=== PATIENT | male | born 1940 | race Caucasian/White ===

== ENCOUNTER 2016-02-28 16:27 | Inpatient (IN) | payer MEDICARE, OTHER ==
[~2016-02-28] VITALS: Ht 170.2 cm; Wt 81.9 kg
[~2016-02-28 16:27] MED LIST: ALBU8I INH; ASPI81 PO; AZIT250T74 PO; BUME1TAB PO; CLOP75 PO; DONE10TA14 PO; EZET10 PO; FERR65TA PO; GLIP5 PO; GLUCTAB PO; HORI600T PO; MOME17I; OMEP20CA5 PO; POTA-267 PO; REST30CA PO; ROSU40 PO; SITA100 PO; SPIRCAP INH; SYNT25TA PO; TAMS0.4C67 PO; VICT18IN INJ; ZOFR4TAB3 PO; ZOLO20CO PO
--- NOTE | 2016-02-28 16:44 | PD ---
HPI Chief Complaint: Respiratory Symptoms Time Seen by Provider: 16:35 Travel History International Travel<30 days: No Contact w/Intl Traveler<30days: No Traveled to known affect area: No History of Present Illness HPI 75-year-old male with history of multiple medical issues, COPD, was admitted at [facility] 3 days ago for bradycardia and was released yesterday , presents to the ER today because his called the ambulance, he has been having ongoing problems with dyspnea on exertion and shortness of breath intermittently. He states that that has not gone away. He denies any fevers or any other issues. Modifying Factors: None Associated Signs & Symptoms: Shortness of breath, dyspnea on exertion Risk Factors: COPD PFSH Past Medical History Autoimmune Disease: No Anxiety: Yes Depression: Yes Cancer: No Cardiac Catheterization: Yes (1996, 1999) High Cholesterol: Yes Chemotherapy: No Congestive Heart Failure: Yes COPD: Yes Dementia: Yes Diabetes: Yes Patient Takes Glucophage: No (januvia, glipizide) Diminished Hearing: No GERD: Yes Hiatal Hernia: Yes Kidney Stones: Yes (IN THE LAST 6 MONTHS ) Neurologic: Yes (HYDROCEPH, HX OF DEMENTIA ) Psychiatric: Yes Reproductive: No Radiation Therapy: No Thyroid Disease: Yes (hypo) Past Surgical History Abdominal Surgery: Yes (STENT PLACEMENT ) Body Medical Devices: STENTS Cardiac Surgery: Yes (STENTS IN HEART) Cholecystectomy: Yes (2015) Coronary Artery Bypass Graft: Yes (2005) Coronary Stent: Yes Eye Surgery: Yes (2015) Neurologic Surgery: Yes (BENIGN BRAIN TUMOR REMOVAL 2010) Oral Surgery: Yes (dental implants 2015) Thoracic Surgery: Yes (TRIPLE BYPASS) Tonsillectomy: Yes Other Surgery: Yes (RIGHT CORROTID 2004) Social History Alcohol Use: No Tobacco Use: No Substance Use: No Allergies-Medications (Allergen,Severity, Reaction): Coded Allergies: Ambien (Verified Allergy, Severe, Hallucinations, 02/28/16) Penicillin (Verified Allergy, Severe, HIVES, 02/28/16) Reported Meds & Prescriptions Reported Meds & Active Scripts Active Reported Januvia (Sitagliptin Phosphate) 100 Mg Tab 100 Mg PO DAILY Breo Ellipta Inh (Fluticasone/Vilanterol) 100-25 Mcg/Act Inh 1 Puff INH DAILY Use daily at the same time. Prozac (Fluoxetine HCl) 10 Mg Cap 30 Mg PO DAILY Pantoprazole (Pantoprazole Sodium) 40 Mg Tab 40 Mg PO DAILY Restoril (Temazepam) 30 Mg Cap 30 Mg PO HS Flomax (Tamsulosin HCl) 0.4 Mg Cap 0.8 Mg PO DAILY Crestor (Rosuvastatin Calcium) 40 Mg Tab 40 Mg PO HS K-Tab (Potassium Chloride) 10 Meq Tab 10 Meq PO DAILY Zofran (Ondansetron HCl) 4 Mg Tab 4 Mg PO DAILY PRN Clonazepam 0.5 Mg Tab 0.5 Mg PO HS Victoza Inj (Liraglutide Inj) 18 Mg/3 Ml Pen 1.8 Mg SQ DAILY Synthroid (Levothyroxine Sodium) 25 Mcg Tab 25 Mcg PO DAILY Glipizide 10 Mg Tab 10 Mg PO BIDAC Take 30 minutes before a meal Horizant ER (Gabapentin ER) 600 Mg Jacques 600 Mg PO HS Ferrous Sulfate 325 Mg Tab 325 Mg PO HS Zetia (Ezetimibe) 10 Mg Tab 10 Mg PO HS Donepezil 10 Mg Tab 10 Mg PO HS Bumex (Bumetanide) 0.5 Mg Tab 0.5 Mg PO DAILY Aspir-Low (Aspirin) 81 Mg Tabdr 81 Mg PO DAILY Ventolin Hfa 18 GM Inh (Albuterol Sulfate) 90 Mcg/Act Aer 2 Puff INH Q6H PRN Review of Systems Except as stated in HPI: all other systems reviewed are Neg Physical Exam Narrative GENERAL: Well-nourished, well-developed elderly white male patient in mild respiratory distress. SKIN: Warm and dry. HEAD: Normocephalic. EYES: No scleral icterus. No injection or drainage. NECK: Supple, trachea midline. CARDIOVASCULAR: Regular rate and rhythm without murmurs, gallops, or rubs. RESPIRATORY: Breath sounds equal with mild wheezing throughout bilaterally. No accessory muscle use. GASTROINTESTINAL: Abdomen soft, non-tender, nondistended. MUSCULOSKELETAL: No cyanosis, or edema. BACK: Nontender without obvious deformity. No CVA tenderness. Data Data Last Documented VS Vital Signs Date Time Temp Pulse Resp B/P Pulse Ox O2 Delivery O2 Flow Rate FiO2 02/28/16 18:45 90 Nasal Cannula 6 02/28/16 16:32 89 20 Orders Electrocardiogram (02/28/16 ) Complete Blood Count With Diff (02/28/16 16:35) Comprehensive Metabolic Panel (02/28/16 16:35) B-Type Natriuretic Peptide (02/28/16 16:35) Act Partial Throm Time (Ptt) (02/28/16 16:35) Prothrombin Time / Inr (Pt) (02/28/16 16:35) Ckmb (Isoenzyme) Profile (02/28/16 16:35) Troponin I (02/28/16 16:35) Arterial Blood Gas (Abg) (02/28/16 16:35) Urinalysis - C+S If Indicated (02/28/16 16:35) Iv Access Insert/Monitor (02/28/16 16:35) Ecg Monitoring (02/28/16 16:35) Oximetry (02/28/16 16:35) Oxygen Administration (02/28/16 16:35) Chest, Single Ap (02/28/16 16:35) Sodium Chloride 0.9% Flush (Ns Flush) (02/28/16 16:45) Methylprednisolone So Succ Inj (Solumedr (02/28/16 16:45) Albuterol-Ipratropium Neb (Duoneb Neb) (02/28/16 16:45) D-Dimer (02/28/16 17:05) Ct Pulmonary Angiogram (02/28/16 18:38) Albuterol-Ipratropium Neb (Duoneb Neb) (02/28/16 18:45) Labs Laboratory Tests Test 02/28/16 02/28/16 16:55 17:12 Blood Gas Puncture Site RT RADIAL Blood Gas Patient Temperature 98.6 Blood Gas HCO3 24 mmol/L Blood Gas Base Excess 0.4 mmol/L Blood Gas Oxygen Saturation 81 % Arterial Blood pH 7.48 Arterial Blood Partial 32 mmHg Pressure CO2 Arterial Blood Partial 44 mmHG Pressure O2 Arterial Blood Oxygen Content 16.5 Vol % Arterial Blood 2.7 % Carboxyhemoglobin Arterial Blood Methemoglobin 1.8 % Blood Gas Hemoglobin 14.6 G/DL Oxygen Delivery Device NASAL CANNULA Blood Gas Liter Flow 4 L/M White Blood Count 5.6 TH/MM3 Red Blood Count 5.18 MIL/MM3 Hemoglobin 14.6 GM/DL Hematocrit 44.1 % Mean Corpuscular Volume 85.2 FL Mean Corpuscular Hemoglobin 28.3 PG Mean Corpuscular Hemoglobin 33.2 % Concent Red Cell Distribution Width 15.9 % Platelet Count 156 TH/MM3 Mean Platelet Volume 8.9 FL Neutrophils (%) (Auto) 86.5 % Lymphocytes (%) (Auto) 6.6 % Monocytes (%) (Auto) 6.5 % Eosinophils (%) (Auto) 0.1 % Basophils (%) (Auto) 0.3 % Neutrophils # (Auto) 4.9 TH/MM3 Lymphocytes # (Auto) 0.4 TH/MM3 Monocytes # (Auto) 0.4 TH/MM3 Eosinophils # (Auto) 0.0 TH/MM3 Basophils # (Auto) 0.0 TH/MM3 CBC Comment DIFF FINAL Differential Comment Prothrombin Time 11.2 SEC Prothromb Time International 1.0 RATIO Ratio Activated Partial 28.9 SEC Thromboplast Time D-Dimer Quantitative (PE/DVT) 1.07 MG/L FEU Sodium Level 142 MEQ/L Potassium Level 4.2 MEQ/L Chloride Level 107 MEQ/L Carbon Dioxide Level 26.2 MEQ/L Anion Gap 9 MEQ/L Blood Urea Nitrogen 15 MG/DL Creatinine 1.16 MG/DL Estimat Glomerular Filtration 61 ML/MIN Rate Random Glucose 76 MG/DL Calcium Level 8.9 MG/DL Total Bilirubin 0.8 MG/DL Aspartate Amino Transf 21 U/L (AST/SGOT) Alanine Aminotransferase 25 U/L (ALT/SGPT) Alkaline Phosphatase 105 U/L Total Creatine Kinase 99 U/L Troponin I 0.11 NG/ML Total Protein 7.1 GM/DL Albumin 3.3 GM/DL [facility] Medical Decision Making Medical Screen Exam Complete: Yes Emergency Medical Condition: Yes Medical Record Reviewed: Yes Interpretation(s) Laboratory Tests Test 02/28/16 02/28/16 16:55 17:12 Blood Gas Oxygen Saturation 81 % (90-100) Arterial Blood pH 7.48 (7.380-7.420) Arterial Blood Partial 32 mmHg (38-42) Pressure CO2 Arterial Blood Partial 44 mmHG Pressure O2 (61-120) Neutrophils (%) (Auto) 86.5 % (16.0-70.0) Lymphocytes (%) (Auto) 6.6 % (9.0-44.0) Lymphocytes # (Auto) 0.4 TH/MM3 (1.0-4.8) D-Dimer Quantitative (PE/DVT) 1.07 MG/L FEU (0.00-0.50) Estimat Glomerular Filtration 61 ML/MIN (>89) Rate Troponin I 0.11 NG/ML (0.02-0.05) Albumin 3.3 GM/DL (3.4-5.0) Last 24 hours Impressions Chest X-Ray 02/28/16 1635 Signed Impressions: Service Date/Time: Sunday, February 28, 2016 16:48 - CONCLUSION: Pulmonary vascular congestion with probable small right pleural effusion Josh Daily MD Differential Diagnosis Dyspnea on exertionCOPD exacerbation versus pneumonia versus CHF Narrative Course Patient is wheezing and Solu-Medrol and DuoNeb's were initiated in the ER. Initial chest x-ray did not show any signs of acute pulmonary processes. His lab work shows an elevated d-dimer and a CTA was ordered to rule out PE especially considering his ongoing hypoxia and recent admission. EKG did not show any signs of acute ST-T elevations. His troponin is mildly elevated. At this point, patient will need to be admitted for further evaluation and treatment. Physician Communication Physician Communication Case is signed out to Dr. Merritt at 7 PM pending CTA. Awaiting CTA for admission. Diagnosis Primary Impression: SHORTNESS OF BREATH Admitting Information Admitting Physician Requests: Admit Tiffany Carlos MD Feb 28, 2016 16:44
[2016-02-28] MEDS ORDERED: methylPREDNISolone SOD SUCC 125 MG/2 ML VIAL IVP ONE (16:45)
[2016-02-28] MEDS ORDERED: SODIUM CHLORIDE 0.9% FLUSH 5 ML FLUSH IVF PRN (16:45)
[2016-02-28] MEDS: RESP: ALBUTEROL 2.5 MG/IPRATROPIUM 0.5 MG NEB (SCH) INH ×2 (16:53→20:07)
--- NOTE | 2016-02-28 16:57 | RADRPT ---
EXAM DATE/TIME: 02/28/2016 16:48 [facility] COMPARISON: CHEST SINGLE AP, April 02, 2013, 14:39. INDICATIONS : Short of breath. MEDICAL HISTORY : None. SURGICAL HISTORY : None. ENCOUNTER: Initial ACUITY: 1 day PAIN SCORE: 0/10 LOCATION: Bilateral chest FINDINGS: Again noted evidence of prior median sternotomy with apparent pulmonary vascular congestion. Bibasila r densities are appreciated primarily interstitial without consolidation with on the right the possib ility of a portion of this representing effusion. CONCLUSION: Pulmonary vascular congestion with probable small right pleural effusion Josh Daily MD on February 28, 2016 at 16:54 Board Certified Radiologist. This report was verified electronically.
[2016-02-28 17:01] LABS: BLOOD GAS BASE EXCESS 0.4 mmol/L (-2-2); BLOOD GAS CARBOXYHEMOGLOBIN 2.7 % (0-4); BLOOD GAS HCO3 24 mmol/L (22-26); BLOOD GAS METHEMOGLOBIN 1.8 % (0-2); BLOOD GAS O2 HGB SATURATION 81 % (90-100); BLOOD GAS OXYGEN CONTENT 16.5 Vol % (12.0-20.0); BLOOD GAS PCO2 32 mmHg (38-42); BLOOD GAS PO2 44 mmHG (61-120); BLOOD GAS TOTAL HGB 14.6 G/DL (12.0-16.0); CRITICAL VALUE YES; DRAW SITE RT RADIAL; LITER FLOW 4 L/M; OXYGEN DEVICE NASAL CANNULA; TEMP CORR TO 98.6
[2016-02-28 17:02] LABS: NUMBER OF ARTERIAL PUNCTURES 1; STAT YES; ULNAR PULSE PRESENT
[2016-02-28 17:59] LABS: AUTOMATED NEUTROPHIL # 4.9 TH/MM3 (1.8-7.7); BASOPHIL % 0.3 % (0.0-2.0); EOSINOPHIL % 0.1 % (0.0-4.0); HEMATOCRIT 44.1 % (39.0-51.0); HEMO FLAGS DIFF FINAL; LYMPH % 6.6 % (9.0-44.0); LYMPHOCYTE # 0.4 TH/MM3 (1.0-4.8); MEAN CELL VOLUME 85.2 FL (80.0-100.0); MEAN CORPUSCULAR HEMOGLOBIN 28.3 PG (27.0-34.0); MEAN CORPUSCULAR HGB CONC 33.2 % (32.0-36.0); MONO % 6.5 % (0.0-8.0); NEUT % 86.5 % (16.0-70.0); PLATELET COUNT 156 TH/MM3 (150-450); RED BLOOD COUNT 5.18 MIL/MM3 (4.50-5.90); RED CELL DISTRIBUTION WIDTH 15.9 % (11.6-17.2); WHITE BLOOD COUNT 5.6 TH/MM3 (4.0-11.0)
[2016-02-28 18:12] LABS: APTT (PATIENT) 28.9 SEC (24.3-30.1); PROTHROMBIN TIME - PATIENT 11.2 SEC (9.8-11.6)
[2016-02-28 18:30] LABS: ALKALINE PHOSPHATASE 105 U/L (45-117); ALT (GPT) 25 U/L (12-78); ANION GAP 9 MEQ/L (5-15); AST (GOT) 21 U/L (15-37); BICARBONATE 26.2 MEQ/L (21.0-32.0); BLOOD UREA NITROGEN 15 MG/DL (7-18); CHLORIDE 107 MEQ/L (98-107); CREATINE KINASE 99 U/L (39-308); GLOMERULAR FILTRATION RATE 61 ML/MIN (>89); POTASSIUM 4.2 MEQ/L (3.5-5.1); SODIUM (NA) 142 MEQ/L (136-145); TOTAL BILIRUBIN ADULT 0.8 MG/DL (0.2-1.0)
[2016-02-28 18:45] VITALS: O2SAT 90
[2016-02-28] MEDS ORDERED: REST30CA PO (18:45)
[2016-02-28] MEDS ORDERED: HORI600T PO (18:45)
[2016-02-28] MEDS ORDERED: ASPI81TA19 PO (18:45)
[2016-02-28] MEDS ORDERED: CLON0.5T PO (18:45)
[2016-02-28] MEDS ORDERED: FLUO-1 PO (18:45)
[2016-02-28] MEDS ORDERED: DONE10TA7 PO (18:45)
[2016-02-28] MEDS ORDERED: FERR325T PO (18:45)
[2016-02-28] MEDS ORDERED: GLIP10TA6 PO (18:45)
[2016-02-28] MEDS ORDERED: ROSU40 PO (18:45)
[2016-02-28] MEDS ORDERED: VICT18IN SQ (18:45)
[2016-02-28] MEDS ORDERED: BUME1TAB25 PO (18:45)
[2016-02-28] MEDS ORDERED: K-TA10TA PO (18:45)
[2016-02-28] MEDS ORDERED: PANT40TA3 PO (18:45)
[2016-02-28] MEDS ORDERED: ZETI10TA5 PO (18:45)
[2016-02-28] MEDS ORDERED: FLUT1INH INH (18:45)
[2016-02-28] MEDS ORDERED: VENTAER INH (18:45)
[2016-02-28] MEDS ORDERED: TAMS5CAP PO (18:45)
[2016-02-28] MEDS ORDERED: SYNT25TA PO (18:45)
[2016-02-28] MEDS ORDERED: ZOFR4TAB PO (18:45)
[2016-02-28] MEDS ORDERED: SITA1TAB2 PO (18:47)
--- NOTE | 2016-02-28 19:46 | PD ---
Physical Exam Narrative General: The patient is a well-developed well-nourished male, in no acute distress, however he is currently on 5 L nasal cannula O2 with O2 saturations between 88 and 90%. He is on home O2 when necessary at 2 L. Head and Neck exam: Head is normocephalic atraumatic. Eyes: P are equal round and reactive to light. Nose: Midline septum with pink mucous membranes Mouth: Dentition unremarkable. Moist mucus membranes. Posterior oropharynx is not erythematous. No tonsillar hypertrophy. Uvula midline. Airway patent. Neck: No palpable lymphadenopathy. No nuchal rigidity. No thyromegaly. Cardiovascular: Regular rate and rhythm without murmurs, gallops, or rubs. No pulse deficit to the extremities and simultaneous auscultation and palpation of his radial artery. Lungs: Soffit soft expiratory wheezes audible throughout bilateral lung dumas, no accessory muscle use, no paroxysmal abdominal breathing. The patient has scattered crackles audible in the lower lung bases bilaterally. Abdomen: Soft, without tenderness to palpation in all 4 quadrants of the abdomen. No guarding, rebound, or rigidity. Normal bowel sounds are audible Extremities: No clubbing, cyanosis, or edema. 2+ pulses in all 4 extremities. No calf tenderness on palpation Back: No spinous process tenderness to palpation. No costovertebral angle tenderness to palpation. Neurologic Exam: Grossly nonfocal. Skin Exam: No rash noted. Intact skin that is warm and dry. Data Data Last Documented VS Vital Signs Date Time Temp Pulse Resp B/P Pulse Ox O2 Delivery O2 Flow Rate FiO2 02/28/16 18:45 90 Nasal Cannula 6 02/28/16 16:32 89 20 Orders Electrocardiogram (02/28/16 ) Complete Blood Count With Diff (02/28/16 16:35) Comprehensive Metabolic Panel (02/28/16 16:35) B-Type Natriuretic Peptide (02/28/16 16:35) Act Partial Throm Time (Ptt) (02/28/16 16:35) Prothrombin Time / Inr (Pt) (02/28/16 16:35) Ckmb (Isoenzyme) Profile (02/28/16 16:35) Troponin I (02/28/16 16:35) Arterial Blood Gas (Abg) (02/28/16 16:35) Urinalysis - C+S If Indicated (02/28/16 16:35) Iv Access Insert/Monitor (02/28/16 16:35) Ecg Monitoring (02/28/16 16:35) Oximetry (02/28/16 16:35) Oxygen Administration (02/28/16 16:35) Chest, Single Ap (02/28/16 16:35) Sodium Chloride 0.9% Flush (Ns Flush) (02/28/16 16:45) Methylprednisolone So Succ Inj (Solumedr (02/28/16 16:45) Albuterol-Ipratropium Neb (Duoneb Neb) (02/28/16 16:45) D-Dimer (02/28/16 17:05) Ct Pulmonary Angiogram (02/28/16 18:38) Albuterol-Ipratropium Neb (Duoneb Neb) (02/28/16 18:45) Furosemide Inj (Lasix Inj) (02/28/16 20:00) Albuterol-Ipratropium Neb (Duoneb Neb) (02/28/16 20:00) Iohexol 350 Inj (Omnipaque 350 Inj) (02/28/16 20:12) Admit Order (Ed Use Only) (02/28/16 21:15) Labs Laboratory Tests Test 02/28/16 02/28/16 16:55 17:12 Blood Gas Puncture Site RT RADIAL Blood Gas Patient Temperature 98.6 Blood Gas HCO3 24 mmol/L Blood Gas Base Excess 0.4 mmol/L Blood Gas Oxygen Saturation 81 % Arterial Blood pH 7.48 Arterial Blood Partial 32 mmHg Pressure CO2 Arterial Blood Partial 44 mmHG Pressure O2 Arterial Blood Oxygen Content 16.5 Vol % Arterial Blood 2.7 % Carboxyhemoglobin Arterial Blood Methemoglobin 1.8 % Blood Gas Hemoglobin 14.6 G/DL Oxygen Delivery Device NASAL CANNULA Blood Gas Liter Flow 4 L/M White Blood Count 5.6 TH/MM3 Red Blood Count 5.18 MIL/MM3 Hemoglobin 14.6 GM/DL Hematocrit 44.1 % Mean Corpuscular Volume 85.2 FL Mean Corpuscular Hemoglobin 28.3 PG Mean Corpuscular Hemoglobin 33.2 % Concent Red Cell Distribution Width 15.9 % Platelet Count 156 TH/MM3 Mean Platelet Volume 8.9 FL Neutrophils (%) (Auto) 86.5 % Lymphocytes (%) (Auto) 6.6 % Monocytes (%) (Auto) 6.5 % Eosinophils (%) (Auto) 0.1 % Basophils (%) (Auto) 0.3 % Neutrophils # (Auto) 4.9 TH/MM3 Lymphocytes # (Auto) 0.4 TH/MM3 Monocytes # (Auto) 0.4 TH/MM3 Eosinophils # (Auto) 0.0 TH/MM3 Basophils # (Auto) 0.0 TH/MM3 CBC Comment DIFF FINAL Differential Comment Prothrombin Time 11.2 SEC Prothromb Time International 1.0 RATIO Ratio Activated Partial 28.9 SEC Thromboplast Time D-Dimer Quantitative (PE/DVT) 1.07 MG/L FEU Sodium Level 142 MEQ/L Potassium Level 4.2 MEQ/L Chloride Level 107 MEQ/L Carbon Dioxide Level 26.2 MEQ/L Anion Gap 9 MEQ/L Blood Urea Nitrogen 15 MG/DL Creatinine 1.16 MG/DL Estimat Glomerular Filtration 61 ML/MIN Rate Random Glucose 76 MG/DL Calcium Level 8.9 MG/DL Total Bilirubin 0.8 MG/DL Aspartate Amino Transf 21 U/L (AST/SGOT) Alanine Aminotransferase 25 U/L (ALT/SGPT) Alkaline Phosphatase 105 U/L Total Creatine Kinase 99 U/L Troponin I 0.11 NG/ML B-Type Natriuretic Peptide 853 PG/ML Total Protein 7.1 GM/DL Albumin 3.3 GM/DL [facility] Medical Record Reviewed: Yes Supervised Visit with ALEX: No Interpretation(s) Last Impressions Chest X-Ray 02/28/16 6109 Signed Impressions: Service Date/Time: Sunday, February 28, 2016 16:48 - CONCLUSION: Pulmonary vascular congestion with probable small right pleural effusion Josh Daily MD Differential Diagnosis Congestive heart failure exacerbation related to fluid overload from recent hypotension and admission at the hospital with fluid hydration, versus COPD exacerbation, versus pulmonary embolus, versus pneumonia Narrative Course During the course of the patients emergency department visit, the patients history, examination, and differential diagnosis were reviewed with the patient. The patient had IV access obtained and blood work sent for analysis. The patient's was on a cadastral engineer with oximetry and blood pressure monitoring. The patient was initially evaluated by Dr. Rios. Please see her complete history and physical. The patient reports to me on change of shift that he was discharged from the hospital earlier today. He was discharged from the hospital after an admission for hypotension and placement on Levaquin. He was hydrated with multiple liters of IV fluids according to his at the bedside. She was concerned that he may go into congestive heart failure as he does have a history of coronary artery disease and congestive heart failure as well as COPD. She reports that this morning prior to discharge she mentioned to them that he was short of breath, however they attributed this to anxiety and discharged him anyway. The patient reports that he did complete his course of antibiotic. When she transported him home on his usual 2 L when necessary nasal cannula he desatted on their monitor down to in the 70s. She then decided to bring him in to our hospital for evaluation and treatment. The patient was provided by Dr. Rios prior to my assessment, Solu-Medrol 125 mg IV, DuoNeb 2. Based on the chest x-ray the patient will also be given Lasix 40 mg IV. The patients laboratory studies were reviewed and remarkable for a white count of 5.6, hemoglobin 14.6, platelets 156 with neutrophils 86.5, lymphocytes 6.6, CMP is remarkable for GFR 61, CPK 99, troponin I 0.11 likely related to demand and hypoxia this will be repeated. BNP is 853, albumin 3.3, d-dimer is 1.07, PT PTT unremarkable. A CTA to rule out PE has been ordered. Radiology studies were reviewed and remarkable for pulmonary edema with a small pleural effusion, consistent with a congestive heart failure exacerbation. CTA to rule out PE was negative for pulmonary embolism. Moderate emphysema is noted, dependent atelectasis in both lungs, moderate effusion, moderate coronary artery calcifications, mild ascites. The patient will be admitted to the hospital for continued evaluation and treatment due to hypoxia on supplemental oxygen. The patients results were discussed with the patient, including the plan of care. I explained that further testing and/ or monitoring is indicated based on the patients history, examination, and/ or laboratory findings. Therefore, I recommended admission for additional evaluation. The patient expressed understanding and was agreeable with this plan. The patient was admitted to the hospital in stable condition and sent to a bed under the care of the [facility] hospitalist group. Physician Communication Physician Communication The patient's case was discussed with Perez Donis who did agree to admit the patient to the [facility] hospitalist group. Diagnosis Primary Impression: SHORTNESS OF BREATH Additional Impressions: Acute exacerbation of congestive heart failure Qualified Code: I50.9 - Acute on chronic congestive heart failure, unspecified congestive heart failure type Hypoxemia Admitting Information Admitting Physician Requests: Admit Aditi Merritt MD Feb 28, 2016 19:45
[2016-02-28] MEDS ORDERED: RESP: ALBUTEROL 2.5 MG/IPRATROPIUM 0.5 MG NEB (SCH) NEB ONE (20:00)
[2016-02-28] MEDS ORDERED: FUROSEMIDE 40 MG/4 ML VIAL IV PUSH ONE (20:00)
[2016-02-28] MEDS ORDERED: IOHEXOL 350 MG/ML 10 ML VIAL (for RAD DIAG) IV ONE (20:12)
--- NOTE | 2016-02-28 20:55 | RADRPT ---
EXAM DATE/TIME: 02/28/2016 19:46 [facility] COMPARISON: No previous studies available for comparison. INDICATIONS : Shortness of breath with cough. IV CONTRAST: 70 cc Omnipaque 350 (iohexol) IV RADIATION DOSE: 14.90 CTDIvol (mGy) MEDICAL HISTORY : Cardiovascular disease. Hypertension. Chronic obstructive pulmonary disease. SURGICAL HISTORY : CABG ENCOUNTER: Initial ACUITY: 3 days PAIN SCALE: 0/10 LOCATION: Bilateral chest TECHNIQUE: Volumetric scanning of the chest was performed using a pulmonary embolism protocol MIP images were re constructed. Using automated exposure control and adjustment of the mA and/or kV according to patien t size, radiation dose was kept as low as reasonably achievable to obtain optimal diagnostic quality images. FINDINGS: No filling defects identified to suggest embolic disease. Small to moderate bilateral pleural effusio ns. Dependent atelectasis in both lungs. Moderate centrilobular emphysema. Mild esophageal dilatation. Moderate coronary calcifications. Upper abdomen reveals mild ascites. CONCLUSION: 1. Negative for pulmonary embolus. 2. Moderate emphysema. Dependent atelectasis in both lungs. Moderate effusions. 3. Moderate coronary artery calcifications. 4. Mild ascites. Art Moss MD on February 28, 2016 at 20:50 Board Certified Radiologist. This report was verified electronically.
[2016-02-28 21:35] VITALS: BP 108/53; PULSE 90; RESP 20; O2SAT 90
[2016-02-28] MEDS ORDERED: BISACODYL 10 MG SUPP PR PRN (21:45)
[2016-02-28] MEDS ORDERED: SODIUM CHLORIDE 0.9% FLUSH 5 ML FLUSH FLUSH PRN (21:45)
[2016-02-28] MEDS ORDERED: GLUCAGON 1 MG/ML VIAL OTHER PRN (21:45)
[2016-02-28] MEDS ORDERED: NALOXONE HCL 0.4 MG/ML AMP IV PRN (21:45)
[2016-02-28] MEDS ORDERED: ONDANSETRON HCL 4 MG/2 ML VIAL IVP PRN (21:45)
[2016-02-28] MEDS ORDERED: DEXTROSE 50% IN WATER 50 ML VIAL(D50) IV PUSH PRN (21:45)
[2016-02-28] MEDS ORDERED: SENNOSIDES 8.6 MG TAB PO PRN (21:45)
[2016-02-28] MEDS ORDERED: ACETAMINOPHEN 325 MG TAB PO PRN (21:45)
[2016-02-28 22:17] LABS: BLOOD, URINE NEG (NEG); COMMENT (UR) CULT NOT INDICATED; CULTURE IF INDICATED CULT NOT INDICATED; GLUCOSE,URINE 70 mg/dL (NEG); HYALINE CAST, URINE 3 /lpf (RARE); KETONE, URINE 10 mg/dL (NEG); MUCUS URINE FEW /lpf (OCC); NITRITE,URINE NEG (NEG); SQUAMOUS EPITHELIAL CELL URINE <1 /hpf (0-5); URINE COLOR YELLOW (YELLW/STRAW)
[2016-02-28] MEDS: ENOXAPARIN SODIUM 40 MG/0.4 ML SYRINGE SQ SCH (22:26)
[2016-02-28] MEDS: GABAPENTIN 300 MG CAP PO SCH (22:26)
[2016-02-28] MEDS: ASPIRIN EC 325 MG TABEC PO SCH (22:26)
[2016-02-28] MEDS: LEVOFLOXACIN 500 MG PREMIX INJ 100 ML IV SCH (22:27)
[2016-02-28 22:31] VITALS: BP 103/55; PULSE 81; RESP 18; O2SAT 89
[2016-02-28] MEDS ORDERED: RESP: ALBUTEROL 2.5 MG/IPRATROPIUM 0.5 MG NEB (PRN) NEB (23:30)
[2016-02-29] VITALS (12 sets, daily range): BP systolic 97–167; BP diastolic 56–81; PULSE 56–82; RESP 18–20; TEMP 97.4–98.1; O2SAT 92–98
[2016-02-29] MEDS: methylPREDNISolone SOD SUCC 40 MG/1 ML VIAL IV PUSH SCH ×3 (01:36→20:24)
[2016-02-29 04:48] LABS: MAGNESIUM 2.1 MG/DL (1.5-2.5); POTASSIUM 3.5 MEQ/L (3.5-5.1)
[2016-02-29] MEDS: INSULIN ASPART SUPPLEMENTAL SCALE SQ SCH ×4 (07:40→20:27)
[2016-02-29] MEDS: SODIUM CHLORIDE 0.9% FLUSH 5 ML FLUSH FLUSH SCH ×2 (07:42→20:24)
[2016-02-29] MEDS: ASPIRIN EC 325 MG TABEC PO SCH (07:42)
[2016-02-29] MEDS ORDERED: FUROSEMIDE 40 MG/4 ML VIAL IV PUSH SCH (09:00)
--- NOTE | 2016-02-29 09:13 | MH ---
cc: JABARI FORTUNE MD DATE OF ADMISSION: 02/28/[address] Riya Huber. CHIEF COMPLAINT Shortness of breath. PRESENT ILLNESS This is a pleasant 75-year-old male who was admitted to [facility] on 02/25/2016. He initially came to the hospital feeling lightheaded, weak and he was found to be hypotensive. He received 3 liters of IV fluid. He was started on antibiotics and IV steroids. He was also having chills. He recently was started on Lyrica and was having some bad dreams and was getting a little more confused, so he had been taken off of that prior to that hospitalization. During his hospitalization, antibiotics were continued but the infection was ruled out per the and he was released earlier today on the February,. His stepped outside for a few minutes to take the dog out and when she came back he was very short of breath. She has a home pulse oximeter and she saw his pulse oximetry drop down into the high seventies and because of this she became concerned and called EVAC and had him brought to [facility]. He was seen by Dr. Merritt at [place] and was found to have congestive heart failure. CT of the chest per PE protocol was negative but he does have pleural effusions and fluid overload and was started on Lasix and oxygen and is being admitted for further care. MEDICATIONS ON ADMISSION Please see the chart. ALLERGIES AMBIEN. PENICILLIN. PAST MEDICAL HISTORY Significant for - 1. Coronary artery disease. 2. Hyperlipidemia. 3. Hiatal hernia. 4. Hypertension. 5. Peripheral vascular disease. 6. Vertigo. 7. Chronic back pain. 8. Orthostatic hypotension. 9. Diabetes mellitus type 2. 10. Degenerative disc disease. 11. COPD with p.r.n. oxygen use and h.s. oxygen use. 12. CVA. 13. Tinnitus. 14. Right frontal meningioma. 15. Syncope. 16. Neuropathy. 17. RLS. 18. Early dementia. 19. Congestive heart failure. PAST SURGICAL HISTORY 1. Angioplasty of the heart. 2. Cardiac catheterizations with stents x 2. 3. Fem-pop bypass with stents placed in bilateral iliac arteries. 4. Carotid endarterectomy. 5. Five-vessel CABG. 6. Meningioma of the brain status post resection in 2010. 7. [employer] shunt for hydrocephalus. 8. Cataract surgery. 9. Cholecystectomy (the patient is also being monitored at [place] for recurrent meningiomas). SOCIAL HISTORY . Had a 120 pack-year history of smoking. Quit smoking 15 years ago. Used to drink alcohol but stopped. FAMILY HISTORY Liver cancer, emphysema and alcoholism run in the family. REVIEW OF SYSTEMS Gone over with the patient and his . He does have neuropathy from his diabetes. He had been started on Lyrica recently but this was discontinued and he was placed back onto Neurontin. His blood sugars have been stable at home. He has a personal care worker. His states that he was exercising with 10-pound weight dumbbells and pressing 60+ pounds and he had been doing very well and she denied any other specific changes in his overall health. On a 12-point review of systems, the patient himself has had no recent chest pain. He was exercising as mentioned above without any shortness of breath or chest pain. His weight had been stable. He feels like he was a little more swollen today after being released from the hospital. Otherwise negative for pertinent findings. PHYSICAL EXAMINATION VITAL SIGNS: The patient's last pulse was 81, respirations 18, blood pressure 103/55. O2 sat was 89% on 5 liters. GENERAL: This is a 75-year-old male resting in bed. He does not appear to be in distress at this time. HEENT: Mucous membranes are moist. There is no jaundice. NECK: Supple. CARDIOVASCULAR SYSTEM: Regular rate and rhythm. RESPIRATORY SYSTEM: Scattered wheezes in the upper lung dumas. Breath sounds are distant in the lower lung dumas with a few crackles. GASTROINTESTINAL SYSTEM: Bowel sounds are present. Mild left mid-abdominal tenderness but no guarding, rebound or distention. SYSTEM: No suprapubic tenderness. No CVA tenderness. MUSCULOSKELETAL SYSTEM: No edema. Chad's is negative. NEUROLOGICAL EXAMINATION: The patient is awake, alert and generally oriented. His speech is clear. He is edentulous. Strength appears symmetrical in the upper and lower extremities. Gait and station is not tested. INVESTIGATIONS CBC is normal. ABG shows a pH of 7.48, a pCO2 of 32, a PO2 of 44% and O2 sat was 81% on 4 liters nasal cannula. INR was 1. D-dimer was 1.07. Urinalysis shows protein 30+, glucose 70, ketones 10. Holter is not indicated. BNP of 853. Troponin of 0.11. BMP otherwise essentially normal. GFR was at 61. Creatinine was 1.16 and albumin was 3.3. Chest x-ray shows pulmonary vascular congestion with probable small right effusion. CT angiography of the chest shows negative PE, moderate emphysema, dependent atelectasis both lungs, moderate effusions, moderate coronary artery calcification, mild ascites. EKG Sinus rhythm, possible left atrial enlargement. IMPRESSION 1. Acute congestive heart failure. 2. Chronic obstructive pulmonary disease exacerbation. 3. Hypoxia. 4. Elevated troponin. 5. Chronic kidney disease. 6. Diabetes mellitus. 7. History of coronary artery disease status post stents and bypass. 8. Hypertension. 9. Hyperlipidemia. 10. History of peripheral vascular disease. 11. Multiple other medical problems including RLS, neuropathy, meningiomas, CVAs, degenerative disc disease of the back, hiatal hernia. DISCUSSION The patient is admitted to Dr. Fortune's service. The patient meets inpatient criteria due to the severity of his hypoxia without which hospitalization he would be at a high risk for developing respiratory failure or . During his hospital stay, we will titrate his oxygen. We will run serial troponins. He is coughing up thick yellow mucus as well. We will check a sputum culture. We will continue IV antibiotics. We will continue diuresing him while monitoring him on telemetry or on serial troponins. We will check an echocardiogram. We will consult his principal data architect, Dr. He Merritt. We will place him on a low-dose IV steroid, we will also use nebulizers. We will resume his home medication as indicated and we will make further recommendations as his case progresses. Anticipated length of stay is 3-4 days. Anticipated discharge is to home with his family. Dictated by: Andres Donis PA-C MD GARRISON Bowles/SUSAN /11:19 PM /8:41 AM PT is seen & Examined d/w PT d/w Perez see Orders see H&P will f/u Jabari Fortune MD Feb 29, 2016 10:20 MTDD
--- NOTE | 2016-02-29 10:20 | HHI.PR ---
Objective Objective Results - Vital Signs Date Time Temp Pulse Resp B/P Pulse Ox O2 Delivery O2 Flow Rate FiO2 02/29/16 07:48 18 98 Nasal Cannula 5 02/29/16 07:46 63 18 153/74 97 Nasal Cannula 5 02/29/16 03:15 72 18 116/56 92 Nasal Cannula 5 02/29/16 00:00 72 18 97/75 93 Nasal Cannula 5 02/28/16 22:31 81 18 103/55 89 Nasal Cannula 5 02/28/16 21:35 90 20 108/53 90 Nasal Cannula 5 02/28/16 18:45 90 Nasal Cannula 6 02/28/16 18:45 90 Nasal Cannula 6 02/28/16 16:32 89 20 75 Room Air I/O 02/28/16 02/28/16 02/28/16 02/29/16 02/29/16 02/29/16 07:00 15:00 23:00 07:00 15:00 23:00 Intake Total 120 ml Output Total 1100 ml Balance -1100 ml 120 ml Intake Oral 120 ml Output Urine Total 1100 ml # Voids 1 # Bowel Movements 1 Result Diagram: 02/28/16 1712 02/29/16 0352 Other Results Laboratory Tests Test 02/28/16 02/28/16 02/28/16 02/28/16 16:55 17:12 21:35 23:00 Blood Gas Puncture Site RT RADIAL Blood Gas Patient Temperature 98.6 Blood Gas HCO3 24 Blood Gas Base Excess 0.4 Blood Gas Oxygen Saturation 81 Arterial Blood pH 7.48 Arterial Blood Partial 32 Pressure CO2 Arterial Blood Partial 44 Pressure O2 Arterial Blood Oxygen Content 16.5 Arterial Blood 2.7 Carboxyhemoglobin Arterial Blood Methemoglobin 1.8 Blood Gas Hemoglobin 14.6 Oxygen Delivery Device NASAL CANNULA Blood Gas Liter Flow 4 White Blood Count 5.6 Red Blood Count 5.18 Hemoglobin 14.6 Hematocrit 44.1 Mean Corpuscular Volume 85.2 Mean Corpuscular Hemoglobin 28.3 Mean Corpuscular Hemoglobin 33.2 Concent Red Cell Distribution Width 15.9 Platelet Count 156 Mean Platelet Volume 8.9 Neutrophils (%) (Auto) 86.5 Lymphocytes (%) (Auto) 6.6 Monocytes (%) (Auto) 6.5 Eosinophils (%) (Auto) 0.1 Basophils (%) (Auto) 0.3 Neutrophils # (Auto) 4.9 Lymphocytes # (Auto) 0.4 Monocytes # (Auto) 0.4 Eosinophils # (Auto) 0.0 Basophils # (Auto) 0.0 CBC Comment DIFF FINAL Differential Comment Prothrombin Time 11.2 Prothromb Time International 1.0 Ratio Activated Partial 28.9 Thromboplast Time D-Dimer Quantitative (PE/DVT) 1.07 Sodium Level 142 Potassium Level 4.2 Chloride Level 107 Carbon Dioxide Level 26.2 Anion Gap 9 Blood Urea Nitrogen 15 Creatinine 1.16 Estimat Glomerular Filtration 61 Rate Random Glucose 76 Calcium Level 8.9 Total Bilirubin 0.8 Aspartate Amino Transf 21 (AST/SGOT) Alanine Aminotransferase 25 (ALT/SGPT) Alkaline Phosphatase 105 Total Creatine Kinase 99 Troponin I 0.11 0.08 B-Type Natriuretic Peptide 853 Total Protein 7.1 Albumin 3.3 Urine Color YELLOW Urine Turbidity CLEAR Urine pH 6.0 Urine Specific [place] 1.024 Urine Protein 30 Urine Glucose (UA) 70 Urine Ketones 10 Urine Occult Blood NEG Urine Nitrite NEG Urine Bilirubin NEG Urine Urobilinogen LESS THAN 2.0 Urine Leukocyte Esterase NEG Urine RBC 1 Urine WBC 1 Urine Squamous Epithelial <1 Cells Urine Hyaline Casts 3 Urine Mucus FEW Microscopic Urinalysis Comment CULT NOT INDICATED Test 02/29/16 03:52 Sodium Level 141 Potassium Level 3.5 Chloride Level 104 Carbon Dioxide Level 27.0 Anion Gap 10 Blood Urea Nitrogen 20 Creatinine 1.41 Estimat Glomerular Filtration 49 Rate Random Glucose 375 Calcium Level 8.7 Magnesium Level 2.1 Troponin I 0.05 Procalcitonin 0.08 Physical Exam Physical Exam PT is seen & Examined d/w PT d/w Perez see Orders see H&P will f/u Hoa Fortune MD Feb 29, 2016 10:20
[2016-02-29] MEDS: POTASSIUM CHLORIDE 20 MEQ CONTROLLED RELEASE TAB PO SCH ×2 (10:32→20:23)
--- NOTE | 2016-02-29 12:31 | MB ---
cc: CATHY FELIZ MD DATE OF CONSULTATION 02/29/2016 REASON FOR CONSULTATION CHF. HISTORY OF PRESENT ILLNESS Mr. Case is a pleasant 75-year-old patient of my partner Dr. Merritt. He does have a history of a CABG in 2005 with a MARKS to LAD, SVG to the PDA, PL and OM1, as well as a history of hypertension, hyperlipidemia, diabetes and CHF. He as well has had some difficulties with orthostatic hypotension. He is a poor historian and I spoke extensively with his by phone. She indicates that the patient has had his Bumex decreased over the last month to 0.5 mg a day. Despite this, he presented to [facility] with dizziness and weakness. This was felt to be secondary to hypovolemia. The patient was hydrated and subsequently discharged. Per the , within several hours of being at home he was placed on his oxygen at 4 liters/minute that is typically only utilized p.r.n. Despite this and her best efforts, the patient had saturations in the 80s and low 90s. Thus she subsequently brought him back to the emergency room. The patient this morning reports that he is doing well on the oxygen and is anxious to go home. He specifically denies any chest pain. ALLERGIES AMBIEN. PENICILLIN. OUTPATIENT MEDICATIONS 1. Ondansetron 4 mg a day. 2. Breo Ellipta. 3. Flomax 0.8 mg per day. 4. Gabbapentin. 5. Prozac. 6. Clonazepam. 7. Temazepam. 8. Albuterol. 9. Zetia. 10. Januvia. 11. Crestor 40 mg q.h.s. 12. Victoza. 13. Iron. 14. Bumex 0.5 mg a day. 15. Aspirin. 16. Donepezil. 17. Protonix. 18. Potassium 10 mEq a day. 19. Glipizide. 20. Levothyroxine. PAST MEDICAL HISTORY Significant for - 1. Hypertension. 2. Hyperlipidemia. 3. CAD with prior CABG. 4. CHF. 5. Bradycardia. 6. Carotid artery stenosis. 7. Peripheral vascular disease. 8. Severe COPD. 9. Mitral regurgitation. 10. Dementia. 11. Encephalopathy with reported with brain tumor/meningioma. 12. Hypothyroidism. 13. Pneumonia. 14. GERD. SOCIAL HISTORY The patient is . He does not smoke. FAMILY HISTORY Noncontributory. REVIEW OF SYSTEMS Except as mentioned in HPI, all 12 systems are negative. PHYSICAL EXAMINATION VITAL SIGNS: 63, 18, 153/74. IN GENERAL: He is a well-appearing man who is in no apparent distress. NECK: Free from JVD. LUNGS: Decreased and clear to auscultation. CARDIOVASCULAR EXAMINATION: He has a normal S1 and S2. There are no rubs or gallops. There is a 2/6 systolic murmur. ABDOMEN: Soft. EXTREMITIES: Free from edema. IMAGING STUDIES CT angiogram is negative for PE. There is moderate emphysema and dependent atelectasis. There are moderate effusions noted. LABORATORY VALUES Significant for creatinine of 1.41. His initial troponin was 0.11/0.08/0.05. His BNP is 853. IMPRESSION CHF - The patient does likely have acute on chronic diastolic dysfunction. His last EF in the spring was 60%. We will need to repeat an echo as it has been more than 6 months. The patient will be diuresed with the Lasix. Beta-blockers were felt relatively contraindicated at this point given his severe COPD. Orthostatic Hypotension - The patient does have a history of the same and this is likely related to his high dose of Flomax. I would decrease him to the 0.4 mg dosing so as to avoid dizziness. CAD - The patient does appear reasonably stable. Cathy Feliz M.D. АННА/SUSAN /9:15 AM /12:13 PM
--- NOTE | 2016-02-29 15:30 | EC ---
Study Study Date:02/29/2016 STUDY CONCLUSIONS SUMMARY - Left ventricle: The cavity size was normal. Wall thickness was normal. Systolic function was normal. The estimated ejection fraction was in the range of 50% to 55%. Wall motion was normal; there were no regional wall motion abnormalities. - Mitral valve: Moderate regurgitation. - Tricuspid valve: Mild-moderate regurgitation. - Pulmonary arteries: Systolic pressure was severely increased. PA peak pressure: 71mm Hg (S). If LV function is below 40, please consider prescribing an ACEI or ARB or document rationale for non-use. PROCEDURE DATA STUDY STATUS: Elective. Procedure: Transthoracic echocardiography. Image quality was poor. Scanning was performed from the parasternal, apical, and subcostal acoustic windows. Study completion: The patient tolerated the procedure well. Transthoracic echocardiography. M-mode, complete 2D, complete spectral Doppler, and color Doppler. Patient status: Inpatient. CARDIAC ANATOMY LEFT VENTRICLE: The cavity size was normal. Wall thickness was normal. Systolic function was normal. The estimated ejection fraction was in the range of 50% to 55%. Wall motion was normal; there were no regional wall motion abnormalities. AORTIC VALVE: Trileaflet; normal thickness leaflets. Doppler: Transvalvular velocity was within the normal range. There was no stenosis. Trace to mild regurgitation. AORTA: Aortic root: The aortic root was normal in size. MITRAL VALVE: Structurally normal valve. Doppler: Transvalvular velocity was within the normal range. There was no evidence for stenosis. Moderate regurgitation. Mean gradient: 2mm Hg (D). Peak gradient: 5mm Hg (D). LEFT ATRIUM: The atrium was normal in size. RIGHT VENTRICLE: The cavity size was normal. Wall thickness was normal. PULMONIC VALVE: Doppler: Transvalvular velocity was within the normal range. There was no evidence for stenosis. No regurgitation. TRICUSPID VALVE: Structurally normal valve. Doppler: Transvalvular velocity was within the normal range. Mild-moderate regurgitation. PULMONARY ARTERY: The main pulmonary artery was normal-sized. Systolic pressure was severely increased. RIGHT ATRIUM: The atrium was normal in size. PERICARDIUM: There was no pericardial effusion. SYSTEMIC VEINS: Inferior vena cava: The vessel was normal in size. BASIC MEASUREMENTS ADULT NORMAL Left ventricle LV internal dimension, ED, chordal level, 46.4 mm 43-52 PLAX LV posterior wall thickness, ED 8.64 mm IVS/LVPW ratio, ED 1.2 <1.3 Ventricular septum Septal thickness, ED 10.4 mm Aortic valve Leaflet separation 21 mm 15-26 Left atrium Anterior-posterior dimension 33 mm Right ventricle RV internal dimension, ED, PLAX 21.2 mm 19-38 BASIC MEASUREMENTS ADULT NORMAL Aortic valve Leaflet separation 21 mm 15-26 Aorta Root diameter, ED 36 mm 20-37 DOPPLER MEASUREMENTS ADULT NORMAL Main pulmonary artery Pressure, S *71 mm Hg =30 Aortic valve VTI, S 41.6 cm Mitral valve Peak E-wave velocity 110 cm/s Peak A-wave velocity 75 cm/s Mean velocity, D 63.4 cm/s Mean gradient, D 2 mm Hg Peak gradient, D 5 mm Hg Peak E/A ratio 1.5 Maximal regurgitant velocity 676 cm/s Tricuspid valve Regurgitant peak velocity 273 cm/s Peak RV-RA gradient, S 30 mm Hg Maximal regurgitant velocity 273 cm/s Systemic veins Estimated CVP 10 mm Hg Right ventricle RV pressure, S *71 mm Hg <30 LEGEND: Mean values are shown as u=mean value. Asterisk (*) lynn values outside specified normal range. Prepared and signed by Arabella Alas [id number]
[2016-02-29] MEDS ORDERED: ALPRAZolam 0.25 MG TAB PO PRN (17:30)
--- NOTE | 2016-02-29 17:34 | EKG ---
Date Performed: 02/28/2016 Time Performed: 16:39:39 PTAGE: 75 years EKG: Sinus rhythm WITH SINUS ARRHYTHMIA POSSIBLE LEFT ATRIAL ENLARGEMENT NONSPECIFIC ST & T-WAVE ABNORMALITY ECTOPIC A TRIAL RHYTHM NONSPECIFIC ST-T WAVE CHANGES NO SIGNIFICANT CHANGE BORDERLINE ECG PREVIOUS TRACING : 04/02/2013 13.44 DOCTOR: Arabella Alas Interpretating Date/Time 02/29/2016 17:32:47
--- NOTE | 2016-02-29 17:36 | EKG ---
Date Performed: 02/28/2016 Time Performed: 22:34:22 PTAGE: 75 years EKG: Sinus rhythm WITH SINUS ARRHYTHMIA ECTOPIC ATRIAL RHYTHM NONSPECIFIC ST T-WAVE CHANGES POSSIBLE LEFT ATRIAL ENLAR GEMENT ST DEVIATION AND MODERATE T-WAVE ABNORMALITY, CONSIDER ANTERIOR ISCHEMIA NO SIGNIFICANT CHANGE . ABNORMAL ECG PREVIOUS TRACING 02/28/2016 @ 16.39.39 DOCTOR: Arabella Alas Interpretating Date/Time 02/29/2016 17:35:14
[2016-02-29] MEDS: GABAPENTIN 300 MG CAP PO SCH (20:23)
[2016-02-29] MEDS: ENOXAPARIN SODIUM 40 MG/0.4 ML SYRINGE SQ SCH (20:24)
[2016-02-29] MEDS: LEVOFLOXACIN 500 MG PREMIX INJ 100 ML IV SCH (22:41)
[2016-03-01] VITALS (12 sets, daily range): BP systolic 143–153; BP diastolic 75–79; PULSE 54–83; RESP 18; TEMP 97.6–97.7; O2SAT 93–96
--- NOTE | 2016-03-01 05:47 | EKG ---
Date Performed: 02/29/2016 Time Performed: 17:11:08 PTAGE: 75 years EKG: Sinus rhythm with PAC(s) Short HI interval Rightward axis Possible Lateral infarct - age undetermined Inferior an d anterior ST-T changes are nonspecific Abnormal ECG COMPARED TO PRIOR ELECTROCARDIOGRAM, ST-T wave c hanges have improved. PREVIOUS TRACING : 02/28/2016 22.34 DOCTOR: Matt Crow Interpretating Date/Time 03/01/2016 05:45:22
[2016-03-01] MEDS: INSULIN ASPART SUPPLEMENTAL SCALE SQ SCH ×2 (06:12→11:00)
--- NOTE | 2016-03-01 07:45 | PD.CARD.PN ---
Subjective Subjective Remarks Pt without complaints Objective Medications Current Medications Medications (Trade) Dose Ordered Sig/[place] Route Start Time Stop Time Status Last Admin (NS Flush) 2 ml UNSCH PRN IVF 02/28/16 16:45 (NS Flush) 2 ml UNSCH PRN FLUSH 02/28/16 21:45 (NS Flush) 2 ml BID FLUSH 02/29/16 09:00 02/29/16 20:24 (Tylenol) 650 mg Q4H PRN PO 02/28/16 21:45 (Zofran Inj) 4 mg Q6H PRN IVP 02/28/16 21:45 (Dulcolax Supp) 10 mg DAILY PRN IA 02/28/16 21:45 (Senokot) 17.2 mg Q12H PRN PO 02/28/16 21:45 (Lovenox Inj) 40 mg Q24H SQ 02/28/16 21:45 02/29/16 20:24 (Narcan Inj) 0.4 mg UNSCH PRN IV 02/28/16 21:45 (D50w (Vial) Inj) 25 ml UNSCH PRN IV PUSH 02/28/16 21:45 (Glucagon Inj) 1 mg UNSCH PRN OTHER 02/28/16 21:45 Aspirin 325 mg 325 mg DAILY PO 02/28/16 21:45 02/29/16 07:42 (Levaquin 500 Mg Premix Inj) 100 ml @ 100 mls/hr Q24H IV 02/28/16 22:15 02/29/16 22:41 (Neurontin) 600 mg HS PO 02/28/16 22:15 02/29/16 20:23 (SoluMEDROL INJ) 40 mg Q12HR IV PUSH 02/28/16 23:30 02/29/16 20:24 (KCl) 20 meq Q12HR PO 02/29/16 09:30 02/29/16 20:23 (Lasix Inj) 40 mg DAILY IV PUSH 03/01/16 09:00 (Xanax) 0.25 mg Q8H PRN PO 02/29/16 17:30 02/29/16 17:40 Vital Signs / I&O Vital Signs Date Time Temp Pulse Resp B/P Pulse Ox O2 Delivery O2 Flow Rate FiO2 03/01/16 06:00 65 03/01/16 05:00 57 03/01/16 04:00 59 03/01/16 03:00 57 03/01/16 03:00 97.6 57 143/79 94 03/01/16 02:00 54 03/01/16 01:00 62 03/01/16 00:00 59 02/29/16 23:00 98.1 56 122/64 95 02/29/16 23:00 56 02/29/16 22:00 59 02/29/16 21:00 62 02/29/16 20:00 57 02/29/16 19:00 58 02/29/16 19:00 97.4 58 142/64 93 02/29/16 17:55 98.0 82 18 144/76 98 02/29/16 14:05 98.0 64 18 154/78 98 02/29/16 12:39 66 20 167/79 96 Nasal Cannula 4 02/29/16 12:21 70 20 157/81 93 02/29/16 07:48 18 98 Nasal Cannula 5 02/29/16 07:46 63 18 153/74 97 Nasal Cannula 5 I/O 02/29/16 02/29/16 02/29/16 03/01/16 03/01/16 03/01/16 07:00 15:00 23:00 07:00 15:00 23:00 Intake Total 120 ml 240 ml Output Total 1100 ml 800 ml 700 ml Balance -1100 ml -680 ml -460 ml Intake Oral 120 ml 240 ml Output Urine Total 1100 ml 800 ml 700 ml # Voids 2 # Bowel Movements 1 Physical Exam GENERAL: Well developed, well nourished. No acute distress. HEENT: Jugular venous pressure is normal. CHEST: Lungs clear to auscultation bilaterally. Unlabored respiratory effort. CARDIAC: Regular rate and rhythm without S3, S4, or murmur. ABDOMEN: Soft, nontender, no hepatosplenomegaly. Bowel sounds present. EXTREMITIES: No clubbing, cyanosis, or edema. Imaging Last [address] Angiography 02/28/16 1838 Signed Impressions: Service Date/Time: Sunday, February 28, 2016 19:46 - CONCLUSION: 1. Negative for pulmonary embolus. 2. Moderate emphysema. Dependent atelectasis in both lungs. Moderate effusions. 3. Moderate coronary artery calcifications. 4. Mild ascites. Art Moss MD Chest X-Ray 02/28/16 5905 Signed Impressions: Service Date/Time: Sunday, February 28, 2016 16:48 - CONCLUSION: Pulmonary vascular congestion with probable small right pleural effusion Josh Daily MD Assessment and Plan Assessment and Plan CHF - The patient does likely have acute on chronic diastolic dysfunction. - EF 55% on ECHO -change lasix to PO -fluid and sodium restriction -increase Trop from CHF Orthostatic Hypotension - The patient does have a history of the same and this is likely related to his high dose of Flomax. I would decrease him to the 0.4 mg dosing so as to avoid dizziness. -no change 03/01 CAD - The patient does appear reasonably stable. Arabella Alas MD Mar 01, 2016 07:45
[2016-03-01] MEDS: ASPIRIN EC 325 MG TABEC PO SCH (08:41)
[2016-03-01] MEDS: methylPREDNISolone SOD SUCC 40 MG/1 ML VIAL IV PUSH SCH (08:42)
[2016-03-01] MEDS: SODIUM CHLORIDE 0.9% FLUSH 5 ML FLUSH FLUSH SCH (08:42)
--- NOTE | 2016-03-01 08:46 | EKG ---
Date Performed: 03/01/2016 Time Performed: 00:16:30 PTAGE: 75 years EKG: Sinus bradycardia with PAC(s) Short AL interval Rightward axis Possible lateral infarct - a ge undetermined Inferior and anterior ST-T changes are nonspecific Abnormal ECG NO SIGNIFICANT CHANGE FROM PRIOR ELECTROCARDIOGRAM. PREVIOUS TRACING : 02/29/2016 17.11 DOCTOR: Matt Crow Interpretating Date/Time 03/01/2016 08:45:11
[2016-03-01] MEDS ORDERED: POTASSIUM CHLORIDE 20 MEQ CONTROLLED RELEASE TAB PO SCH (09:00)
[2016-03-01] MEDS ORDERED: FUROSEMIDE 40 MG/4 ML VIAL IV PUSH SCH (09:00)
[2016-03-01] MEDS ORDERED: FUROSEMIDE 40 MG TAB PO SCH (09:00)
[2016-03-01] MEDS ORDERED: TAMS5CAP PO ×2 (10:30→12:18)
--- NOTE | 2016-03-01 10:40 | HHI.PR ---
Subjective Remarks No chest pain No acute SOB at rest. Exertional dyspnea prn No headache BM today Ambulating to bathrm and in room. Independent. Objective Objective Results - Vital Signs Date Time Temp Pulse Resp B/P Pulse Ox O2 Delivery O2 Flow Rate FiO2 03/01/16 10:07 67 03/01/16 09:35 67 03/01/16 08:45 96 Nasal Cannula 2.00 03/01/16 08:30 97.6 65 18 149/75 95 03/01/16 08:30 83 03/01/16 06:00 65 03/01/16 05:00 57 03/01/16 04:00 59 03/01/16 03:00 57 03/01/16 03:00 97.6 57 143/79 94 03/01/16 02:00 54 03/01/16 01:00 62 03/01/16 00:00 59 02/29/16 23:00 98.1 56 122/64 95 02/29/16 23:00 56 02/29/16 22:00 59 02/29/16 21:00 62 02/29/16 20:00 57 02/29/16 19:00 58 02/29/16 19:00 97.4 58 142/64 93 02/29/16 17:55 98.0 82 18 144/76 98 02/29/16 14:05 98.0 64 18 154/78 98 02/29/16 12:39 66 20 167/79 96 Nasal Cannula 4 02/29/16 12:21 70 20 157/81 93 I/O 02/29/16 02/29/16 02/29/16 03/01/16 03/01/16 03/01/16 07:00 15:00 23:00 07:00 15:00 23:00 Intake Total 120 ml 240 ml Output Total 1100 ml 800 ml 700 ml Balance -1100 ml -680 ml -460 ml Intake Oral 120 ml 240 ml Output Urine Total 1100 ml 800 ml 700 ml # Voids 2 # Bowel Movements 1 Result Diagram: 02/28/16 1712 02/29/16 0352 Other Results Active Medications Alprazolam (Xanax) 0.25 mg Q8H PRN PO Last administered on 02/29/16t 17:40; Admin Dose 0.25 MG; Start 02/29/16 at 17:30 Furosemide (Lasix Inj) 40 mg DAILY IV PUSH; Start 03/01/16 at 09:00; Stop at 09:00; Status DC Furosemide (Lasix) 40 mg DAILY PO Last administered on 03/01/16 08:41; Admin Dose 40 MG; Start 03/01/16 at 09:00 Potassium Chloride (KCl) 20 meq DAILY PO Last administered on 03/01/16 08:41; Admin Dose 20 MEQ; Start 03/01/16 at 09:00 Medications and IVs Active Medications Alprazolam (Xanax) 0.25 mg Q8H PRN PO Last administered on 02/29/16 17:40; Admin Dose 0.25 MG; Start 02/29/16 at 17:30 Furosemide (Lasix Inj) 40 mg DAILY IV PUSH; Start 03/01/16 at 09:00; Stop at 09:00; Status DC Furosemide (Lasix) 40 mg DAILY PO Last administered on 03/01/16 08:41; Admin Dose 40 MG; Start 03/01/16 at 09:00 Potassium Chloride (KCl) 20 meq DAILY PO Last administered on 03/01/16 08:41; Admin Dose 20 MEQ; Start 03/01/16 at 09:00 ROS General: Fatigue, Other (fatique improved this am. 10 point ROS done. Positives noted with cough and fatique improved. Otherwise negative systems.) Pulmonary: Cough, Other (decrease O2 to 2L this am. Occasional cough) Physical Exam Physical Exam PHYSICAL EXAMINATION GENERAL: This is a well-developed, well-nourished male resting in bed who appears to be in no acute distress at rest. He is alert and awake, X 4. HEAD: Normocephalic without any lesion or mass noted. Facial features appear symmetric.PEARLA at 2mm. OROPHARYNGEAL: Oropharynx without erythema or edema. NECK: Supple thick. No nuchal rigidity or lymphadenopathy. Trachea midline without deviation. CARDIAC: Regular rhythm, regular rate, S1 and S2 are heard. Murmur []; no gallops or rubs. LUNGS: Clear anterior, crackles noted bilateral bases. No wheeze, Norhonchi. No use of accessory muscles on inspiration or expiration. ABDOMEN: Soft,obese, nontender, no organomegaly or masses. Bowel sounds are heard in all four quadrants. No rebound. No guarding. EXTREMITIES: mild pedal edema. Pulses equal bilateral. No cyanosis. NEUROLOGICAL: Patient mood and affect appropriate. No focal deficit SKIN:Warm and moist, dry Objective Remarks Im hoping to go home. My wants to be updated per doctor. A/P Assessment and Plan 1. Acute congestive heart failure. 2. Chronic obstructive pulmonary disease exacerbation. 3. Hypoxia, stablized 4. Elevated troponin. 5. Chronic kidney disease. 6. Diabetes mellitus. 7. History of coronary artery disease status post stents and bypass. 8. Hypertension. 9. Hyperlipidemia. 10. History of peripheral vascular disease. 11. Multiple other medical problems including RLS, neuropathy, meningiomas, CVAs, degenerative disc disease of the back, hiatal hernia. Plan O2, titrate to 2L, home dose antibiotics PO diurese monitor labs cardiology consult, appreciate expert opionion. Stable from their standpoint. Advise to decrease flomax dose to 0.4 at hs. Continue other home meds. PCP followup after discharge 1 wk. GERD med. DVT prophylaxis Discharge Planning Home with Discussed With: Nurse, Family ( on phone), Other (Dr. Fortune. and patient requests visit to discuss discharge.) Tasha Cavanaugh Mar 01, 2016 10:40
--- NOTE | 2016-03-01 18:53 | HHI.DS ---
Discharge Summary Admission Date Feb 28, 2016 at 21:17 Discharge Date: Mar 01, 2016 Admitting Diagnosis CHF exacerbation, hypoxemia on RA Procedures none Brief History This is a pleasant 75-year-old male who was admitted to [facility] on 02/25/2016. He initially came to the hospital feeling lightheaded, weak and he was found to be hypotensive. He received 3 liters of IV fluid. He was started on antibiotics and IV steroids. He was also having chills. He recently was started on Lyrica and was having some bad dreams and was getting a little more confused, so he had been taken off of that prior to that hospitalization. During his hospitalization, antibiotics were continued but the infection was ruled out per the and he was released earlier today on the February,. His stepped outside for a few minutes to take the dog out and when she came back he was very short of breath. She has a home pulse oximeter and she saw his pulse oximetry drop down into the high seventies and because of this she became concerned and called [facility] and had him brought to [facility]. CBC/BMP: 02/28/16 1712 02/29/16 0352 Significant Findings Laboratory Tests Test 02/28/16 02/28/16 02/28/16 02/28/16 16:55 17:12 21:35 23:00 Blood Gas Oxygen Saturation 81 % (90-100) Arterial Blood pH 7.48 (7.380-7.420) Arterial Blood Partial 32 mmHg (38-42) Pressure CO2 Arterial Blood Partial 44 mmHG Pressure O2 (61-120) Neutrophils (%) (Auto) 86.5 % (16.0-70.0) Lymphocytes (%) (Auto) 6.6 % (9.0-44.0) Lymphocytes # (Auto) 0.4 TH/MM3 (1.0-4.8) D-Dimer Quantitative (PE/DVT) 1.07 MG/L FEU (0.00-0.50) Estimat Glomerular Filtration 61 ML/MIN (>89) Rate Troponin I 0.11 NG/ML 0.08 NG/ML (0.02-0.05) (0.02-0.05) B-Type Natriuretic Peptide 853 PG/ML (0-100) Albumin 3.3 GM/DL (3.4-5.0) Urine Protein 30 mg/dL (NEG-TRACE) Urine Glucose (UA) 70 mg/dL (NEG) Urine Ketones 10 mg/dL (NEG) Urine Mucus FEW /lpf (OCC) Test 02/29/16 03:52 Blood Urea Nitrogen 20 MG/DL (7-18) Creatinine 1.41 MG/DL (0.60-1.30) Estimat Glomerular Filtration 49 ML/MIN (>89) Rate Random Glucose 375 MG/DL (74-106) Imaging Last Impressions CT Angiography 02/28/16 1838 Signed Impressions: Service Date/Time: Sunday, February 28, 2016 19:46 - CONCLUSION: 1. Negative for pulmonary embolus. 2. Moderate emphysema. Dependent atelectasis in both lungs. Moderate effusions. 3. Moderate coronary artery calcifications. 4. Mild ascites. Art Moss MD Chest X-Ray 02/28/16 1635 Signed Impressions: Service Date/Time: Sunday, February 28, 2016 16:48 - CONCLUSION: Pulmonary vascular congestion with probable small right pleural effusion Josh Daily MD PE at Discharge Physical Exam PHYSICAL EXAMINATION GENERAL: This is a well-developed, well-nourished male resting in bed who appears to be in no acute distress at rest. He is alert and awake, X 4. HEAD: Normocephalic without any lesion or mass noted. Facial features appear symmetric.PEARLA at 2mm. OROPHARYNGEAL: Oropharynx without erythema or edema. NECK: Supple thick. No nuchal rigidity or lymphadenopathy. Trachea midline without deviation. CARDIAC: Regular rhythm, regular rate, S1 and S2 are heard. Murmur []; no gallops or rubs. LUNGS: Clear anterior, crackles noted bilateral bases. No wheeze, Norhonchi. No use of accessory muscles on inspiration or expiration. ABDOMEN: Soft,obese, nontender, no organomegaly or masses. Bowel sounds are heard in all four quadrants. No rebound. No guarding. EXTREMITIES: mild pedal edema. Pulses equal bilateral. No cyanosis. NEUROLOGICAL: Patient mood and affect appropriate. No focal deficit SKIN:Warm and moist, dry Transfer Summary Home with . Hospital Course He was seen by Dr. Merritt at [place] and was found to have congestive heart failure. CT of the chest per PE protocol was negative but he does have pleural effusions and fluid overload and was started on Lasix and oxygen. Home meds were reconciled. 02 at 2L. Dx and treatment plan include these dx and monitoring. Acute congestive heart failure. Chronic obstructive pulmonary disease exacerbation. Hypoxia, stablized Elevated troponin. Chronic kidney disease. Diabetes mellitus. History of coronary artery disease status post stents and bypass. Hypertension. Hyperlipidemia. History of peripheral vascular disease. hiatal hernia. PUD prophylaxis antibiotics PO diuresis labs cardiology consult, appreciate expert opionion. Advise to decrease flomax dose to 0.4 at hs. on discharge. Continue other home meds. PCP followup after discharge 1 wk. DVT prophylaxis Discharged Home with Discussed With: Nurse, Family ( on phone), Dr. Fortune met with patient and for detailed discharge instructions. Pt Condition on Discharge: Stable Discharge Disposition: Discharge Home Discharge Instructions DIET: Follow Instructions for: Heart Healthy Diet Fluid Restrictions: 1500cc/day Activities you can perform: Regular-No Restrictions Other Activity Instructions: Frequent rest periods. Follow up Referrals: Cardiology - 2 Weeks PCP Follow-up - 1 Week PCP Follow-up New Medications: Tamsulosin (Flomax) 0.4 Mg Cap 0.4 MG PO HS Manage Prostate Problems #30 Ref 0 CAP Continued Medications: Albuterol 18 GM Inh (Ventolin Hfa 18 GM Inh) 90 Mcg/Act Aer 2 PUFF INH Q6H PRN SHORTNESS OF BREATH #1 Ref [address] (Aspir-Low) 81 Mg Tabdr 81 MG PO DAILY Bumetanide (Bumex) 0.5 Mg Tab 0.5 MG PO DAILY Ref 0 TAB Clonazepam (Clonazepam) 0.5 Mg Tab 0.5 MG PO HS #60 Ref 0 TAB Donepezil (Donepezil) 10 Mg Tab 10 MG PO HS Dementia #30 Ref 0 TAB Ezetimibe (Zetia) 10 Mg Tab 10 MG PO HS #30 Ref 0 TAB Ferrous Sulfate (Ferrous Sulfate) 325 Mg Tab 325 MG PO HS Nutritional Supplement #30 Ref 0 TAB Fluoxetine (Prozac) 10 Mg Cap 30 MG PO DAILY #30 Ref 0 CAP Fluticasone-Vilanterol Inh (Breo Ellipta Inh) 100-25 Mcg/Act Inh 1 PUFF INH DAILY Use daily at the same time. #1 Ref 0 INHALER Gabapentin ER (Horizant ER) 600 Mg Jacques 600 MG PO HS Glipizide (Glipizide) 10 Mg Tab 10 MG PO BIDAC Take 30 minutes before a meal Blood Sugar Management #60 Ref 0 TAB Levothyroxine (Synthroid) 25 Mcg Tab 25 MCG PO DAILY Thyroid #30 Ref 0 TAB Liraglutide Inj (Victoza Inj) 18 Mg/3 Ml Pen 1.8 MG SQ DAILY #1 Ref 0 PEN Pantoprazole (Pantoprazole) 40 Mg Tab 40 MG PO DAILY Reflux #30 Ref 0 TAB Potassium Chloride ER (K-Tab) 10 Meq Tab 10 MEQ PO DAILY Electrolyte Replacement #30 Ref 0 TAB Rosuvastatin (Crestor) 40 Mg Tab 40 MG PO HS Cholesterol Management #30 Ref 0 TAB Sitagliptin (Januvia) 100 Mg Tab 100 MG PO DAILY Blood Sugar Management #30 Ref 0 TAB Temazepam (Restoril) 30 Mg Cap 30 MG PO HS INSOMNIA #30 Ref 0 CAP Discontinued Medications: Ondansetron (Zofran) 4 Mg Tab 4 MG PO DAILY PRN NAUSEA OR VOMITING Ref 0 TAB Tamsulosin (Flomax) 0.4 Mg Cap 0.8 MG PO DAILY Manage Prostate Problems #60 Ref 0 CAP Tasha Cavanaugh Mar 01, 2016 18:53
== END 2016-03-01 12:31 | disposition home or self-care (01) | DRG 292 ==
LOC: NEPC 16:27 → NEDA 21:17 → NEDH 02-29 01:29 → HCIS 02-29 12:16
PROVIDERS: ADMIT Specialist; ATTEND Specialist
DX: I50.33 Acute on chronic diastolic (congestive) heart failure (principal); J44.1 Chronic obstructive pulmonary disease with (acute) exacerbation; E11.22 Type 2 diabetes mellitus with diabetic chronic kidney disease; G62.9 Polyneuropathy, unspecified; I13.0 Hypertensive heart and chronic kidney disease with heart failure and stage 1 through stage 4 chronic kidney disease, or unspecified chronic kidney disease; I73.9 Peripheral vascular disease, unspecified; I95.1 Orthostatic hypotension; R09.02 Hypoxemia; N18.9 Chronic kidney disease, unspecified; I25.10 Atherosclerotic heart disease of native coronary artery without angina pectoris; K21.9 Gastro-esophageal reflux disease without esophagitis; G25.81 Restless legs syndrome; E78.5 Hyperlipidemia, unspecified; E03.9 Hypothyroidism, unspecified; Z95.1 Presence of aortocoronary bypass graft; Z79.84 Long term (current) use of oral hypoglycemic drugs; Z95.5 Presence of coronary angioplasty implant and graft; Z87.891 Personal history of nicotine dependence; Z98.2 Presence of cerebrospinal fluid drainage device; Z88.0 Allergy status to penicillin; Z88.8 Allergy status to other drugs, medicaments and biological substances; T44.6X5A Adverse effect of alpha-adrenoreceptor antagonists, initial encounter; Z86.011 Personal history of benign neoplasm of the brain; Z86.73 Personal history of transient ischemic attack (TIA), and cerebral infarction without residual deficits
CPT/HCPCS: 36600; 71010; 71275; 80048; 80053; 81001; 82550; 82805; 82948; 83735; 83880; 84145; 84484; 85025; 85379; 85610; 85730; 93005; 93306; 94640; 94664; 96374; J1650; J1815; J1940; J1956; J2920; J2930; Q9967

== ENCOUNTER 2016-04-10 17:17 | Emergency (ER) | payer MEDICARE, OTHER ==
[~2016-04-10] VITALS: Ht 170.2 cm; Wt 80.0 kg
[~2016-04-10 17:17] MED LIST changes: -ALBU8I INH; -ASPI81 PO; +ASPI81TA19 PO; -AZIT250T74 PO; -BUME1TAB PO; +BUME1TAB25 PO; +CLON0.5T PO; -CLOP75 PO; -DONE10TA14 PO; +DONE10TA7 PO; -EZET10 PO; +FERR325T PO; -FERR65TA PO; +FLUO-1 PO; +FLUT1INH INH; +GLIP10TA6 PO; -GLIP5 PO; -GLUCTAB PO; +K-TA10TA PO; -MOME17I; -OMEP20CA5 PO; +PANT40TA3 PO; -POTA-267 PO; -SITA100 PO; +SITA1TAB2 PO; -SPIRCAP INH; -TAMS0.4C67 PO; +TAMS5CAP PO; +VENTAER INH; -VICT18IN INJ; +VICT18IN SQ; +ZETI10TA5 PO; -ZOFR4TAB3 PO; -ZOLO20CO PO
[2016-04-10 17:31] VITALS: BP 140/61; PULSE 52; RESP 24; TEMP 97.9; O2SAT 97
[2016-04-10] MEDS ORDERED: ROPI3TAB PO (18:06)
[2016-04-10] MEDS ORDERED: IPRAAER INH (18:06)
[2016-04-10] MEDS ORDERED: NAME10TA PO (18:06)
[2016-04-10] MEDS ORDERED: [UNRECOGNIZED DRUG - CODE] EACH EYE (18:06)
[2016-04-10] MEDS ORDERED: TAMS0.4C4 PO (18:06)
[2016-04-10] MEDS ORDERED: CETI10 PO (18:06)
[2016-04-10] MEDS ORDERED: CYCL7.5E EACH EYE (18:06)
[2016-04-10] MEDS ORDERED: BUME1TAB PO (18:06)
[2016-04-10] MEDS ORDERED: MONT10TA2 PO (18:06)
[2016-04-10] MEDS ORDERED: HORI600T PO (18:06)
[2016-04-10] MEDS ORDERED: ZOFR8TAB PO (18:06)
[2016-04-10] MEDS ORDERED: SODIUM CHLORIDE 0.9% FLUSH 5 ML FLUSH IVF PRN (18:30)
[2016-04-10 18:45] VITALS: O2SAT 94
--- NOTE | 2016-04-10 18:47 | RADRPT ---
EXAM DATE/TIME: 04/10/2016 18:29 [place] COMPARISON: No previous studies available for comparison. INDICATIONS : Left hip and groin pain with no known injury. MEDICAL HISTORY : SURGICAL HISTORY : Bilateral fem pops. ENCOUNTER: Initial ACUITY: 1 week PAIN SCORE: 8/10 LOCATION: Left hip. FINDINGS: A single frontal view of the pelvis demonstrates no evidence of fracture. The bony pelvic ring is in tact. Bony mineralization is normal. The soft tissues are intact. CONCLUSION: Intact pelvis. No significant joint space narrowing seen of either hip. Perez Fowler MD on April 10, 2016 at 18:46 Board Certified Radiologist. This report was verified electronically.
[2016-04-10 18:48] LABS: AUTOMATED NEUTROPHIL # 4.5 TH/MM3 (1.8-7.7); BASOPHIL # 0.1 TH/MM3 (0-0.2); BLOOD, URINE NEG (NEG); COMMENT (UR) CULT NOT INDICATED; CULTURE IF INDICATED CULT NOT INDICATED; EOSINOPHIL # 0.1 TH/MM3 (0-0.4); EOSINOPHIL % 1.6 % (0.0-4.0); GLUCOSE,URINE 1000 mg/dL (NEG); HEMATOCRIT 39.9 % (39.0-51.0); HEMO FLAGS DIFF FINAL; HYALINE CAST, URINE 2 /lpf (RARE); KETONE, URINE NEG (NEG); LYMPH % 15.5 % (9.0-44.0); LYMPHOCYTE # 0.9 TH/MM3 (1.0-4.8); MEAN CELL VOLUME 83.7 FL (80.0-100.0); MEAN CORPUSCULAR HEMOGLOBIN 28.5 PG (27.0-34.0); MEAN CORPUSCULAR HGB CONC 34.1 % (32.0-36.0); MONO % 5.6 % (0.0-8.0); NEUT % 76.3 % (16.0-70.0); NITRITE,URINE NEG (NEG); PLATELET COUNT 176 TH/MM3 (150-450); RED BLOOD COUNT 4.77 MIL/MM3 (4.50-5.90); RED CELL DISTRIBUTION WIDTH 15.4 % (11.6-17.2); URINE COLOR YELLOW (YELLW/STRAW); WHITE BLOOD COUNT 5.8 TH/MM3 (4.0-11.0)
[2016-04-10 18:57] LABS: APTT (PATIENT) 24.6 SEC (24.3-30.1); PROTHROMBIN TIME - PATIENT 10.7 SEC (9.8-11.6)
--- NOTE | 2016-04-10 19:01 | PD ---
HPI Chief Complaint: Abdominal Pain Time Seen by Provider: 17:48 Travel History International Travel<30 days: No Contact w/Intl Traveler<30days: No Traveled to known affect area: No History of Present Illness HPI 75-year-old male with history of CAD, hyperlipidemia, CVA, diabetes, PAD, CABG, femoropopliteal in femfemoropopliteal bypass, here for evaluation of bilateral inguinal pain. Symptoms of it going on for the last week, worse today, worse on the left, 7 out of 10, sharp, worse with movement and ambulation. No fevers or chills. No vomiting. He is having some mild abdominal cramping. Normal bowel movements. No urinary symptoms. History of inguinal hernia repair, however the patient cannot recall which side. No trauma. The patient's is concerned about possible DVT. PFSH Past Medical History Asthma: No Autoimmune Disease: No Anxiety: No Depression: Yes (on Prozac) Heart Rhythm Problems: No Cancer: No Cardiac Catheterization: Yes (1996, 1999) Cardiovascular Problems: Yes High Cholesterol: Yes Chemotherapy: No Congestive Heart Failure: Yes COPD: Yes Cerebrovascular Accident: Yes (2006) Dementia: Yes Diabetes: Yes (Type II) Patient Takes Glucophage: No Diminished Hearing: No Endocrine: Yes Gastrointestinal Disorders: Yes GERD: Yes Genitourinary: Yes Hiatal Hernia: Yes Immune Disorder: No Implanted Vascular Access Dvce: Yes Kidney Stones: Yes Musculoskeletal: Yes Neurologic: Yes (Dementia, Early onset Alzheimers, Stroke 2006) Psychiatric: No Reproductive: No Respiratory: Yes Migraines: No Radiation Therapy: No Renal Failure: No Seizures: No Sleep Apnea: No Thyroid Disease: Yes (Hypothyroid) Ulcer: No Tetanus Vaccination: > 5 Years Past Surgical History Abdominal Surgery: Yes (Gallbladder removel 2015) AICD: No Arteriovenous Shunt: Yes Body Medical Devices: STENTS Cardiac Surgery: Yes (CABG x 5 2005, Fem Fem Pop 1999, Fem Pop 1997, Carodid endodarectomy 2004) Cholecystectomy: Yes (2015) Coronary Artery Bypass Graft: Yes (2005) Coronary Stent: Yes Eye Surgery: Yes (BL Cataract removal) Insulin Pump: No Joint Replacement: No Neurologic Surgery: Yes (Brain tumor removed, angionoma 2000, [employer] shunt 2010) Oral Surgery: Yes (Tonsils removed, Dental implants) Pacemaker: No Thoracic Surgery: Yes (TRIPLE BYPASS) Tonsillectomy: Yes Other Surgery: Yes (RIGHT CORROTID 2005) Social History Alcohol Use: No Tobacco Use: No Substance Use: No Allergies-Medications (Allergen,Severity, Reaction): Coded Allergies: Ambien (Verified Allergy, Severe, Hallucinations, 04/10/16) Penicillin (Verified Allergy, Severe, HIVES, 04/10/16) Reported Meds & Prescriptions Reported Meds & Active Scripts Active Flomax (Tamsulosin HCl) 0.4 Mg Cap 0.4 Mg PO HS Reported Hypotears Opth Oint (Artificial Tear Opth Oint) 1 Oint Restasis Multidose (Cyclosporine (Ophth)) 0.05 % Emu Combivent Respimat Inh (Ipratropium-Albuterol Inh) 20-100 Custodial/Act Aero 1 Puff INH QID Cetirizine (Cetirizine HCl) 10 Mg Tab 10 Mg PO DAILY Singulair (Montelukast Sodium) 10 Mg Tab 10 Mg PO HS Ropinirole 3 Mg Tab 3 Mg PO HS Horizant ER (Gabapentin ER) 600 Mg Jacques Zofran (Ondansetron HCl) 8 Mg Tab 8 Mg PO TID Namenda (Memantine) 10 Mg Tab 10 Mg PO BID Bumetanide 1 Mg Tab 1 Mg PO DAILY Tamsulosin (Tamsulosin HCl) 0.4 Mg Cap 0.4 Mg PO HS Januvia (Sitagliptin Phosphate) 100 Mg Tab 100 Mg PO DAILY Breo Ellipta Inh (Fluticasone/Vilanterol) 100-25 Mcg/Act Inh 1 Puff INH DAILY Use daily at the same time. Prozac (Fluoxetine HCl) 10 Mg Cap 30 Mg PO DAILY Pantoprazole (Pantoprazole Sodium) 40 Mg Tab 40 Mg PO DAILY Restoril (Temazepam) 30 Mg Cap 30 Mg PO HS Crestor (Rosuvastatin Calcium) 40 Mg Tab 40 Mg PO HS K-Tab (Potassium Chloride) 10 Meq Tab 10 Meq PO DAILY Clonazepam 0.5 Mg Tab 0.5 Mg PO HS Victoza Inj (Liraglutide Inj) 18 Mg/3 Ml Pen 1.8 Mg SQ DAILY Synthroid (Levothyroxine Sodium) 25 Mcg Tab 25 Mcg PO DAILY Glipizide 10 Mg Tab 10 Mg PO BIDAC Take 30 minutes before a meal Ferrous Sulfate 325 Mg Tab 325 Mg PO HS Zetia (Ezetimibe) 10 Mg Tab 10 Mg PO HS Donepezil 10 Mg Tab 10 Mg PO HS Aspir-Low (Aspirin) 81 Mg Tabdr 81 Mg PO DAILY Ventolin Hfa 18 GM Inh (Albuterol Sulfate) 90 Mcg/Act Aer 2 Puff INH Q6H PRN Review of Systems Except as stated in HPI: all other systems reviewed are Neg Physical Exam Narrative GENERAL: Well-developed, well-nourished, comfortable, no acute distress. SKIN: Warm and dry. No rash. Surgical scars on bilateral lower extremities from venous harvesting. HEAD: Atraumatic. Normocephalic. EYES: Pupils equal and round. No scleral icterus. No injection or drainage. ENT: Mucous membranes pink and moist. NECK: Trachea midline. No JVD. CARDIOVASCULAR: Regular rate and rhythm. Bilateral dorsalis pedis pulses are brisk and equal. RESPIRATORY: No accessory muscle use. Clear to auscultation. Breath sounds equal bilaterally. GASTROINTESTINAL: Abdomen soft, nondistended. Mild lower abdominal tenderness. There is moderate tenderness in bilateral inguinal regions with mild fullness in left inguinal region, no obvious hernia, no warmth or erythema. : Inguinal folds with slight erythema with satellite lesions with shiny appearance consistent with candidiasis. Normal exam. No skin color changes. No swelling. No fullness. No masses. MUSCULOSKELETAL: No obvious deformities. No clubbing. No cyanosis. No edema. Pelvis is stable. Normal range of motion in bilateral hips and lower extremities. NEUROLOGICAL: Awake and alert. No obvious cranial nerve deficits. Motor grossly within normal limits. Normal speech. PSYCHIATRIC: Appropriate mood and affect; insight and judgment normal. Data Data Last Documented VS Vital Signs Date Time Temp Pulse Resp B/P Pulse Ox O2 Delivery O2 Flow Rate FiO2 04/10/16 19:28 50 20 149/64 96 Nasal Cannula 2 04/10/16 17:31 97.9 Orders Complete Blood Count With Diff (04/10/16 18:30) Comprehensive Metabolic Panel (04/10/16 18:30) Prothrombin Time / Inr (Pt) (04/10/16 18:30) Act Partial Throm Time (Ptt) (04/10/16 18:30) Urinalysis - C+S If Indicated (04/10/16 18:30) Ct Abd/Pel W Iv Contrast(Rout) (04/10/16 18:30) Iv Access Insert/Monitor (04/10/16 18:30) Ecg Monitoring (04/10/16 18:30) Oximetry (04/10/16 18:30) Sodium Chloride 0.9% Flush (Ns Flush) (04/10/16 18:30) Us Leg Venous Doppler Bilat (04/10/16 ) Pelvis, Ap Only (Routine) (04/10/16 ) Iodixanol 320 Inj (Rad Ct) (Visipaque 32 (04/10/16 19:40) Labs Laboratory Tests Test 04/10/16 18:35 White Blood Count 5.8 TH/MM3 Red Blood Count 4.77 MIL/MM3 Hemoglobin 13.6 GM/DL Hematocrit 39.9 % Mean Corpuscular Volume 83.7 FL Mean Corpuscular Hemoglobin 28.5 PG Mean Corpuscular Hemoglobin 34.1 % Concent Red Cell Distribution Width 15.4 % Platelet Count 176 TH/MM3 Mean Platelet Volume 8.6 FL Neutrophils (%) (Auto) 76.3 % Lymphocytes (%) (Auto) 15.5 % Monocytes (%) (Auto) 5.6 % Eosinophils (%) (Auto) 1.6 % Basophils (%) (Auto) 1.0 % Neutrophils # (Auto) 4.5 TH/MM3 Lymphocytes # (Auto) 0.9 TH/MM3 Monocytes # (Auto) 0.3 TH/MM3 Eosinophils # (Auto) 0.1 TH/MM3 Basophils # (Auto) 0.1 TH/MM3 CBC Comment DIFF FINAL Differential Comment Prothrombin Time 10.7 SEC Prothromb Time International 1.0 RATIO Ratio Activated Partial 24.6 SEC Thromboplast Time Urine Color YELLOW Urine Turbidity CLEAR Urine pH 6.0 Urine Specific [place] 1.014 Urine Protein NEG mg/dL Urine Glucose (UA) 1000 mg/dL Urine Ketones NEG mg/dL Urine Occult Blood NEG Urine Nitrite NEG Urine Bilirubin NEG Urine Urobilinogen 2.0 MG/DL Urine Leukocyte Esterase NEG Urine RBC LESS THAN 1 /hpf Urine WBC 3 /hpf Urine Hyaline Casts 2 /lpf Microscopic Urinalysis Comment CULT NOT INDICATED Sodium Level 142 MEQ/L Potassium Level 4.0 MEQ/L Chloride Level 105 MEQ/L Carbon Dioxide Level 31.2 MEQ/L Anion Gap 6 MEQ/L Blood Urea Nitrogen 17 MG/DL Creatinine 1.34 MG/DL Estimat Glomerular Filtration 52 ML/MIN Rate Random Glucose 234 MG/DL Calcium Level 8.2 MG/DL Total Bilirubin 0.5 MG/DL Aspartate Amino Transf 17 U/L (AST/SGOT) Alanine Aminotransferase 25 U/L (ALT/SGPT) Alkaline Phosphatase 103 U/L Total Protein 6.3 GM/DL Albumin 3.0 GM/DL [facility] Medical Decision Making Medical Screen Exam Complete: Yes Emergency Medical Condition: Yes Medical Record Reviewed: Yes Differential Diagnosis Musculoskeletal strain, osteoarthritis, DVT, hernia, limb ischemia not likely, inguinal candidiasis Narrative Course Vital signs show heart rate 52, blood pressure 140/61, pulse ox 97% on room air , oral temp of 97.9F. CBC is unremarkable. CMP is remarkable for creatinine 1.24, GFR 52, random glucose 234, otherwise unremarkable. UA shows 1000 glucose, not suggestive of UTI. CT abdomen pelvis: CONCLUSION: 1. No acute abnormality demonstrated. 2. Benign cyst of the right kidney and several subcentimeter nonobstructing stones of the left kidney. 3. Aortoiliac atherosclerosis. No aneurysm. 4. There is fatty infiltration of the visualized right rectus femoris muscle probably related to old tear/injury. 5. Small hiatal hernia. 6. Enlarged prostate. 7. Sclerotic focus proximal right femur probably a benign chondrous lesion. Pelvis x-ray: Intact pelvis, no significant joint space narrowing seen of either hip. Bilateral lower extremity duplex: Negative for DVT. The patient and the patient's were made aware of all findings were provided a copy of the CT abdomen pelvis report. The patient is resting comfortably. He has normal range of motion in all joints and extremities. He does have evidence of candidal infection in his bilateral inguinal region. The rest of his exam is normal. There are no signs of necrosis. No crepitus. Physical exam is not consistent with Nora's gangrene. CT abdomen pelvis was also performed and does not show any free air. I believe his symptoms are mainly secondary to musculoskeletal strain. He did not want any pain medication while in the emergency department. He tried taking tramadol at home yesterday with no relief of symptoms. I will give him a few Lortab to take as needed for pain. Patient and the patient's advised to be careful when taking this medication as to not fall or injure himself. He is stable for discharge home with outpatient follow-up with his primary care physician this week. He was informed on when to return to the emergency department. With the patient and the patient's verbalize understanding and agreement with plan. Diagnosis Primary Impression: Candidiasis of urogenital site Additional Impression: Groin pain Qualified Code: R10.30 - Groin pain, unspecified laterality Referrals: Primary Care Physician 3 days Additional Instructions: Follow-up with your primary care physician this week. Return to the emergency department for worsening symptoms or any other concerns. Scripts Hydrocodone-Acetaminophen (Lortab)5-325 Mg Tab1 Tab PO Q6H PRN (PAIN) #15 TAB Ref 0 Prov:Sb Bell MD 04/10/16 Clotrimazole Topical 1% Soln1 Applic TOPICAL BID #30 ML Ref 0 Prov:Sb Bell MD 04/10/16 Disposition: 01 DISCHARGE HOME Condition: Stable Sb Bell MD Apr 10, 2016 19:01
[2016-04-10 19:09] LABS: ANION GAP 6 MEQ/L (5-15); AST (GOT) 17 U/L (15-37); BICARBONATE 31.2 MEQ/L (21.0-32.0); BLOOD UREA NITROGEN 17 MG/DL (7-18); CHLORIDE 105 MEQ/L (98-107); GLOMERULAR FILTRATION RATE 52 ML/MIN (>89); SODIUM (NA) 142 MEQ/L (136-145)
[2016-04-10 19:12] LABS: ALKALINE PHOSPHATASE 103 U/L (45-117); ALT (GPT) 25 U/L (12-78); TOTAL BILIRUBIN ADULT 0.5 MG/DL (0.2-1.0)
[2016-04-10 19:28] VITALS: BP 149/64; PULSE 50; RESP 20; O2SAT 96
[2016-04-10] MEDS ORDERED: IODIXANOL 320 MG/ML 10 ML VIAL (for Rad CT) IV ONE (19:40)
--- NOTE | 2016-04-10 19:57 | RADRPT ---
EXAM DATE/TIME: 04/10/2016 19:34 [facility] COMPARISON: No previous studies available for comparison. INDICATIONS : Right groin pain with leg swelling. IV CONTRAST: 91 cc Visipaque (iodixanol) IV ORAL CONTRAST: No oral contrast ingested. RADIATION DOSE: 15.68 CTDIvol (mGy) MEDICAL HISTORY : Cardiovascular disease. Diabetes mellitus type 2. 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 CABG ENCOUNTER: Initial ACUITY: 1 day PAIN SCALE: 5/10 LOCATION: Right lower quadrant TECHNIQUE: Volumetric scanning of the abdomen and pelvis was performed. Using automated exposure control and ad justment of the mA and/or kV according to patient size, radiation dose was kept as low as reasonably achievable to obtain optimal diagnostic quality images. FINDINGS: LOWER LUNGS: The visualized lower lungs are clear. LIVER: Homogeneous density without lesion. There is no dilation of the biliary tree. No calcified gallston es. SPLEEN: Normal size without lesion. PANCREAS: Within normal limits. KIDNEYS: Several subcentimeter cysts are seen in the right kidney. There are nonobstructing stones of the left kidney, 1 mm upper pole, 2 mm mid zone and 5 mm lower pole. No ureteral calculus demonstrated on eit her side. ADRENAL GLANDS: Within normal limits. VASCULAR: There is severe atherosclerotic plaque of the abdominal aorta and iliac arteries. No aneurysm. BOWEL/MESENTERY: The stomach, small bowel, and colon demonstrate no acute abnormality. There is no free intraperitone al air or fluid. Distal portions of a ventriculoperitoneal shunt catheter are noted. The tip is anter iorly in the left lower quadrant ABDOMINAL WALL: Within normal limits. RETROPERITONEUM: There is no lymphadenopathy. BLADDER: No wall thickening or mass. REPRODUCTIVE: Enlarged prostate. INGUINAL: There is no lymphadenopathy or hernia. MUSCULOSKELETAL: There is a 19 mm intramedullary sclerotic focus in the intertrochanteric region of the right femur, p robably an enchondroma. There is fatty infiltration of the right rectus femoris at the level of the u pper thigh. CONCLUSION: 1. No acute abnormality demonstrated. 2. Benign cyst of the right kidney and several subcentimeter nonobstructing stones of the left kidney . 3. Aortoiliac atherosclerosis. No aneurysm. 4. There is fatty infiltration of the visualized right rectus femoris muscle probably related to old tear/injury. 5. Small hiatal hernia. 6. Enlarged prostate. 7. Sclerotic focus proximal right femur probably a benign chondrous lesion. Perez Fowler MD on April 10, 2016 at 19:49 Board Certified Radiologist. This report was verified electronically.
--- NOTE | 2016-04-10 20:16 | RADRPT ---
EXAM DATE/TIME: 04/10/2016 19:42 [facility] COMPARISON: No previous studies available for comparison. INDICATIONS : Bilateral leg pain. MEDICAL HISTORY : Hypothyroidism. Congestive heart failure. Hypercholesterolemia. Hearing loss. Dementia. Alzheimers. C erebrovascular accident. Head trauma. Myocardial infarction. Hiatal hernia. Gastroesophageal reflux. Kidney stones. Enlarged prostate. Buldging discs. Diabetes. Post traumatic stress disorder. Measles. Blood tranfusions. Chronic obstructive pulmonary disorder. SURGICAL HISTORY : Tonsillectomy.Carotid endarterectomy. CABGCholecystectomy. Coronary artery stent. Fem fem pop. AV radha nt. Bilateral cataract removal. Bilateral lens replacement. Brain tumor removal. ENCOUNTER: Initial ACUITY: 1 day PAIN SCORE: 1/10 LOCATION: Bilateral legs. TECHNIQUE: Venous ultrasound of the left and right leg was performed from the inguinal ligament to the proximal calf. Real-time, color Doppler and spectral tracing, compression and augmentation techniques were us ed. FINDINGS: RIGHT LEG: There is normal compressibility of the deep venous system from the inguinal region to the proximal ca lf. No echogenic clot is seen in the lumen of the common femoral, femoral, popliteal, and posterior tibial veins. There is a normal response of the venous system to proximal and distal augmentation an d respiration. LEFT LEG: There is normal compressibility of the deep venous system from the inguinal region to the proximal ca lf. No echogenic clot is seen in the lumen of the common femoral, femoral, popliteal, and posterior tibial veins. There is a normal response of the venous system to proximal and distal augmentation an d respiration. CONCLUSION: No DVT of either lower extremity. Perez Fowler MD on April 10, 2016 at 20:14 Board Certified Radiologist. This report was verified electronically.
[2016-04-10] MEDS ORDERED: CLOTR1%T TOPICAL (20:44)
[2016-04-10] MEDS ORDERED: HYDR-3533 PO (20:44)
[2016-04-10 21:27] VITALS: BP 132/80
== END 2016-04-10 21:29 | disposition home or self-care (01) ==
LOC: NEPA 17:17
DX: B37.49 Other urogenital candidiasis (principal); R10.30 Lower abdominal pain, unspecified; N20.0 Calculus of kidney; I70.8 Atherosclerosis of other arteries; I73.9 Peripheral vascular disease, unspecified; K44.9 Diaphragmatic hernia without obstruction or gangrene; E11.9 Type 2 diabetes mellitus without complications; E03.9 Hypothyroidism, unspecified; J44.9 Chronic obstructive pulmonary disease, unspecified; I50.9 Heart failure, unspecified; M79.605 Pain in left leg; M79.604 Pain in right leg; Z79.84 Long term (current) use of oral hypoglycemic drugs; Z79.899 Other long term (current) drug therapy
CPT/HCPCS: 72170; 74177; 80053; 81001; 85025; 85610; 85730; 93970; 99284; Q9967

== ENCOUNTER 2016-06-14 15:53 | Observation (INO) | payer MEDICARE, OTHER ==
[~2016-06-14] VITALS: Ht 172.7 cm; Wt 80.0 kg
[~2016-06-14 15:53] MED LIST changes: +BUME1TAB PO; -BUME1TAB25 PO; +CETI10 PO; +CLOTR1%T TOPICAL; +CYCL7.5E EACH EYE; +HYDR-3533 PO; +IPRAAER INH; +MONT10TA2 PO; +NAME10TA PO; +ROPI3TAB PO; +TAMS0.4C4 PO; +ZOFR8TAB PO; +[UNRECOGNIZED DRUG - CODE] EACH EYE
[2016-06-14 16:01] VITALS: BP 91/52; PULSE 64; RESP 16; TEMP 97.8; O2SAT 97
[2016-06-14] MEDS ORDERED: TETANUS/DIPHTHERIA TOXOID ADULT 0.5 ML VIAL IM ONE (16:15)
[2016-06-14 16:35] LABS: AUTOMATED NEUTROPHIL # 7.4 TH/MM3 (1.8-7.7); BASOPHIL # 0.1 TH/MM3 (0-0.2); BASOPHIL % 0.6 % (0.0-2.0); EOSINOPHIL # 0.1 TH/MM3 (0-0.4); EOSINOPHIL % 0.7 % (0.0-4.0); HEMATOCRIT 40.7 % (39.0-51.0); HEMO FLAGS DIFF FINAL; LYMPH % 8.7 % (9.0-44.0); LYMPHOCYTE # 0.8 TH/MM3 (1.0-4.8); MEAN CELL VOLUME 83.5 FL (80.0-100.0); MEAN CORPUSCULAR HEMOGLOBIN 28.2 PG (27.0-34.0); MEAN CORPUSCULAR HGB CONC 33.8 % (32.0-36.0); PLATELET COUNT 165 TH/MM3 (150-450); RED BLOOD COUNT 4.88 MIL/MM3 (4.50-5.90); RED CELL DISTRIBUTION WIDTH 16.4 % (11.6-17.2); WHITE BLOOD COUNT 8.7 TH/MM3 (4.0-11.0)
[2016-06-14 16:46] LABS: APTT (PATIENT) 24.9 SEC (24.3-30.1); INTERNATIONAL NORMALIZED RATIO 1.2 RATIO; PROTHROMBIN TIME - PATIENT 12.9 SEC (9.8-11.6)
[2016-06-14] MEDS ORDERED: BUME0.5T PO (16:54)
--- NOTE | 2016-06-14 16:56 | RADRPT ---
EXAM DATE/TIME: 06/14/2016 16:29 [facility] COMPARISON: No previous studies available for comparison. INDICATIONS : Right elbow pain after fall. MEDICAL HISTORY : None. SURGICAL HISTORY : None. ENCOUNTER: Initial ACUITY: 1 day PAIN SCORE: 5/10 LOCATION: Right elbow FINDINGS: Two view examination of the right elbow demonstrates no soft tissue swelling, joint effusion, fractur e or dislocation. Bony mineralization is normal. CONCLUSION: Negative for fracture or dislocation. Follow up in 7-10 days is suggested if symptoms persist. Cash Gibson MD FACR on June 14, 2016 at 16:54 Board Certified Radiologist. This report was verified electronically.
[2016-06-14 17:02] LABS: ANION GAP 7 MEQ/L (5-15); BICARBONATE 26.6 MEQ/L (21.0-32.0); BLOOD UREA NITROGEN 19 MG/DL (7-18); CHLORIDE 109 MEQ/L (98-107); GLOMERULAR FILTRATION RATE 38 ML/MIN (>89); POTASSIUM 4.2 MEQ/L (3.5-5.1); SODIUM (NA) 143 MEQ/L (136-145)
--- NOTE | 2016-06-14 17:06 | RADRPT ---
EXAM DATE/TIME: 06/14/2016 16:48 [facility] COMPARISON: CT BRAIN W/O CONTRAST, April 02, 2013, 15:00. INDICATIONS : Head injury, fell and hit back of head. RADIATION DOSE: 56.35 CTDIvol (mGy) MEDICAL HISTORY : Cardiovascular disease. Dementia. Congestive heart failure. CVA, Diabetes. SURGICAL HISTORY : Cholecystectomy. AV Shunt, CABG ENCOUNTER: Initial ACUITY: 1 day PAIN SCALE: 2/10 LOCATION: Posterior skull. TECHNIQUE: Multiple contiguous axial images were obtained of the head. Using automated exposure control and adj ustment of the mA and/or kV according to patient size, radiation dose was kept as low as reasonably a chievable to obtain optimal diagnostic quality images. FINDINGS: Shunt is seen entering from the right temporal parietal region. Ventricular size is appropriate. Th ere is no parenchymal hemorrhage, mass effect or extra-axial fluid collections appreciated. Posterio r fossa appears normal. CONCLUSION: Intraventricular shunt, otherwise negative. Cash Gibson MD FACR on June 14, 2016 at 17:01 Board Certified Radiologist. This report was verified electronically.
[2016-06-14] MEDS ORDERED: ACTO30TA10 PO (17:09)
[2016-06-14 17:11] LABS: CREATINE KINASE 38 U/L (39-308)
--- NOTE | 2016-06-14 17:12 | PD ---
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 Pt got out of his car and was walking when he just fell backwards and hit his head. He states he remembers hitting his head but does not know why he fell backwards. Denies tripping on anything. Denies any chest pain, sob, dizziness, n/v, abdominal pain, focal weakness or numbness. PFSH Past Medical History Asthma: No Autoimmune Disease: No Anxiety: No Depression: Yes (on Prozac) Heart Rhythm Problems: No Cancer: No Cardiac Catheterization: Yes (1996, 1999) Cardiovascular Problems: Yes High Cholesterol: Yes Chemotherapy: No Congestive Heart Failure: Yes COPD: Yes Cerebrovascular Accident: Yes (2006) Dementia: Yes Diabetes: Yes (Type II) Diminished Hearing: Yes Endocrine: Yes Gastrointestinal Disorders: Yes GERD: Yes Genitourinary: Yes Hiatal Hernia: Yes Immune Disorder: No Implanted Vascular Access Dvce: Yes Kidney Stones: Yes Musculoskeletal: Yes Neurologic: Yes (Dementia, Early onset Alzheimers, Stroke 2006) Psychiatric: No Reproductive: No Respiratory: Yes Migraines: No Radiation Therapy: No Renal Failure: No Seizures: No Sleep Apnea: No Thyroid Disease: Yes (Hypothyroid) Ulcer: No Tetanus Vaccination: > 5 Years Influenza Vaccination: No Past Surgical History Abdominal Surgery: Yes (Gallbladder removel 2015) AICD: No Arteriovenous Shunt: Yes Body Medical Devices: STENTS Cardiac Surgery: Yes (CABG x 5 2005, Fem Fem Pop 1999, Fem Pop 1997, Carodid endodarectomy 2004) Cholecystectomy: Yes (2015) Coronary Artery Bypass Graft: Yes (2005) Coronary Stent: Yes Eye Surgery: Yes (BL Cataract removal) Insulin Pump: No Joint Replacement: No Neurologic Surgery: Yes (Brain tumor removed, angionoma 2000, RETAIL SALES CLERK shunt 2010) Oral Surgery: Yes (Tonsils removed, Dental implants) Pacemaker: No Thoracic Surgery: Yes (TRIPLE BYPASS) Tonsillectomy: Yes Other Surgery: Yes (RIGHT CORROTID 2004) Social History Alcohol Use: No Tobacco Use: No Substance Use: No Allergies-Medications (Allergen,Severity, Reaction): Coded Allergies: Ambien (Verified Allergy, Severe, Hallucinations, 06/14/16) Penicillin (Verified Allergy, Severe, HIVES, 06/14/16) Reported Meds & Prescriptions Reported Meds & Active Scripts Active Flomax (Tamsulosin HCl) 0.4 Mg Cap 0.4 Mg PO HS Reported Actos (Pioglitazone HCl) 30 Mg Tab 30 Mg PO DAILY Bumetanide 0.5 Mg Tab 0.5 Mg PO DAILY Hypotears Opth Oint (Artificial Tear Opth Oint) 1 Oint 1 Applic EACH EYE BID Restasis Multidose (Cyclosporine (Ophth)) 0.05 % Emu 1 Drop EACH EYE BID Singulair (Montelukast Sodium) 10 Mg Tab 10 Mg PO DAILY Ropinirole 3 Mg Tab 3 Mg PO HS Horizant ER (Gabapentin ER) 600 Mg Jacques 600 Mg PO HS Zofran (Ondansetron HCl) 8 Mg Tab 8 Mg PO TID PRN Namenda (Memantine) 10 Mg Tab 10 Mg PO BID Januvia (Sitagliptin Phosphate) 100 Mg Tab 100 Mg PO DAILY Breo Ellipta Inh (Fluticasone/Vilanterol) 100-25 Mcg/Act Inh 1 Puff INH DAILY Use daily at the same time. Prozac (Fluoxetine HCl) 10 Mg Cap 30 Mg PO DAILY Pantoprazole (Pantoprazole Sodium) 40 Mg Tab 40 Mg PO DAILY Crestor (Rosuvastatin Calcium) 40 Mg Tab 40 Mg PO HS K-Tab (Potassium Chloride) 10 Meq Tab 10 Meq PO DAILY Clonazepam 0.5 Mg Tab 0.5 Mg PO HS Synthroid (Levothyroxine Sodium) 25 Mcg Tab 25 Mcg PO DAILY Ferrous Sulfate 325 Mg Tab 325 Mg PO HS Zetia (Ezetimibe) 10 Mg Tab 10 Mg PO HS Donepezil 10 Mg Tab 10 Mg PO HS Aspir-Low (Aspirin) 81 Mg Tabdr 81 Mg PO HS Ventolin Hfa 18 GM Inh (Albuterol Sulfate) 90 Mcg/Act Aer 2 Puff INH Q6H PRN Review of Systems Except as stated in HPI: all other systems reviewed are Neg Physical Exam Narrative GENERAL: 76yo M not in distress. SKIN: Focused skin assessment warm/dry. HEAD: Atraumatic. Normocephalic. EYES: Pupils equal and round. No scleral icterus. No injection or drainage. ENT: No nasal bleeding or discharge. Mucous membranes pink and moist. NECK: +Midline C3-4 ttp. CARDIOVASCULAR: Regular rate and rhythm. No murmur appreciated. RESPIRATORY: No accessory muscle use. Clear to auscultation. Breath sounds equal bilaterally. GASTROINTESTINAL: Abdomen soft, non-tender, nondistended. MUSCULOSKELETAL: Right elbow: +Skin tear in proximal forearm. FROM in right elbow. Sensation intact. Distal pulses intact. NEUROLOGICAL: Awake and alert. No obvious cranial nerve deficits. Motor grossly within normal limits. Normal speech. PSYCHIATRIC: Appropriate mood and affect; insight and judgment normal. Data Data Last Documented VS Vital Signs Date Time Temp Pulse Resp B/P Pulse Ox O2 Delivery O2 Flow Rate FiO2 06/14/16 17:21 58 14 108/54 06/14/16 16:04 Room Air 06/14/16 16:[address] Brain W/O Iv Contrast(Rout) (06/14/16 ) Ct Cerv Spine W/O Contrast (06/14/16 ) Complete Blood Count With Diff (06/14/16 16:10) Basic Metabolic Panel (Bmp) (06/14/16 16:10) Prothrombin Time / Inr (Pt) (06/14/16 16:10) Act Partial Throm Time (Ptt) (06/14/16 16:10) Ckmb (Isoenzyme) Profile (06/14/16 16:10) Troponin I (06/14/16 16:10) Electrocardiogram (06/14/16 ) Tetanus/Diphtheria Tox Adult (Tetanus/Di (06/14/16 16:15) Elbow, Limited (Ap&Lat) (06/14/16 ) Sodium Chlorid 0.9% 500 Ml Inj (Ns 500 M (06/14/16 18:30) Orthostatic Blood Pressure (06/14/16 18:20) Admit Order (Ed Use Only) (06/14/16 18:20) Labs Laboratory Tests Test 06/14/16 16:20 White Blood Count 8.7 TH/MM3 Red Blood Count 4.88 MIL/MM3 Hemoglobin 13.8 GM/DL Hematocrit 40.7 % Mean Corpuscular Volume 83.5 FL Mean Corpuscular Hemoglobin 28.2 PG Mean Corpuscular Hemoglobin 33.8 % Concent Red Cell Distribution Width 16.4 % Platelet Count 165 TH/MM3 Mean Platelet Volume 8.4 FL Neutrophils (%) (Auto) 86.0 % Lymphocytes (%) (Auto) 8.7 % Monocytes (%) (Auto) 4.0 % Eosinophils (%) (Auto) 0.7 % Basophils (%) (Auto) 0.6 % Neutrophils # (Auto) 7.4 TH/MM3 Lymphocytes # (Auto) 0.8 TH/MM3 Monocytes # (Auto) 0.3 TH/MM3 Eosinophils # (Auto) 0.1 TH/MM3 Basophils # (Auto) 0.1 TH/MM3 CBC Comment DIFF FINAL Differential Comment Prothrombin Time 12.9 SEC Prothromb Time International 1.2 RATIO Ratio Activated Partial 24.9 SEC Thromboplast Time Sodium Level 143 MEQ/L Potassium Level 4.2 MEQ/L Chloride Level 109 MEQ/L Carbon Dioxide Level 26.6 MEQ/L Anion Gap 7 MEQ/L Blood Urea Nitrogen 19 MG/DL Creatinine 1.73 MG/DL Estimat Glomerular Filtration 38 ML/MIN Rate Random Glucose 190 MG/DL Calcium Level 8.3 MG/DL Total Creatine Kinase 38 U/L Troponin I LESS THAN 0.02 NG/ML MDM Medical Decision Making Medical Screen Exam Complete: Yes Emergency Medical Condition: Yes Interpretation(s) EKG: NSR 66bpm with PACs. Diffuse ST depression. There is a pause after every two beats. Differential Diagnosis Arrhythmia vs. orthostatic hypotension vs. electrolyte abnormality vs. dehydration Narrative Course 76yo M with episode of near syncope. Pt just fell backwards and does not know what. Labs reviewed, no leukocytosis. BUN/creatinine elevated at 19/1.73 which is mildly increased from prior. Troponin negative. Pt given 500cc of NS IVF. Pt does have new changes in EKG. CT cspine showed degenerative disc disease with mild retrolisthesis at C4-5 and C5-6. No acute compression or traumatic listhesis. Xray right elbow negative. CT brain showed intraventricular shunt. Discussed with Dr. Fortune and accepted to his service for observation or near syncope. Diagnosis Primary Impression: Near syncope Admitting Information Admitting Physician Requests: Observation Xochitl Jim DO June 14, 2016 17:12
[2016-06-14 17:21] VITALS: BP 108/54; PULSE 58; RESP 14
--- NOTE | 2016-06-14 17:32 | RADRPT ---
EXAM DATE/TIME: 06/14/2016 16:51 [facility] COMPARISON: No previous studies available for comparison. INDICATIONS : Neck pain from fall. RADIATION DOSE: 34.66 CTDIvol (mGy) MEDICAL HISTORY : Diabetes mellitus type 2. Cardiovascular disease Congestive heart failure.Dementa. SURGICAL HISTORY : Cholecystectomy. AV Shunt, ENCOUNTER: Initial ACUITY: 1 day PAIN SCALE: 2/10 LOCATION: Bilateral neck region. TECHNIQUE: Volumetric scanning of the cervical spine was performed. Multiplanar reconstructions in the sagittal, coronal and oblique axial planes were performed. Using automated exposure control and adjustment o f the mA and/or kV according to patient size, radiation dose was kept as low as reasonably achievable to obtain optimal diagnostic quality images. FINDINGS: Craniocervical line is intact. There is slight retrolisthesis of C4 and C5 and C5 on C6. There is no evidence of traumatic listhesis . Facet joints are satisfactory aligned. There is no evidence of fracture or subluxation. Vertebral bodies are intact without evidence of compression deformity. Degenerative disc disease ranging from mild to moderate is noted. There is significant disc space veronica rowing with mild marginal spondylosis at C4-5 and C5-6. There are no acute soft tissue abnormalities. CONCLUSION: Degenerative disc disease with mild retrolisthesis at C4-5 and C5-6 as described. Intact cervical spine without evidence of acute compression deformity or traumatic listhesis. No significant soft tissue abnormality. Tien Ritter MD on June 14, 2016 at 17:15 Board Certified Radiologist. This report was verified electronically.
[2016-06-14] MEDS ORDERED: SODIUM CHLORID 0.9% 500 ML INJ 500 ML IV ONE (18:30)
[2016-06-14 19:08] VITALS: BP 115/55; PULSE 61; RESP 18; O2SAT 98
[2016-06-14] MEDS ORDERED: SODIUM CHLOR 0.9% 1000 ML INJ 1,000 ML IV SCH (21:30)
[2016-06-14] MEDS ORDERED: ACETAMINOPHEN 325 MG TAB PO PRN (21:30)
[2016-06-14] MEDS ORDERED: NALOXONE HCL 0.4 MG/ML AMP IV PRN (21:30)
[2016-06-14] MEDS ORDERED: ONDANSETRON HCL 4 MG/2 ML VIAL IVP PRN (21:30)
[2016-06-14] MEDS ORDERED: SODIUM CHLORIDE 0.9% FLUSH 10 ML FLUSH IV FLUSH PRN (21:30)
[2016-06-14] MEDS ORDERED: SENNOSIDES 8.6 MG TAB PO PRN (21:30)
[2016-06-14 21:34] VITALS: O2SAT 97
[2016-06-14 22:02] VITALS: BP 102/55; PULSE 60; RESP 18; O2SAT 98
[2016-06-14 22:24] VITALS: BP_SYST 119; BP_SYST 127; BP_SYST 129; BP_DIAS 56; BP_DIAS 59; BP_DIAS 61; PULSE 61; RESP 19; TEMP 98; O2SAT 93
[2016-06-15 03:54] VITALS: BP 186/76; PULSE 64; RESP 19; TEMP 98.2; O2SAT 96
[2016-06-15 06:54] LABS: POTASSIUM 4.2 MEQ/L (3.5-5.1)
[2016-06-15 07:17] VITALS: O2SAT 92
[2016-06-15 07:33] VITALS: BP 163/79; PULSE 57; RESP 20; TEMP 98.3; O2SAT 95
--- NOTE | 2016-06-15 07:39 | HHI.HP ---
HPI Service [facility] Primary Care Physician Desire Carrasquillo Admission Diagnosis Near syncope Diagnoses: Chief Complaint: near syncope (Lottie Denney GIOVANY) Travel History International Travel<30 Days: No Contact w/Intl Traveler <30 Da: No Traveled to Known Affected Are: No (Lottie Denney GIOVANY) History of Present Illness This is a pleasant 76-year-old male with history of meningioma status post resection, hydrocephalus status post DEPARTMENT ADMINISTRATOR shunt, CAD, vertical, hypertension, hyperlipidemia, dementia. Patient presented to the emergency room after he fell backwards and hit the back of his head. According to the patient, he had just come from running errands with his , she was driving. He got out of the car and was standing waiting for her when he felt himself going backwards. Denies tripping, was just standing. Denies any preceding symptoms such as dizziness, lightheadedness, chest pain, shortness of breath, palpitations. He fell backwards and hit the back of his head and the right elbow. He did not think he lost consciousness as he did hear his calling his name. Patient was evaluated in the emergency room, laboratory workup was completed. CBC was essentially unremarkable. BMP remarkable for elevated creatinine, mild dehydration. Blood glucose was 190. Imaging studies were completed, no acute injuries. Last Impressions Head CT 06/14/16 Signed Impressions: Service Date/Time: Tuesday, June 14, 2016 16:48 - CONCLUSION: Intraventricular shunt, otherwise negative. Cash Gibson MD FACR Elbow X-Ray 06/14/16 Signed Impressions: Service Date/Time: Tuesday, June 14, 2016 16:29 - CONCLUSION: Negative for fracture or dislocation. Follow up in 7-10 days is suggested if symptoms persist. Cash Gibson MD FACR Cervical Spine CT 06/14/16 Signed Impressions: Service Date/Time: Tuesday, June 14, 2016 16:51 - CONCLUSION: Degenerative disc disease with mild retrolisthesis at C4-5 and C5-6 as described. Intact cervical spine without evidence of acute compression deformity or traumatic listhesis. No significant soft tissue abnormality. Tien Ritter MD Orthostatics were negative. This morning's blood pressure is elevated. EKG was completed, interpretation is sinus rhythm with Mobitz type II. At this time , patient denies any discomfort. He is anxious to go home. He denies any dizziness, no chest pain. Indicates he has been eating well, is relatively very active and works out with a wellness trainer 3 days a week. He uses a walker for ambulation occasionally. His DEPARTMENT ADMINISTRATOR shunt was placed at [facility] and he last had it checked in the last 6 months. He does have some memory problems that he is aware off. Patient is admitted for further evaluation and treatment. (Lottie Denney) Review of Systems Constitutional: DENIES: Diaphoretic episodes, Fatigue, Fever, Weight gain, Weight loss, Chills, Dizziness, Change in appetite, Night Sweats Endocrine: DENIES: Heat/cold intolerance, Polydipsia, Polyuria, Polyphagia Eyes: DENIES: Blurred vision, Diplopia, Eye inflammation, Eye pain, Vision loss , Photosensitivity, Double Vision Ears, nose, mouth, throat: DENIES: Tinnitus, Hearing loss, Vertigo, Nasal discharge, Oral lesions, Throat pain, Hoarseness, Ear Pain, Running Nose, Epistaxis, Sinus Pain, Toothache, Odynophagia Cardiovascular: COMPLAINS OF: Syncope, DENIES: Chest pain, Palpitations, Dyspnea on Exertion, PND, Lower Extremity Edema, Orthopnea, Claudication Gastrointestinal: DENIES: Abdominal pain, Black stools, Bloody stools, Constipation, Diarrhea, Nausea, Vomiting, Difficulty Swallowing, Anorexia Genitourinary: DENIES: Sexual dysfunction, Urinary frequency, Urinary incontinence, Urgency, Hematuria, Dysuria, Nocturia, Penile Discharge, Testicular Pain, Testicular Swelling Musculoskeletal: COMPLAINS OF: Joint pain, DENIES: Muscle aches, Stiffness, Joint Swelling, Back pain, Neck pain Integumentary: DENIES: Abnormal pigmentation, Nail changes, Pruritus, Rash Hematologic/lymphatic: DENIES: Bruising, Lymphadenopathy Immunologic/allergic: DENIES: Eczema, Urticaria Neurologic: COMPLAINS OF: Poor Balance, DENIES: Abnormal gait, Headache, Localized weakness, Paresthesias, Seizures, Speech Problems, Tremor Psychiatric: DENIES: Anxiety, Confusion, Mood changes, Depression, Hallucinations, Agitation, Suicidal Ideation, Homicidal Ideation, Delusions ( Lottie Denney) Past Family Social History Past Medical History 1. Coronary artery disease. 2. Hyperlipidemia. 3. Hiatal hernia. 4. Hypertension. 5. Peripheral vascular disease. 6. Vertigo. 7. Chronic back pain. 8. Orthostatic hypotension. 9. Diabetes mellitus type 2. 10. Degenerative disc disease. 11. COPD with p.r.n. oxygen use and h.s. oxygen use. 12. CVA. 13. Tinnitus. 14. Right frontal meningioma. 15. Syncope. 16. Neuropathy. 17. RLS. 18. Early dementia. 19. Congestive heart failure. Past Surgical History 1. Angioplasty of the heart. 2. Cardiac catheterizations with stents x 2. 3. Fem-pop bypass with stents placed in bilateral iliac arteries. 4. Carotid endarterectomy. 5. Five-vessel CABG. 6. Meningioma of the brain status post resection in 2010. 7. DEPARTMENT ADMINISTRATOR shunt for hydrocephalus. 8. Cataract surgery. 9. Cholecystectomy (the patient is also being monitored at [facility] for recurrent meningiomas). Reported Medications Reported Meds & Active Scripts Active Flomax (Tamsulosin HCl) 0.4 Mg Cap 0.4 Mg PO HS Reported Actos (Pioglitazone HCl) 30 Mg Tab 30 Mg PO DAILY Bumetanide 0.5 Mg Tab 0.5 Mg PO DAILY Hypotears Opth Oint (Artificial Tear Opth Oint) 1 Oint 1 Applic EACH EYE BID Restasis Multidose (Cyclosporine (Ophth)) 0.05 % Emu 1 Drop EACH EYE BID Singulair (Montelukast Sodium) 10 Mg Tab 10 Mg PO DAILY Ropinirole 3 Mg Tab 3 Mg PO HS Horizant ER (Gabapentin ER) 600 Mg Jacques 600 Mg PO HS Zofran (Ondansetron HCl) 8 Mg Tab 8 Mg PO TID PRN Namenda (Memantine) 10 Mg Tab 10 Mg PO BID Januvia (Sitagliptin Phosphate) 100 Mg Tab 100 Mg PO DAILY Breo Ellipta Inh (Fluticasone/Vilanterol) 100-25 Mcg/Act Inh 1 Puff INH DAILY Use daily at the same time. Prozac (Fluoxetine HCl) 10 Mg Cap 30 Mg PO DAILY Pantoprazole (Pantoprazole Sodium) 40 Mg Tab 40 Mg PO DAILY Crestor (Rosuvastatin Calcium) 40 Mg Tab 40 Mg PO HS K-Tab (Potassium Chloride) 10 Meq Tab 10 Meq PO DAILY Clonazepam 0.5 Mg Tab 0.5 Mg PO HS Synthroid (Levothyroxine Sodium) 25 Mcg Tab 25 Mcg PO DAILY Ferrous Sulfate 325 Mg Tab 325 Mg PO HS Zetia (Ezetimibe) 10 Mg Tab 10 Mg PO HS Donepezil 10 Mg Tab 10 Mg PO HS Aspir-Low (Aspirin) 81 Mg Tabdr 81 Mg PO HS Ventolin Hfa 18 GM Inh (Albuterol Sulfate) 90 Mcg/Act Aer 2 Puff INH Q6H PRN ( Lottie Denney) Allergies: Coded Allergies: Ambien (Verified Allergy, Severe, Hallucinations, 06/14/16) Penicillin (Verified Allergy, Severe, HIVES, 06/14/16) Active Ordered Medications Last Impressions Head CT 06/14/16 0000 Signed Impressions: Service Date/Time: Tuesday, June 14, 2016 16:48 - CONCLUSION: Intraventricular shunt, otherwise negative. Cash Gibson MD FACR Elbow X-Ray 06/14/16 0000 Signed Impressions: Service Date/Time: Tuesday, June 14, 2016 16:29 - CONCLUSION: Negative for fracture or dislocation. Follow up in 7-10 days is suggested if symptoms persist. Cash Gibson MD FACR Cervical Spine CT 06/14/16 0000 Signed Impressions: Service Date/Time: Tuesday, June 14, 2016 16:51 - CONCLUSION: Degenerative disc disease with mild retrolisthesis at C4-5 and C5-6 as described. Intact cervical spine without evidence of acute compression deformity or traumatic listhesis. No significant soft tissue abnormality. Tien Ritter MD Family History Liver cancer, emphysema and alcoholism run in the family. Social History . Had a 120 pack-year history of smoking. Quit smoking 15 years ago. Used to drink alcohol but stopped. (Lottie Denney) Physical Exam Vital Signs Vital Signs Date Time Temp Pulse Resp B/P Pulse Ox O2 Delivery O2 Flow Rate FiO2 06/15/16 07:33 98.3 57 20 163/79 95 06/15/16 07:17 92 Nasal Cannula 2.00 06/15/16 03:54 98.2 64 19 186/76 96 06/14/16 22:24 98.0 61 19 129/59 93 119/56 127/61 06/14/16 22:02 60 18 102/55 98 Room Air 06/14/16 21:34 97 06/14/16 19:08 61 18 115/55 98 Room Air 06/14/16 17:21 58 14 108/54 06/14/16 16:04 Room Air 06/14/16 16:01 97.8 64 16 91/52 97 Physical Exam GENERAL: This is a well-nourished, well-developed patient, in no apparent distress. SKIN: Right elbow abrasion, dressing dry and intact. HEAD: Atraumatic. Normocephalic. No temporal or scalp tenderness. EYES: Pupils equal round and reactive. Extraocular motions intact. No scleral icterus. No injection or drainage. ENT: Nose without bleeding, purulent drainage or septal hematoma. Throat without erythema, tonsillar hypertrophy or exudate. Uvula midline. Airway patent. NECK: Trachea midline. No JVD or lymphadenopathy. Supple, nontender, no meningeal signs. CARDIOVASCULAR: S1 and S2, irregular rhythm. No gallops, no murmurs, no rubs. RESPIRATORY: Clear to auscultation. Breath sounds equal bilaterally. No wheezes , rales, or rhonchi. GASTROINTESTINAL: Abdomen soft, non-tender, nondistended. No hepato-splenomegaly , or palpable masses. No guarding. MUSCULOSKELETAL: Extremities without clubbing, cyanosis, or edema. No joint tenderness, effusion, or edema noted. No calf tenderness. Negative Homans sign bilaterally. NEUROLOGICAL: Awake and alert. Cranial nerves II through XII intact. Motor and sensory grossly within normal limits. Five out of 5 muscle strength in all muscle groups. Normal speech. Laboratory Laboratory Tests Test 06/14/16 06/15/16 16:20 05:47 White Blood Count 8.7 Red Blood Count 4.88 Hemoglobin 13.8 Hematocrit 40.7 Mean Corpuscular Volume 83.5 Mean Corpuscular Hemoglobin 28.2 Mean Corpuscular Hemoglobin 33.8 Concent Red Cell Distribution Width 16.4 Platelet Count 165 Mean Platelet Volume 8.4 Neutrophils (%) (Auto) 86.0 Lymphocytes (%) (Auto) 8.7 Monocytes (%) (Auto) 4.0 Eosinophils (%) (Auto) 0.7 Basophils (%) (Auto) 0.6 Neutrophils # (Auto) 7.4 Lymphocytes # (Auto) 0.8 Monocytes # (Auto) 0.3 Eosinophils # (Auto) 0.1 Basophils # (Auto) 0.1 CBC Comment DIFF FINAL Differential Comment Prothrombin Time 12.9 Prothromb Time International 1.2 Ratio Activated Partial 24.9 Thromboplast Time Sodium Level 143 141 Potassium Level 4.2 4.2 Chloride Level 109 107 Carbon Dioxide Level 26.6 28.0 Anion Gap 7 6 Blood Urea Nitrogen 19 20 Creatinine 1.73 1.50 Estimat Glomerular Filtration 38 45 Rate Random Glucose 190 283 Calcium Level 8.3 8.2 Total Creatine Kinase 38 Troponin I LESS THAN 0.02 (Lottie Denney) Result Diagram: 06/14/16 1620 06/15/16 0547 Imaging Last Impressions Head CT 06/14/16 0000 Signed Impressions: Service Date/Time: Tuesday, June 14, 2016 16:48 - CONCLUSION: Intraventricular shunt, otherwise negative. Cash Gibson MD FACR Elbow X-Ray 06/14/16 0000 Signed Impressions: Service Date/Time: Tuesday, June 14, 2016 16:29 - CONCLUSION: Negative for fracture or dislocation. Follow up in 7-10 days is suggested if symptoms persist. Cash Gibson MD FACR Cervical Spine CT 06/14/16 0000 Signed Impressions: Service Date/Time: Tuesday, June 14, 2016 16:51 - CONCLUSION: Degenerative disc disease with mild retrolisthesis at C4-5 and C5-6 as described. Intact cervical spine without evidence of acute compression deformity or traumatic listhesis. No significant soft tissue abnormality. Tien Ritter MD (Lottie Denney) Assessment and Plan Problem List: (1) Near syncope (2) Irregular heart beat (3) Acute renal injury (4) CAD (coronary artery disease) (5) Dementia (6) HTN (hypertension) (7) History of CVA (cerebrovascular accident) (8) Diabetes 1.5, managed as type 2 Assessment and Plan Admit to Dr. Flannery 76-year-old male presented to the emergency room after near syncopal episode, pt felt himself falling backwards. Denies any preceding symptoms. Evaluated in emergency room, found with abnormal EKG, sinus rhythm with Mobitz type II. -Continuous cardiac telemetry Continue neuro checks Cardiology has been consulted for evaluation Continue with orthostatics every shift, so far are negative Acute renal injury, possibly secondary to dehydration-renal function improved Continue with IV fluids Follow BMP, avoid nephrotoxic agents Hypertension, blood pressure has been labile Continue to monitor Continue home medications -Orthostatics every shift History of NPH, has DEPARTMENT ADMINISTRATOR shunt, follows up at the [facility], the patient was checked in the last 6 months. [employer] to monitor Early dementia, stable, overall patient is a pretty good historian -Continue with home medical History of CVA Continue home medications CAD, prior history of CABG Continue home medications Type 2 diabetes Continue with Accu-Cheks before meals and at bedtime and insulin therapy as needed Home medications reviewed, initiated as indicated SCDs for DVT prophylaxis Consult physical therapy evaluation and treatment Plan of care has been discussed with the patient, attending and registered nurse. Further management of the patient will be dependent on the hospital course This patient was seen by myself and Dr. Richards, this H&P is written on his behalf (Lottie Denney) Assessment and Plan Patient seen and examined as above in presence of and daughter. Chart reviewed Labs reviewed Medications reviewed Previous notes reviewed Monitor discussed with BRANCH ASSISTANT as above Discussed with patient Discussed with Dr. He Merritt, cost report clerk. There is no further workup needed. He knows patient very well. Can be discharged. DC planning as patient is overall a stable (Jaxon Flannery MD) Problem Qualifiers (1) CAD (coronary artery disease): Qualified Code: I25.10 - Coronary artery disease involving [place] coronary artery of [place] heart without angina pectoris (2) Dementia: (3) HTN (hypertension): Qualified Code: I10 - Essential hypertension Lottie Denney June 15, 2016 07:39 Jaxon Flannery MD June 15, 2016 15:26
[2016-06-15] MEDS ORDERED: GLUCAGON 1 MG/ML VIAL OTHER PRN (07:45)
[2016-06-15] MEDS ORDERED: DEXTROSE 50% IN WATER 50 ML VIAL(D50) IV PUSH PRN (07:45)
[2016-06-15 07:56] VITALS: BP_SYST 143; BP_SYST 164; BP_SYST 192; BP_DIAS 65; BP_DIAS 74; BP_DIAS 77
[2016-06-15] MEDS ORDERED: SODIUM CHLORIDE 0.9% FLUSH 10 ML FLUSH IV FLUSH SCH (09:00)
[2016-06-15] MEDS ORDERED: PIOGLITAZONE HCL 30 MG TAB PO SCH (09:00)
[2016-06-15] MEDS ORDERED: FLUoxetine HCL 10 MG CAP PO SCH (09:00)
[2016-06-15] MEDS ORDERED: CYCLOSPORINE EACH EYE SCH (09:00)
[2016-06-15] MEDS ORDERED: PILL SPLITTER OTHER PRN (09:00)
[2016-06-15] MEDS ORDERED: MEMANTINE HCL 10 MG TAB PO SCH (09:00)
[2016-06-15] MEDS ORDERED: MONTELUKAST SODIUM 10 MG TAB PO SCH (09:00)
[2016-06-15] MEDS ORDERED: LEVOTHYROXINE SODIUM 25 MCG TAB PO SCH (09:00)
[2016-06-15] MEDS ORDERED: PANTOPRAZOLE SOD 40 MG DELAYED RELEASE TAB PO SCH (09:00)
[2016-06-15] MEDS ORDERED: FLUTICASONE 100 MCG/VILANTEROL 25 MCG INHALER INH SCH (09:00)
[2016-06-15] MEDS ORDERED: GABAPENTIN 300 MG CAP PO SCH (09:00)
--- NOTE | 2016-06-15 10:58 | MB ---
cc: EDDIE PATEL M.D. DATE OF CONSULTATION 06/15/2016 REASON FOR CONSULTATION Fall, syncope or near-syncope HISTORY OF PRESENT ILLNESS Manuelito Case is a 76-year-old man well-known to me. He has known coronary artery disease. He had three-vessel disease and underwent bypass surgery in 2005. His last cath was January 2010. At that time, his left main had 25% disease. The LAD was occluded with a patent left internal mammary graft. The circumflex artery had occlusion of the obtuse marginal branch with a patent vein graft. His right coronary artery was occluded with patent vein graft to the PDA branch and posterolateral branch. His coronaries have been stable. He is physically active. He goes to the gym. He also goes to the golf course. He denies having any anginal symptoms. He does, however, have well documented orthostatic hypotension. This goes back to at least 2012. It has been documented on this admission as well with his high blood pressure 192/77 and a standing blood pressure of 143/65. He has wide variations in his blood pressures related to this. He was the passenger in a car with his spouse and when he got out of the says he started to sense himself going backwards and he ended up falling injuring his elbow. It is not clear if he consciousness or not. He feels fine now and is asking to go home. He denies any anginal symptoms. Troponins have been negative. His EKG was misinterpreted as Mobitz II block. I have actually studied his EKG and it is atrial bigemini. He is noted to have frequent PAC's on telemetry. His medication list is quite extensive and includes: 1. Tamsulosin 0.4 mg daily which he is on for his prostate and may be contributing to his orthostasis 2. He is on Bumex 1 mg daily. On one of his prior admissions, he was hydrated for the orthostasis and went into heart failure. He has been on diuretics on just a once a day basis. He is also an extensive list of medications better that are written in the chart. PAST MEDICAL HISTORY Includes: 1. Coronary artery disease 2. Previous bypass surgery as described above 3. Previous left carotid endarterectomy with no evidence for significant disease since then. 4. COPD 5. Mild dementia 6. Type 2 diabetes 7. Previous encephalopathy 8. 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 9. Esophageal reflux 10. Hyperlipidemia 11. Hypertension 12. Hypothyroidism 13. Previous meningioma with previous craniotomy for this 14. Moderate mitral regurgitation with a tethered posterior Leaflet. 15. Old inferior myocardial infarction. 16. Peripheral arterial disease with a right fem-pop April 1997 and a left fem-pop January 2000. 17. Kissing bilateral iliac stents in the past. 18. Previous pneumonia. 19. Previous sepsis in 2013. PAST SURGICAL PROCEDURES Includes: 1. Cath with bypass operation 2. Craniotomy for the meningioma 3. His leg bypasses 4. Bilateral iliac stents 5. Left carotid endarterectomy November 2004 6. Intracranial shunt for normal pressure hydrocephalous ALLERGIES P[place]ICILLIN FAMILY HISTORY Positive for alcoholism in the mother, stroke in a brother, emphysema in the father and heart disease in a brother. 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 He is and does not drink. He is retired. REVIEW OF SYSTEMS Otherwise noncontributory. PHYSICAL EXAMINATION James is a well-developed and well-nourished man. He is alert. VITAL SIGNS: Charted. As noted, he has got widely varying blood pressures. HEENT: Exam is unremarkable. NECK: Shows no bruits. CHEST: Clear to auscultation. CARDIAC: Exam shows S1, S2, irregularly irregular in a bigeminal type rhythm. There is a grade 2/6 systolic murmur. ABDOMEN: Soft and nontender. EXTREMITIES: No clubbing, cyanosis or edema. Pulses are intact. EKG shows atrial bigeminy. There are diffuse nonspecific ST-T wave changes which are very similar to the prior EKG's he has had. LABORATORIES Charted. He has mild renal insufficiency. BUN is 20. The creatinine 1.5, hematocrit is 40.7. He has had a CT scan of his head, neck and elbow. IMPRESSION Syncope due to do widely varying blood pressures, well documented orthostatic hypotension. This is chronic for him. RECOMMENDATIONS This a very difficult problem to manage. I do not know if he could tolerate coming off the Tamsulosin, this might help. However, I think he might get a urinary obstruction if we try that. The orthostatic hypotension goes back multiple years. He has over a 50 mm systolic blood pressure difference standing to lying down. I think this was the cause of his episode. I have advised him to use a cane, get up slowly, try to hold on to things when he first gets up. Also, it is important to maintain physical activity which he is already doing. This was discussed with Dr. Flannery. The patient probably can be discharged home and follow him up in the office. MD JOSE LUIS Staley/VIVIANA /10:10 AM /10:31 AM
[2016-06-15] MEDS ORDERED: INSULIN ASPART SUPPLEMENTAL SCALE SQ SCH (11:00)
[2016-06-15 12:08] VITALS: BP_SYST 132; BP_SYST 140; BP_SYST 164; BP_DIAS 61; BP_DIAS 65; BP_DIAS 72; PULSE 53; RESP 20; TEMP 97.8; O2SAT 97
--- NOTE | 2016-06-15 12:50 | HHI.FF ---
Face to Face Verification Diagnosis: (1) Acute renal injury (2) Near syncope Physical Therapy Order: Evaluate and Treat Home Health Nursing Order: Medical education Nursing assessment with vital signs I have seen patient James Case on 06/15/16. My clinical findings support the need for the requested home health care services because: Deconditioned w/ increased weakness High risk of falls I certify that my clinical findings support that this patient is homebound because: Unsteady gait/balance Need for psychosocial assistance Lottie Denney [facility] June 15, 2016 12:50
--- NOTE | 2016-06-15 15:52 | EKG ---
Date Performed: 06/14/2016 Time Performed: 16:39:10 PTAGE: 76 years EKG: Sinus rhythm WITH 2ND DEGREE AV BLOCK, MOBITZ TYPE II INCOMPLETE RIGHT BUNDLE BRANCH BLOCK NONSPECIFIC ST & T-WAV E ABNORMALITY PROLONGED QT INTERVAL ABNORMAL ECG NO PREVIOUS TRACING No significant change DOCTOR: Jay Cohen Interpretating Date/Time 06/15/2016 15:51:20
[2016-06-15] MEDS ORDERED: FERROUS SULFATE 325 MG (65 MG ELEMENTAL IRON) TAB PO SCH (21:00)
[2016-06-15] MEDS ORDERED: EZETIMIBE 10 MG TAB PO SCH (21:00)
[2016-06-15] MEDS ORDERED: ASPIRIN EC 81 MG TABEC PO SCH (21:00)
[2016-06-15] MEDS ORDERED: DONEPEZIL HCL 5 MG TAB PO SCH (21:00)
[2016-06-15] MEDS ORDERED: TAMSULOSIN HCL 0.4 MG CAP PO SCH (21:00)
[2016-06-15] MEDS ORDERED: ATORVASTATIN 80 MG TAB PO SCH (21:00)
== END 2016-06-17 13:11 | disposition home or self-care (01) ==
LOC: NEPE 15:53 → NEDA 18:22 → NEPGCP 22:05
PROVIDERS: ADMIT Specialist; ATTEND Specialist
DX: I95.1 Orthostatic hypotension (principal); I25.10 Atherosclerotic heart disease of native coronary artery without angina pectoris; F32.9 Major depressive disorder, single episode, unspecified; E78.00 Pure hypercholesterolemia, unspecified; J44.9 Chronic obstructive pulmonary disease, unspecified; H91.90 Unspecified hearing loss, unspecified ear; I11.0 Hypertensive heart disease with heart failure; I50.9 Heart failure, unspecified; K21.9 Gastro-esophageal reflux disease without esophagitis; F02.80 Dementia in other diseases classified elsewhere, unspecified severity, without behavioral disturbance, psychotic disturbance, mood disturbance, and anxiety; G30.0 Alzheimer's disease with early onset; E03.9 Hypothyroidism, unspecified; E78.5 Hyperlipidemia, unspecified; E11.51 Type 2 diabetes mellitus with diabetic peripheral angiopathy without gangrene; M54.9 Dorsalgia, unspecified; G89.29 Other chronic pain; E11.40 Type 2 diabetes mellitus with diabetic neuropathy, unspecified; G25.81 Restless legs syndrome; N17.9 Acute kidney failure, unspecified; I25.2 Old myocardial infarction; Z87.891 Personal history of nicotine dependence; Z88.0 Allergy status to penicillin; Z88.8 Allergy status to other drugs, medicaments and biological substances; Z79.82 Long term (current) use of aspirin; Z86.73 Personal history of transient ischemic attack (TIA), and cerebral infarction without residual deficits; Z95.1 Presence of aortocoronary bypass graft; Z98.2 Presence of cerebrospinal fluid drainage device; Z86.011 Personal history of benign neoplasm of the brain
CPT/HCPCS: 70450; 72125; 73070; 80048; 82550; 82948; 84484; 85025; 85610; 85730; 90471; 90714; 93005; 97163; 99285; G0378; G8987; G8988; J1815; J7030; J7040

== ENCOUNTER 2016-10-30 09:31 | Inpatient (IN) | payer MEDICARE, OTHER ==
[~2016-10-30] VITALS: Ht 170.2 cm; Wt 82.8 kg
[~2016-10-30 09:31] MED LIST changes: +ACTO30TA10 PO; +BUME0.5T PO; -BUME1TAB PO; -CETI10 PO; -CLOTR1%T TOPICAL; -GLIP10TA6 PO; -HYDR-3533 PO; -IPRAAER INH; -REST30CA PO; -TAMS0.4C4 PO; -VICT18IN SQ
[2016-10-30 09:34] VITALS: BP 170/73; PULSE 60; RESP 18; TEMP 98.2; O2SAT 94
--- NOTE | 2016-10-30 10:27 | PD ---
HPI Chief Complaint: Respiratory Symptoms Time Seen by Provider: 10:13 Travel History International Travel<30 days: No Contact w/Intl Traveler<30days: No Traveled to known affect area: No History of Present Illness HPI Patient is a 76 year old male with history of Alzheimer's dementia, cardiac history presenting to the emergency room with dizziness and chest pain radiating to his left shoulder. The patient is a poor historian and very agitated refusing to answer questions for my medical student. He is actually more receptive of my questioning.. His is in the room to help with the history. The patient's states [place] and he started having dizziness with SOB. The patient's believes he was having vertigo because at the time he said the room was spinning. The said he started having similar symptoms the past day. The gave him a benzodiazepine which said helped, but then he continued to have more of the symptoms. The patient and his are not exactly clear about the cardiac history of the patient. She is concerned because his normal 2 L oxygen which she wears intermittently he's been requiring at least 3-4 at home to maintain his saturations. She reports that he has had some history of fluid on the lungs secondary to CHF. PFSH Past Medical History Hx Anticoagulant Therapy: Yes Asthma: No Autoimmune Disease: No Anxiety: No Depression: Yes (on Prozac) Heart Rhythm Problems: No Cancer: Yes (2 NEW BRAIN GROWTHS(NON-CANCEROUS)) Cardiac Catheterization: Yes (1996, 1999) Cardiovascular Problems: Yes High Cholesterol: Yes Chemotherapy: No Congestive Heart Failure: Yes COPD: Yes Cerebrovascular Accident: Yes (2006 DISCOVERED ) Dementia: Yes Diabetes: Yes Patient Takes Glucophage: No Diminished Hearing: Yes Endocrine: Yes Gastrointestinal Disorders: Yes GERD: Yes Genitourinary: Yes Hiatal Hernia: Yes Immune Disorder: No Implanted Vascular Access Dvce: Yes Kidney Stones: Yes Medical other: Yes (ENDARDECTOMY RIGHT SIDE) Musculoskeletal: Yes Neurologic: Yes (Dementia, Early onset Alzheimers, Stroke 2006) Psychiatric: No Reproductive: No Respiratory: Yes Migraines: No Radiation Therapy: No Renal Failure: No Seizures: No Sleep Apnea: No Thyroid Disease: Yes (Hypothyroid) Ulcer: No Past Surgical History Abdominal Surgery: Yes (Gallbladder removel 2015) AICD: No Arteriovenous Shunt: Yes Body Medical Devices: STENTS Cardiac Surgery: Yes (CABG x 5 2005, Fem Fem Pop 1999, Fem Pop 1997, Carodid endodarectomy 2004) Cholecystectomy: Yes (2015) Coronary Artery Bypass Graft: Yes (2005) Coronary Stent: Yes Eye Surgery: Yes (BL Cataract removal) Insulin Pump: No Joint Replacement: No Neurologic Surgery: Yes (Brain tumor removed, angionoma 2000, LINE SERVICER shunt 2010) Oral Surgery: Yes (Tonsils removed, Dental implants) Pacemaker: No Thoracic Surgery: Yes (TRIPLE BYPASS) Tonsillectomy: Yes Other Surgery: Yes (RIGHT CORROTID 2004) Social History Alcohol Use: No Tobacco Use: No Substance Use: No Allergies-Medications (Allergen,Severity, Reaction): Coded Allergies: penicillin G (Unverified Allergy, Severe, HIVES, 10/30/16) zolpidem (Unverified Allergy, Severe, Hallucinations, 10/30/16) Reported Meds & Prescriptions Reported Meds & Active Scripts Active Reported Advair Diskus Inh (Fluticasone-Salmeterol Inh) 250-50 Mcg/Blist Aer 1 Puff INH BID Rinse mouth after use. Bydureon Inj (Exenatide) 2 Mg Vial 2 Mg SQ Q7D Mondays Ferrous Sulfate DR (Ferrous Sulfate) 324 Mg Tabdr 324 Mg PO DAILY Preservision Areds (Multiple Vitamins W/ Minerals) 1 Tab 1 Tab PO BID Glipizide 10 Mg Tab 10 Mg PO BID Take 30 minutes before a meal Fluoxetine (Fluoxetine HCl) 20 Mg Tab 20 Mg PO DAILY Actos (Pioglitazone HCl) 30 Mg Tab 30 Mg PO DAILY Bumetanide 0.5 Mg Tab 0.5 Mg PO DAILY Restasis Multidose (Cyclosporine (Ophth)) 0.05 % Emu 1 Drop EACH EYE BID Horizant ER (Gabapentin ER) 600 Mg Jacques 600 Mg PO HS Namenda (Memantine) 10 Mg Tab 10 Mg PO BID Januvia (Sitagliptin Phosphate) 100 Mg Tab 50 Mg PO DAILY Crestor (Rosuvastatin Calcium) 40 Mg Tab 40 Mg PO HS K-Tab (Potassium Chloride) 10 Meq Tab 10 Meq PO DAILY Synthroid (Levothyroxine Sodium) 25 Mcg Tab 25 Mcg PO DAILY Donepezil 10 Mg Tab 10 Mg PO HS Aspir-Low (Aspirin) 81 Mg Tabdr 81 Mg PO HS Ventolin Hfa 18 GM Inh (Albuterol Sulfate) 90 Mcg/Act Aer 2 Puff INH Q6H PRN Review of Systems Except as stated in HPI: all other systems reviewed are Neg Physical Exam Narrative GENERAL: Well-developed well-nourished, no obvious distress. SKIN: Warm and dry. HEAD: Atraumatic. Normocephalic. EYES: Pupils equal and round. No scleral icterus. No injection or drainage. ENT: No nasal bleeding or discharge. Mucous membranes pink and moist. NECK: Trachea midline. No JVD. No carotid bruits CARDIOVASCULAR: Regular rate and rhythm. S1 & S2 appreciated no MG R. RESPIRATORY: No accessory muscle use. Clear to auscultation. Breath sounds equal bilaterally. GASTROINTESTINAL: Abdomen soft, non-tender, nondistended. Hepatic and splenic margins not palpable. No pain on light palpation. MUSCULOSKELETAL: Extremities without clubbing, cyanosis, or edema. No obvious deformities, PT/DP 2+ and equal bilaterally. Radial pulses 2+ and equal bilaterally.. NEUROLOGICAL: Awake and alert. No obvious cranial nerve deficits. Motor grossly within normal limits. Five out of 5 muscle strength in the arms and legs. Normal speech. PSYCHIATRIC: Agitated and poor historian. helps with the history. Data Data Last Documented VS Vital Signs Date Time Temp Pulse Resp B/P (MAP) Pulse Ox O2 Delivery O2 Flow Rate FiO2 10/30/16 12:30 54 17 143/60 (87) 94 Nasal Cannula 3.00 10/30/16 09:34 98.2 Orders Orders Electrocardiogram (10/30/16 10:28) Ckmb (Isoenzyme) Profile (10/30/16 10:28) Complete Blood Count With Diff (10/30/16 10:28) Comprehensive Metabolic Panel (10/30/16 10:28) Magnesium (Mg) (10/30/16 10:28) Prothrombin Time / Inr (Pt) (10/30/16 10:28) Act Partial Throm Time (Ptt) (10/30/16 10:28) Troponin I (10/30/16 10:28) Chest, Single Ap (10/30/16 10:28) Ecg Monitoring (10/30/16 10:28) Iv Access Insert/Monitor (10/30/16 10:28) Oximetry (10/30/16 10:28) Oxygen Administration (10/30/16 10:28) Aspirin Chew (Aspirin Chew) (10/30/16 10:30) Sodium Chloride 0.9% Flush (Ns Flush) (10/30/16 10:30) Sodium Chlorid 0.9% 500 Ml Inj (Ns 500 M (10/30/16 10:30) Ct Pulmonary Angiogram (10/30/16 ) Iohexol 350 Inj (Omnipaque 350 Inj) (10/30/16 12:36) Furosemide Inj (Lasix Inj) (10/30/16 13:15) Ceftriaxone Inj (Rocephin Inj) (10/30/16 13:45) Azithromycin Inj (Zithromax Inj) (10/30/16 13:45) Admit Order (Ed Use Only) (10/30/16 ) Labs Laboratory Tests Test 10/30/16 10:45 White Blood Count 6.0 TH/MM3 Red Blood Count 4.72 MIL/MM3 Hemoglobin 13.7 GM/DL Hematocrit 41.9 % Mean Corpuscular Volume 88.7 FL Mean Corpuscular Hemoglobin 29.0 PG Mean Corpuscular Hemoglobin Concent 32.7 % Red Cell Distribution Width 16.2 % Platelet Count 200 TH/MM3 Mean Platelet Volume 7.8 FL Neutrophils (%) (Auto) 77.9 % Lymphocytes (%) (Auto) 13.9 % Monocytes (%) (Auto) 6.2 % Eosinophils (%) (Auto) 1.2 % Basophils (%) (Auto) 0.8 % Neutrophils # (Auto) 4.7 TH/MM3 Lymphocytes # (Auto) 0.8 TH/MM3 Monocytes # (Auto) 0.4 TH/MM3 Eosinophils # (Auto) 0.1 TH/MM3 Basophils # (Auto) 0.0 TH/MM3 CBC Comment DIFF FINAL Differential Comment Prothrombin Time 11.3 SEC Prothromb Time International Ratio 1.0 RATIO Activated Partial Thromboplast Time 26.4 SEC Blood Urea Nitrogen 18 MG/DL Creatinine 1.19 MG/DL Random Glucose 122 MG/DL Total Protein 6.9 GM/DL Albumin 3.3 GM/DL Calcium Level 8.4 MG/DL Magnesium Level 2.2 MG/DL Alkaline Phosphatase 99 U/L Aspartate Amino Transf (AST/SGOT) 12 U/L Alanine Aminotransferase (ALT/SGPT) LESS THAN 6 U/L Total Bilirubin 0.8 MG/DL Sodium Level 140 MEQ/L Potassium Level 4.1 MEQ/L Chloride Level 106 MEQ/L Carbon Dioxide Level 29.8 MEQ/L Anion Gap 4 MEQ/L Estimat Glomerular Filtration Rate 59 ML/MIN Total Creatine Kinase 38 U/L Troponin I LESS THAN 0.02 NG/ML MDM Medical Decision Making Medical Screen Exam Complete: Yes Emergency Medical Condition: Yes Differential Diagnosis CHF, PE, pleural effusion, ACS. Narrative Course Patient 76-year-old male presents emergency department for evaluation of increasing oxygen demand and some chest discomfort. Initial workup EKG and troponin are fairly reassuring. Given his history of trouble CT PE protocol was obtained and does show that the patient has significant pleural effusions and bilateral sides which are increased since February. This likely is caused by chronic CHF was given Lasix. I recommended to the patient that he be admitted and he is receptive. Discussed with hospitalist on-call and will admit. Diagnosis Primary Impression: Acute exacerbation of congestive heart failure Additional Impressions: Hypoxemia Pleural effusion Disposition: 01 DISCHARGE HOME Condition: Stable Glenroy Bello MD Oct 30, 2016 10:27
[2016-10-30] MEDS ORDERED: ASPIRIN 81 MG CHEW TAB PO ONE (10:30)
[2016-10-30] MEDS ORDERED: SODIUM CHLORID 0.9% 500 ML INJ 500 ML IV ONE (10:30)
[2016-10-30] MEDS ORDERED: SODIUM CHLORIDE 0.9% FLUSH 10 ML FLUSH IVF PRN (10:30)
--- NOTE | 2016-10-30 11:14 | RADRPT ---
EXAM DATE/TIME: 10/30/2016 10:47 [facility] COMPARISON: CT PULMONARY ANGIOGRAM, February 28, 2016, 19:46. CT ABDOMEN & PELVIS W CONTRAST, April 10, 2016, 19: 34. CHEST SINGLE AP, February 28, 2016, 16:48. INDICATIONS : Chest pain MEDICAL HISTORY : Cardiovascular disease. Congestive heart failure. dementia, CVA, diabetic SURGICAL HISTORY : CABG. Cholecystectomy. AV shunt ENCOUNTER: Initial ACUITY: 1 day PAIN SCORE: Non-responsive. LOCATION: Bilateral chest FINDINGS: Patchy interstitial and parenchymal opacities in the lower lung zones bilaterally. No significant ple ural effusion. Postsurgical features of prior cardiac surgery. Cardiomediastinal contours are stable. Bony thorax is intact. CONCLUSION: 1. Mixed interstitial and alveolar opacities in the lower lung zones bilaterally which may reflect de veloping airspace infection or aspiration superimposed on chronic changes. Reji Ortega MD on October 30, 2016 at 11:09 Board Certified Radiologist. This report was verified electronically.
[2016-10-30 11:29] LABS: AUTOMATED NEUTROPHIL # 4.7 TH/MM3 (1.8-7.7); BASOPHIL % 0.8 % (0.0-2.0); EOSINOPHIL # 0.1 TH/MM3 (0-0.4); EOSINOPHIL % 1.2 % (0.0-4.0); HEMATOCRIT 41.9 % (39.0-51.0); HEMO FLAGS DIFF FINAL; LYMPH % 13.9 % (9.0-44.0); LYMPHOCYTE # 0.8 TH/MM3 (1.0-4.8); MEAN CELL VOLUME 88.7 FL (80.0-100.0); MEAN CORPUSCULAR HGB CONC 32.7 % (32.0-36.0); MONO % 6.2 % (0.0-8.0); NEUT % 77.9 % (16.0-70.0); PLATELET COUNT 200 TH/MM3 (150-450); RED BLOOD COUNT 4.72 MIL/MM3 (4.50-5.90); RED CELL DISTRIBUTION WIDTH 16.2 % (11.6-17.2)
[2016-10-30 11:32] LABS: APTT (PATIENT) 26.4 SEC (24.3-30.1); PROTHROMBIN TIME - PATIENT 11.3 SEC (9.8-11.6)
[2016-10-30 11:38] LABS: ALT (GPT) LESS THAN 6 U/L (12-78); ANION GAP 4 MEQ/L (5-15); AST (GOT) 12 U/L (15-37); BICARBONATE 29.8 MEQ/L (21.0-32.0); BLOOD UREA NITROGEN 18 MG/DL (7-18); CHLORIDE 106 MEQ/L (98-107); GLOMERULAR FILTRATION RATE 59 ML/MIN (>89); MAGNESIUM 2.2 MG/DL (1.5-2.5); POTASSIUM 4.1 MEQ/L (3.5-5.1); SODIUM (NA) 140 MEQ/L (136-145)
[2016-10-30 11:42] LABS: ALKALINE PHOSPHATASE 99 U/L (45-117); TOTAL BILIRUBIN ADULT 0.8 MG/DL (0.2-1.0)
[2016-10-30 11:50] LABS: CREATINE KINASE 38 U/L (39-308)
[2016-10-30 12:30] VITALS: BP 143/60; PULSE 54; RESP 17; O2SAT 94
[2016-10-30] MEDS ORDERED: IOHEXOL 350 MG/ML 10 ML VIAL (for RAD DIAG) IVCONTRAST ONE (12:36)
--- NOTE | 2016-10-30 12:56 | RADRPT ---
EXAM DATE/TIME: 10/30/2016 12:13 [facility] COMPARISON: CT PULMONARY ANGIOGRAM, February 28, 2016, 19:46. INDICATIONS : Increased shortness of breath and right side chest pain. IV CONTRAST: 60 cc Omnipaque 350 (iohexol) IV RADIATION DOSE: 15.34 CTDIvol (mGy) MEDICAL HISTORY : Cardiovascular disease. Cerebrovascular disease. Congestive heart failure.Diabetes SURGICAL HISTORY : CABG Carotid endarterectomy. ENCOUNTER: Initial ACUITY: 1 day PAIN SCALE: 3/10 LOCATION: Right chest TECHNIQUE: Volumetric scanning of the chest was performed using a pulmonary embolism protocol MIP images were re constructed. Using automated exposure control and adjustment of the mA and/or kV according to patien t size, radiation dose was kept as low as reasonably achievable to obtain optimal diagnostic quality images. DICOM format image data is available electronically for review and comparison. Follow-up recommendations for detected pulmonary nodules are based at a minimum on nodule size and pa tient risk factors according to Fleischner Society Guidelines. FINDINGS: There are large bilateral pleural effusions identified as well as a small amount of free fluid s urrounding the liver. Atherosclerotic calcifications of the aorta are noted. There is no evidence for pulmonary embolism. Bilateral hilar, subcarinal adenopathy identified as well as AP window adenopath y up to 1.5 cm in short axis dimension at the AP window, 2.1 cm and the subcarinal region and 1.2 cm at the hilar region. There is consolidation in the lower lobes and severe emphysema identified. CONCLUSION: 1. Atherosclerosis. 2. No evidence for pulmonary embolus. 3. Bilateral pleural effusions, severe emphysema and lower lobe consolidation. Carloz Walker MD on October 30, 2016 at 12:52 Board Certified Radiologist. This report was verified electronically.
[2016-10-30] MEDS ORDERED: FUROSEMIDE 40 MG/4 ML VIAL IV PUSH ONE (13:15)
[2016-10-30] MEDS ORDERED: OCUVTAB4 PO (13:26)
[2016-10-30] MEDS ORDERED: FERR324T4 PO (13:26)
[2016-10-30] MEDS ORDERED: EXENINJ SQ (13:26)
[2016-10-30] MEDS ORDERED: FLUO1TAB3 PO (13:26)
[2016-10-30] MEDS ORDERED: GLIP10TA6 PO (13:26)
[2016-10-30] MEDS ORDERED: ADVA250A INH (13:27)
[2016-10-30] MEDS ORDERED: SENNOSIDES 8.6 MG TAB PO PRN (13:45)
[2016-10-30] MEDS ORDERED: LACTULOSE SYRUP 20 GM/30 ML CUP PO PRN (13:45)
[2016-10-30] MEDS ORDERED: SODIUM CHLORIDE 0.9% FLUSH 10 ML FLUSH IV FLUSH PRN (13:45)
[2016-10-30] MEDS ORDERED: MAGNESIUM HYDROXIDE SUSP 30 ML CUP PO PRN (13:45)
[2016-10-30] MEDS ORDERED: NALOXONE HCL 0.4 MG/ML AMP IV PUSH PRN (13:45)
[2016-10-30] MEDS ORDERED: AZITHROMYCIN INJ 500 MG in SODIUM CHLOR 0.9% 250 ML INJ 250 ML IV ONE (13:45)
[2016-10-30] MEDS ORDERED: cefTRIAXone INJ 1,000 MG in SODIUM CHLORIDE 0.9% INJ 100 ML IV ONE (13:45)
[2016-10-30] MEDS ORDERED: BISACODYL 10 MG SUPP RECTAL PRN (13:45)
[2016-10-30] MEDS ORDERED: RESP: ALBUTEROL 2.5 MG/IPRATROPIUM 0.5 MG NEB (PRN) NEB (14:00)
[2016-10-30] MEDS: methylPREDNISolone SOD SUCC 125 MG/2 ML VIAL IV SCH ×2 (15:08→21:37)
[2016-10-30] MEDS ORDERED: GLUCAGON 1 MG/ML VIAL OTHER PRN (15:15)
[2016-10-30] MEDS ORDERED: DEXTROSE 50% IN WATER 50 ML SYRINGE IV PUSH PRN (15:30)
[2016-10-30 16:00] VITALS: BP 152/70; PULSE 57; RESP 16; TEMP 98.2; O2SAT 94
--- NOTE | 2016-10-30 16:28 | HHI.PR ---
Objective Objective Results - Vital Signs Date Time Temp Pulse Resp B/P (MAP) Pulse Ox O2 Delivery O2 Flow Rate FiO2 10/30/16 15:55 10/30/16 12:30 54 17 143/60 (87) 94 Nasal Cannula 3.00 10/30/16 10:39 94 Nasal Cannula 3.00 10/30/16 09:43 60 Nasal Cannula 2.00 10/30/16 09:34 98.2 60 18 170/73 (105) 94 I/O 10/29/16 10/29/16 10/29/16 10/30/16 10/30/16 10/30/16 07:00 15:00 23:00 07:00 15:00 23:00 Intake Total 600 ml 290 ml Balance 600 ml 290 ml Intake IV Total 600 ml 290 ml Result Diagram: 10/30/16 1045 10/30/16 1045 Physical Exam Physical Exam PHYSICAL EXAMINATION GENERAL: This is a well-developed, well-nourished male who appears to be in no acute distress. He is alert and awake, []. HEAD: Normocephalic without any lesion or mass noted. Facial features appear symmetric. OROPHARYNGEAL: Oropharynx without erythema or edema. NECK: Supple. No nuchal rigidity or lymphadenopathy. Trachea midline without deviation. CARDIAC: Regular rhythm, regular rate, S1 and S2 are heard. Murmur []; no gallops or rubs. LUNGS: Clear to auscultation bilaterally. [] wheeze, [] rhonchi or [] rale. No use of accessory muscles on inspiration or expiration. ABDOMEN: Soft, nontender, no organomegaly or masses. Bowel sounds are heard in all four quadrants. No rebound. No guarding. EXTREMITIES: [] edema. Pulses equal bilateral. [] cyanosis. NEUROLOGICAL: Patient mood and affect appropriate. No focal deficit SKIN:Warm and moist A/P Assessment and Plan [id number] Acute exacerbation CHF with bilateral pleural effusions Dizziness with near syncope HTN DM, 2, mild uncontrolled Dementia COPD , severe emphyzema Tasha Cavanaugh Oct 30, 2016 16:28
[2016-10-30] MEDS ORDERED: INSULIN ASPART SUPPLEMENTAL SCALE SQ SCH (17:00)
--- NOTE | 2016-10-30 17:20 | MH ---
cc: KRISTINE MOORE MD DATE OF ADMISSION 10/30/2016 DATE OF 1940 This is Tasha Cavanaugh nurse practitioner dictating with Dr. Moore present. CHIEF COMPLAINT Dizziness, chest pain radiating into the left neck and shoulder. Travel in the last 30 days is none. HISTORY OF PRESENT ILLNESS This is a pleasant 76-year-old white male who states that he has had a history, a long-term history for years with balance issues. He states that he does have periods of dizziness which seem to come and go. He has had different workups and tests performed but no one has ever found a reason for his dizziness. Today he states that he went outside early in the morning with his dogs and reached over to picker / packer something on the ground and lost his balance. He stated that he almost fell, became very lightheaded and it took approximately 2 minutes to recover. Once the patient was able he stood back up and went into the house. He also noted some, at the time that he leaned over, he also noted some left-sided chest pain that radiated up into the left side of the neck and left shoulder. According to the notes and the patient's he has stated in the past that the room spins but at this time he states that he was the one that felt dizzy and that the environment was not moving. The patient denies any further shortness of breath. No headache. No problems with urination. No problems with his bowels. He denies any nausea, vomiting, diarrhea or constipation. Currently the patient is alert, awake, answering questions appropriately. He does have some mild to moderate anxiety but is oriented to person, place, time and situation. He is currently giving his medical information. There is no other family present. PAST MEDICAL HISTORY Includes: 1. Alzheimer's dementia, mild. 2. Anxiety. 3. According to the record two new brain growths that are not cancerous. 4. Coronary artery disease. 5. Cardiovascular disease. 6. Hyperlipidemia. 7. Congestive heart failure. 8. Chronic obstructive pulmonary disease. 9. Cerebrovascular accident discovered in 2006. 10. History of vertigo and dizziness. 11. History of balance problems. 12. Diabetes type 2 with oral hypoglycemics. 13. Gastroesophageal reflux disease. 14. Hiatal hernia. 15. Kidney stones. 16. Hypothyroidism. PAST SURGICAL HISTORY 1. Gallbladder. 2. Arteriovenous shunt in the back of his head. 3. Nine cardiac stents. 4. CABG times five in 2005. 5. Fem pop bypass in 1999 and 1997. 6. Carotid endarterectomy in 2004. 7. Bilateral cataract removal. 8. Brain tumor angioma removed in 2000. 9. His PAPER CUP MACHINE TENDER shunt was placed in 2010. 10. Dental implants. 11. Tonsillectomy. ALLERGIES PENICILLIN-G. ZOLPIDEM. MEDICATIONS Reported: 1. Flomax. 2. Actos. 3. Hypo Tears. 4. Restasis. 5. Singulair. 6. Bumetanide. 7. Gabapentin. 9. Zofran. 10. Namenda. 11. Januvia. 12. Breo Ellipta. 13. Prozac. 14. Propranolol. 15. Crestor. 16. Potassium. 17. Clonazepam. 18. Synthroid. 19. Ferrous sulfate. 20. Zetia. 21. Donepezil. 22. Aspirin. 23. Ventolin. SOCIAL HISTORY The patient is , currently lives with his . He currently denies any alcohol use, quit drinking 20 years ago. Currently he denies any tobacco use, quit 20 years ago. No substance abuse. 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 REVIEW OF SYSTEMS A 12 point review was obtained. Positives noted are the left-sided chest pain radiating up into the neck and shoulder. Dizziness when leaning over to pick something up off the ground. Balance issues. Bowel regimen normal. Bowel movement this morning. Diabetic with oral hypoglycemics. Other systems negative or unremarkable. PHYSICAL EXAMINATION VITAL SIGNS: Temperature is 98.2, pulse between 54 and 60. Respiratory rate 17. Blood pressure 143/60 and 170/73 on admission. O2 saturation 94%, currently on nasal cannula at 3 liters O2. GENERAL: Well-developed, well-nourished, elderly male, looks younger than his stated age resting on the bed. He is alert and oriented and able to give me his significant history. SKIN: [place], warm and dry. HEENT: Atraumatic. He does have a PAPER CUP MACHINE TENDER shunt in the back of his head. He is pupils equal, round, reactive to light and accommodation at 2. Mucous membranes pink and moist. NECK: Supple. CARDIOVASCULAR: S1-S2. Rhythm is slow but regular. He has no audible murmurs, rubs, or gallops. He has no edema in his lower extremities and they are warm to touch. Pulses are intact. LUNGS: Essentially clear anteriorly. Posteriorly he has diminished and decreased breath sounds bilaterally in his mid to lower lobes. ABDOMEN: Round, soft, nondistended, nontender. Bowel sounds are active. MUSCULOSKELETAL: He can move all of his extremities with purpose. He can overcome resistance. 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 NEUROLOGIC: Awake, alert, a fairly good historian. Speech is clear and normal. 5/5 on his muscle strength. No obvious deformity. PSYCHIATRIC: Agitates easy. Mild anxiety. But answers questions appropriately. LABORATORY DATA Diagnostic data, white count is 6, RBC 4.72, hemoglobin 13.7, hematocrit 41.9, platelet count 200, neutrophils percentage count 77.9. PT INR is 1.0. Chemistry, sodium 140, potassium 4.1, chloride 106, carbon dioxide 29.8, anion gap 4, BUN 18, creatinine 1.19, GFR 59. Random glucose 122. Calcium 8.4. Magnesium 2.2. Bilirubin 0.8, AST 12, ALT less than 6. Alkaline phosphatase 99. Total creatine kinase 38. Troponin less than 0.02. Total protein is 6.9, albumin is 3.3. IMAGING Imaging studies show a chest x-ray to have alveolar opacities in the lower lung zones bilaterally. Could be airspace infection or aspiration superimposed on chronic changes. Chest angiography shows bilateral pleural effusions, severe emphysema, lower lobe consolidation and atherosclerosis. DIAGNOSES The diagnoses that we will use are: 1. Acute exacerbation of congestive heart failure with hypoxemia. 2. Dizziness with near syncopal episode. 3. History of coronary artery disease. 4. Alzheimer's dementia. 5. Hypertension. 6. History of cerebrovascular accident. 7. Diabetes mellitus type 2. He is full code, full aggressive care and we will follow. PLAN Our plan is to admit in the past status. We will monitor vital signs q.4h. The patient can be out of bed but only with assistance. Accu-Cheks will be before meals and bedtime. We will hold his p.o. hypoglycemics for now and give him a sliding scale insulin if needed. He will be on an 1800 calorie ADA diet. He will have labs for the morning. He was given 40 of Lasix IV and he is actively diuresing in the urinal. He is requesting a condom catheter because of the volume of urine that he is currently producing. He will be placed on aspirin. Reconcile his home medications as warranted. ECG monitoring. IV access. O2 at 2-3 liters, maintain his saturation greater than 92%. Bowel regimen. Nutritional regimen which has been explained to him. He will be on 40 of Lasix IV twice a day until re-evaluated. IV steroids 80 milligrams q.6h. DuoNeb. We will add condom catheter. Deep venous thrombosis prophylaxis. Peptic ulcer disease prophylaxis. The patient is full code, full aggressive care. We will continue to monitor. Dictated by: GIOVANY Garcia MD NINA Nova/CHELI /4:13 PM /4:39 PM seen, examined by myself, Dr Moore, today at the emergency department Discussed with patient and his at his bedside Appears to have a combination of COPD exacerbation and mild heart failure, diastolic Also has small pleural effusion Continue diuretics, steroids, antibiotics, nebulizers Discussed with mid level provider The exam, history, and the medical decision-making described in the above note were completed with the assistance of the mid-level provider. I reviewed the findings presented. I attest that I had a [id number] encounter with the patient on the same day, and personally performed and documented my assessment and findings in the medical record. LALA
[2016-10-30] MEDS: LOW DOSE INSULIN NOVOLOG SUPPLEMENTAL SCALE SQ SCH ×2 (17:55→21:47)
[2016-10-30] MEDS: FUROSEMIDE 40 MG/4 ML VIAL IV PUSH SCH (17:55)
[2016-10-30 20:00] VITALS: PULSE 52
[2016-10-30] MEDS ORDERED: GABAPENTIN ENACARBIL 600 MG PO SCH (21:00)
[2016-10-30] MEDS ORDERED: [UNRECOGNIZED DRUG - OTHER] EACH EYE SCH (21:00)
[2016-10-30] MEDS: DOCUSATE SODIUM 50 MG/SENNA 8.6 MG TAB PO SCH (21:00)
[2016-10-30] MEDS: MULTIVITAMIN-OPHTHALMIC 1 TAB PO SCH (21:00)
[2016-10-30] MEDS: BUDESONIDE-FORMOTEROL 160/4.5 MCG INHALER INH SCH (21:00)
[2016-10-30] MEDS: ATORVASTATIN 80 MG TAB PO SCH (21:37)
[2016-10-30] MEDS: DONEPEZIL HCL 5 MG TAB PO SCH (21:38)
[2016-10-30] MEDS: SODIUM CHLORIDE 0.9% FLUSH 10 ML FLUSH IV FLUSH SCH (21:38)
[2016-10-30] MEDS: MEMANTINE HCL 10 MG TAB PO SCH (21:38)
[2016-10-30 22:00] VITALS: BP 170/74; PULSE 59; RESP 15; TEMP 97.4; O2SAT 93
[2016-10-31] VITALS (7 sets, daily range): BP systolic 125–160; BP diastolic 62–78; PULSE 54–64; RESP 16–21; TEMP 97.4–98; O2SAT 92–97
[2016-10-31] MEDS ORDERED: clonazePAM 0.5 MG TAB PO PRN ×2 (01:30→11:30)
[2016-10-31] MEDS: methylPREDNISolone SOD SUCC 125 MG/2 ML VIAL IV SCH ×4 (02:00→20:30)
[2016-10-31] MEDS: LEVOTHYROXINE SODIUM 25 MCG TAB PO SCH (06:32)
[2016-10-31] MEDS ORDERED: BUMETANIDE 1 MG TAB PO SCH (09:00)
[2016-10-31] MEDS: LOW DOSE INSULIN NOVOLOG SUPPLEMENTAL SCALE SQ SCH ×4 (09:05→20:30)
[2016-10-31] MEDS: SODIUM CHLORIDE 0.9% FLUSH 10 ML FLUSH IV FLUSH SCH ×2 (09:06→20:28)
[2016-10-31] MEDS: BUDESONIDE-FORMOTEROL 160/4.5 MCG INHALER INH SCH ×2 (09:06→20:28)
[2016-10-31] MEDS: FUROSEMIDE 40 MG/4 ML VIAL IV PUSH SCH (09:11)
[2016-10-31] MEDS: FERROUS SULFATE 325 MG (65 MG ELEMENTAL IRON) TAB PO SCH (09:11)
[2016-10-31] MEDS: MULTIVITAMIN-OPHTHALMIC 1 TAB PO SCH ×2 (09:12→20:30)
[2016-10-31] MEDS: MEMANTINE HCL 10 MG TAB PO SCH ×2 (09:12→20:29)
[2016-10-31] MEDS: POTASSIUM CHLORIDE 10 MEQ CONTROLLED RELEASE TAB PO SCH (09:12)
[2016-10-31] MEDS: DOCUSATE SODIUM 50 MG/SENNA 8.6 MG TAB PO SCH ×2 (09:12→20:30)
[2016-10-31] MEDS: FLUoxetine HCL 20 MG CAP PO SCH (09:12)
--- NOTE | 2016-10-31 11:46 | HHI.PR ---
Subjective Subjective Remarks agitated, angry about care, wants to leave at times tearful at bsd trying to calm difficult to obtain ROS wants to take a shower not as SOB already on oxygen at home no cp d/w at length----pt has been progressively getting worst, getting into fights with family members. Was recently taken off Mirtazapine and Clonazepam. F /U at [place] for mental health services. She has been evaluating dementia units. Review of Systems Constitutional Constitutional Remarks ROS difficult to obtain Vitals/Results Vital Signs Vital Signs Date Time Temp Pulse Resp B/P (MAP) Pulse Ox O2 Delivery O2 Flow Rate FiO2 10/31/16 08:18 97.6 56 18 160/78 (105) 93 10/31/16 04:00 97.8 57 17 156/73 (100) 92 10/31/16 00:00 97.5 56 16 125/62 (83) 95 10/30/16 22:00 97.4 59 15 170/74 (106) 93 10/30/16 20:00 52 10/30/16 16:00 98.2 57 16 152/70 (97) 94 10/30/16 15:55 10/30/16 12:30 54 17 143/60 (87) 94 Nasal Cannula 3.00 CBC/BMP: 10/30/16 1045 10/30/16 1045 Physical Exam General General Appearance: Well Developed, Well Nourished, Anxious Eyes Eye Exam: Pupils Equal, Pupils Reactive Ears & Nose Ears & Nose Exam: Nasal Mucosa [place] Throat Throat Exam: Oral Mucosa [place] & Moist Neck Neck Exam: Neck Supple, Trachea Midline Pulmonary Resp Exam: Decreased Bases Cardiology CV Exam: Regular Gastrointestinal/Abdomen GI Exam: Soft, Non-Tender, Bowel Sounds Present, No Hepatosplenomegaly Musculoskeletal MS Exam: Joints Intact Integumentary Skin Exam: Warm, Dry Extremeties Extremities Exam: No Edema, Pedal Pulses Palpable Neurologic Neuro Exam: Alert, Awake, Speech Clear, Moving All Extremities, No Focal Deficits Psychiatric Psych Remarks anxious VTE Prophylaxis VTE Prophylaxis Device: SCDs Assessment/Plan Problem List: (1) Pleural effusion ICD Codes: J90 - Pleural effusion, not elsewhere classified Status: Acute (2) Hypoxemia ICD Codes: R09.02 - Hypoxemia Status: Acute (3) Acute exacerbation of congestive heart failure ICD Codes: I50.9 - Heart failure, unspecified Status: Acute (4) Diabetes 1.5, managed as type 2 ICD Codes: E10.9 - Type 1 diabetes mellitus without complications Status: Chronic (5) History of CVA (cerebrovascular accident) ICD Codes: Z86.73 - Personal history of transient ischemic attack (TIA), and cerebral infarction without residual deficits Status: Chronic (6) HTN (hypertension) ICD Codes: I10 - Essential (primary) hypertension Status: Acute (7) Dementia ICD Codes: F03.90 - Unspecified dementia without behavioral disturbance Status: Chronic (8) CAD (coronary artery disease) ICD Codes: I25.10 - Atherosclerotic heart disease of [place] coronary artery without angina pectoris Status: Chronic (9) COPD exacerbation ICD Codes: J44.1 - Chronic obstructive pulmonary disease with (acute) exacerbation Status: Chronic Assessment/Plan 76 presented with dizziness, sob, cp, noted with hypoxemia COPD exacerbation -continue with supplemental oxygent -Duonebs -empiric abx -wean down IV steroids 40 mg IV q 6 -sats 93%, SOB improved Acute CHF, mild -change to PO Lasix 20 mg PO BID -diuresing well Dizziness with syncope -cont. telemetry monitoring -PT eval Dementia with inc. agitation. Per , has been progressively getting worst, getting into fights with family members. Was recently taken off Mirtazapine and Clonazepam. F/U at [place] for mental health services. Hx of PTSD -Continue Namenda and Aricept -will add low dose Clonazepam 0.5 mg po tid PRN for agitation CAD Hx of CVA Hypertension. -continue with medical management Diabetes mellitus type 2. -accu-Cheks before meals and bedtime PT eval today Ok for shower CM for HHC/PT Poss dc tomorrow D/W RN D/W pt and D/W Dr. Britton This pt. was seen by myself and Dr. Britton, this note is written on his behalf. Problem Qualifiers (1) Acute exacerbation of congestive heart failure: Qualified Codes: I50.9 - Heart failure, unspecified (2) Dementia: (3) CAD (coronary artery disease): Qualified Codes: I25.10 - Atherosclerotic heart disease of [place] coronary artery without angina pectoris Lottie Denney Oct 31, 2016 11:46
--- NOTE | 2016-10-31 12:31 | EKG ---
Date Performed: 10/30/2016 Time Performed: 10:09:16 PTAGE: 76 years EKG: Normal Sinus rhythm Ventricular premature complex Nonspecific ST-T abnormality ABNORMAL ECG PREVIOUS TRACING 06/14/16 No major change from the prior tracing. DOCTOR: eH Merritt Interpretating Date/Time 10/31/2016 12:31:06
--- NOTE | 2016-10-31 15:45 | HHI.FF ---
Face to Face Verification Diagnosis: (1) Hypoxemia (2) Acute exacerbation of congestive heart failure (3) CAD (coronary artery disease) (4) Dementia (5) HTN (hypertension) (6) COPD exacerbation (7) History of CVA (cerebrovascular accident) (8) Diabetes 1.5, managed as type 2 (9) Pleural effusion Physical Therapy Order: Evaluate and Treat Home Health Nursing Order: Medical education Signs/symptoms of disease process Oxygen administration education Nursing assessment with vital signs Home Health Aide Order: To Assist In: assistant community director and meal prep Recreation Clerk Order: To Evaluate: Living conditions/environment, Support services Order: To Provide: Long range planning, Community services I have seen patient James Case on 10/31/16. My clinical findings support the need for the requested home health care services because: Limited ability to care for self Need for psychosocial assistance Impaired cognition/judgement High risk of falls I certify that my clinical findings support that this patient is homebound because: Impaired cognitive ability/safety Unsteady gait/balance Unsafe to leave home unassisted Need for psychosocial assistance Lottie Denney Oct 31, 2016 15:45
[2016-10-31] MEDS: FUROSEMIDE 20 MG TAB PO SCH (17:15)
[2016-10-31] MEDS: ATORVASTATIN 80 MG TAB PO SCH (20:29)
[2016-10-31] MEDS: DONEPEZIL HCL 5 MG TAB PO SCH (20:29)
[2016-10-31] MEDS ORDERED: ASPIRIN EC 81 MG TABEC PO SCH (21:00)
[2016-10-31] MEDS ORDERED: GABAPENTIN 300 MG CAP PO SCH (21:00)
[2016-10-31] MEDS ORDERED: MIRTAZAPINE 15 MG TAB PO SCH (21:00)
[2016-11-01] VITALS: BP 138/61; PULSE 56; RESP 16; TEMP 97.3; O2SAT 95
[2016-11-01] MEDS: methylPREDNISolone SOD SUCC 125 MG/2 ML VIAL IV SCH ×2 (03:20→09:16)
[2016-11-01 04:00] VITALS: BP 130/76; PULSE 57; RESP 16; TEMP 96.7; O2SAT 92
[2016-11-01] MEDS: LEVOTHYROXINE SODIUM 25 MCG TAB PO SCH (05:47)
[2016-11-01 06:36] VITALS: PULSE 61
[2016-11-01 08:07] VITALS: BP 151/69; PULSE 58; RESP 20; TEMP 97.5; O2SAT 98
[2016-11-01] MEDS: FERROUS SULFATE 325 MG (65 MG ELEMENTAL IRON) TAB PO SCH (09:18)
[2016-11-01] MEDS: SODIUM CHLORIDE 0.9% FLUSH 10 ML FLUSH IV FLUSH SCH (09:18)
[2016-11-01] MEDS: BUDESONIDE-FORMOTEROL 160/4.5 MCG INHALER INH SCH (09:18)
[2016-11-01] MEDS: MULTIVITAMIN-OPHTHALMIC 1 TAB PO SCH (09:19)
[2016-11-01] MEDS: POTASSIUM CHLORIDE 10 MEQ CONTROLLED RELEASE TAB PO SCH (09:19)
[2016-11-01] MEDS: DOCUSATE SODIUM 50 MG/SENNA 8.6 MG TAB PO SCH (09:19)
[2016-11-01] MEDS: FUROSEMIDE 20 MG TAB PO SCH (09:19)
[2016-11-01] MEDS: FLUoxetine HCL 20 MG CAP PO SCH (09:19)
[2016-11-01] MEDS: MEMANTINE HCL 10 MG TAB PO SCH (09:19)
[2016-11-01] MEDS: LOW DOSE INSULIN NOVOLOG SUPPLEMENTAL SCALE SQ SCH (09:41)
--- NOTE | 2016-11-01 10:32 | HHI.PR ---
Subjective Subjective Remarks Patient calm, pleasant. Apologetic about his behavior yesterday Indicates that he does not have a lot of patience therefore he sometimes becomes very angry Very frustrated about his ongoing medical problems, he knows he has to get more help in regards to his anxiety and depression. Indicates that he spoke to psychiatrist this morning and is appreciative of the care provided. Shortness of breath has improved Has oxygen and nebulizer at home No chest pain Anxious to go home No family at that (Lottie Denney) Review of Systems Constitutional Constitutional Remarks 12 point ros completed, negative except as noted above (Lottie Denney) Vitals/Results Vital Signs Vital Signs Date Time Temp Pulse Resp B/P (MAP) Pulse Ox O2 Delivery O2 Flow Rate FiO2 11/01/16 08:07 97.5 58 20 151/69 (96) 98 11/01/16 06:36 61 11/01/16 04:00 96.7 57 16 130/76 (94) 92 11/01/16 00:00 97.3 56 16 138/61 (86) 95 10/31/16 19:50 97.4 62 19 130/63 (85) 97 10/31/16 19:32 64 10/31/16 16:30 97.5 61 21 155/72 (99) 97 10/31/16 12:15 98.0 54 20 135/64 (87) 94 (Lottie Denney) CBC/BMP: 10/30/16 1045 10/30/16 1045 Physical Exam General General Appearance: Well Developed, Well Nourished, Comfortable, Anxious ( improved ) (Lottie Denney) Eyes Eye Exam: Pupils Equal, Pupils Reactive (Lottie Denney) Ears & Nose Ears & Nose Exam: Nasal Mucosa [place] (Lottie Denney) Throat Throat Exam: Oral Mucosa [place] & Moist (Lottie Denney) Neck Neck Exam: Neck Supple, Trachea Midline (Lottie Denney) Pulmonary Resp Exam: Decreased Bases (Lottie Denney) Cardiology CV Exam: Regular (Lottie Denney) Gastrointestinal/Abdomen GI Exam: Soft, Non-Tender, Bowel Sounds Present, No Hepatosplenomegaly (Lottie Denney) Musculoskeletal MS Exam: Joints Intact (Lottie Denney) Integumentary Skin Exam: Warm, Dry (Lottie Denney) Extremeties Extremities Exam: No Edema, Pedal Pulses Palpable (Lottie Denney) Neurologic Neuro Exam: Alert, Awake, Speech Clear, Moving All Extremities, No Focal Deficits (Lottie Denney) Psychiatric Psych Remarks less anxious, calm (Lottie Denney) VTE Prophylaxis VTE Prophylaxis Device: SCDs (Lottie Denney) Assessment/Plan Problem List: (1) Pleural effusion ICD Codes: J90 - Pleural effusion, not elsewhere classified Status: Acute (2) Hypoxemia ICD Codes: R09.02 - Hypoxemia Status: Acute (3) Acute exacerbation of congestive heart failure ICD Codes: I50.9 - Heart failure, unspecified Status: Acute (4) Diabetes 1.5, managed as type 2 ICD Codes: E10.9 - Type 1 diabetes mellitus without complications Status: Chronic (5) History of CVA (cerebrovascular accident) ICD Codes: Z86.73 - Personal history of transient ischemic attack (TIA), and cerebral infarction without residual deficits Status: Chronic (6) HTN (hypertension) ICD Codes: I10 - Essential (primary) hypertension Status: Acute (7) Dementia ICD Codes: F03.90 - Unspecified dementia without behavioral disturbance Status: Chronic (8) CAD (coronary artery disease) ICD Codes: I25.10 - Atherosclerotic heart disease of [place] coronary artery without angina pectoris Status: Chronic (9) COPD exacerbation ICD Codes: J44.1 - Chronic obstructive pulmonary disease with (acute) exacerbation Status: Chronic Assessment/Plan 76 presented with dizziness, sob, cp, noted with hypoxemia COPD exacerbation -continue with supplemental oxygen -Duonebs -empiric abx -Change to by mouth steroids -sats 93%, SOB improved. No wheezing. Acute CHF, mild -change to PO Lasix 20 mg PO BID -diuresing well Dizziness with syncope -cont. telemetry monitoring -PT eval -Ambulated well with physical therapy Dementia with inc. agitation. Per , has been progressively getting worst, getting into fights with family members. Was recently taken off Mirtazapine and Clonazepam. F/U at [facility] for mental health services. Hx of PTSD -Continue Namenda and Aricept -cont Clonazepam 0.5 mg po tid PRN for agitation -Restarted on Remeron 15 mg by mouth daily at bedtime to help with sleep and depression. -Appreciate psychiatric input. CAD Hx of CVA Hypertension. -continue with medical management Diabetes mellitus type 2. -accu-Cheks before meals and bedtime PT Ok for shower CM for HHC/PT Symptoms improved, no shortness of breath. No fever, no chest pain Patient stable for discharge Discharge home with home health care Follow-up with psychiatry, PCP Follow heart healthy diet Activity as tolerated D/W RN D/W pt D/W Dr. Britton D/W CM This pt. was seen by myself and Dr. Britton, this note is written on his behalf. Discharge Minutes: 45 (Lottie Denney) Assessment/Plan Case reviewed by myself, Dr Britton, today Ready for discharge Discussed with mid level provider 40 minutes spent on discharge management (Joslyn Britton MD) Problem Qualifiers (1) Acute exacerbation of congestive heart failure: Qualified Codes: I50.9 - Heart failure, unspecified (2) Dementia: (3) CAD (coronary artery disease): Qualified Codes: I25.10 - Atherosclerotic heart disease of [place] coronary artery without angina pectoris Lottie Denney Nov 01, 2016 10:32 Joslyn Britton MD Nov 01, 2016 16:38
[2016-11-01] MEDS ORDERED: MIRTA15 PO (10:35)
[2016-11-01] MEDS ORDERED: PRED20 PO (10:36)
--- NOTE | 2016-11-01 10:36 | HHI.DCPOC ---
Discharge Care Plan Diagnosis: (1) Acute exacerbation of congestive heart failure (2) CAD (coronary artery disease) (3) Dementia (4) HTN (hypertension) (5) COPD exacerbation (6) History of CVA (cerebrovascular accident) (7) Diabetes 1.5, managed as type 2 (8) Hypoxemia (9) Pleural effusion Your Health Problems Are: Chest Pain Cough Fluid/Lung Overload Shortness of Breath Goals to Promote Your Health * To prevent worsening of your condition and complications * To maintain your health at the optimal level Directions to Meet Your Goals Take your medications as prescribed Follow your dietary instruction Follow activity as directed Keep your appointments as scheduled Take your immunizations and boosters as scheduled If your symptoms worsen call your PCP, if no PCP go to Urgent Care Center or Emergency Room Smoking is Dangerous to Your Health. Avoid second hand smoke Call the 24-hour hour crisis hotline for domestic abuse at Lottie Denney. [facility] Nov 01, 2016 10:36
[2016-11-01 12:00] VITALS: BP 119/56; PULSE 83; RESP 20; TEMP 97; O2SAT 92
--- NOTE | 2016-11-01 14:34 | HHI.DS ---
Discharge Summary Admission Date Oct 30, 2016 at 13:41 Discharge Date: Nov 01, 2016 Admitting Diagnosis Hypoxia, Pleural Effusion, Likely CHF exacerbation. (1) Hypoxemia ICD Codes: R09.02 - Hypoxemia Status: Acute (2) Acute exacerbation of congestive heart failure ICD Codes: I50.9 - Heart failure, unspecified Status: Acute (3) CAD (coronary artery disease) ICD Codes: I25.10 - Atherosclerotic heart disease of [place] coronary artery without angina pectoris Status: Chronic (4) Dementia ICD Codes: F03.90 - Unspecified dementia without behavioral disturbance Status: Chronic (5) HTN (hypertension) ICD Codes: I10 - Essential (primary) hypertension Status: Acute (6) COPD exacerbation ICD Codes: J44.1 - Chronic obstructive pulmonary disease with (acute) exacerbation Status: Chronic (7) History of CVA (cerebrovascular accident) ICD Codes: Z86.73 - Personal history of transient ischemic attack (TIA), and cerebral infarction without residual deficits Status: Chronic (8) Diabetes 1.5, managed as type 2 ICD Codes: E10.9 - Type 1 diabetes mellitus without complications Status: Chronic (9) Near syncope ICD Codes: R55 - Syncope and collapse Status: Acute CBC/BMP: 10/30/16 1045 10/30/16 1045 Significant Findings Laboratory Tests Test 10/30/16 10:45 Neutrophils (%) (Auto) 77.9 % (16.0-70.0) Lymphocytes # (Auto) 0.8 TH/MM3 (1.0-4.8) Random Glucose 122 MG/DL (74-106) Albumin 3.3 GM/DL (3.4-5.0) Calcium Level 8.4 MG/DL (8.5-10.1) Aspartate Amino Transf (AST/SGOT) 12 U/L (15-37) Alanine Aminotransferase (ALT/SGPT) LESS THAN 6 U/L (12-78) Anion Gap 4 MEQ/L (5-15) Estimat Glomerular Filtration Rate 59 ML/MIN (>89) Total Creatine Kinase 38 U/L (39-308) Troponin I LESS THAN 0.02 NG/ML Imaging Last Impressions Chest X-Ray 10/30/16 1028 Signed Impressions: Service Date/Time: Sunday, October 30, 2016 10:47 - CONCLUSION: 1. Mixed interstitial and alveolar opacities in the lower lung zones bilaterally which may reflect developing airspace infection or aspiration superimposed on chronic changes. Reji Ortega MD CT Angiography 10/30/16 0000 Signed Impressions: Service Date/Time: Sunday, October 30, 2016 12:13 - CONCLUSION: 1. Atherosclerosis. 2. No evidence for pulmonary embolus. 3. Bilateral pleural effusions, severe emphysema and lower lobe consolidation. Carloz Walker MD Hospital Course This is a pleasant 76-year-old white male who states that he has had a history, a long-term history for years with balance issues. He states that he does have periods of dizziness which seem to come and go. He has had different workups and tests performed but no one has ever found a reason for his dizziness. Today he states that he went outside early in the morning with his dogs and reached over to peanut picker something on the ground and lost his balance. He stated that he almost fell, became very lightheaded and it took approximately 2 minutes to recover. Once the patient was able he stood back up and went into the house. He also noted some, at the time that he leaned over, he also noted some left-sided chest pain that radiated up into the left side of the neck and left shoulder. According to the notes and the patient's he has stated in the past that the room spins but at this time he states that he was the one that felt dizzy and that the environment was not moving. He did complain of shortness of breath.. No headache. No problems with urination. No problems with his bowels. He denies any nausea, vomiting, diarrhea or constipation. The patient was alert, awake, answering questions appropriately. He did have some mild to moderate anxiety but is oriented to person, place, time and situation. He is currently giving his medical information. There is no other family present. Pt. was evaluated in the ED. LABORATORY DATA Diagnostic data, white count is 6, RBC 4.72, hemoglobin 13.7, hematocrit 41.9, platelet count 200, neutrophils percentage count 77.9. PT INR is 1.0. Chemistry, sodium 140, potassium 4.1, chloride 106, carbon dioxide 29.8, anion gap 4, BUN 18, creatinine 1.19, GFR 59. Random glucose 122. Calcium 8.4. Magnesium 2.2. Bilirubin 0.8, AST 12, ALT less than 6. Alkaline phosphatase 99. Total creatine kinase 38. Troponin less than 0.02. Total protein is 6.9, albumin is 3.3. IMAGING Imaging studies show a chest x-ray to have alveolar opacities in the lower lung zones bilaterally. Could be airspace infection or aspiration superimposed on chronic changes. Chest angiography shows bilateral pleural effusions, severe emphysema, lower lobe consolidation and atherosclerosis. Pt. was admitted to the hospital. During the course of the hospitalization, the following took place: Was admitted, continued on oxygen. Home medications were reviewed and initiated as indicated Was put on appropriate DVT and GI prophylaxis. COPD exacerbation -continued with supplemental oxygen -Duonebs ordered -Initially put on IV steroids then changed to by mouth steroids -sats 93%, SOB improved. No wheezing. Acute CHF, mild -Initially put on IV then changed to PO Lasix 20 mg PO BID -diuresed well, short of breath improved Dizziness with syncope -No dysrhythmias noted -cont. telemetry monitoring -PT eval -Ambulated well with physical therapy Dementia with inc. agitation. Per , has been progressively getting worst, getting into fights with family members. Was recently taken off Mirtazapine and Clonazepam. Follows up at [place] for mental health services. Hx of PTSD -Continued Namenda and Aricept -added Clonazepam 0.5 mg po tid PRN for agitation -Restarted on Remeron 15 mg by mouth daily at bedtime to help with sleep and depression. -Appreciate psychiatric input. -Patient was more calm, cooperative. He appeared to be tolerating Remeron okay. He was recommended to continue following up with psychiatry at the [place] CAD Hx of CVA Hypertension. -continued with medical management Diabetes mellitus type 2. -accu-Cheks before meals and bedtime -Blood glucose were elevated secondary to steroids PT ordered CM for HHC/PT Symptoms improved, no shortness of breath. No fever, no chest pain Patient stable for discharge Discharged home with home health care Follow-up with psychiatry, PCP Follow heart healthy diet Activity as tolerated Pt Condition on Discharge: Stable Discharge Disposition: Disch w/ Home Health Serv Discharge Instructions DIET: Follow Instructions for: Heart Healthy Diet Activities you can perform: Weight Bearing as [place] Follow up Referrals: PCP Follow-up Psychiatry Adult New Medications: Prednisone (Prednisone) 20 Mg Tab 20 MG PO DAILY for Broncospasm for 5 Days, #5 TAB 0 Refills Mirtazapine (Mirtazapine) 15 Mg Tab 15 MG PO HS for Depression Control, #30 TAB Continued Medications: Albuterol 18 GM Inh (Ventolin Hfa 18 GM Inh) 90 Mcg/Act Aer 2 PUFF INH Q6H PRN for SHORTNESS OF BREATH, #1 INHALER [address] (Aspir-Low) 81 Mg Tabdr 81 MG PO HS Bumetanide (Bumetanide) 0.5 Mg Tab 0.5 MG PO DAILY, TAB 0 Refills Cyclosporine (Ophth) (Restasis Multidose) 0.05 % Emu 1 DROP EACH EYE BID Donepezil (Donepezil) 10 Mg Tab 10 MG PO HS for Dementia, #30 TAB 0 Refills Exenatide Inj (Bydureon Inj) 2 Mg Vial 2 MG SQ Q7D for Blood Sugar Management, #4 INJECTION [address]ous Sulf[address] (Ferrous Sulfate DR) 324 Mg Tabdr 324 MG PO DAILY for Nutritional Supplement, #30 TAB 0 Refills Fluoxetine (Fluoxetine) 20 Mg Tab 20 MG PO DAILY for Depression Control, #30 TAB 0 Refills Fluticasone-Salmeterol Inh (Advair Diskus Inh) 250-50 Mcg/Blist Aer 1 PUFF INH BID, #1 INHALER 0 Refills Rinse mouth after use. Gabapentin ER (Horizant ER) 600 Mg Jacques 600 MG PO HS Glipizide (Glipizide) 10 Mg Tab 10 MG PO BID for Blood Sugar Management, #60 TAB 0 Refills Take 30 minutes before a meal Levothyroxine (Synthroid) 25 Mcg Tab 25 MCG PO DAILY for Thyroid, #30 TAB 0 Refills Memantine (Namenda) 10 Mg Tab 10 MG PO BID for Alzheimer Disease, #30 TAB 0 Refills Multiple Vitamins W/ Minerals (Preservision Areds) 1 Tab 1 TAB PO BID for Nutritional Supplement, TAB 0 Refills Pioglitazone (Actos) 30 Mg Tab 30 MG PO DAILY for Blood Sugar Management, #30 TAB 0 Refills Potassium Chloride ER (K-Tab) 10 Meq Tab 10 MEQ PO DAILY for Electrolyte Replacement, #30 TAB 0 Refills Rosuvastatin (Crestor) 40 Mg Tab 40 MG PO HS for Cholesterol Management, #30 TAB 0 Refills Sitagliptin (Januvia) 100 Mg Tab 50 MG PO DAILY for Blood Sugar Management, #30 TAB 0 Refills Lottie Denney Nov 01, 2016 14:34
--- NOTE | 2016-11-01 15:20 | PD.PSY.CON ---
Provisional Diagnosis Admission Date Oct 30, 2016 at 13:41 [place]. Adjustment disorder with depressed mood, history of PTSD History of Present Illness Service Psychiatry Consult Requested By Reason for Consult Aggressive and erratic behavior Primary Care Physician Desire Carrasquillo D.O. HPI The patient is a 76-year-old man, domicile with his in [place], retired, , 100% service-connected, with psychiatric history of early dementia, PTSD, depression, no previous psychiatric hospitalizations, [facility] , he is on Namenda, mirtazapine, Klonopin and Aricept, no previous suicidal attempts, with extensive medical history of COPD, DM, CHF, CVA, CAD, who presented with dizziness, sob, cp, noted with hypoxemia hospitalized due to COPD exacerbation. Consulted to psychiatry due to agitation and aggressive behavior. The Evaluation today patient is calm, cooperative and pleasant. Patient explains that yesterday he had a bad moment, he says that he has poor tolerance to frustration and low sensitivity to rejection. He is apologetic about his behavior yesterday. He reports good mood today, denies anhedonia, have denies hopelessness, denies helplessness, denies worthlessness, reports good sleep, good appetite, he denies suicidal and homicidal ideation, he denies visual and auditory hallucinations. Patient is oriented 3, no fluctuation of consciousness, attention deficit, no gross cognitive impairment present. He denies the use of drugs or alcohol. Review of Systems Constitutional: DENIES: Diaphoretic episodes, Fatigue, Fever, Weight gain, Weight loss, Chills, Dizziness, Change in appetite, Night Sweats Endocrine: DENIES: Heat/cold intolerance, Polydipsia, Polyuria, Polyphagia Eyes: DENIES: Blurred vision, Diplopia, Eye inflammation, Eye pain, Vision loss , Photosensitivity, Double Vision Ears, nose, mouth, throat: DENIES: Tinnitus, Hearing loss, Vertigo, Nasal discharge, Oral lesions, Throat pain, Hoarseness, Ear Pain, Running Nose, Epistaxis, Sinus Pain, Toothache, Odynophagia Cardiovascular: DENIES: Chest pain, Palpitations, Syncope, Dyspnea on Exertion , PND, Lower Extremity Edema, Orthopnea, Claudication Musculoskeletal: DENIES: Joint pain, Muscle aches, Stiffness, Joint Swelling, Back pain, Neck pain Integumentary: DENIES: Abnormal pigmentation, Nail changes, Pruritus, Rash Hematologic/lymphatic: DENIES: Bruising, Lymphadenopathy Immunologic/allergic: DENIES: Eczema, Urticaria Neurologic: DENIES: Abnormal gait, Headache, Localized weakness, Paresthesias, Seizures, Speech Problems, Tremor, Poor Balance Psychiatric: DENIES: Anxiety, Confusion, Mood changes, Depression, Hallucinations, Agitation, Suicidal Ideation, Homicidal Ideation, Delusions Past Family Social History Coded Allergies: penicillin G (Unverified Allergy, Severe, HIVES, 10/30/16) zolpidem (Unverified Allergy, Severe, Hallucinations, 10/30/16) Active Scripts Prednisone (Prednisone) 20 Mg Tab, 20 MG PO DAILY for Broncospasm for 5 Days, # 5 TAB 0 Refills Prov:Lottie DenneyP 11/01/16 Mirtazapine (Mirtazapine) 15 Mg Tab, 15 MG PO HS for Depression Control, #30 TAB Prov:Lottie DenneyP 11/01/16 Reported Medications Fluticasone-Salmeterol Inh (Advair Diskus Inh) 250-50 Mcg/Blist Aer, 1 PUFF INH BID, #1 INHALER 0 Refills Rinse mouth after use. 10/30/16 Exenatide Inj (Bydureon Inj) 2 Mg Vial, 2 MG SQ Q7D for Blood Sugar Management, #4 INJECTION 0 Refills Mondays10/30/[address] (Ferrous Sulfate DR) 324 Mg Tabdr, 324 MG PO DAILY for Nutritional Supplement, #30 TAB 0 Refills 10/30/16 Multiple Vitamins W/ Minerals (Preservision Areds) 1 Tab, 1 TAB PO BID for Nutritional Supplement, TAB 0 Refills 10/30/16 Glipizide (Glipizide) 10 Mg Tab, 10 MG PO BID for Blood Sugar Management, #60 TAB 0 Refills Take 30 minutes before a meal 10/30/16 Fluoxetine (Fluoxetine) 20 Mg Tab, 20 MG PO DAILY for Depression Control, #30 TAB 0 Refills 10/30/16 Pioglitazone (Actos) 30 Mg Tab, 30 MG PO DAILY for Blood Sugar Management, #30 TAB 0 Refills 06/14/16 Bumetanide (Bumetanide) 0.5 Mg Tab, 0.5 MG PO DAILY, TAB 0 Refills 06/14/16 Cyclosporine (Ophth) (Restasis Multidose) 0.05 % Emu, 1 DROP EACH EYE BID 04/10/16 Gabapentin ER (Horizant ER) 600 Mg Jacques, 600 MG PO HS 04/10/16 Memantine (Namenda) 10 Mg Tab, 10 MG PO BID for Alzheimer Disease, #30 TAB 0 Refills 04/10/16 Sitagliptin (Januvia) 100 Mg Tab, 50 MG PO DAILY for Blood Sugar Management, # 30 TAB 0 Refills 02/28/16 Rosuvastatin (Crestor) 40 Mg Tab, 40 MG PO HS for Cholesterol Management, #30 TAB 0 Refills 02/28/16 Potassium Chloride ER (K-Tab) 10 Meq Tab, 10 MEQ PO DAILY for Electrolyte Replacement, #30 TAB 0 Refills 02/28/16 Levothyroxine (Synthroid) 25 Mcg Tab, 25 MCG PO DAILY for Thyroid, #30 TAB 0 Refills 02/28/16 Donepezil (Donepezil) 10 Mg Tab, 10 MG PO HS for Dementia, #30 TAB 0 Refills 02/28/[address] (Aspir-Low) 81 Mg Tabdr, 81 MG PO HS 02/28/16 Albuterol 18 GM Inh (Ventolin Hfa 18 GM Inh) 90 Mcg/Act Aer, 2 PUFF INH Q6H Y for SHORTNESS OF BREATH, #1 INHALER 0 Refills 02/28/16 Discontinued Reported Medications Montelukast (Singulair) 10 Mg Tab, 10 MG PO DAILY, #30 TAB 0 Refills 04/10/16 Ropinirole (Ropinirole) 3 Mg Tab, 3 MG PO HS, #30 TAB 0 Refills 04/10/16 Ondansetron (Zofran) 8 Mg Tab, 8 MG PO TID Y for NAUSEA OR VOMITING, TAB 0 Refills 04/10/16 Fluticasone-Vilanterol Inh (Breo Ellipta Inh) 100-25 Mcg/Act Inh, 1 PUFF INH DAILY, #1 INHALER 0 Refills Use daily at the same time. 02/28/16 Fluoxetine (Prozac) 10 Mg Cap, 30 MG PO DAILY, #30 CAP 0 Refills 02/28/16 Pantoprazole (Pantoprazole) 40 Mg Tab, 40 MG PO DAILY for Reflux, #30 TAB 0 Refills 02/28/16 Clonazepam (Clonazepam) 0.5 Mg Tab, 0.5 MG PO HS, #60 TAB 0 Refills 02/28/16 Ezetimibe (Zetia) 10 Mg Tab, 10 MG PO HS, #30 TAB 0 Refills 02/28/16 Discontinued Scripts Tamsulosin (Flomax) 0.4 Mg Cap, 0.4 MG PO HS for Manage Prostate Problems, #30 CAP 0 Refills Prov:Hoa Fortune MD 03/01/16 Family History Denies family psychiatric history Social History Patient was born and raised in [facility], he lives in [place] with his , 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 2) Family support, establish outpatient care Physical Exam No EPS, no psychomotor agitation or retardation, no gait disturbances, no tremors, no withdrawal Vital Signs Vital Signs Date Time Temp Pulse Resp B/P (MAP) Pulse Ox O2 Delivery O2 Flow Rate FiO2 11/01/16 12:00 97.0 83 20 119/56 (77) 92 10/30/16 12:30 Nasal Cannula 3.00 Lab Results Reviewed Mental Status Examination Appearance Elderly man, appears younger than his stated age, good hygiene, [facility] , calm and cooperative and pleasant Speech: Unremarkable Orientation: x3 Memory: Unremarkable Thought Process: Logical Thought Content: Unremarkable Language Language is fluent and spontaneous Fund of Knowledge Adequate for level of education Hallucination Type: None Attention and Concentration: Good Suicidal Ideation: No Previous Suicide Attempts: No Homicidal Ideation: No Insight: Good Affect: Good Mood: Appropriate Motor Activity: Normal gait Assessment & Plan Problem List: (1) Adjustment disorder with mixed disturbance of emotions and conduct ICD Codes: F43.25 - Adjustment disorder with mixed disturbance of emotions and conduct Assessment & Plan: On psychiatric evaluation today the patient does not present any acute, concerning her significant evidence of objective or subjective symptomatology of depression, anxiety, sunshine or psychosis. Denies suicidal or homicidal ideation, he denies visual and auditory hallucinations. Patient is oriented 3, no fluctuation of consciousness, no attention deficit, no gross cognitive impairment present. Patient reports being stable in current psychotropic regimen. No flashbacks, no nightmares, no avoidance, hypervigilance reported. Patient is apologetic and regretful about his aggressive behavior yesterday. She reports that he has poor frustration tolerance. There is no evidence that reported misbehavior is related with a major psychiatric illness decompensation. Extensive support, motivation and psychoeducation provided. Patient does not meet criteria for psychiatric admission at this moment. [facility] Continue current psychotropics. Consult appreciated. Assessment & Plan Estimated LOS: days Perez Chavez MD Nov 01, 2016 15:20
== END 2016-11-01 13:42 | disposition home health service (06) | DRG 190 ==
LOC: NEPE 09:31 → NEDA 13:41 → N04B 15:43
PROVIDERS: ADMIT Specialist; ATTEND Specialist
DX: J44.1 Chronic obstructive pulmonary disease with (acute) exacerbation (principal); I50.33 Acute on chronic diastolic (congestive) heart failure; G30.0 Alzheimer's disease with early onset; Z99.81 Dependence on supplemental oxygen; F02.80 Dementia in other diseases classified elsewhere, unspecified severity, without behavioral disturbance, psychotic disturbance, mood disturbance, and anxiety; E11.9 Type 2 diabetes mellitus without complications; I11.0 Hypertensive heart disease with heart failure; F32.9 Major depressive disorder, single episode, unspecified; H91.90 Unspecified hearing loss, unspecified ear; K21.9 Gastro-esophageal reflux disease without esophagitis; E03.9 Hypothyroidism, unspecified; F41.9 Anxiety disorder, unspecified; I25.10 Atherosclerotic heart disease of native coronary artery without angina pectoris; E78.5 Hyperlipidemia, unspecified; R09.02 Hypoxemia; R42 Dizziness and giddiness; F43.10 Post-traumatic stress disorder, unspecified; F43.25 Adjustment disorder with mixed disturbance of emotions and conduct; Z98.2 Presence of cerebrospinal fluid drainage device; Z86.011 Personal history of benign neoplasm of the brain; Z79.84 Long term (current) use of oral hypoglycemic drugs; Z95.1 Presence of aortocoronary bypass graft; Z95.820 Peripheral vascular angioplasty status with implants and grafts; Z95.5 Presence of coronary angioplasty implant and graft; Z86.73 Personal history of transient ischemic attack (TIA), and cerebral infarction without residual deficits; Z87.891 Personal history of nicotine dependence
CPT/HCPCS: 71010; 71275; 80053; 82550; 82948; 83735; 84484; 85025; 85610; 85730; 93005; 96361; 96374; J0456; J0696; J1815; J1940; J2930; J7040; J7050; Q9967

== ENCOUNTER 2016-11-22 13:01 | Inpatient (IN) | payer MEDICARE, OTHER ==
[~2016-11-22] VITALS: Ht 170.2 cm; Wt 80.5 kg
[~2016-11-22 13:01] MED LIST changes: +ADVA250A INH; -CLON0.5T PO; +EXENINJ SQ; +FERR324T4 PO; -FERR325T PO; -FLUO-1 PO; +FLUO1TAB3 PO; -FLUT1INH INH; +GLIP10TA6 PO; +MIRTA15 PO; -MONT10TA2 PO; +OCUVTAB4 PO; -PANT40TA3 PO; +PRED20 PO; -ROPI3TAB PO; -TAMS5CAP PO; -ZETI10TA5 PO; -ZOFR8TAB PO; -[UNRECOGNIZED DRUG - CODE] EACH EYE
[2016-11-22 14:04] VITALS: BP 162/77; PULSE 70; RESP 17; TEMP 97.9; O2SAT 93
[2016-11-22] MEDS ORDERED: OLANZapine ODT 10 MG TAB PO ONE (14:30)
--- NOTE | 2016-11-22 14:59 | PD ---
HPI Chief Complaint: Psychiatric Symptoms Time Seen by Provider: 14:03 Travel History International Travel<30 days: No Contact w/Intl Traveler<30days: No Traveled to known affect area: No History of Present Illness HPI Is a 76-year-old man who presents to the emergency department brought [facility]. They report that he has a history of PTSD of vascular dementia and has had increasing aggressive bizarre behavior, disorganized thinking, and paranoia. Patient reports she's not been sleeping more than a couple hours each night. He moved all stuffed to the [place] wanted to sleep in the garage. 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 Bydureon Inj (Exenatide) 2 Mg Vial 2 Mg SQ Q7D Mondays Ferrous Sulfate DR (Ferrous Sulfate) 324 Mg Tabdr 324 Mg PO DAILY Preservision Areds (Multiple Vitamins W/ Minerals) 1 Tab 1 Tab PO BID Glipizide 10 Mg Tab 10 Mg PO BID Take 30 minutes before a meal Fluoxetine (Fluoxetine HCl) 20 Mg Tab 20 Mg PO DAILY Actos (Pioglitazone HCl) 30 Mg Tab 30 Mg PO DAILY Bumetanide 0.5 Mg Tab 0.5 Mg PO DAILY Restasis Multidose (Cyclosporine (Ophth)) 0.05 % Emu 1 Drop EACH EYE BID Horizant ER (Gabapentin ER) 600 Mg Jacques 600 Mg PO HS Namenda (Memantine) 10 Mg Tab 10 Mg PO BID Januvia (Sitagliptin Phosphate) 100 Mg Tab 50 Mg PO DAILY Crestor (Rosuvastatin Calcium) 40 Mg Tab 40 Mg PO HS K-Tab (Potassium Chloride) 10 Meq Tab 10 Meq PO DAILY Synthroid (Levothyroxine Sodium) 25 Mcg Tab 25 Mcg PO DAILY Donepezil 10 Mg Tab 10 Mg PO HS Aspir-Low (Aspirin) 81 Mg Tabdr 81 Mg PO HS Ventolin Hfa 18 GM Inh (Albuterol Sulfate) 90 Mcg/Act Aer 2 Puff INH Q6H PRN Review of Systems Except as stated in HPI: all other systems reviewed are Neg Physical Exam Narrative GENERAL: 76-year-old male, generally well-appearing, little bit aggressive in his stand some posturing, but directable and pleasant overall. SKIN: Focused skin assessment warm/dry. HEAD: Atraumatic. Normocephalic. EYES: Pupils equal and round. No scleral icterus. No injection or drainage. ENT: No nasal bleeding or discharge. Mucous membranes pink and moist. NECK: Trachea midline. No JVD. CARDIOVASCULAR: Regular rate and rhythm. No murmur appreciated. RESPIRATORY: No accessory muscle use. Clear to auscultation. Breath sounds equal bilaterally. GASTROINTESTINAL: Abdomen soft, non-tender, nondistended. Hepatic and splenic margins not palpable. MUSCULOSKELETAL: No obvious deformities. No edema. PSYCHIATRIC: Little bit aggressive, directable. Data Data Last Documented VS Vital Signs Date Time Temp Pulse Resp B/P (MAP) Pulse Ox O2 Delivery O2 Flow Rate FiO2 11/22/16 14:04 97.9 70 17 162/77 (105) 93 Orders Orders Complete Blood Count With Diff (11/22/16 14:17) Comprehensive Metabolic Panel (11/22/16 14:17) Psych Screen (11/22/16 14:17) Drug Screen, Random Urine (11/22/16 14:17) Olanzapine Odt (Zyprexa Zydis Odt) (11/22/16 14:30) MDM Medical Decision Making Medical Screen Exam Complete: Yes Emergency Medical Condition: Yes Differential Diagnosis Dementia with behavioral disturbance, PTSD, delirium, other Narrative Course Medical decision making This 76 year-old woman who presents to the emergency department with increasing aggressive behavior, not sleeping, pacing, increasingly violent, brought in under a Angel act. We'll check labs, plan for admission. Diagnosis Primary Impression: Dementia Eddi Diop MD Nov 22, 2016 14:59
[2016-11-22 15:15] LABS: AUTOMATED NEUTROPHIL # 5.1 TH/MM3 (1.8-7.7); BASOPHIL # 0.1 TH/MM3 (0-0.2); BASOPHIL % 1.5 % (0.0-2.0); EOSINOPHIL # 0.1 TH/MM3 (0-0.4); EOSINOPHIL % 2.1 % (0.0-4.0); HEMATOCRIT 43.5 % (39.0-51.0); HEMOGLOBIN 14.4 GM/DL (13.0-17.0); LYMPH % 15.5 % (9.0-44.0); MEAN CORPUSCULAR HEMOGLOBIN 29.5 PG (27.0-34.0); MEAN CORPUSCULAR HGB CONC 33.1 % (32.0-36.0); MEAN PLATELET VOLUME 8.4 FL (7.0-11.0); MONO % 5.3 % (0.0-8.0); MONOCYTE # 0.4 TH/MM3 (0-0.9); NEUT % 75.6 % (16.0-70.0); PLATELET COUNT 236 TH/MM3 (150-450); RED BLOOD COUNT 4.89 MIL/MM3 (4.50-5.90); RED CELL DISTRIBUTION WIDTH 17.1 % (11.6-17.2); WHITE BLOOD COUNT 6.8 TH/MM3 (4.0-11.0)
[2016-11-22] MEDS ORDERED: ACETAMINOPHEN 325 MG TAB PO PRN (15:15)
[2016-11-22] MEDS ORDERED: LORazepam 1 MG TAB PO PRN ×2 (15:15→16:30)
[2016-11-22] MEDS ORDERED: ALUMINUM/MAGNESIUM/SIMETH 30 ML CUP PO PRN (15:15)
[2016-11-22] MEDS ORDERED: MAGNESIUM HYDROXIDE SUSP 30 ML CUP PO PRN (15:15)
[2016-11-22] MEDS ORDERED: LORazepam 2 MG/ML VIAL IM PRN ×3 (15:15→16:30)
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
[2016-11-22] MEDS ORDERED: ALBUTEROL SULFATE 90 MCG/ACT HFA 8 GM INHALER INH PRN (15:30)
[2016-11-22 15:33] LABS: ALBUMIN 3.8 GM/DL (3.4-5.0); ALT (GPT) 21 U/L (12-78); AST (GOT) 15 U/L (15-37); BLOOD UREA NITROGEN 18 MG/DL (7-18); CALCIUM 9.2 MG/DL (8.5-10.1); CHLORIDE 108 MEQ/L (98-107); CREATININE 1.32 MG/DL (0.60-1.30); GLOMERULAR FILTRATION RATE 52 ML/MIN (>89); GLUCOSE,RANDOM 218 MG/DL (74-106); SODIUM (NA) 141 MEQ/L (136-145)
[2016-11-22 15:35] LABS: ALKALINE PHOSPHATASE 124 U/L (45-117); TOTAL BILIRUBIN ADULT 0.6 MG/DL (0.2-1.0); TOTAL PROTEIN 7.4 GM/DL (6.4-8.2)
[2016-11-22 16:15] VITALS: BP 186/79; PULSE 65; RESP 18; TEMP 98.6; O2SAT 96
[2016-11-22] MEDS: glipiZIDE 10 MG TAB PO SCH (17:45)
[2016-11-22] MEDS ORDERED: [UNRECOGNIZED DRUG - OTHER] PO SCH (21:00)
[2016-11-22] MEDS: BUDESONIDE-FORMOTEROL 160/4.5 MCG INHALER INH SCH (21:00)
[2016-11-22] MEDS ORDERED: NON-FORMULARY DRUG (Fluticasone-Salmeterol Inh (Advair Diskus Inh) 1 PUFF) INH SCH (21:00)
[2016-11-22] MEDS ORDERED: NON-FORMULARY DRUG (Rosuvastatin (Crestor) 40 MG) PO SCH (21:00)
[2016-11-22] MEDS ORDERED: [UNRECOGNIZED DRUG - OTHER] EACH EYE SCH (21:00)
[2016-11-22] MEDS ORDERED: [UNRECOGNIZED DRUG - OTHER] PO SCH (21:00)
[2016-11-22] MEDS ORDERED: CYCLOSPORINE EACH EYE SCH (21:00)
[2016-11-22] MEDS ORDERED: NON-FORMULARY DRUG (Multiple Vitamins W/ Minerals (Preservision Areds) 1 TAB) PO SCH (21:00)
[2016-11-22] MEDS ORDERED: GABAPENTIN ENACARBIL PO SCH (21:00)
[2016-11-22] MEDS ORDERED: GABAPENTIN 600 MG PO SCH (21:00)
[2016-11-22] MEDS: DONEPEZIL HCL 5 MG TAB PO SCH (21:15)
[2016-11-22] MEDS: MIRTAZAPINE 15 MG TAB PO SCH (21:15)
[2016-11-22] MEDS: ATORVASTATIN 80 MG TAB PO SCH (21:15)
[2016-11-22] MEDS: ASPIRIN EC 81 MG TABEC PO SCH (21:15)
[2016-11-22] MEDS: MEMANTINE HCL 10 MG TAB PO SCH (22:15)
[2016-11-23] MEDS: diphenhydrAMINE HCL 25 MG CAP PO PRN (02:59)
[2016-11-23 06:00] VITALS: BP 128/59; PULSE 57; RESP 16; TEMP 97.3; O2SAT 92
[2016-11-23] MEDS: LEVOTHYROXINE SODIUM 25 MCG TAB PO SCH (06:13)
[2016-11-23] MEDS: glipiZIDE 10 MG TAB PO SCH ×2 (06:51→16:00)
[2016-11-23] MEDS: BUDESONIDE-FORMOTEROL 160/4.5 MCG INHALER INH SCH ×2 (09:00→21:42)
[2016-11-23] MEDS: BUMETANIDE 1 MG TAB PO SCH (09:00)
[2016-11-23] MEDS ORDERED: NON-FORMULARY DRUG (Ferrous Sulfate DR 324 MG) PO SCH (09:00)
[2016-11-23] MEDS: PIOGLITAZONE HCL 30 MG TAB PO SCH (09:00)
[2016-11-23] MEDS: FERROUS SULFATE 325 MG (65 MG ELEMENTAL IRON) TAB PO SCH (09:00)
[2016-11-23] MEDS: MEMANTINE HCL 10 MG TAB PO SCH ×2 (09:00→21:40)
[2016-11-23] MEDS: POTASSIUM CHLORIDE 10 MEQ CONTROLLED RELEASE TAB PO SCH (09:00)
[2016-11-23] MEDS ORDERED: ACETAMINOPHEN 325 MG TAB PO PRN (09:45)
[2016-11-23] MEDS ORDERED: MAGNESIUM HYDROXIDE SUSP 30 ML CUP PO PRN (09:45)
[2016-11-23] MEDS ORDERED: LORazepam 2 MG/ML VIAL IM PRN (09:45)
[2016-11-23] MEDS ORDERED: ALUMINUM/MAGNESIUM/SIMETH 30 ML CUP PO PRN (09:45)
--- NOTE | 2016-11-23 10:05 | HHI.PYPN ---
Subjective Chief Complaint: patient demented with increased paranoia and aggressive behavior at [facility] Remarks Patient initially seen by Dr. Wayne Smith who dictated initial psychiatric HNP. That document has been reviewed by me, I have done the psychiatric admission template. And review the med reconciliation. Patient seen by me on unit with nurse Neptali. Patient calm to somewhat focused guarded and irritable acknowledging having "Alzheimer's disease and dementia". Acknowledging these increased anger and lability focused towards family. 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 He shows little insight into his behaviors that led to this hospitalization or his behaviors the [facility] clinic or our emergency department that necessitated an ETO. In any event at the present time patient does meet criteria for continued inpatient psychiatric hospitalization. Dr. Smith is done first opinion petition supporting Angel act I agree I will sign second opinion petition supporting Angel act. I will also initiate health care surrogate and guardian advocate. When attempting to discuss the need for further observation the patient became more angry student up in a somewhat threatening manner. We will order Seroquel 25 mg 8 AM 2 PM and 8 PM scheduled with the permission of health care surrogate. Continue Ativan as a when necessary. Will attempt to get family meeting set up for tomorrow morning to discuss further treatment diagnosis and possible placement issues Review of Systems Except as stated in HPI: all other systems reviewed are Neg Mental Status Examination Appearance: Appropriate Consciousness: Alert Orientation: Person, Place Motor Activity: Normal gait Speech: Unremarkable Language: Adequate Fund of Knowledge: Inadequate Attention and Concentration: Easily Distracted Memory: Impaired Mood: Oppositional Affect: Labile Thought Process & Associations: Intact Thought Content: Appropriate Hallucination Type: None Delusion Type: None Suicidal Ideation: No Suicidal Plan: No Suicidal Intention: No Homicidal Ideation: No Homicidal Plan: No Homicidal Intention: No Insight: Poor Judgment: Poor Results Labs Test 11/22/16 14:45 11/22/16 15:10 White Blood Count 6.8 TH/MM3 Red Blood Count 4.89 MIL/MM3 Hemoglobin 14.4 GM/DL Hematocrit 43.5 % Mean Corpuscular Volume 89.0 FL Mean Corpuscular Hemoglobin 29.5 PG Mean Corpuscular Hemoglobin Concent 33.1 % Red Cell Distribution Width 17.1 % Platelet Count 236 TH/MM3 Mean Platelet Volume 8.4 FL Neutrophils (%) (Auto) 75.6 % Lymphocytes (%) (Auto) 15.5 % Monocytes (%) (Auto) 5.3 % Eosinophils (%) (Auto) 2.1 % Basophils (%) (Auto) 1.5 % Neutrophils # (Auto) 5.1 TH/MM3 Lymphocytes # (Auto) 1.0 TH/MM3 Monocytes # (Auto) 0.4 TH/MM3 Eosinophils # (Auto) 0.1 TH/MM3 Basophils # (Auto) 0.1 TH/MM3 CBC Comment DIFF FINAL Differential Comment Blood Urea Nitrogen 18 MG/DL Creatinine 1.32 MG/DL Random Glucose 218 MG/DL Total Protein 7.4 GM/DL Albumin 3.8 GM/DL Calcium Level 9.2 MG/DL Alkaline Phosphatase 124 U/L Aspartate Amino Transf (AST/SGOT) 15 U/L Alanine Aminotransferase (ALT/SGPT) 21 U/L Total Bilirubin 0.6 MG/DL Sodium Level 141 MEQ/L Potassium Level 4.2 MEQ/L Chloride Level 108 MEQ/L Carbon Dioxide Level 28.0 MEQ/L Anion Gap 5 MEQ/L Estimat Glomerular Filtration Rate 52 ML/MIN Urine Opiates Screen NEG Urine Barbiturates Screen NEG Urine Amphetamines Screen NEG Urine Benzodiazepines Screen NEG Urine Cocaine Screen NEG Urine Cannabinoids Screen NEG Vitals/IOs Vital Signs Date Time Temp Pulse Resp B/P (MAP) Pulse Ox O2 Delivery O2 Flow Rate FiO2 11/23/16 06:00 97.3 57 16 128/59 (82) 92 Intake and Output 11/23/16 11/23/16 11/24/16 08:00 16:00 00:00 Intake Total 480 ml Balance 480 ml Assessment & Plan Problem List: (1) Alzheimer's dementia with behavioral disturbance ICD Codes: G30.8 - Other Alzheimer's disease; F02.81 - Dementia in other diseases classified elsewhere with behavioral disturbance (2) Dementia with behavioral problem ICD Codes: F03.91 - Unspecified dementia with behavioral disturbance Assessment & Plan Estimated LOS: days patient remains confused demented with increased irritability some of threatening behavior when confronted with it is staying here she medication adjustments above will attempt to meet with family tomorrow Justification for Cont. Inpt. Patient continues demented aggressive labile Discharge Planning Patient needing further assessment medication management, and possible placement issues will meet with family tomorrow to discuss them Request HC Surrog/Guard Advoc?: Yes Perez Steinberg MD Nov 23, 2016 10:05
[2016-11-23] MEDS ORDERED: DEXTROSE 50% IN WATER 50 ML VIAL(D50) IV PUSH PRN (10:30)
[2016-11-23] MEDS ORDERED: GLUCAGON 1 MG/ML VIAL OTHER PRN (10:30)
--- NOTE | 2016-11-23 10:41 | MB ---
cc: BRANDON FLANNERY DATE OF CONSULTATION 11/23/2016 DATE OF [address] Salamanca CONSULTING DOCTOR Dr. Brandon Flannery REASON FOR CONSULTATION Assist in medical management. HISTORY OF PRESENT ILLNESS The patient is, at present, a pleasant 76-year male with a significant past medical history of diabetes, hypertension, mild Alzheimer's dementia, anxiety. He was brought to the ER because of a change in mental status and he was agitated and with wild behavior. The patient was Angel acted and admitted to the psych unit. At present, the patient is seen in the psych unit. The patient has no complaint. He fell down in the shower and had stitches on the left anterior to the ear and also has some superficial lacerations on the right elbow and right arm. He has no headache, no dizziness. Denies any complaint. He wants to go home. He is alert and oriented. PAST MEDICAL HISTORY Significant for: 1. Mild Alzheimer's dementia 2. CAD 3. Hypertension 4. Hyperlipidemia 5. Diabetes 6. History of vertigo and dizziness in the past. 7. History of gastroesophageal reflux disease. 8. Hypothyroidism 9. Kidney stones 10. Hiatal hernia 11. COPD PAST SURGICAL HISTORY 1. History of gallbladder. 2. AV shunt 3. Cardiac stents 4. CABG in 2005 5. Fem-pop in 1999 and 1997 6. Bilateral endarterectomy in 2004 7. Bilateral cataract removal 8. Brain tumor and tumor removal in 2000. 9. The patient had a dental implant placed in 2010. 10. Tonsillectomy ALLERGIES The patient is allergic to PENICILLIN-G AND ZOLPIDEM. MEDICATIONS Reviewed, please see EMR. SOCIAL HISTORY The patient lives with his . He does not smoke or do any drugs. He does not drink. REVIEW OF SYSTEMS As described above, otherwise negative for 12 systems. PHYSICAL EXAMINATION The patient is alert, oriented x3, sitting on a bed without any apparent distress. The patient is afebrile, pulse is 68, respiratory rate is 16, blood pressure 158/69, pulse is 92-96 on room air. HEENT: Head is atraumatic, normocephalic. There is positive stitches anterior and inferior to the left ear without any sign of infection. He has no normal facial features and movement. Normal speech. Mouth unremarkable. NECK: Supple. No increased in JVD. Central trachea. CHEST: Clear to auscultation. CARDIOVASCULAR: S1 and S2 audible. Unable to see any S2 gallop. GI: Abdomen soft and nontender. No organomegaly. Positive bowel sounds. EXTREMITIES: No cyanosis or pedal edema appreciated. 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 SKIN: Warm and moist. There is a positive superficial laceration on the right elbow and also right arm. There is no sign of infection noted at present. PSYCH: At present, seems like appropriate mood and affect. INVESTIGATIONS CBC within normal limits. BMP shows chloride 108, creatinine 1.32, GFR 52, random glucose 218, alkaline phosphatase 124. Toxicology, urine tox within normal limits. EKG was done which showed a rate of 67 seems like sinus with Q in inferior leads, otherwise unremarkable. ASSESSMENT 1. Alzheimer's dementia with behavioral problem and disturbance. 2. Diabetes 3. Hypertension 4. History of CAD status post CABG and stent. 5. History of vertigo and dizziness. 6. History of CVA in the past. RECOMMENDATIONS 1. Medications reviewed, continue the home medication as Indicated. 2. Psychiatric treatment as per psychiatrist. 3. Continue antihypoglycemic medication and sugar checks. 4. Encourage activity. 5. Dressing change daily. 6. Discussed with the patient. 7. Discussed with RN. The patient is overall stable looking. We will sign off. Call if needed. Brandon Flannery MD JP/VIVIANA /10:05 AM /10:22 AM
[2016-11-23 10:59] LABS: AUTOMATED NEUTROPHIL # 7.8 TH/MM3 (1.8-7.7); BASOPHIL # 0.1 TH/MM3 (0-0.2); BASOPHIL % 0.7 % (0.0-2.0); EOSINOPHIL # 0.1 TH/MM3 (0-0.4); EOSINOPHIL % 0.9 % (0.0-4.0); HEMATOCRIT 43.8 % (39.0-51.0); HEMOGLOBIN 14.4 GM/DL (13.0-17.0); LYMPH % 10.1 % (9.0-44.0); LYMPHOCYTE # 0.9 TH/MM3 (1.0-4.8); MEAN CELL VOLUME 89.9 FL (80.0-100.0); MEAN CORPUSCULAR HEMOGLOBIN 29.5 PG (27.0-34.0); MEAN CORPUSCULAR HGB CONC 32.8 % (32.0-36.0); MEAN PLATELET VOLUME 7.9 FL (7.0-11.0); MONO % 3.9 % (0.0-8.0); MONOCYTE # 0.4 TH/MM3 (0-0.9); NEUT % 84.4 % (16.0-70.0); PLATELET COUNT 273 TH/MM3 (150-450); RED BLOOD COUNT 4.87 MIL/MM3 (4.50-5.90); RED CELL DISTRIBUTION WIDTH 17.1 % (11.6-17.2); WHITE BLOOD COUNT 9.3 TH/MM3 (4.0-11.0)
[2016-11-23 11:31] LABS: ALBUMIN 3.6 GM/DL (3.4-5.0); AST (GOT) 14 U/L (15-37); BICARBONATE 26.8 MEQ/L (21.0-32.0); BLOOD UREA NITROGEN 18 MG/DL (7-18); CALCIUM 9.4 MG/DL (8.5-10.1); CHLORIDE 105 MEQ/L (98-107); CHOLESTEROL 133 MG/DL (120-200); CREATININE 1.29 MG/DL (0.60-1.30); GLOMERULAR FILTRATION RATE 54 ML/MIN (>89); GLUCOSE,RANDOM 204 MG/DL (74-106); SODIUM (NA) 141 MEQ/L (136-145); TRIGLYCERIDES 101 MG/DL (42-150)
[2016-11-23 11:58] LABS: ALKALINE PHOSPHATASE 119 U/L (45-117); ALT (GPT) 19 U/L (12-78); CHOLESTEROL/ HDL RATIO 2.25 RATIO; HDL CHOLESTEROL 59.1 MG/DL (40.0-60.0); LDL CHOLESTEROL 54 MG/DL (0-99); TOTAL BILIRUBIN ADULT 0.7 MG/DL (0.2-1.0); TOTAL PROTEIN 7.5 GM/DL (6.4-8.2)
[2016-11-23] MEDS: INSULIN ASPART SUPPLEMENTAL SCALE SQ SCH ×3 (12:00→21:00)
--- NOTE | 2016-11-23 13:16 | EKG ---
Date Performed: 11/23/2016 Time Performed: 08:37:42 PTAGE: 76 years EKG: Ectopic atrial or junctional rhythm Nonspecific ST-T wave changes ABNORMAL ECG PREVIOUS TRACING : 10/30/[address]-T wave changes slightly improved from the old tracing. T he short ND interval is old; although, the P-wave morphology is slightly different from the old dwayne ng. DOCTOR: He Merritt Interpretating Date/Time 11/23/2016 13:16:05
--- NOTE | 2016-11-23 13:16 | EKG ---
Date Performed: 11/23/2016 Time Performed: 08:37:42 PTAGE: 76 years EKG: Ectopic atrial or junctional rhythm Nonspecific ST-T wave changes ABNORMAL ECG PREVIOUS TRACING : 10/30/[address]-T wave changes slightly improved from the old tracing. T he short TN interval is old; although, the P-wave morphology is slightly different from the old dwayne ng. DOCTOR: He Merritt Interpretating Date/Time 11/23/2016 13:16:05
--- NOTE | 2016-11-23 13:16 | EKG ---
Date Performed: 11/23/2016 Time Performed: 08:37:42 PTAGE: 76 years EKG: Ectopic atrial or junctional rhythm Nonspecific ST-T wave changes ABNORMAL ECG PREVIOUS TRACING : 10/30/[address]-T wave changes slightly improved from the old tracing. T he short RI interval is old; although, the P-wave morphology is slightly different from the old dwayne ng. DOCTOR: He Merritt Interpretating Date/Time 11/23/2016 13:16:05
[2016-11-23] MEDS: QUEtiapine FUMARATE 25 MG TAB PO SCH ×2 (14:41→21:40)
[2016-11-23 16:36] LABS: HEMOGLOBIN A1C 6.9 % (4.3-6.0)
[2016-11-23 18:11] VITALS: BP 105/52; PULSE 64; RESP 18; TEMP 98.2; O2SAT 91
[2016-11-23] MEDS: DONEPEZIL HCL 5 MG TAB PO SCH (21:41)
[2016-11-23] MEDS: MIRTAZAPINE 15 MG TAB PO SCH (21:41)
[2016-11-23] MEDS: ATORVASTATIN 80 MG TAB PO SCH (21:41)
[2016-11-23] MEDS: ASPIRIN EC 81 MG TABEC PO SCH (21:41)
[2016-11-24] MEDS: LEVOTHYROXINE SODIUM 25 MCG TAB PO SCH (05:58)
[2016-11-24 06:56] VITALS: BP 153/75; PULSE 71; RESP 18; TEMP 97.8; O2SAT 93
[2016-11-24] MEDS: PIOGLITAZONE HCL 30 MG TAB PO SCH (08:30)
[2016-11-24] MEDS: FERROUS SULFATE 325 MG (65 MG ELEMENTAL IRON) TAB PO SCH (08:30)
[2016-11-24] MEDS: BUDESONIDE-FORMOTEROL 160/4.5 MCG INHALER INH SCH ×2 (08:31→21:19)
[2016-11-24] MEDS: LORazepam 1 MG TAB PO PRN (08:31)
[2016-11-24] MEDS: BUMETANIDE 1 MG TAB PO SCH (08:31)
[2016-11-24] MEDS: POTASSIUM CHLORIDE 10 MEQ CONTROLLED RELEASE TAB PO SCH (08:31)
[2016-11-24] MEDS: MEMANTINE HCL 10 MG TAB PO SCH ×2 (08:32→21:18)
[2016-11-24] MEDS: QUEtiapine FUMARATE 25 MG TAB PO SCH ×3 (08:33→21:18)
[2016-11-24] MEDS: INSULIN ASPART SUPPLEMENTAL SCALE SQ SCH ×3 (11:21→21:19)
[2016-11-24] MEDS: glipiZIDE 10 MG TAB PO SCH (16:00)
--- NOTE | 2016-11-24 16:36 | HHI.PYPN ---
Subjective Chief Complaint: patient demented with increased paranoia and aggressive behavior at [facility] Remarks Medical patient's and stepdaughter and counselor Nisha. We discussed patient's diagnosis history events leading to this hospitalization treatment and recommendations. Patient his is quite devastated by her 's behavior but there is some insight into its relationship to the disease. She does not feel safe at this time having him come home. She is thinking about attempting to [facility] a [facility]. For now will increase scheduled Seroquel to 50 mg 3 times a day. Was seen on the unit later in the afternoon discuss this with them patient is somewhat devastated by at NSAID also somewhat irritable but he maintains composure. Review of Systems Except as stated in HPI: all other systems reviewed are Neg Mental Status Examination Appearance: Appropriate Consciousness: Alert Orientation: Person, Place Motor Activity: Normal gait Speech: Unremarkable Language: Adequate Fund of Knowledge: Inadequate Attention and Concentration: Easily Distracted Memory: Impaired Mood: Oppositional Affect: Labile Thought Process & Associations: Intact Thought Content: Appropriate Hallucination Type: None Delusion Type: None Suicidal Ideation: No Suicidal Plan: No Suicidal Intention: No Homicidal Ideation: No Homicidal Plan: No Homicidal Intention: No Insight: Poor Judgment: Poor Results Vitals/IOs Vital Signs Date Time Temp Pulse Resp B/P (MAP) Pulse Ox O2 Delivery O2 Flow Rate FiO2 11/24/16 06:56 97.8 71 18 153/75 (101) 93 Intake and Output 11/24/16 11/24/16 11/25/16 08:00 16:00 00:00 Intake Total 0 ml 720 ml Balance 0 ml 720 ml Assessment & Plan Problem List: (1) Alzheimer's dementia with behavioral disturbance ICD Codes: G30.8 - Other Alzheimer's disease; F02.81 - Dementia in other diseases classified elsewhere with behavioral disturbance (2) Dementia with behavioral problem ICD Codes: F03.91 - Unspecified dementia with behavioral disturbance Assessment & Plan Estimated LOS: days patient continues confused and demented, though process fairly well the fact that he will be staying here. She medication adjustment above Justification for Cont. Inpt. At this time patient decompensate placed a lower level of care Discharge Planning is unwilling and afraid to take patient home at this time will be looking at various placement options including through the [facility] Request HC Surrog/Guard Advoc?: Yes Perez Steinberg MD Nov 24, 2016 16:36
[2016-11-24] MEDS: DONEPEZIL HCL 5 MG TAB PO SCH (21:17)
[2016-11-24] MEDS: MIRTAZAPINE 15 MG TAB PO SCH (21:18)
[2016-11-24] MEDS: ATORVASTATIN 80 MG TAB PO SCH (21:18)
[2016-11-24] MEDS: ASPIRIN EC 81 MG TABEC PO SCH (21:18)
[2016-11-25] MEDS: LEVOTHYROXINE SODIUM 25 MCG TAB PO SCH (05:16)
[2016-11-25] MEDS: glipiZIDE 10 MG TAB PO SCH ×2 (06:15→17:04)
[2016-11-25 06:40] VITALS: BP 163/74; PULSE 73; RESP 17; TEMP 97.4; O2SAT 95
[2016-11-25] MEDS: INSULIN ASPART SUPPLEMENTAL SCALE SQ SCH ×4 (07:55→20:59)
[2016-11-25] MEDS: BUDESONIDE-FORMOTEROL 160/4.5 MCG INHALER INH SCH ×2 (09:00→20:58)
[2016-11-25] MEDS: FERROUS SULFATE 325 MG (65 MG ELEMENTAL IRON) TAB PO SCH (10:14)
[2016-11-25] MEDS: QUEtiapine FUMARATE 25 MG TAB PO SCH ×3 (10:14→20:58)
[2016-11-25] MEDS: PIOGLITAZONE HCL 30 MG TAB PO SCH (10:14)
[2016-11-25] MEDS: POTASSIUM CHLORIDE 10 MEQ CONTROLLED RELEASE TAB PO SCH (10:14)
[2016-11-25] MEDS: MEMANTINE HCL 10 MG TAB PO SCH ×2 (10:15→20:59)
[2016-11-25] MEDS: BUMETANIDE 1 MG TAB PO SCH (10:15)
--- NOTE | 2016-11-25 11:59 | HHI.PYPN ---
Subjective Chief Complaint: patient demented with increased paranoia and aggressive behavior at [facility] Remarks Pt seen and discussed wiht staff. He continues to be labile in mood and escalates easily. He is focused on discharge and was seen trying to stuff clothes to make a "dummy" for his bed to escape. He is intrusive and impulsive. He is compliant with medications and care. Mental Status Examination Appearance: Appropriate Consciousness: Alert Orientation: Person, Place Motor Activity: Normal gait Speech: Unremarkable Language: Adequate Fund of Knowledge: Inadequate Attention and Concentration: Easily Distracted Memory: Impaired Mood: Irritable Affect: Labile Thought Process & Associations: Intact Thought Content: Appropriate Hallucination Type: None Delusion Type: None Suicidal Ideation: No Suicidal Plan: No Suicidal Intention: No Homicidal Ideation: No Homicidal Plan: No Homicidal Intention: No Insight: Poor Judgment: Poor Results Vitals/IOs Vital Signs Date Time Temp Pulse Resp B/P (MAP) Pulse Ox O2 Delivery O2 Flow Rate FiO2 11/25/16 06:40 97.4 73 17 163/74 (103) 95 Intake and Output 11/25/16 11/25/16 11/26/16 08:00 16:00 00:00 Intake Total 240 ml Balance 240 ml Assessment & Plan Problem List: (1) Alzheimer's dementia with behavioral disturbance ICD Codes: G30.8 - Other Alzheimer's disease; F02.81 - Dementia in other diseases classified elsewhere with behavioral disturbance Assessment & Plan Estimated LOS: days Justification for Cont. Inpt. Continue current tx plan. Discharge Planning impairments in safety Request HC Surrog/Guard Advoc?: Yes Luciana Ashraf MD Nov 25, 2016 11:59
[2016-11-25 16:00] VITALS: BP 125/58; PULSE 66; RESP 18; TEMP 98.2; O2SAT 94
[2016-11-25] MEDS: ATORVASTATIN 80 MG TAB PO SCH (20:58)
[2016-11-25] MEDS: MIRTAZAPINE 15 MG TAB PO SCH (20:58)
[2016-11-25] MEDS: DONEPEZIL HCL 5 MG TAB PO SCH (20:59)
[2016-11-25] MEDS: ASPIRIN EC 81 MG TABEC PO SCH (20:59)
[2016-11-26 06:00] VITALS: BP 146/83; PULSE 65; RESP 18; TEMP 97.9; O2SAT 93
[2016-11-26] MEDS: glipiZIDE 10 MG TAB PO SCH ×2 (06:05→16:18)
[2016-11-26] MEDS: LEVOTHYROXINE SODIUM 25 MCG TAB PO SCH (06:05)
[2016-11-26] MEDS: QUEtiapine FUMARATE 25 MG TAB PO SCH ×3 (08:00→21:24)
[2016-11-26] MEDS: INSULIN ASPART SUPPLEMENTAL SCALE SQ SCH ×4 (08:19→21:00)
[2016-11-26] MEDS: PIOGLITAZONE HCL 30 MG TAB PO SCH (09:00)
[2016-11-26] MEDS: BUMETANIDE 1 MG TAB PO SCH (09:00)
[2016-11-26] MEDS: BUDESONIDE-FORMOTEROL 160/4.5 MCG INHALER INH SCH ×2 (09:00→21:20)
[2016-11-26] MEDS: FERROUS SULFATE 325 MG (65 MG ELEMENTAL IRON) TAB PO SCH (09:00)
[2016-11-26] MEDS: POTASSIUM CHLORIDE 10 MEQ CONTROLLED RELEASE TAB PO SCH (09:00)
[2016-11-26] MEDS: MEMANTINE HCL 10 MG TAB PO SCH ×2 (09:00→21:21)
--- NOTE | 2016-11-26 11:56 | HHI.PYPN ---
Subjective Chief Complaint: patient demented with increased paranoia and aggressive behavior at [facility] Remarks Pt seen and discussed with staff. He became highly agitated and threatening this morning. He was given ativan 1mg and transferred to 2700 unit temporarily to calm down. Pt has been compliant with medications and is tolerating without side effects. No SI/HI Mental Status Examination Appearance: Appropriate Consciousness: Alert Orientation: Person, Place Motor Activity: Normal gait Speech: Unremarkable Language: Adequate Fund of Knowledge: Inadequate Attention and Concentration: Easily Distracted Memory: Impaired Mood: Irritable Affect: Labile Thought Process & Associations: Intact Thought Content: Appropriate Hallucination Type: None Delusion Type: None Suicidal Ideation: No Suicidal Plan: No Suicidal Intention: No Homicidal Ideation: No Homicidal Plan: No Homicidal Intention: No Insight: Poor Judgment: Poor Results Vitals/IOs Vital Signs Date Time Temp Pulse Resp B/P (MAP) Pulse Ox O2 Delivery O2 Flow Rate FiO2 11/26/16 06:00 97.9 65 18 146/83 (104) 93 Assessment & Plan Problem List: (1) Alzheimer's dementia with behavioral disturbance ICD Codes: G30.8 - Other Alzheimer's disease; F02.81 - Dementia in other diseases classified elsewhere with behavioral disturbance Assessment & Plan Continue current tx plan. Estimated LOS: days Justification for Cont. Inpt. impairments in safety Request HC Surrog/Guard Advoc?: Yes Luciana Ashraf MD Nov 26, 2016 11:56
--- NOTE | 2016-11-26 11:56 | HHI.PYPN ---
Subjective Chief Complaint: patient demented with [facility] par[facility]ia and [facility] behavior [facility] Remarks Pt seen and discussed with staff. He became highly agitated and threatening this morning. He was given ativan 1mg and transferred to 2700 unit temporarily to calm down. Pt has been compliant with medications and is tolerating without side effects. No SI/HI Mental Status Examination Appearance: Appropriate Consciousness: Alert Orientation: Person, Place Motor Activity: Normal gait Speech: Unremarkable Language: Adequate Fund of Knowledge: Inadequate Attention and Concentration: Easily Distracted Memory: Impaired Mood: Irritable Affect: Labile Thought Process & Associations: Intact Thought Content: Appropriate Hallucination Type: None Delusion Type: None Suicidal Ideation: No Suicidal Plan: No Suicidal Intention: No Homicidal Ideation: No Homicidal Plan: No Homicidal Intention: No Insight: Poor Judgment: Poor Results Vitals/IOs Vital Signs Date Time Temp Pulse Resp B/P (MAP) Pulse Ox O2 Delivery O2 Flow Rate FiO2 11/26/16 06:00 97.9 65 18 146/83 (104) 93 Assessment & Plan Problem List: (1) Alzheimer's dementia with behavioral disturbance ICD Codes: G30.8 - Other Alzheimer's disease; F02.81 - Dementia in other diseases classified elsewhere with behavioral disturbance Assessment & Plan Continue current tx plan. Estimated LOS: days Justification for Cont. Inpt. impairments in safety Request HC Surrog/Guard Advoc?: Yes Luciana Ashraf MD Nov 26, 2016 11:56
--- NOTE | 2016-11-26 11:56 | HHI.PYPN ---
Subjective Chief Complaint: patient demented with [facility] and [facility] Rem[facility] Pt seen and discussed with staff. He became highly agitated and threatening this morning. He was given ativan 1mg and transferred to 2700 unit temporarily to calm down. Pt has been compliant with medications and is tolerating without side effects. No SI/HI Mental Status Examination Appearance: Appropriate Consciousness: Alert Orientation: Person, Place Motor Activity: Normal gait Speech: Unremarkable Language: Adequate Fund of Knowledge: Inadequate Attention and Concentration: Easily Distracted Memory: Impaired Mood: Irritable Affect: Labile Thought Process & Associations: Intact Thought Content: Appropriate Hallucination Type: None Delusion Type: None Suicidal Ideation: No Suicidal Plan: No Suicidal Intention: No Homicidal Ideation: No Homicidal Plan: No Homicidal Intention: No Insight: Poor Judgment: Poor Results Vitals/IOs Vital Signs Date Time Temp Pulse Resp B/P (MAP) Pulse Ox O2 Delivery O2 Flow Rate FiO2 11/26/16 06:00 97.9 65 18 146/83 (104) 93 Assessment & Plan Problem List: (1) Alzheimer's dementia with behavioral disturbance ICD Codes: G30.8 - Other Alzheimer's disease; F02.81 - Dementia in other diseases classified elsewhere with behavioral disturbance Assessment & Plan Continue current tx plan. Estimated LOS: days Justification for Cont. Inpt. impairments in safety Request HC Surrog/Guard Advoc?: Yes Luciana Ashraf MD Nov 26, 2016 11:56
[2016-11-26 17:30] VITALS: BP 178/69; PULSE 67; RESP 16; TEMP 97.8
[2016-11-26] MEDS: DONEPEZIL HCL 5 MG TAB PO SCH (21:21)
[2016-11-26] MEDS: MIRTAZAPINE 15 MG TAB PO SCH (21:21)
[2016-11-26] MEDS: ASPIRIN EC 81 MG TABEC PO SCH (21:21)
[2016-11-26] MEDS: ATORVASTATIN 80 MG TAB PO SCH (21:21)
[2016-11-27] MEDS: LEVOTHYROXINE SODIUM 25 MCG TAB PO SCH (05:22)
[2016-11-27 06:07] VITALS: BP 175/61; PULSE 75; RESP 18; TEMP 97.6; O2SAT 91
[2016-11-27] MEDS: glipiZIDE 10 MG TAB PO SCH ×2 (07:19→16:00)
[2016-11-27] MEDS: QUEtiapine FUMARATE 25 MG TAB PO SCH (08:00)
[2016-11-27] MEDS: INSULIN ASPART SUPPLEMENTAL SCALE SQ SCH ×4 (08:00→20:48)
[2016-11-27] MEDS: BUDESONIDE-FORMOTEROL 160/4.5 MCG INHALER INH SCH ×2 (08:31→20:49)
[2016-11-27] MEDS: BUMETANIDE 1 MG TAB PO SCH (08:31)
[2016-11-27] MEDS: LORazepam 1 MG TAB PO PRN (08:31)
[2016-11-27] MEDS: FERROUS SULFATE 325 MG (65 MG ELEMENTAL IRON) TAB PO SCH (08:31)
[2016-11-27] MEDS: PIOGLITAZONE HCL 30 MG TAB PO SCH (08:31)
[2016-11-27] MEDS: MEMANTINE HCL 10 MG TAB PO SCH ×2 (08:31→20:48)
[2016-11-27] MEDS: POTASSIUM CHLORIDE 10 MEQ CONTROLLED RELEASE TAB PO SCH (09:00)
[2016-11-27] MEDS ORDERED: HALOPERIDOL LACTATE 5 MG/ML AMP IM SCH (09:45)
--- NOTE | 2016-11-27 09:59 | HHI.PYPN ---
Subjective Chief Complaint: patient demented with increased paranoia and aggressive behavior at [facility] Remarks Patient seen in day room with nurse Neptali and medical student axel, patient initially calmly confused but increased his anger and irritability when I declined to allow him to be discharged today. He seems aware of the fact that his does not want him home. It appears she is breast-feeding alternatives including us calling his son who is a colonel in the [employer] in [place]. He then wanted to be transferred to a [place] hospital. We are exploring that option at this time. However patient did have a significant behavioral issue over the weekend necessitating him going to 2700 unit for a period of time and getting and ETO. He became angry with us and with nurse [place] today. He is also refused his Seroquel multiple times. At this time we will discontinue the oral Seroquel and start Haldol 2.5 mg twice a day orally and if he refuses to be given at IM in its place Review of Systems Except as stated in HPI: all other systems reviewed are Neg Mental Status Examination Appearance: Appropriate Consciousness: Alert Orientation: Person, Place Motor Activity: Normal gait Speech: Unremarkable Language: Adequate Fund of Knowledge: Inadequate Attention and Concentration: Easily Distracted Memory: Impaired Mood: Irritable Affect: Labile Thought Process & Associations: Intact Thought Content: Appropriate Hallucination Type: None Delusion Type: None Suicidal Ideation: No Suicidal Plan: No Suicidal Intention: No Homicidal Ideation: No Homicidal Plan: No Homicidal Intention: No Insight: Poor Judgment: Poor Results Vitals/IOs Vital Signs Date Time Temp Pulse Resp B/P (MAP) Pulse Ox O2 Delivery O2 Flow Rate FiO2 11/27/16 06:07 97.6 75 18 175/61 (99) 91 Intake and Output 11/27/16 11/27/16 11/28/16 08:00 16:00 00:00 Intake Total 360 ml Balance 360 ml Assessment & Plan Problem List: (1) Alzheimer's dementia with behavioral disturbance ICD Codes: G30.8 - Other Alzheimer's disease; F02.81 - Dementia in other diseases classified elsewhere with behavioral disturbance Assessment & Plan Estimated LOS: days patient continues angry irritable confused and demented. Needed and Timeout" 2700 unit over the weekend. She medication adjustments above Justification for Cont. Inpt. At this time patient decompensate placed in a lower level of care Discharge Planning Patient remains demented angry irritable labile. In looking at possible [facility] the [facility] since his 100% connected which is further stabilized Request HC Surrog/Guard Advoc?: Yes Perez Steinberg MD Nov 27, 2016 09:59
--- NOTE | 2016-11-27 09:59 | HHI.PYPN ---
Subjective Chief Complaint: patient demented with increased paranoia and aggressive behavior at [facility] Remarks Patient seen in day room with nurse Neptali and medical student axel, patient initially calmly confused but increased his anger and irritability when I declined to allow him to be discharged today. He seems aware of the fact that his does not want him home. It appears she is breast-feeding alternatives including us calling his son who is a colonel in the [employer] in [place]. He then wanted to be transferred to a [place] hospital. We are exploring that option at this time. However patient did have a significant behavioral issue over the weekend necessitating him going to 2700 unit for a period of time and getting and ETO. He became angry with us and with nurse [place] today. He is also refused his Seroquel multiple times. At this time we will discontinue the oral Seroquel and start Haldol 2.5 mg twice a day orally and if he refuses to be given at IM in its place Review of Systems Except as stated in HPI: all other systems reviewed are Neg Mental Status Examination Appearance: Appropriate Consciousness: Alert Orientation: Person, Place Motor Activity: Normal gait Speech: Unremarkable Language: Adequate Fund of Knowledge: Inadequate Attention and Concentration: Easily Distracted Memory: Impaired Mood: Irritable Affect: Labile Thought Process & Associations: Intact Thought Content: Appropriate Hallucination Type: None Delusion Type: None Suicidal Ideation: No Suicidal Plan: No Suicidal Intention: No Homicidal Ideation: No Homicidal Plan: No Homicidal Intention: No Insight: Poor Judgment: Poor Results Vitals/IOs Vital Signs Date Time Temp Pulse Resp B/P (MAP) Pulse Ox O2 Delivery O2 Flow Rate FiO2 11/27/16 06:07 97.6 75 18 175/61 (99) 91 Intake and Output 11/27/16 11/27/16 11/28/16 08:00 16:00 00:00 Intake Total 360 ml Balance 360 ml Assessment & Plan Problem List: (1) Alzheimer's dementia with behavioral disturbance ICD Codes: G30.8 - Other Alzheimer's disease; F02.81 - Dementia in other diseases classified elsewhere with behavioral disturbance Assessment & Plan Estimated LOS: days patient continues angry irritable confused and demented. Needed and Timeout" 2700 unit over the weekend. She medication adjustments above Justification for Cont. Inpt. At this time patient decompensate placed in a lower level of care Discharge Planning Patient remains demented angry irritable labile. In looking at possible transfer to the [facility] facility since his 100% connected which is further stabilized Request HC Surrog/Guard Advoc?: Yes Perez Steniberg MD Nov 27, 2016 09:59
--- NOTE | 2016-11-27 10:28 | PD.TTN ---
Patient Problems 1. Discharge planning 2. Medication compliance 3. Knowledge deficit 4. Lack of coping skills Progress Toward Goals Provider Present: Dr. Janki Steinberg Provider Input: 11/27/16 changed meds, very aggitated Nurse(s) Input: Pt remains labile, hostile when told he cannot leave, med compliant most of the time and participates in activities Psychiatric Counselors Present: Nisha Dinero LCSW Psych Therapist Input: no insight [facility] needs [facility]IN has limited income and he is a liability to facility with his ongoing threats Occupational Therapist Input: attends with appropriate behaviors ice cream Nisha Rutledge LCSW Nov 27, 2016 10:28
--- NOTE | 2016-11-27 10:28 | PD.TTN ---
Patient Problems 1. Discharge planning 2. Medication compliance 3. Knowledge deficit 4. Lack of coping skills Progress Toward Goals Provider Present: Dr. Janki Steinberg Provider Input: 11/27/16 changed meds, very aggitated Nurse(s) Input: Pt remains labile, hostile when told he cannot leave, med compliant most of the time and participates in activities Psychiatric Counselors Present: Nisha Dinero LCSW Psych Therapist Input: no insight [facility] needs an JUSTIN has limited income and he is a liability to facility with his ongoing threats Occupational Therapist Input: attends with appropriate behaviors ice cream Nisha Rutledge LCSW Nov 27, 2016 10:28
--- NOTE | 2016-11-27 10:28 | PD.TTN ---
Patient Problems 1. Discharge planning 2. Medication compliance 3. Knowledge deficit 4. Lack of coping skills Progress Toward Goals Provider Present: Dr. Janki Steinberg Provider Input: 11/27/16 changed meds, very aggitated Nurse(s) Input: Pt remains labile, hostile when told he cannot leave, med compliant most of the time and participates in activities Psychiatric Counselors Present: Nisha Dinero LCSW Psych Therapist Input: no insight [facility] needs an JUSTIN has limited income and he is a liability to facility with his ongoing threats Occupational Therapist Input: attends with appropriate behaviors ice cream Nisha Rutledge LCSW Nov 27, 2016 10:28
[2016-11-27] MEDS ORDERED: PILL SPLITTER OTHER PRN (11:00)
[2016-11-27] MEDS: HALOPERIDOL LACTATE 5 MG/ML AMP IM SCH (16:00)
[2016-11-27] MEDS: HALOPERIDOL 2 MG TAB PO SCH (16:00)
[2016-11-27 18:24] VITALS: BP 119/55; PULSE 67; RESP 17; TEMP 97.9; O2SAT 93
[2016-11-27] MEDS: MIRTAZAPINE 15 MG TAB PO SCH (20:47)
[2016-11-27] MEDS: DONEPEZIL HCL 5 MG TAB PO SCH (20:48)
[2016-11-27] MEDS: ASPIRIN EC 81 MG TABEC PO SCH (20:48)
[2016-11-27] MEDS: ATORVASTATIN 80 MG TAB PO SCH (20:48)
[2016-11-28] MEDS: glipiZIDE 10 MG TAB PO SCH ×2 (06:03→16:07)
[2016-11-28] MEDS: LEVOTHYROXINE SODIUM 25 MCG TAB PO SCH (06:03)
[2016-11-28 06:30] VITALS: BP 167/69; PULSE 68; RESP 18; TEMP 97.3
[2016-11-28] MEDS: HALOPERIDOL LACTATE 5 MG/ML AMP IM SCH ×2 (08:00→16:00)
[2016-11-28] MEDS: INSULIN ASPART SUPPLEMENTAL SCALE SQ SCH ×4 (08:00→20:18)
[2016-11-28] MEDS: POTASSIUM CHLORIDE 10 MEQ CONTROLLED RELEASE TAB PO SCH (08:46)
[2016-11-28] MEDS: BUMETANIDE 1 MG TAB PO SCH (08:46)
[2016-11-28] MEDS: BUDESONIDE-FORMOTEROL 160/4.5 MCG INHALER INH SCH ×2 (08:47→20:18)
[2016-11-28] MEDS: PIOGLITAZONE HCL 30 MG TAB PO SCH (08:47)
[2016-11-28] MEDS: HALOPERIDOL 2 MG TAB PO SCH ×2 (08:47→16:07)
[2016-11-28] MEDS: MEMANTINE HCL 10 MG TAB PO SCH ×2 (08:47→20:16)
[2016-11-28] MEDS: FERROUS SULFATE 325 MG (65 MG ELEMENTAL IRON) TAB PO SCH (08:51)
--- NOTE | 2016-11-28 08:56 | MB ---
cc: CLAY MERCADO DATE OF CONSULTATION 11/27/2016 REASON FOR CONSULTATION This is a 76-year-old right-handed man with hypertension, some diabetes, hypercholesterolemia, CABG, COPD, melanoma on the left recently diagnosed, a stroke in the past as told by the doctor without symptoms. 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 He did not feel like it helped his gait or his memory any. Initially he says there is nothing wrong with his memory and then says he has Alzheimer's dementia. He is disabled from PTSD. [facility] with aggressive, bizarre behavior, disorganized thinking, paranoia, not been sleeping well. He wanted to sleep in the garage. He is a little bit cantankerous so I did not push further any other questions. SOCIAL HISTORY Not a smoker or a drinker. He lives with his . [place]. FAMILY HISTORY Positive cancer, negative for seizure or stroke. Brother recently from cancer. PAST MEDICAL HISTORY As above: 1. 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 2. Vascular dementia listed as Alzheimer's. ALLERGIES PENICILLIN and ZOLPIDEM. MEDICATIONS 1. Inhalers 2. 81 of aspirin 3. Aricept 10 mg at bedtime 4. Synthroid 5. Potassium 6. Crestor 7. Januvia 8. Namenda 10 twice a day 9. Horizant 600 at bedtime 10. Restasis 11. Bumex 12. Actos 13. Fluoxetine 20 mg a day 14. Glipizide 15. Iron PHYSICAL EXAM VITAL SIGNS: Afebrile, 75, 18, 175/61, 91, blood pressure even as high as 178/69. NECK: There are no carotid bruits. HEART: Regular rhythm, I did not detect a murmur. NEUROLOGIC: Pupils are equal, visual dumas are full. Extraocular movements intact without nystagmus. Face is symmetric. Tongue was midline. Specifically, the right eye, visual dumas are full. He had normal strength in the upper and lower extremities bilaterally. DTRs are trace at the knees. Toes downgoing bilaterally. He knew the month and the year. Speech was fluent. He is not aphasic followed commands well, but was easily agitated. LABORATORY DATA CBC is normal. Urine drug screen is negative. Coags normal. UA negative in April of this year. CBC normal here. Blood gas in February of this year showed a paO2 of 44, otherwise essentially normal. He had a cervical spine CT which was negative in June of this year. CT scan at that time shows a shunt otherwise negative. 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 He initially tells me it was that and then he was not so certain. He tells me he had an MRI done recently at [facility] and he follows up at the [facility] for his glioma. At this point, he is not particularly cooperative. I will try to get the records from [facility] and the outpatient MRI report. I note his B12 here was normal as was his thyroid. He does not particularly appear to be overly demented at this time. We will check an EEG and if he will allow an MRI if one was not done locally and if his shunt can be done with the MR, otherwise he is doing fairly well neurologically. MD MCKENZIE Ta/VIVIANA /7:59 PM /8:38 AM
--- NOTE | 2016-11-28 08:56 | MB ---
cc: CLAY MERCADO DATE OF CONSULTATION 11/27/2016 REASON FOR CONSULTATION This is a 76-year-old right-handed man with hypertension, some diabetes, hypercholesterolemia, CABG, COPD, melanoma on the left recently diagnosed, a stroke in the past as told by the doctor without symptoms. 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 He did not feel like it helped his gait or his memory any. Initially he says there is nothing wrong with his memory and then says he has Alzheimer's dementia. He is disabled from PTSD. [facility] with aggressive, bizarre behavior, disorganized thinking, paranoia, not been sleeping well. He wanted to sleep in the garage. He is a little bit cantankerous so I did not push further any other questions. SOCIAL HISTORY Not a smoker or a drinker. He lives with his . [place]. FAMILY HISTORY Positive cancer, negative for seizure or stroke. Brother recently from cancer. PAST MEDICAL HISTORY As above: 1. 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 2. Vascular dementia listed as Alzheimer's. ALLERGIES PENICILLIN and ZOLPIDEM. MEDICATIONS 1. Inhalers 2. 81 of aspirin 3. Aricept 10 mg at bedtime 4. Synthroid 5. Potassium 6. Crestor 7. Januvia 8. Namenda 10 twice a day 9. Horizant 600 at bedtime 10. Restasis 11. Bumex 12. Actos 13. Fluoxetine 20 mg a day 14. Glipizide 15. Iron PHYSICAL EXAM VITAL SIGNS: Afebrile, 75, 18, 175/61, 91, blood pressure even as high as 178/69. NECK: There are no carotid bruits. HEART: Regular rhythm, I did not detect a murmur. NEUROLOGIC: Pupils are equal, visual dumas are full. Extraocular movements intact without nystagmus. Face is symmetric. Tongue was midline. Specifically, the right eye, visual dumas are full. He had normal strength in the upper and lower extremities bilaterally. DTRs are trace at the knees. Toes downgoing bilaterally. He knew the month and the year. Speech was fluent. He is not aphasic followed commands well, but was easily agitated. LABORATORY DATA CBC is normal. Urine drug screen is negative. Coags normal. UA negative in April of this year. CBC normal here. Blood gas in February of this year showed a paO2 of 44, otherwise essentially normal. He had a cervical spine CT which was negative in June of this year. CT scan at that time shows a shunt otherwise negative. 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 He initially tells me it was that and then he was not so certain. He tells me he had an MRI done recently at [facility] and he follows up at the [facility] for his glioma. At this point, he is not particularly cooperative. I will try to get the records from [facility] and the outpatient MRI report. I note his B12 here was normal as was his thyroid. He does not particularly appear to be overly demented at this time. We will check an EEG and if he will allow an MRI if one was not done locally and if his shunt can be done with the MR, otherwise he is doing fairly well neurologically. MD MCKENZIE Ta/VIVIANA /7:59 PM /8:38 AM
--- NOTE | 2016-11-28 08:56 | MB ---
cc: CLAY MERCADO DATE OF CONSULTATION 11/27/2016 REASON FOR CONSULTATION This is a 76-year-old right-handed man with hypertension, some diabetes, hypercholesterolemia, CABG, COPD, melanoma on the left recently diagnosed, a stroke in the past as told by the doctor without symptoms. 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 He did not feel like it helped his gait or his memory any. Initially he says there is nothing wrong with his memory and then says he has Alzheimer's dementia. He is disabled from PTSD. [facility] with [facility], bizarre behavior, disorganized thinking, paranoia, not been sleeping well. He wanted to sleep in the garage. He is a little bit cantankerous so I did not push further any other questions. SOCIAL HISTORY Not a smoker or a drinker. He lives with his . [place]. FAMILY HISTORY Positive cancer, negative for seizure or stroke. Brother recently from cancer. PAST MEDICAL HISTORY As above: 1. 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 2. Vascular dementia listed as Alzheimer's. ALLERGIES PENICILLIN and ZOLPIDEM. MEDICATIONS 1. Inhalers 2. 81 of aspirin 3. Aricept 10 mg at bedtime 4. Synthroid 5. Potassium 6. Crestor 7. Januvia 8. Namenda 10 twice a day 9. Horizant 600 at bedtime 10. Restasis 11. Bumex 12. Actos 13. Fluoxetine 20 mg a day 14. Glipizide 15. Iron PHYSICAL EXAM VITAL SIGNS: Afebrile, 75, 18, 175/61, 91, blood pressure even as high as 178/69. NECK: There are no carotid bruits. HEART: Regular rhythm, I did not detect a murmur. NEUROLOGIC: Pupils are equal, visual dumas are full. Extraocular movements intact without nystagmus. Face is symmetric. Tongue was midline. Specifically, the right eye, visual dumas are full. He had normal strength in the upper and lower extremities bilaterally. DTRs are trace at the knees. Toes downgoing bilaterally. He knew the month and the year. Speech was fluent. He is not aphasic followed commands well, but was easily agitated. LABORATORY DATA CBC is normal. Urine drug screen is negative. Coags normal. UA negative in April of this year. CBC normal here. Blood gas in February of this year showed a paO2 of 44, otherwise essentially normal. He had a cervical spine CT which was negative in June of this year. CT scan at that time shows a shunt otherwise negative. 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 He initially tells me it was that and then he was not so certain. He tells me he had an MRI done recently at [facility] and he follows up at the [facility] for his glioma. At this point, he is not particularly cooperative. I will try to get the records from [facility] and the outpatient MRI report. I note his B12 here was normal as was his thyroid. He does not particularly appear to be overly demented at this time. We will check an EEG and if he will allow an MRI if one was not done locally and if his shunt can be done with the MR, otherwise he is doing fairly well neurologically. MD MCKENZIE Ta/VIVIANA /7:59 PM /8:38 AM
--- NOTE | 2016-11-28 13:26 | PD.TTN ---
Patient Problems 1. Discharge planning 2. Medication compliance 3. Knowledge deficit 4. Lack of coping skills Progress Toward Goals Provider Present: Dr. Janki Steinberg Provider Input: 11/27/16 changed meds, very aggitated 11/28/16 still labile Nurse(s) Input: Pt remains labile, hostile when told he cannot leave, med compliant most of the time and participates in activities 11/28/16 Neptali: remains labile irritable but med compliant and sleeps at night Psychiatric Counselors Present: Nisha Dinero LCSW Psych Therapist Input: no insight [place] only does custodial contracts needs an [facility] has limited income and he is a liability to facility with his ongoing threats 11/28/16will speak with again about [facility] and reach again out to wastewater treatment plant supervisor at [place] for input Occupational Therapist Input: attends with appropriate behaviors ice cream Nisha Rutledge LCSW Nov 28, 2016 13:26
--- NOTE | 2016-11-28 13:26 | PD.TTN ---
Patient Problems 1. Discharge planning 2. Medication compliance 3. Knowledge deficit 4. Lack of coping skills Progress Toward Goals Provider Present: Dr. Janki Steinberg Provider Input: 11/27/16 changed meds, very aggitated 11/28/16 still labile Nurse(s) Input: Pt remains labile, hostile when told he cannot leave, med compliant most of the time and participates in activities 11/28/16 Neptali: remains labile irritable but med compliant and sleeps at night Psychiatric Counselors Present: Nisha Dinero LCSW Psych Therapist Input: no insight [place] only does half-way contracts needs an [facility] has limited income and he is a liability to facility with his ongoing threats 11/28/16will speak with again about [facility] and reach again out to field pipe lines supervisor at [place] for input Occupational Therapist Input: attends with appropriate behaviors ice cream Nisha Rutledge LCSW Nov 28, 2016 13:26
--- NOTE | 2016-11-28 13:26 | PD.TTN ---
Patient Problems 1. Discharge planning 2. Medication compliance 3. Knowledge deficit 4. Lack of coping skills Progress Toward Goals Provider Present: Dr. Janki Steinberg Provider Input: 11/27/16 changed meds, very aggitated 11/28/16 still labile Nurse(s) Input: Pt remains labile, hostile when told he cannot leave, med compliant most of the time and participates in activities 11/28/16 Neptali: remains labile irritable but med compliant and sleeps at night Psychiatric Counselors Present: Nisha Dinero LCSW Psych Therapist Input: no insight [place] only does residential contracts needs an SNF has limited income and he is a liability to facility with his ongoing threats 11/28/16will speak with again about SNF and reach again out to fitting supervisor at [place] for input Occupational Therapist Input: attends with appropriate behaviors ice cream Nisha Rutledge LCSW Nov 28, 2016 13:26
--- NOTE | 2016-11-28 15:20 | HHI.PYPN ---
Subjective Chief Complaint: patient demented with increased paranoia and aggressive behavior at [facility] Remarks Patient seen in dayroom with medical student axel, all patient remains somewhat vigilant he is calmer and more pleasant. He did again see wanted to be discharged however his affect was softer the anger and vigilance was diminished. Patient is compliant with his medications. For now continue treatment Review of Systems Except as stated in HPI: all other systems reviewed are Neg Mental Status Examination Appearance: Appropriate Consciousness: Alert Orientation: Person, Place Motor Activity: Normal gait Speech: Unremarkable Language: Adequate Fund of Knowledge: Inadequate Attention and Concentration: Easily Distracted Memory: Impaired Mood: Irritable Affect: Labile Thought Process & Associations: Intact Thought Content: Appropriate Hallucination Type: None Delusion Type: None Suicidal Ideation: No Suicidal Plan: No Suicidal Intention: No Homicidal Ideation: No Homicidal Plan: No Homicidal Intention: No Insight: Poor Judgment: Poor Results Vitals/IOs Vital Signs Date Time Temp Pulse Resp B/P (MAP) Pulse Ox O2 Delivery O2 Flow Rate FiO2 11/28/16 06:30 97.3 68 18 167/69 (101) 11/27/16 18:24 93 Intake and Output 11/28/16 11/28/16 11/29/16 08:00 16:00 00:00 Intake Total 380 ml 120 ml Balance 380 ml 120 ml Assessment & Plan Problem List: (1) Alzheimer's dementia with behavioral disturbance ICD Codes: G30.8 - Other Alzheimer's disease; F02.81 - Dementia in other diseases classified elsewhere with behavioral disturbance Assessment & Plan Estimated LOS: days patient continues confused and demented though his affect is often somewhat is not quite as irritable. He is compliant with medication. Justification for Cont. Inpt. At this time patient decompensate if placed in the lower level of care Discharge Planning Consul [facility] issues Request HC Surrog/Guard Advoc?: Yes Perez Steinberg MD Nov 28, 2016 15:20
--- NOTE | 2016-11-28 15:50 | MG ---
cc: DEANGELO DYER M.D. Sex: M DATE OF : 1940, 76 years old. [id number] REFERRING PHYSICIAN: Dr. Cardenas. Rm. [id number] INTRODUCTION: Awake, drowsy asleep study with photic only. A 76-year-old man [facility], disorganized paranoia, history of a ELEVATED GUARD shunt, Alzheimer's disease. MEDICATIONS: Currently on Haldol, aspirin, Januvia, Namenda, Aricept, glipizide. DESCRIPTION OF RECORD The patient has a background of 5-6 hertz. Overall symmetric, a lot of myogenic artifact noted as well. No epileptic activity. There is no hyperventilation performed. Photic stimulation did elicit a driving response. IMPRESSION Some mild slowing may be due to the patient's dementia process versus medicine effect, versus encephalopathy-like event. Clinical correlation. MD ROCKY Osorio/RENETTA /2:46 PM /3:11 PM
--- NOTE | 2016-11-28 15:50 | MG ---
cc: DEANGELO DYER M.D. Sex: M DATE OF : 1940, 76 years old. [id number] REFERRING PHYSICIAN: Dr. Cardenas. Rm. [id number] INTRODUCTION: Awake, drowsy asleep study with photic only. 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 MEDICATIONS: Currently on Haldol, aspirin, Januvia, Namenda, Aricept, glipizide. DESCRIPTION OF RECORD The patient has a background of 5-6 hertz. Overall symmetric, a lot of myogenic artifact noted as well. No epileptic activity. There is no hyperventilation performed. Photic stimulation did elicit a driving response. IMPRESSION Some mild slowing may be due to the patient's dementia process versus medicine effect, versus encephalopathy-like event. Clinical correlation. MD ROCKY Osorio/RENETTA /2:46 PM /3:11 PM
--- NOTE | 2016-11-28 15:50 | MG ---
cc: DEANGELO DYER M.D. Sex: M DATE OF : 1940, 76 years old. [id number] REFERRING PHYSICIAN: Dr. Cardenas. Rm. [id number]-B INTRODUCTION: Awake, drowsy asleep study with photic only. 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 MEDICATIONS: Currently on Haldol, aspirin, Januvia, Namenda, Aricept, glipizide. DESCRIPTION OF RECORD The patient has a background of 5-6 hertz. Overall symmetric, a lot of myogenic artifact noted as well. No epileptic activity. There is no hyperventilation performed. Photic stimulation did elicit a driving response. IMPRESSION Some mild slowing may be due to the patient's dementia process versus medicine effect, versus encephalopathy-like event. Clinical correlation. MD ROCKY Osorio/RENETTA /2:46 PM /3:11 PM
[2016-11-28 18:10] VITALS: BP 152/67; PULSE 61; RESP 18; TEMP 97.4; O2SAT 96
[2016-11-28] MEDS: ASPIRIN EC 81 MG TABEC PO SCH (20:16)
[2016-11-28] MEDS: DONEPEZIL HCL 5 MG TAB PO SCH (20:16)
[2016-11-28] MEDS: MIRTAZAPINE 15 MG TAB PO SCH (20:16)
[2016-11-28] MEDS: ATORVASTATIN 80 MG TAB PO SCH (20:17)
[2016-11-29] MEDS: LEVOTHYROXINE SODIUM 25 MCG TAB PO SCH (05:53)
[2016-11-29] MEDS: glipiZIDE 10 MG TAB PO SCH ×2 (05:54→16:00)
[2016-11-29 06:24] VITALS: BP 155/66; PULSE 66; RESP 18; TEMP 97.4; O2SAT 97
[2016-11-29] MEDS: HALOPERIDOL 2 MG TAB PO SCH ×2 (08:00→16:00)
[2016-11-29] MEDS: HALOPERIDOL LACTATE 5 MG/ML AMP IM SCH ×2 (08:00→16:00)
[2016-11-29] MEDS: INSULIN ASPART SUPPLEMENTAL SCALE SQ SCH ×4 (08:00→21:00)
[2016-11-29] MEDS: BUDESONIDE-FORMOTEROL 160/4.5 MCG INHALER INH SCH ×2 (09:15→21:52)
[2016-11-29] MEDS: FERROUS SULFATE 325 MG (65 MG ELEMENTAL IRON) TAB PO SCH (09:15)
[2016-11-29] MEDS: BUMETANIDE 1 MG TAB PO SCH (09:16)
[2016-11-29] MEDS: MEMANTINE HCL 10 MG TAB PO SCH ×2 (09:16→21:52)
[2016-11-29] MEDS: POTASSIUM CHLORIDE 10 MEQ CONTROLLED RELEASE TAB PO SCH (09:16)
[2016-11-29] MEDS: PIOGLITAZONE HCL 30 MG TAB PO SCH (09:16)
--- NOTE | 2016-11-29 12:13 | HHI.PYPN ---
Subjective Chief Complaint: patient demented with increased paranoia and aggressive behavior at [facility] Remarks Patient seen in day room with floor staff, staff is noticed some old sutures behind left ear be some type of a skin lesion was removed. Will have hospitalist check this over. Patient continues somewhat paranoid diffusely confused continues to focus on discharge appears to have no significant recollection of prior conversations related to placement issues Review of Systems Except as stated in HPI: all other systems reviewed are Neg Mental Status Examination Appearance: Appropriate Consciousness: Alert Orientation: Person, Place Motor Activity: Normal gait Speech: Unremarkable Language: Adequate Fund of Knowledge: Inadequate Attention and Concentration: Easily Distracted Memory: Impaired Mood: Irritable Affect: Labile Thought Process & Associations: Intact Thought Content: Appropriate Hallucination Type: None Delusion Type: None Suicidal Ideation: No Suicidal Plan: No Suicidal Intention: No Homicidal Ideation: No Homicidal Plan: No Homicidal Intention: No Insight: Poor Judgment: Poor Results Vitals/IOs Vital Signs Date Time Temp Pulse Resp B/P (MAP) Pulse Ox O2 Delivery O2 Flow Rate FiO2 11/29/16 06:24 97.4 66 18 155/66 (95) 97 Intake and Output 11/29/16 11/29/16 11/30/16 08:00 16:00 00:00 Intake Total 800 ml Balance 800 ml Assessment & Plan Problem List: (1) Alzheimer's dementia with behavioral disturbance ICD Codes: G30.8 - Other Alzheimer's disease; F02.81 - Dementia in other diseases classified elsewhere with behavioral disturbance Assessment & Plan Estimated LOS: days patient remains confused and demented, with little insight , still some vague irritability related to his not being discharged Justification for Cont. Inpt. At this time patient will decompensate if placed in a lower level of care Discharge Planning Placement may become somewhat problematic family looking into [facility] grandmother locked type facilities Request HC Surrog/Guard Advoc?: Yes Perez Steinberg MD Nov 29, 2016 12:13
--- NOTE | 2016-11-29 12:13 | HHI.PYPN ---
Subjective Chief Complaint: patient demented with increased paranoia and aggressive behavior at [facility] Remarks Patient seen in day room with floor staff, staff is noticed some old sutures behind left ear be some type of a skin lesion was removed. Will have hospitalist check this over. Patient continues somewhat paranoid diffusely confused continues to focus on discharge appears to have no significant recollection of prior conversations related to placement issues Review of Systems Except as stated in HPI: all other systems reviewed are Neg Mental Status Examination Appearance: Appropriate Consciousness: Alert Orientation: Person, Place Motor Activity: Normal gait Speech: Unremarkable Language: Adequate Fund of Knowledge: Inadequate Attention and Concentration: Easily Distracted Memory: Impaired Mood: Irritable Affect: Labile Thought Process & Associations: Intact Thought Content: Appropriate Hallucination Type: None Delusion Type: None Suicidal Ideation: No Suicidal Plan: No Suicidal Intention: No Homicidal Ideation: No Homicidal Plan: No Homicidal Intention: No Insight: Poor Judgment: Poor Results Vitals/IOs Vital Signs Date Time Temp Pulse Resp B/P (MAP) Pulse Ox O2 Delivery O2 Flow Rate FiO2 11/29/16 06:24 97.4 66 18 155/66 (95) 97 Intake and Output 11/29/16 11/29/16 11/30/16 08:00 16:00 00:00 Intake Total 800 ml Balance 800 ml Assessment & Plan Problem List: (1) Alzheimer's dementia with behavioral disturbance ICD Codes: G30.8 - Other Alzheimer's disease; F02.81 - Dementia in other diseases classified elsewhere with behavioral disturbance Assessment & Plan Estimated LOS: days patient remains confused and demented, with little insight , still some vague irritability related to his not being discharged Justification for Cont. Inpt. At this time patient will decompensate if placed in a lower level of care Discharge Planning Placement may become somewhat problematic family looking into [facility] grandmother locked type facilities Request HC Surrog/Guard Advoc?: Yes Perez Steinberg MD Nov 29, 2016 12:13
--- NOTE | 2016-11-29 12:13 | HHI.PYPN ---
Subjective Chief Complaint: patient demented with increased paranoia and aggressive behavior at [facility] Remarks Patient seen in day room with floor staff, staff is noticed some old sutures behind left ear be some type of a skin lesion was removed. Will have hospitalist check this over. Patient continues somewhat paranoid diffusely confused continues to focus on discharge appears to have no significant recollection of prior conversations related to placement issues Review of Systems Except as stated in HPI: all other systems reviewed are Neg Mental Status Examination Appearance: Appropriate Consciousness: Alert Orientation: Person, Place Motor Activity: Normal gait Speech: Unremarkable Language: Adequate Fund of Knowledge: Inadequate Attention and Concentration: Easily Distracted Memory: Impaired Mood: Irritable Affect: Labile Thought Process & Associations: Intact Thought Content: Appropriate Hallucination Type: None Delusion Type: None Suicidal Ideation: No Suicidal Plan: No Suicidal Intention: No Homicidal Ideation: No Homicidal Plan: No Homicidal Intention: No Insight: Poor Judgment: Poor Results Vitals/IOs Vital Signs Date Time Temp Pulse Resp B/P (MAP) Pulse Ox O2 Delivery O2 Flow Rate FiO2 11/29/16 06:24 97.4 66 18 155/66 (95) 97 Intake and Output 11/29/16 11/29/16 11/30/16 08:00 16:00 00:00 Intake Total 800 ml Balance 800 ml Assessment & Plan Problem List: (1) Alzheimer's dementia with behavioral disturbance ICD Codes: G30.8 - Other Alzheimer's disease; F02.81 - Dementia in other diseases classified elsewhere with behavioral disturbance Assessment & Plan Estimated LOS: days patient remains confused and demented, with little insight , still some vague irritability related to his not being discharged Justification for Cont. Inpt. At this time patient will decompensate if placed in a lower level of care Discharge Planning Placement may become somewhat problematic family looking into [facility] grandmother locked type facilities Request HC Surrog/Guard Advoc?: Yes Perez Steinberg MD Nov 29, 2016 12:13
[2016-11-29 17:44] VITALS: BP 154/69; PULSE 54; RESP 15; TEMP 97.7; O2SAT 100
[2016-11-29] MEDS: DONEPEZIL HCL 5 MG TAB PO SCH (21:51)
[2016-11-29] MEDS: MIRTAZAPINE 15 MG TAB PO SCH (21:51)
[2016-11-29] MEDS: ATORVASTATIN 80 MG TAB PO SCH (21:51)
[2016-11-29] MEDS: ASPIRIN EC 81 MG TABEC PO SCH (21:52)
[2016-11-30] MEDS: LEVOTHYROXINE SODIUM 25 MCG TAB PO SCH (05:24)
[2016-11-30 05:33] VITALS: BP 173/72; PULSE 57; RESP 16; TEMP 98.2; O2SAT 98
[2016-11-30] MEDS: HALOPERIDOL 2 MG TAB PO SCH ×2 (08:00→16:00)
[2016-11-30] MEDS: INSULIN ASPART SUPPLEMENTAL SCALE SQ SCH ×4 (08:00→21:44)
[2016-11-30] MEDS: HALOPERIDOL LACTATE 5 MG/ML AMP IM SCH ×2 (08:00→16:00)
[2016-11-30] MEDS: MEMANTINE HCL 10 MG TAB PO SCH ×2 (09:01→21:37)
[2016-11-30] MEDS: BUDESONIDE-FORMOTEROL 160/4.5 MCG INHALER INH SCH ×2 (09:01→21:37)
[2016-11-30] MEDS: glipiZIDE 10 MG TAB PO SCH ×2 (09:01→16:00)
[2016-11-30] MEDS: PIOGLITAZONE HCL 30 MG TAB PO SCH (09:01)
[2016-11-30] MEDS: BUMETANIDE 1 MG TAB PO SCH (09:02)
[2016-11-30] MEDS: POTASSIUM CHLORIDE 10 MEQ CONTROLLED RELEASE TAB PO SCH (09:02)
[2016-11-30] MEDS: FERROUS SULFATE 325 MG (65 MG ELEMENTAL IRON) TAB PO SCH (09:02)
[2016-11-30 10:00] VITALS: BP 122/60
--- NOTE | 2016-11-30 12:03 | HHI.PYPN ---
Subjective Chief Complaint: patient demented with increased paranoia and aggressive behavior at [facility] Remarks Patient seen in [place] with his , patient retained by [place] presiding judge , left to be guardian advocate. Patient continues show no insight there though he maintained good control. Patient seen after [facility] continue somewhat confused about the process. Continues to wish to go home shows no insight into his need to be here. Though that is somewhat softer. He is compliant with his medications Review of Systems Except as stated in HPI: all other systems reviewed are Neg Mental Status Examination Appearance: Appropriate Consciousness: Alert Orientation: Person, Place Motor Activity: Normal gait Speech: Unremarkable Language: Adequate Fund of Knowledge: Inadequate Attention and Concentration: Easily Distracted Memory: Impaired Mood: Irritable Affect: Labile Thought Process & Associations: Intact Thought Content: Appropriate Hallucination Type: None Delusion Type: None Suicidal Ideation: No Suicidal Plan: No Suicidal Intention: No Homicidal Ideation: No Homicidal Plan: No Homicidal Intention: No Insight: Poor Judgment: Poor Results Vitals/IOs Vital Signs Date Time Temp Pulse Resp B/P (MAP) Pulse Ox O2 Delivery O2 Flow Rate FiO2 11/30/16 10:00 122/60 (80) 11/30/16 05:33 98.2 57 16 98 Intake and Output 11/30/16 11/30/16 12/01/16 08:00 16:00 00:00 Intake Total 480 ml Balance 480 ml Assessment & Plan Problem List: (1) Alzheimer's dementia with behavioral disturbance ICD Codes: G30.8 - Other Alzheimer's disease; F02.81 - Dementia in other diseases classified elsewhere with behavioral disturbance Assessment & Plan Estimated LOS: days patient remains demented confused and somewhat irritable. Has been retained [place] [facility] with to be guardian advocate Justification for Cont. Inpt. At this time patient will decompensate if not placed in an appropriate level of care Discharge Planning Continue to work with placement issues secure dementia unit versus returning home Request HC Surrog/Guard Advoc?: Yes Perez Steinberg MD Nov 30, 2016 12:03
--- NOTE | 2016-11-30 12:03 | HHI.PYPN ---
Subjective Chief Complaint: patient demented with increased paranoia and aggressive behavior at [facility] Remarks Patient seen in [place] with his , patient retained by [place] bank analyst , left to be guardian advocate. Patient continues show no insight there though he maintained good control. Patient seen after [facility] continue somewhat confused about the process. Continues to wish to go home shows no insight into his need to be here. Though that is somewhat softer. He is compliant with his medications Review of Systems Except as stated in HPI: all other systems reviewed are Neg Mental Status Examination Appearance: Appropriate Consciousness: Alert Orientation: Person, Place Motor Activity: Normal gait Speech: Unremarkable Language: Adequate Fund of Knowledge: Inadequate Attention and Concentration: Easily Distracted Memory: Impaired Mood: Irritable Affect: Labile Thought Process & Associations: Intact Thought Content: Appropriate Hallucination Type: None Delusion Type: None Suicidal Ideation: No Suicidal Plan: No Suicidal Intention: No Homicidal Ideation: No Homicidal Plan: No Homicidal Intention: No Insight: Poor Judgment: Poor Results Vitals/IOs Vital Signs Date Time Temp Pulse Resp B/P (MAP) Pulse Ox O2 Delivery O2 Flow Rate FiO2 11/30/16 10:00 122/60 (80) 11/30/16 05:33 98.2 57 16 98 Intake and Output 11/30/16 11/30/16 12/01/16 08:00 16:00 00:00 Intake Total 480 ml Balance 480 ml Assessment & Plan Problem List: (1) Alzheimer's dementia with behavioral disturbance ICD Codes: G30.8 - Other Alzheimer's disease; F02.81 - Dementia in other diseases classified elsewhere with behavioral disturbance Assessment & Plan Estimated LOS: days patient remains demented confused and somewhat irritable. Has been retained [place] [facility] with to be guardian advocate Justification for Cont. Inpt. At this time patient will decompensate if not placed in an appropriate level of care Discharge Planning Continue to work with placement issues secure dementia unit versus returning home Request HC Surrog/Guard Advoc?: Yes ePrez Steinberg MD Nov 30, 2016 12:03
--- NOTE | 2016-11-30 12:03 | HHI.PYPN ---
Subjective Chief Complaint: patient demented with increased paranoia and aggressive behavior at [facility] Remarks Patient seen in [place] with his , patient retained by [place] [address] spray drier operator helper , left to be guardian advocate. Patient continues show no insight there though he maintained good control. Patient seen after [facility] continue somewhat confused about the process. Continues to wish to go home shows no insight into his need to be here. Though that is somewhat softer. He is compliant with his medications Review of Systems Except as stated in HPI: all other systems reviewed are Neg Mental Status Examination Appearance: Appropriate Consciousness: Alert Orientation: Person, Place Motor Activity: Normal gait Speech: Unremarkable Language: Adequate Fund of Knowledge: Inadequate Attention and Concentration: Easily Distracted Memory: Impaired Mood: Irritable Affect: Labile Thought Process & Associations: Intact Thought Content: Appropriate Hallucination Type: None Delusion Type: None Suicidal Ideation: No Suicidal Plan: No Suicidal Intention: No Homicidal Ideation: No Homicidal Plan: No Homicidal Intention: No Insight: Poor Judgment: Poor Results Vitals/IOs Vital Signs Date Time Temp Pulse Resp B/P (MAP) Pulse Ox O2 Delivery O2 Flow Rate FiO2 11/30/16 10:00 122/60 (80) 11/30/16 05:33 98.2 57 16 98 Intake and Output 11/30/16 11/30/16 12/01/16 08:00 16:00 00:00 Intake Total 480 ml Balance 480 ml Assessment & Plan Problem List: (1) Alzheimer's dementia with behavioral disturbance ICD Codes: G30.8 - Other Alzheimer's disease; F02.81 - Dementia in other diseases classified elsewhere with behavioral disturbance Assessment & Plan Estimated LOS: days patient remains demented confused and somewhat irritable. Has been retained [place] [facility] with to be guardian advocate Justification for Cont. Inpt. At this time patient will decompensate if not placed in an appropriate level of care Discharge Planning Continue to work with placement issues secure dementia unit versus returning home Request HC Surrog/Guard Advoc?: Yes Perez Steinberg MD Nov 30, 2016 12:03
[2016-11-30 18:18] VITALS: BP 150/66; PULSE 58; RESP 18; TEMP 98.1; O2SAT 98
[2016-11-30] MEDS: ASPIRIN EC 81 MG TABEC PO SCH (21:37)
[2016-11-30] MEDS: MIRTAZAPINE 15 MG TAB PO SCH (21:37)
[2016-11-30] MEDS: DONEPEZIL HCL 5 MG TAB PO SCH (21:37)
[2016-11-30] MEDS: ATORVASTATIN 80 MG TAB PO SCH (21:37)
[2016-12-01] MEDS: LEVOTHYROXINE SODIUM 25 MCG TAB PO SCH (05:45)
[2016-12-01] MEDS: LORazepam 1 MG TAB PO PRN (05:45)
[2016-12-01 06:22] VITALS: BP 184/81; PULSE 54; RESP 18; TEMP 98.4; O2SAT 94
[2016-12-01 06:52] VITALS: BP 167/74; PULSE 53
[2016-12-01] MEDS: HALOPERIDOL 2 MG TAB PO SCH ×2 (08:00→15:47)
[2016-12-01] MEDS: INSULIN ASPART SUPPLEMENTAL SCALE SQ SCH ×4 (08:00→22:22)
[2016-12-01] MEDS: HALOPERIDOL LACTATE 5 MG/ML AMP IM SCH ×2 (08:00→15:47)
[2016-12-01] MEDS: MEMANTINE HCL 10 MG TAB PO SCH ×2 (08:54→22:19)
[2016-12-01] MEDS: BUDESONIDE-FORMOTEROL 160/4.5 MCG INHALER INH SCH ×2 (08:54→22:18)
[2016-12-01] MEDS: POTASSIUM CHLORIDE 10 MEQ CONTROLLED RELEASE TAB PO SCH (08:54)
[2016-12-01] MEDS: PIOGLITAZONE HCL 30 MG TAB PO SCH (08:55)
[2016-12-01] MEDS: BUMETANIDE 1 MG TAB PO SCH (08:55)
[2016-12-01] MEDS: FERROUS SULFATE 325 MG (65 MG ELEMENTAL IRON) TAB PO SCH (08:55)
[2016-12-01] MEDS: glipiZIDE 10 MG TAB PO SCH ×2 (08:55→15:47)
--- NOTE | 2016-12-01 12:20 | HHI.PYPN ---
Subjective Chief Complaint: patient demented with increased paranoia and aggressive behavior at [facility] Remarks Patient seen in day room with floor staff, chart review, patient compliant medications. Patient somewhat upset irritable today with little insight into situation. However he does have some justification. The for his brother his tomorrow and he will not be able to attend it. However he is coping. For now continue treatment Review of Systems Except as stated in HPI: all other systems reviewed are Neg Mental Status Examination Appearance: Appropriate Consciousness: Alert Orientation: Person, Place Motor Activity: Normal gait Speech: Unremarkable Language: Adequate Fund of Knowledge: Inadequate Attention and Concentration: Easily Distracted Memory: Impaired Mood: Irritable Affect: Labile Thought Process & Associations: Intact Thought Content: Appropriate Hallucination Type: None Delusion Type: None Suicidal Ideation: No Suicidal Plan: No Suicidal Intention: No Homicidal Ideation: No Homicidal Plan: No Homicidal Intention: No Insight: Poor Judgment: Poor Results Vitals/IOs Vital Signs Date Time Temp Pulse Resp B/P (MAP) Pulse Ox O2 Delivery O2 Flow Rate FiO2 12/01/16 06:52 53 167/74 (105) 12/01/16 06:22 98.4 18 94 Intake and Output 12/01/16 12/01/16 12/02/16 08:00 16:00 00:00 Intake Total 240 ml 360 ml Balance 240 ml 360 ml Assessment & Plan Problem List: (1) Alzheimer's dementia with behavioral disturbance ICD Codes: G30.8 - Other Alzheimer's disease; F02.81 - Dementia in other diseases classified elsewhere with behavioral disturbance Assessment & Plan Estimated LOS: days patient continues dementia confused somewhat labile and irritable, this is somewhat increased due to his inability to go to his brother' s tomorrow Justification for Cont. Inpt. At this time patient will decompensate if placed a lower level of care Discharge Planning Continue to work with family related to issues with placement Request HC Surrog/Guard Advoc?: Yes Perez Steinberg MD Dec 01, 2016 12:20
[2016-12-01 18:18] VITALS: BP 147/69; PULSE 58; RESP 18; TEMP 97.4; O2SAT 94
[2016-12-01] MEDS: DONEPEZIL HCL 5 MG TAB PO SCH (22:18)
[2016-12-01] MEDS: ASPIRIN EC 81 MG TABEC PO SCH (22:18)
[2016-12-01] MEDS: ATORVASTATIN 80 MG TAB PO SCH (22:19)
[2016-12-01] MEDS: MIRTAZAPINE 15 MG TAB PO SCH (22:19)
[2016-12-02] MEDS: LEVOTHYROXINE SODIUM 25 MCG TAB PO SCH (05:41)
[2016-12-02 06:00] VITALS: BP 135/61; PULSE 64; RESP 18; TEMP 97.6; O2SAT 95
[2016-12-02] MEDS: INSULIN ASPART SUPPLEMENTAL SCALE SQ SCH ×4 (08:00→21:09)
[2016-12-02] MEDS: HALOPERIDOL LACTATE 5 MG/ML AMP IM SCH ×2 (08:00→16:00)
[2016-12-02] MEDS: BUMETANIDE 1 MG TAB PO SCH (08:37)
[2016-12-02] MEDS: FERROUS SULFATE 325 MG (65 MG ELEMENTAL IRON) TAB PO SCH (08:38)
[2016-12-02] MEDS: PIOGLITAZONE HCL 30 MG TAB PO SCH (08:38)
[2016-12-02] MEDS: MEMANTINE HCL 10 MG TAB PO SCH ×3 (08:38→21:08)
[2016-12-02] MEDS: glipiZIDE 10 MG TAB PO SCH ×2 (08:38→16:22)
[2016-12-02] MEDS: POTASSIUM CHLORIDE 10 MEQ CONTROLLED RELEASE TAB PO SCH (08:39)
[2016-12-02] MEDS: BUDESONIDE-FORMOTEROL 160/4.5 MCG INHALER INH SCH ×3 (08:39→21:10)
[2016-12-02] MEDS: HALOPERIDOL 2 MG TAB PO SCH ×2 (08:42→16:21)
--- NOTE | 2016-12-02 13:03 | HHI.PYPN ---
Subjective Chief Complaint: patient demented with increased paranoia and aggressive behavior at [facility] Remarks Patient was seen and case discussed with nursing. Patient is initially pleasant but becomes quite irritable when discussing his discharge and his psychiatrist from the week. Insight remains poor concerning his behavior. Patient is upset that he is going to an [facility] and not going home. He is alert and oriented 3. He is sarcastic at times saying he is "depressed" because he wants to leave Mental Status Examination Appearance: Appropriate Consciousness: Alert Orientation: Person, Place Motor Activity: Normal gait Speech: Unremarkable Language: Adequate Fund of Knowledge: Inadequate Attention and Concentration: Easily Distracted Memory: Impaired Mood: Irritable Affect: Labile, Other (sarcastic) Thought Process & Associations: Intact Thought Content: Appropriate Hallucination Type: None Delusion Type: None Suicidal Ideation: No Suicidal Plan: No Suicidal Intention: No Homicidal Ideation: No Homicidal Plan: No Homicidal Intention: No Insight: Poor Judgment: Poor Results Vitals/IOs Vital Signs Date Time Temp Pulse Resp B/P (MAP) Pulse Ox O2 Delivery O2 Flow Rate FiO2 12/02/16 06:00 97.6 64 18 135/61 (85) 95 Intake and Output 12/02/16 12/02/16 12/03/16 08:00 16:00 00:00 Intake Total 480 ml 240 ml Balance 480 ml 240 ml Assessment & Plan Problem List: (1) Alzheimer's dementia with behavioral disturbance ICD Codes: G30.8 - Other Alzheimer's disease; F02.81 - Dementia in other diseases classified elsewhere with behavioral disturbance Assessment & Plan Continue current treatment plan Justification for Cont. Inpt. Patient would decompensate in a less restrictive setting Request HC Surrog/Guard Advoc?: Yes Ford Cullen DO Dec 02, 2016 13:03
[2016-12-02 20:49] VITALS: BP 131/60; PULSE 62; RESP 18; TEMP 98.1; O2SAT 93
[2016-12-02] MEDS: ASPIRIN EC 81 MG TABEC PO SCH ×2 (21:00→21:13)
[2016-12-02] MEDS: DONEPEZIL HCL 5 MG TAB PO SCH ×2 (21:00→21:10)
[2016-12-02] MEDS: MIRTAZAPINE 15 MG TAB PO SCH ×2 (21:00→21:07)
[2016-12-02] MEDS: diphenhydrAMINE HCL 25 MG CAP PO PRN (21:07)
[2016-12-02] MEDS: ATORVASTATIN 80 MG TAB PO SCH ×2 (21:07→21:11)
[2016-12-03] MEDS: glipiZIDE 10 MG TAB PO SCH ×2 (05:59→16:35)
[2016-12-03] MEDS: LEVOTHYROXINE SODIUM 25 MCG TAB PO SCH (05:59)
[2016-12-03 06:25] VITALS: BP 126/59; PULSE 53; RESP 16; TEMP 98.1; O2SAT 100
[2016-12-03] MEDS: INSULIN ASPART SUPPLEMENTAL SCALE SQ SCH ×4 (07:30→20:24)
[2016-12-03] MEDS: HALOPERIDOL LACTATE 5 MG/ML AMP IM SCH ×2 (08:00→16:00)
[2016-12-03] MEDS: FERROUS SULFATE 325 MG (65 MG ELEMENTAL IRON) TAB PO SCH (08:23)
[2016-12-03] MEDS: BUMETANIDE 1 MG TAB PO SCH (08:24)
[2016-12-03] MEDS: POTASSIUM CHLORIDE 10 MEQ CONTROLLED RELEASE TAB PO SCH (08:24)
[2016-12-03] MEDS: PIOGLITAZONE HCL 30 MG TAB PO SCH (08:24)
[2016-12-03] MEDS: MEMANTINE HCL 10 MG TAB PO SCH ×2 (08:24→19:50)
[2016-12-03] MEDS: BUDESONIDE-FORMOTEROL 160/4.5 MCG INHALER INH SCH ×2 (08:25→19:50)
[2016-12-03] MEDS: HALOPERIDOL 2 MG TAB PO SCH ×2 (08:26→16:35)
--- NOTE | 2016-12-03 10:58 | HHI.PYPN ---
Subjective Chief Complaint: patient demented with increased paranoia and aggressive behavior at [facility] Remarks Patient was seen and case discussed with nursing. Patient is pleasant and cooperative with exam. Per nursing, he refused his night medications because he was a ready sleeping and did not want them when awoken. Subsequently only slept 2 hours. Mood today is better. He is less sarcastic and less irritable. He is looking forward to a family function for crispness. Visited with his family yesterday afternoon. No outbursts Mental Status Examination Appearance: Appropriate Consciousness: Alert Orientation: Person, Place Motor Activity: Normal gait Speech: Unremarkable Language: Adequate Fund of Knowledge: Inadequate Attention and Concentration: Easily Distracted Memory: Impaired Mood: Appropriate Affect: Other (sarcastic) Thought Process & Associations: Intact Thought Content: Appropriate Hallucination Type: None Delusion Type: None Suicidal Ideation: No Suicidal Plan: No Suicidal Intention: No Homicidal Ideation: No Homicidal Plan: No Homicidal Intention: No Insight: Poor Judgment: Poor Results Vitals/IOs Vital Signs Date Time Temp Pulse Resp B/P (MAP) Pulse Ox O2 Delivery O2 Flow Rate FiO2 12/03/16 06:25 98.1 53 16 126/59 (81) 100 Intake and Output 12/03/16 12/03/16 12/04/16 08:00 16:00 00:00 Intake Total 0 ml 240 ml Balance 0 ml 240 ml Assessment & Plan Problem List: (1) Alzheimer's dementia with behavioral disturbance ICD Codes: G30.8 - Other Alzheimer's disease; F02.81 - Dementia in other diseases classified elsewhere with behavioral disturbance Assessment & Plan Continue current treatment plan Justification for Cont. Inpt. Patient would decompensate in a less restrictive setting Request HC Surrog/Guard Advoc?: Yes Ford Cullen DO Dec 03, 2016 10:58
[2016-12-03 18:21] VITALS: BP 127/59; PULSE 65; RESP 17; TEMP 98.2; O2SAT 96
[2016-12-03] MEDS: DONEPEZIL HCL 5 MG TAB PO SCH (19:49)
[2016-12-03] MEDS: ASPIRIN EC 81 MG TABEC PO SCH (19:50)
[2016-12-03] MEDS: ATORVASTATIN 80 MG TAB PO SCH (19:50)
[2016-12-03] MEDS: LORazepam 1 MG TAB PO PRN (19:50)
[2016-12-03] MEDS: MIRTAZAPINE 15 MG TAB PO SCH (19:51)
[2016-12-04 05:34] VITALS: BP 154/68; PULSE 55; RESP 18; TEMP 97.4
[2016-12-04] MEDS: LEVOTHYROXINE SODIUM 25 MCG TAB PO SCH (06:05)
[2016-12-04] MEDS: glipiZIDE 10 MG TAB PO SCH ×2 (06:05→16:13)
[2016-12-04] MEDS: INSULIN ASPART SUPPLEMENTAL SCALE SQ SCH ×3 (07:44→16:36)
[2016-12-04] MEDS: HALOPERIDOL LACTATE 5 MG/ML AMP IM SCH ×2 (08:00→16:00)
[2016-12-04] MEDS: BUDESONIDE-FORMOTEROL 160/4.5 MCG INHALER INH SCH (08:45)
[2016-12-04] MEDS: POTASSIUM CHLORIDE 10 MEQ CONTROLLED RELEASE TAB PO SCH (08:46)
[2016-12-04] MEDS: FERROUS SULFATE 325 MG (65 MG ELEMENTAL IRON) TAB PO SCH (08:46)
[2016-12-04] MEDS: HALOPERIDOL 2 MG TAB PO SCH (08:46)
[2016-12-04] MEDS: MEMANTINE HCL 10 MG TAB PO SCH (08:46)
[2016-12-04] MEDS: BUMETANIDE 1 MG TAB PO SCH (08:47)
[2016-12-04] MEDS: PIOGLITAZONE HCL 30 MG TAB PO SCH (08:47)
[2016-12-04] MEDS ORDERED: SYMB160A INH (10:07)
[2016-12-04] MEDS ORDERED: ASPI-99 PO (10:07)
[2016-12-04] MEDS ORDERED: HALO2TAB PO (10:07)
[2016-12-04] MEDS ORDERED: SITA50 PO (10:07)
[2016-12-04] MEDS ORDERED: ACTO30TA10 PO (10:07)
[2016-12-04] MEDS ORDERED: LEVO25TA4 PO (10:07)
[2016-12-04] MEDS ORDERED: ARIC10TA2 PO (10:07)
[2016-12-04] MEDS ORDERED: MIRTA15 PO (10:07)
[2016-12-04] MEDS ORDERED: POTA-243 PO (10:07)
[2016-12-04] MEDS ORDERED: FERR325T20 PO (10:07)
[2016-12-04] MEDS ORDERED: ATOR1TAB18 PO (10:07)
[2016-12-04] MEDS ORDERED: GLIP10TA6 PO (10:07)
[2016-12-04] MEDS ORDERED: NAME10TA PO (10:07)
[2016-12-04] MEDS ORDERED: BUME0.5T PO (10:07)
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
--- NOTE | 2016-12-04 14:35 | PD.TTN ---
Patient Problems 1. Discharge planning 2. Medication compliance 3. Knowledge deficit 4. Lack of coping skills Progress Toward Goals Provider Present: Dr. Janki Steinberg Provider Input: 11/27/16 changed meds, very aggitated 11/28/16 still labile 12/04 patient can discharge to [facility] if uneventful weekend with no behavioral issues occurred Nurse(s) Input: Pt remains labile, hostile when told he cannot leave, med compliant most of the time and participates in activities 11/28/16 Neptali: remains labile irritable but med compliant and sleeps at night 12/04 patient has been overall compliant, at times complaining and easily aggitated Psychiatric Counselors Present: Nisha Dinero LCSW Psych Therapist Input: no insight [place] only does care home contracts needs an RETIREMENT has limited income and he is a liability to facility with his ongoing threats 11/28/16will speak with again about RETIREMENT and reach again out to roundhouse supervisor at [place] for input 12/04 patient was very upset wanting to leave to the of his brother which he was well aware happening this weekend, but family visited him and he remained in good behavioral control, s/w [place] RETIREMENT and patient can go to RETIREMENT today Group Spec/RT/OT/WAY Present: Ariel Rodríguez OT Group Spec/RT/OT/WAY Input: 12/04 pateint attends select groups and greets but is limited or selective attending Occupational Therapist Input: attends with appropriate behaviors ice cream Nisha Rutledge LCSW Dec 04, 2016 14:35
--- NOTE | 2016-12-04 14:35 | PD.TTN ---
Patient Problems 1. Discharge planning 2. Medication compliance 3. Knowledge deficit 4. Lack of coping skills Progress Toward Goals Provider Present: Dr. Janki Steinberg Provider Input: 11/27/16 changed meds, very aggitated 11/28/16 still labile 12/04 patient can discharge to [facility] if uneventful weekend with no behavioral issues occurred Nurse(s) Input: Pt remains labile, hostile when told he cannot leave, med compliant most of the time and participates in activities 11/28/16 Neptali: remains labile irritable but med compliant and sleeps at night 12/04 patient has been overall compliant, at times complaining and easily aggitated Psychiatric Counselors Present: Nisha Dinero LCSW Psych Therapist Input: no insight [place] only does alf contracts needs an HALF-WAY has limited income and he is a liability to facility with his ongoing threats 11/28/16will speak with again about HALF-WAY and reach again out to sheet metal duct worker supervisor at [place] for input 12/04 patient was very upset wanting to leave to the of his brother which he was well aware happening this weekend, but family visited him and he remained in good behavioral control, s/w [place] HALF-WAY and patient can go to HALF-WAY today Group Spec/RT/OT/WAY Present: Ariel Rodríguez OT Group Spec/RT/OT/WAY Input: 12/04 pateint attends select groups and greets but is limited or selective attending Occupational Therapist Input: attends with appropriate behaviors ice cream Nisha Rutledge LCSW Dec 04, 2016 14:35
--- NOTE | 2016-12-04 14:35 | PD.TTN ---
Patient Problems 1. Discharge planning 2. Medication compliance 3. Knowledge deficit 4. Lack of coping skills Progress Toward Goals Provider Present: Dr. Janki Steinberg Provider Input: 11/27/16 changed meds, very aggitated 11/28/16 still labile 12/04 patient can discharge to [facility] if uneventful weekend with no behavioral issues occurred Nurse(s) Input: Pt remains labile, hostile when told he cannot leave, med compliant most of the time and participates in activities 11/28/16 Neptali: remains labile irritable but med compliant and sleeps at night 12/04 patient has been overall compliant, at times complaining and easily aggitated Psychiatric Counselors Present: Nisha Dinero LCSW Psych Therapist Input: no insight [facility] only does [facility] contracts needs an CUSTODIAL has limited income and he is a liability to facility with his ongoing threats 11/28/16will speak with again about CUSTODIAL and reach again out to genetic supervisor at [facility] for input 12/04 patient was very upset wanting to leave to the of his brother which he was well aware happening this weekend, but family visited him and he remained in good behavioral control, s/w [facility] and patient can go to CUSTODIAL today Group Spec/RT/OT/WAY Present: Ariel Rodríguez OT Group Spec/RT/OT/WAY Input: 12/04 pateint attends select groups and greets but is limited or selective attending Occupational Therapist Input: attends with appropriate behaviors ice cream Nisha Rutledge LCSW Dec 04, 2016 14:35
[2016-12-05] MEDS ORDERED: HALOPERIDOL 5 MG TAB PO SCH (08:00)
== END 2016-12-04 16:35 | DRG 57 ==
LOC: NEPD 13:01 → NEDA 15:00 → H250 16:13
PROVIDERS: ADMIT Psychiatry & Neurology Psychiatry; ATTEND Psychiatry & Neurology Psychiatry
DX: G30.9 Alzheimer's disease, unspecified (principal); F01.51 Vascular dementia, unspecified severity, with behavioral disturbance; J44.9 Chronic obstructive pulmonary disease, unspecified; F02.81 Dementia in other diseases classified elsewhere, unspecified severity, with behavioral disturbance; E11.9 Type 2 diabetes mellitus without complications; Z79.84 Long term (current) use of oral hypoglycemic drugs; H91.90 Unspecified hearing loss, unspecified ear; I10 Essential (primary) hypertension; W19.XXXA Unspecified fall, initial encounter; S51.011A Laceration without foreign body of right elbow, initial encounter; E78.5 Hyperlipidemia, unspecified; E03.9 Hypothyroidism, unspecified; F43.10 Post-traumatic stress disorder, unspecified; K44.9 Diaphragmatic hernia without obstruction or gangrene; I25.10 Atherosclerotic heart disease of native coronary artery without angina pectoris; Z95.5 Presence of coronary angioplasty implant and graft; Z95.1 Presence of aortocoronary bypass graft; Z98.2 Presence of cerebrospinal fluid drainage device; Z86.011 Personal history of benign neoplasm of the brain; Z86.73 Personal history of transient ischemic attack (TIA), and cerebral infarction without residual deficits; Z85.820 Personal history of malignant melanoma of skin
CPT/HCPCS: 80053; 80061; 80307; 82306; 82607; 82948; 83036; 84443; 85025; 93005; 95819; J1815; J2060

== ENCOUNTER 2016-12-31 11:00 | Observation (INO) | payer MEDICARE, OTHER ==
[~2016-12-31] VITALS: Ht 170.2 cm; Wt 82.0 kg
[2016-12-31] VITALS (10 sets, daily range): BP systolic 111–164; BP diastolic 55–85; PULSE 45–57; RESP 18; TEMP 97.8–98.8; O2SAT 92–99
[~2016-12-31 11:00] MED LIST changes: -ACTO30TA10 PO; -ADVA250A INH; +ARIC10TA9 PO; +ASPI1TAB56 PO; -ASPI81TA19 PO; +ATOR80TA45 PO; -FERR324T4 PO; +FERR325T20 PO; +HALO2TAB PO; -K-TA10TA PO; +KLOR10TA PO; +LEVO25TA4 PO; +PIOG30 PO; -ROSU40 PO; -SITA1TAB2 PO; +SITA50 PO; +SYMB160A INH; -SYNT25TA PO
[2016-12-31] MEDS ORDERED: SODIUM CHLORIDE 0.9% FLUSH 10 ML FLUSH IVF PRN (11:15)
[2016-12-31] MEDS ORDERED: NITROGLYCERIN 2% OINT 1 GM PACKET TOP ONE (11:15)
[2016-12-31] MEDS ORDERED: ASPIRIN 81 MG CHEW TAB PO ONE (11:15)
[2016-12-31] MEDS ORDERED: NITR0.4S SL (11:33)
[2016-12-31] MEDS ORDERED: PLAV75TA29 PO (11:33)
[2016-12-31] MEDS ORDERED: HALO2TAB PO (11:33)
[2016-12-31] MEDS ORDERED: TRAZ100T10 PO (11:33)
[2016-12-31] MEDS ORDERED: BUME0.5T PO (11:33)
--- NOTE | 2016-12-31 11:34 | RADRPT ---
EXAM DATE/TIME: 12/31/2016 11:19 [facility] COMPARISON: CHEST SINGLE AP, October 30, 2016, 10:47. INDICATIONS : Chest pain MEDICAL HISTORY : Cardiovascular disease. Congestive heart failure. dementia, CVA, diabetic SURGICAL HISTORY : CABG. Cholecystectomy. AV shunt ENCOUNTER: Initial ACUITY: 1 day PAIN SCORE: 0/10 LOCATION: chest FINDINGS: There is mild bilateral lower lung next interstitial and alveolar opacities which appear improved fro m the prior chest x-ray 10/30/16. The upper lungs are clear. The heart is normal size. Evidence of prior median sternotomy. Shunt tubing courses along the right chest. CONCLUSION: Improved, but persistent, mixed interstitial and alveolar infiltrates in the lower lungs. Amol Booth MD on December 31, 2016 at 11:31 Board Certified Radiologist. This report was verified electronically.
[2016-12-31 11:40] LABS: BASOPHIL # 0.1 TH/MM3 (0-0.2); BASOPHIL % 1.1 % (0.0-2.0); EOSINOPHIL # 0.1 TH/MM3 (0-0.4); EOSINOPHIL % 1.7 % (0.0-4.0); HEMATOCRIT 42.3 % (39.0-51.0); HEMO FLAGS DIFF FINAL; LYMPH % 15.8 % (9.0-44.0); LYMPHOCYTE # 1.1 TH/MM3 (1.0-4.8); MEAN CELL VOLUME 88.5 FL (80.0-100.0); MEAN CORPUSCULAR HEMOGLOBIN 28.8 PG (27.0-34.0); MEAN CORPUSCULAR HGB CONC 32.5 % (32.0-36.0); MONO % 6.1 % (0.0-8.0); NEUT % 75.3 % (16.0-70.0); PLATELET COUNT 215 TH/MM3 (150-450); RED BLOOD COUNT 4.77 MIL/MM3 (4.50-5.90); RED CELL DISTRIBUTION WIDTH 16.8 % (11.6-17.2); WHITE BLOOD COUNT 6.7 TH/MM3 (4.0-11.0)
[2016-12-31 11:46] LABS: APTT (PATIENT) 26.4 SEC (24.3-30.1); PROTHROMBIN TIME - PATIENT 10.9 SEC (9.8-11.6)
[2016-12-31 11:57] LABS: ALT (GPT) 20 U/L (12-78); ANION GAP 4 MEQ/L (5-15); AST (GOT) 15 U/L (15-37); BICARBONATE 27.6 MEQ/L (21.0-32.0); BLOOD UREA NITROGEN 20 MG/DL (7-18); CHLORIDE 109 MEQ/L (98-107); GLOMERULAR FILTRATION RATE 60 ML/MIN (>89); MAGNESIUM 2.1 MG/DL (1.5-2.5); POTASSIUM 4.6 MEQ/L (3.5-5.1); SODIUM (NA) 141 MEQ/L (136-145)
[2016-12-31 12:00] LABS: ALKALINE PHOSPHATASE 103 U/L (45-117); TOTAL BILIRUBIN ADULT 0.5 MG/DL (0.2-1.0)
[2016-12-31 12:09] LABS: CREATINE KINASE 47 U/L (39-308)
--- NOTE | 2016-12-31 12:12 | PD ---
HPI Chief Complaint: Chest Pain Time Seen by Provider: 11:11 Travel History International Travel<30 days: No Contact w/Intl Traveler<30days: No Traveled to known affect area: No History of Present Illness HPI 76-year-old male presents with left-sided chest pain by ambulance. He was given 3 nitroglycerin and is now pain-free. He states Dr. Merritt is his farm service adviser with the [facility] heart group. He states his last workup was 7 years ago and he was supposed to have one later this week with a stress test given he's been having intermittent symptoms. He states that his last intervention was a stent but he doesn't know when. Quality was pressure. Severity is currently resolved. When I tried as patient more details he states please just ask my and she is currently not available so history is limited. 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 ) Cardiac Catheterization: Yes (1996, 1999) Cardiovascular Problems: No High Cholesterol: Yes Chemotherapy: No Congestive Heart Failure: Yes COPD: Yes Cerebrovascular Accident: Yes (2006 ) Dementia: Yes Diabetes: No Diminished Hearing: Yes Endocrine: Yes Gastrointestinal Disorders: Yes GERD: Yes Genitourinary: Yes Headaches: No Hiatal Hernia: Yes Immune Disorder: No Implanted Vascular Access Dvce: Yes Kidney Stones: Yes Musculoskeletal: Yes Neurologic: Yes (Dementia, Early onset Alzheimers, Stroke 2006) Psychiatric: Yes (PTSD) Reproductive: No Respiratory: Yes Migraines: No Radiation Therapy: No Renal Failure: No Seizures: No Sleep Apnea: No Thyroid Disease: Yes (Hypothyroid) Ulcer: No ?: Not Past Surgical History Narrative Surgical By records Abdominal Surgery: Yes (Gallbladder removel 2015) AICD: No Arteriovenous Shunt: Yes Body Medical Devices: STENTS Cardiac Surgery: Yes (CABG x 5 2005, Fem Fem Pop 1999, Fem Pop 1997, Carodid endodarectomy 2004) Cholecystectomy: Yes (2015) Coronary Artery Bypass Graft: Yes (2005) Coronary Stent: Yes Eye Surgery: Yes (BL Cataract removal) Insulin Pump: No Joint Replacement: No Neurologic Surgery: Yes (Brain tumor removed, angionoma 2000, MOGUL OPERATOR shunt 2010) Oral Surgery: Yes (Tonsils removed, Dental implants) Pacemaker: No Thoracic Surgery: Yes (quad BYPASS) Tonsillectomy: Yes Other Surgery: Yes (RIGHT CORROTID 2005) Social History Alcohol Use: No Tobacco Use: No Substance Use: No Allergies-Medications (Allergen,Severity, Reaction): Coded Allergies: penicillin G (Unverified Allergy, Severe, HIVES, 10/30/16) zolpidem (Unverified Allergy, Severe, Hallucinations, 10/30/16) Reported Meds & Prescriptions Reported Meds & Active Scripts Active Januvia (Sitagliptin Phosphate) 50 Mg Tab 50 Mg PO DAILY Klor-Con 10 (Potassium Chloride) 10 Meq Tab 10 Meq PO DAILY Actos (Pioglitazone HCl) 30 Mg Tab 30 Mg PO DAILY Mirtazapine 15 Mg Tab 15 Mg PO HS Namenda (Memantine) 10 Mg Tab 10 Mg PO BID Levothyroxine (Levothyroxine Sodium) 25 Mcg Tab 25 Mcg PO DAILY@0600 Glipizide 10 Mg Tab 10 Mg PO BIDAC Take 30 minutes before a meal Ferosul (Ferrous Sulfate) 325 Mg (65 Mg Iron) Tablet 325 Mg PO DAILY Symbicort Inh (Budesonide/Formoterol Fumarate) 160-4.5 Mcg/Act Aero 2 Puff INH BID Atorvastatin (Atorvastatin Calcium) 80 Mg Tab 80 Mg PO HS Adult Aspirin EC Low Strength (Aspirin) 81 Mg Tabec 81 Mg PO HS Reported Nitrostat SL (Nitroglycerin) 0.4 Mg Subl 0.4 Mg SL DAILY PRN 1 tablet under the tongue as needed for chest pain. Repeat every 5 minutes for a total of 3 DOSES or call 911 if NO relief. Trazodone (Trazodone HCl) 100 Mg Tablet 100 Mg PO HS Haloperidol 2 Mg Tab 4 Mg PO BID Plavix (Clopidogrel Bisulfate) 75 Mg Tab 75 Mg PO DAILY Bumetanide 0.5 Mg Tab 0.25 Mg PO DAILY Donepezil 10 Mg Tab 10 Mg PO HS Review of Systems ROS Limitations: Poor Historian Except as stated in HPI: all other systems reviewed are Neg Physical Exam Exam Limitations: Poor Historian Narrative GENERAL: Well-nourished, well-developed patient. SKIN: Warm and dry. HEAD: Normocephalic and atraumatic. EYES: No injection or drainage. ENT: No nasal drainage noted. NECK: Supple, trachea midline. CARDIOVASCULAR: Regular rate and rhythm RESPIRATORY: Breath sounds equal bilaterally. No accessory muscle use. GASTROINTESTINAL: Abdomen soft, non-tender, nondistended. NEUROLOGICAL: Awake. Moves all extremities and sensory grossly within normal limits. Normal speech. Data Data Last Documented VS Vital Signs Date Time Temp Pulse Resp B/P (MAP) Pulse Ox O2 Delivery O2 Flow Rate FiO2 12/31/16 12:06 18 99 Nasal Cannula 2.00 12/31/16 12:05 97.9 54 Orders Orders Electrocardiogram (12/31/16 11:11) B-Type Natriuretic Peptide (12/31/16 11:11) Ckmb (Isoenzyme) Profile (12/31/16 11:11) Complete Blood Count With Diff (12/31/16 11:11) Comprehensive Metabolic Panel (12/31/16 11:11) Magnesium (Mg) (12/31/16 11:11) Prothrombin Time / Inr (Pt) (12/31/16 11:11) Act Partial Throm Time (Ptt) (12/31/16 11:11) Troponin I (12/31/16 11:11) Chest, Single Ap (12/31/16 11:11) Ecg Monitoring (12/31/16 11:11) Bilateral Bp Monitoring (12/31/16 11:11) Iv Access Insert/Monitor (12/31/16 11:11) Oximetry (12/31/16 11:11) Aspirin Chew (Aspirin Chew) (12/31/16 11:15) Nitroglycerin 2% Oint (Nitroglycerin 2% (12/31/16 11:15) Sodium Chloride 0.9% Flush (Ns Flush) (12/31/16 11:15) Admit Order (Ed Use Only) (12/31/16 12:43) Labs Laboratory Tests Test 12/31/16 11:26 White Blood Count 6.7 TH/MM3 Red Blood Count 4.77 MIL/MM3 Hemoglobin 13.7 GM/DL Hematocrit 42.3 % Mean Corpuscular Volume 88.5 FL Mean Corpuscular Hemoglobin 28.8 PG Mean Corpuscular Hemoglobin Concent 32.5 % Red Cell Distribution Width 16.8 % Platelet Count 215 TH/MM3 Mean Platelet Volume 7.7 FL Neutrophils (%) (Auto) 75.3 % Lymphocytes (%) (Auto) 15.8 % Monocytes (%) (Auto) 6.1 % Eosinophils (%) (Auto) 1.7 % Basophils (%) (Auto) 1.1 % Neutrophils # (Auto) 5.0 TH/MM3 Lymphocytes # (Auto) 1.1 TH/MM3 Monocytes # (Auto) 0.4 TH/MM3 Eosinophils # (Auto) 0.1 TH/MM3 Basophils # (Auto) 0.1 TH/MM3 CBC Comment DIFF FINAL Differential Comment Prothrombin Time 10.9 SEC Prothromb Time International Ratio 1.0 RATIO Activated Partial Thromboplast Time 26.4 SEC Blood Urea Nitrogen 20 MG/DL Creatinine 1.18 MG/DL Random Glucose 125 MG/DL Total Protein 6.8 GM/DL Albumin 3.3 GM/DL Calcium Level 8.5 MG/DL Magnesium Level 2.1 MG/DL Alkaline Phosphatase 103 U/L Aspartate Amino Transf (AST/SGOT) 15 U/L Alanine Aminotransferase (ALT/SGPT) 20 U/L Total Bilirubin 0.5 MG/DL Sodium Level 141 MEQ/L Potassium Level 4.6 MEQ/L Chloride Level 109 MEQ/L Carbon Dioxide Level 27.6 MEQ/L Anion Gap 4 MEQ/L Estimat Glomerular Filtration Rate 60 ML/MIN Total Creatine Kinase 47 U/L Troponin I LESS THAN 0.02 NG/ML B-Type Natriuretic Peptide 403 PG/ML MDM Medical Decision Making Medical Screen Exam Complete: Yes Emergency Medical Condition: Yes Medical Record Reviewed: Yes (past history confirmed) Interpretation(s) CBC & BMP Diagram 12/31/16 11:26 Total Protein 6.8, Albumin 3.3 L, Calcium Level 8.5, Magnesium Level 2.1, Alkaline Phosphatase 103, Aspartate Amino Transf (AST/SGOT) 15, Alanine Aminotransferase (ALT/SGPT) 20, Total Bilirubin 0.5 Differential Diagnosis CA, musculoskeletal, gastritis Narrative Course Will check blood work, chest x-ray, EKG and dose with aspirin and monitor ED workup with mild CHF exacerbation and initial markers negative. We'll discuss with his farm service adviser Patient agrees to observation Physician Communication Physician Communication dr altamirano states to admit to [facility] Diagnosis Primary Impression: Chest pain Qualified Codes: R07.9 - Chest pain, unspecified Sandra Sotomayor MD Dec 31, 2016 12:12
[2016-12-31] MEDS ORDERED: ONDANSETRON HCL 4 MG/2 ML VIAL IV PUSH PRN (14:30)
[2016-12-31] MEDS ORDERED: ACETAMINOPHEN 500 MG CPLT PO PRN (14:30)
[2016-12-31] MEDS ORDERED: ACETAMINOPHEN/HYDROcodone 325 MG/7.5 MG TAB PO PRN (14:30)
[2016-12-31] MEDS ORDERED: SODIUM CHLORIDE 0.9% FLUSH 5 ML FLUSH IVF PRN (14:30)
--- NOTE | 2016-12-31 14:52 | PD.CARD.PN ---
Subjective Subjective Remarks Patient discussed with PA and then seen and examined with present. He is followed currently by Dr. Merritt and previously by Dr. Harper. He has known CAD with STENTS and then a CABG by [facility]. He has dementia and is in a nursing care facility. He also has known VHD all followed by Dr. Merritt. Today he had some constant atypical pain in his left upper arm and his left hand feels swollen. He has a hx of CHF and review of his meds suggest he has not been receiving full dose of bumex and currently has edema. He also has tenderness in his left chest wall about the same level as the pain he complains of in his arm. Discussed with and patient and we will RO ACS and if negative will discharge him to [facility]U this week as scheduled in the office to maintain consistency of evaluation and care. We have placed a call to Dr. Merritt in attempt to discuss options with him if he is available. Objective Medications Current Medications Medications (Trade) Dose Ordered Sig/[place] Route Start Time Stop Time Status Last Admin (NS Flush) 2 ml UNSCH PRN IVF 12/31/16 14:30 (NS Flush) 2 ml BID IVF 12/31/16 21:00 (Tylenol) 500 mg Q4H PRN PO 12/31/16 14:30 ([place] 7.5-325 Mg) 1 tab Q4H PRN PO 12/31/16 14:30 (Zofran Inj) 4 mg Q6H PRN IV PUSH 12/31/16 14:30 (Aspirin) 325 mg DAILY PO 01/01/17 09:00 Vital Signs / I&O Vital Signs Date Time Temp Pulse Resp B/P (MAP) Pulse Ox O2 Delivery O2 Flow Rate FiO2 12/31/16 13:23 112 18 98 Room Air 12/31/16 13:23 52 112/83 (93) 123/76 (92) 12/31/16 12:06 18 99 Nasal Cannula 2.00 12/31/16 12:05 97.9 54 18 127/85 (99) 98 Nasal Cannula 2.00 Physical Exam Neck bruit over right carotid Chest dec. BS (pt on O2) but no rales CV RST with a gr 2/6 holosystolic murmur best heard at the apex Ext show 2+ edema Laboratory Laboratory Tests Test 11/26/17 11:26 White Blood Count 6.7 TH/MM3 Red Blood Count 4.77 MIL/MM3 Hemoglobin 13.7 GM/DL Hematocrit 42.3 % Mean Corpuscular Volume 88.5 FL Mean Corpuscular Hemoglobin 28.8 PG Mean Corpuscular Hemoglobin Concent 32.5 % Red Cell Distribution Width 16.8 % Platelet Count 215 TH/MM3 Mean Platelet Volume 7.7 FL Neutrophils (%) (Auto) 75.3 % Lymphocytes (%) (Auto) 15.8 % Monocytes (%) (Auto) 6.1 % Eosinophils (%) (Auto) 1.7 % Basophils (%) (Auto) 1.1 % Neutrophils # (Auto) 5.0 TH/MM3 Lymphocytes # (Auto) 1.1 TH/MM3 Monocytes # (Auto) 0.4 TH/MM3 Eosinophils # (Auto) 0.1 TH/MM3 Basophils # (Auto) 0.1 TH/MM3 CBC Comment DIFF FINAL Differential Comment Prothrombin Time 10.9 SEC Prothromb Time International Ratio 1.0 RATIO Activated Partial Thromboplast Time 26.4 SEC Blood Urea Nitrogen 20 MG/DL Creatinine 1.18 MG/DL Random Glucose 125 MG/DL Total Protein 6.8 GM/DL Albumin 3.3 GM/DL Calcium Level 8.5 MG/DL Magnesium Level 2.1 MG/DL Alkaline Phosphatase 103 U/L Aspartate Amino Transf (AST/SGOT) 15 U/L Alanine Aminotransferase (ALT/SGPT) 20 U/L Total Bilirubin 0.5 MG/DL Sodium Level 141 MEQ/L Potassium Level 4.6 MEQ/L Chloride Level 109 MEQ/L Carbon Dioxide Level 27.6 MEQ/L Anion Gap 4 MEQ/L Estimat Glomerular Filtration Rate 60 ML/MIN Total Creatine Kinase 47 U/L Troponin I LESS THAN 0.02 NG/ML B-Type Natriuretic Peptide 403 PG/ML Imaging Last 24 hours Impressions Chest X-Ray 12/31/16 1111 Signed Impressions: Service Date/Time: Saturday, December 31, 2016 11:19 - CONCLUSION: Improved, but persistent, mixed interstitial and alveolar infiltrates in the lower lungs. Amol Booth MD Assessment and Plan Assessment and Plan Atypical CP and arm pain probably not cardiac in origin Tenderness to left chest and arm (possible trauma or fall?) CHF Dementia VHD CAROTID BRUIT Code Status FULL Discussed Condition With DISCUSSED WITH PATIENT AND AT BEDSIDE He López MD Dec 31, 2016 14:52
[2016-12-31] MEDS ORDERED: cloNIDine HCL 0.1 MG TAB PO PRN (15:00)
[2016-12-31] MEDS ORDERED: BUMETANIDE 1 MG TAB PO ONE (15:00)
[2016-12-31] MEDS ORDERED: RESP: ALBUTEROL 2.5 MG/IPRATROPIUM 0.5 MG NEB (PRN) INH (15:00)
[2016-12-31] MEDS ORDERED: DEXTROSE 50% IN WATER 50 ML VIAL(D50) IV PUSH PRN (15:00)
[2016-12-31] MEDS: glipiZIDE 10 MG TAB PO SCH (15:51)
[2016-12-31] MEDS: INSULIN ASPART SUPPLEMENTAL SCALE SQ SCH ×2 (15:52→21:00)
--- NOTE | 2016-12-31 16:10 | HHI.HP ---
[facility] Primary Care Physician Desire Carrasquillo D.O. Chief Complaint Chest pain History of Present Illness This is a 76-year-old male with history of CAD with stents then followed with a 3 vessel bypass [place] [address] Lyman. Also has valvular heart disease and CHF. He is followed by Dr. He Merritt. History of dementia and currently residing in a nursing care facility. Today he had a discomfort primarily in the left upper arm. Points to the inner aspect of the arm. It would radiate up and down the arm and at times in the left chest/left upper anterior chest. He states it's been there all day however is improved significantly. He was given a sublingual nitroglycerin at the [facility] and felt a little better. He has chronic COPD but does not recall being short of breath with this. No nausea or diaphoresis. Patient saw Dr. Merritt last week for 6 month checkup and is scheduled for an echo and stress test this coming week. Patient's is concerned about his diuretic dose. States that Dr. Merritt increased his water pill(Bumex) to 1 mg but it looks like he is not getting that dose on the [facility] records. She states that he had more swelling in his legs when he saw Dr. Merritt last week but they are still swollen. Upon reviewing the medication list from the [facility] it shows Bumex 1/2 mg and they were giving him one half tablet a day. Review of Systems General: Patient denies fevers, chills recent, and recent travel HEENT: Patient denies headache, sore throat, difficulty swallowing. Cardiovascular: Has the chest discomfort as mentioned above. Denies sensation of heart beating rapidly or irregularly. No syncope. Denies diaphoresis. Respiratory: Has chronic shortness of breath with COPD however denies shortness of breath with the episode of discomfort this morning or inspirational chest discomfort. Denies coughing wheezing or hemoptysis. GI: Patient denies nausea, vomiting, diarrhea, abdominal pain, bloody stools. Musculoskeletal: Has had lower extremity edema. Denies lower extremity pain. Patient denies joint pain or edema. Neurovascular: Patient denies numbness, tingling, weakness in extremities. Denies headache. Endocrine: Denies polyuria and polydipsia. Hematologic: Denies easy bruising. Skin: Denies rash or itching. Past Family Social History Allergies: Coded Allergies: penicillin G (Unverified Allergy, Severe, HIVES, 10/30/16) zolpidem (Unverified Allergy, Severe, Hallucinations, 10/30/16) Past Medical History CAD with stents and then followed by a 3 vessel bypass in 2005. According to a consultation note from Dr. He Merritt, patient had a cardiac catheterization in 2009 revealing his grafts to be patent. Congestive heart failure. Peripheral vascular disease, hypertension, hyperlipidemia, diabetes, COPD, dementia. Past Surgical History Cardiac catheterizations. Three-vessel bypass. Femoropopliteal bypass. Carotid endarterectomy. Cholecystectomy. Reported Medications Reported Meds & Active Scripts Active Januvia (Sitagliptin Phosphate) 50 Mg Tab 50 Mg PO DAILY Klor-Con 10 (Potassium Chloride) 10 Meq Tab 10 Meq PO DAILY Actos (Pioglitazone HCl) 30 Mg Tab 30 Mg PO DAILY Mirtazapine 15 Mg Tab 15 Mg PO HS Namenda (Memantine) 10 Mg Tab 10 Mg PO BID Levothyroxine (Levothyroxine Sodium) 25 Mcg Tab 25 Mcg PO DAILY@0600 Glipizide 10 Mg Tab 10 Mg PO BIDAC Take 30 minutes before a meal Ferosul (Ferrous Sulfate) 325 Mg (65 Mg Iron) Tablet 325 Mg PO DAILY Symbicort Inh (Budesonide/Formoterol Fumarate) 160-4.5 Mcg/Act Aero 2 Puff INH BID Atorvastatin (Atorvastatin Calcium) 80 Mg Tab 80 Mg PO HS Adult Aspirin EC Low Strength (Aspirin) 81 Mg Tabec 81 Mg PO HS Reported Nitrostat SL (Nitroglycerin) 0.4 Mg Subl 0.4 Mg SL DAILY PRN 1 tablet under the tongue as needed for chest pain. Repeat every 5 minutes for a total of 3 DOSES or call 911 if NO relief. Trazodone (Trazodone HCl) 100 Mg Tablet 100 Mg PO HS Haloperidol 2 Mg Tab 4 Mg PO BID Plavix (Clopidogrel Bisulfate) 75 Mg Tab 75 Mg PO DAILY Donepezil 10 Mg Tab 10 Mg PO HS Active Ordered Medications Current Medications Medications (Trade) Dose Ordered Sig/[place] Route Start Time Stop Time Status Last Admin (NS Flush) 2 ml UNSCH PRN IVF 12/31/16 14:30 (NS Flush) 2 ml BID IVF 12/31/16 21:00 (Tylenol) 500 mg Q4H PRN PO 12/31/16 14:30 ([place] 7.5-325 Mg) 1 tab Q4H PRN PO 12/31/16 14:30 (Zofran Inj) 4 mg Q6H PRN IV PUSH 12/31/16 14:30 (Aspirin) 325 mg DAILY PO 01/01/17 09:00 (Lipitor) 80 mg HS PO 12/31/16 21:00 (Symbicort 160-4.5 Inh) 2 puff BID INH 12/31/16 21:00 (Plavix) 75 mg DAILY PO 01/01/17 09:00 (Ferrous Sulfate) 325 mg DAILY PO 01/01/17 09:00 (Glucotrol) 10 mg BIDAC PO 12/31/16 16:00 (Haldol) 4 mg BID PO 12/31/16 21:00 (Synthroid) 25 mcg DAILY@0600 PO 01/01/17 06:00 (Namenda) 10 mg BID PO 12/31/16 21:00 (Remeron) 15 mg HS PO 12/31/16 21:00 (Actos) 30 mg DAILY PO 01/01/17 09:00 (KCl) 10 meq DAILY PO 01/01/17 09:00 (Januvia) 50 mg DAILY PO 01/01/17 09:00 (Desyrel) 100 mg HS PO 12/31/16 21:00 (Aricept) 10 mg HS PO 12/31/16 21:00 (Bumetanide) 1 mg DAILY PO 01/01/17 09:00 (NovoLOG SUPPLEMENTAL SCALE) 1 ACHS SLIDING SCALE SQ 12/31/16 17:00 (D50w (Vial) Inj) 50 ml UNSCH PRN IV PUSH 12/31/16 15:00 (Duoneb Neb) 1 ampule Q4HR NEB PRN INH 12/31/16 15:00 (Catapres) 0.1 mg Q4H PRN PO 12/31/16 15:00 Family History There is family history of CAD. Social History Patient quit smoking 17 years ago. Denies alcohol or illicit drugs. He is . Lives in [facility]. Physical Exam Vital Signs Vital Signs Date Time Temp Pulse Resp B/P (MAP) Pulse Ox O2 Delivery O2 Flow Rate FiO2 12/31/16 15:13 97.8 52 18 164/79 (107) 94 12/31/16 13:23 112 18 98 Room Air 12/31/16 13:23 52 112/83 (93) 123/76 (92) 12/31/16 12:06 18 99 Nasal Cannula 2.00 12/31/16 12:05 97.9 54 18 127/85 (99) 98 Nasal Cannula 2.00 Physical Exam GENERAL: This is a well-nourished, well-developed patient, in no apparent distress. Patient speaks in clear complete sentences. Patient is pleasant. HEENT: Right carotid bruit. Head is atraumatic and normocephalic. Neck is supple without lymphadenopathy and trachea is midline. No JVD. CARDIOVASCULAR: Grade 2 systolic murmur left sternal border. Regular rate and rhythm without, gallops, or rubs. RESPIRATORY: Clear to auscultation. Breath sounds equal bilaterally. No wheezes , rales, or rhonchi. Chest wall is tender however not the discomfort that he has been having. No use of accessory muscles. GASTROINTESTINAL: Abdomen is nontender, nondistended. Abdomen soft. No obvious pulsatile mass or bruit. No CVA tenderness. Strong femoral pulses bilaterally. Normal bowel sounds in all quadrants. MUSCULOSKELETAL: 1+ bilateral edema lower extremities(the patient's states this has improved since his visit with Dr. Merritt last week.) Patient is moving upper and lower extremities freely. No calf tenderness, no Homans sign. Strong pulses in upper and lower extremities. NEUROLOGICAL: Patient is alert and oriented. Cranial nerves 2-12 are grossly intact. No focal deficits and speech is clear. SKIN: No rash and turgor is normal. Laboratory Laboratory Tests Test 12/31/16 11:26 White Blood Count 6.7 Red Blood Count 4.77 Hemoglobin 13.7 Hematocrit 42.3 Mean Corpuscular Volume 88.5 Mean Corpuscular Hemoglobin 28.8 Mean Corpuscular Hemoglobin Concent 32.5 Red Cell Distribution Width 16.8 Platelet Count 215 Mean Platelet Volume 7.7 Neutrophils (%) (Auto) 75.3 Lymphocytes (%) (Auto) 15.8 Monocytes (%) (Auto) 6.1 Eosinophils (%) (Auto) 1.7 Basophils (%) (Auto) 1.1 Neutrophils # (Auto) 5.0 Lymphocytes # (Auto) 1.1 Monocytes # (Auto) 0.4 Eosinophils # (Auto) 0.1 Basophils # (Auto) 0.1 CBC Comment DIFF FINAL Differential Comment Prothrombin Time 10.9 Prothromb Time International Ratio 1.0 Activated Partial Thromboplast Time 26.4 Blood Urea Nitrogen 20 Creatinine 1.18 Random Glucose 125 Total Protein 6.8 Albumin 3.3 Calcium Level 8.5 Magnesium Level 2.1 Alkaline Phosphatase 103 Aspartate Amino Transf (AST/SGOT) 15 Alanine Aminotransferase (ALT/SGPT) 20 Total Bilirubin 0.5 Sodium Level 141 Potassium Level 4.6 Chloride Level 109 Carbon Dioxide Level 27.6 Anion Gap 4 Estimat Glomerular Filtration Rate 60 Total Creatine Kinase 47 Troponin I LESS THAN 0.02 B-Type Natriuretic Peptide 403 Result Diagram: 12/31/16 1126 12/31/16 1126 Imaging Last 48 hours Impressions Chest X-Ray 12/31/16 1111 Signed Impressions: Service Date/Time: Saturday, December 31, 2016 11:19 - CONCLUSION: Improved, but persistent, mixed interstitial and alveolar infiltrates in the lower lungs. Amol Booth MD Course Initial EKG has sinus bradycardia without ST-T depressions or elevations. Caprini VTE Risk Assessment Caprini VTE Risk Assessment: Mod/High Risk (score >= 2) Caprini Risk Assessment Model Point Value = 1 Point Value = 2 Point Value = 3 Point Value = 5 Age 41-60 Minor surgery BMI > 25 kg/m2 Swollen legs Varicose veins or History of unexplained or recurrent spontaneous Oral contraceptives or hormone replacement Sepsis (< 1 month) Serious lung disease, including pneumonia (< 1 month) Abnormal pulmonary function Acute myocardial infarction Congestive heart failure (< 1 month) History of inflammatory bowel disease Medical patient at bed rest Age 61-74 Arthroscopic surgery Major open surgery (> 45 min) Laparoscopic surgery (> 45 min) Malignancy Confined to bed (> 72 hours) Immobilizing plaster cast Central venous access Age >= 75 History of VTE Family history of VTE Factor V Leiden Prothrombin [id number] Lupus anticoagulant Anticardiolipin antibodies Elevated serum homocysteine Heparin-induced thrombocytopenia Other congenital or acquired thrombophilia Stroke (< 1 month) Elective arthroplasty Hip, pelvis, or leg fracture Acute spinal cord injury (< 1 month) Prophylaxis Regimen Total Risk Factor Score Risk Level Prophylaxis Regimen 0-1 Low Early ambulation 2 Moderate Order ONE of the following: *Sequential Compression Device (SCD) *Heparin 5000 units SQ BID 3-4 Higher Order ONE of the following medications: *Heparin 5000 units SQ TID *Enoxaparin/Lovenox 40 mg SQ daily (WT < 150 kg, CrCl > 30 mL/min) *Enoxaparin/Lovenox 30 mg SQ daily (WT < 150 kg, CrCl > 10-29 mL/min) *Enoxaparin/Lovenox 30 mg SQ BID (WT < 150 kg, CrCl > 30 mL/min) AND/OR *Sequential Compression Device (SCD) 5 or more Highest Order ONE of the following medications: *Heparin 5000 units SQ TID (Preferred with Epidurals) *Enoxaparin/Lovenox 40 mg SQ daily (WT < 150 kg, CrCl > 30 mL/min) *Enoxaparin/Lovenox 30 mg SQ daily (WT < 150 kg, CrCl > 10-29 mL/min) *Enoxaparin/Lovenox 30 mg SQ BID (WT < 150 kg, CrCl > 30 mL/min) AND *Sequential Compression Device (SCD) Assessment and Plan Assessment and Plan * Chest pain: At this time it sounds atypical. He has been seen by Dr. López of cardiology and the chest pain center. He will continue to have serial cardiac enzymes and EKGs for ruling out purposes. The plan is to discharge the patient tomorrow morning if he rules out with instructions to follow-up with Dr. Merritt for further testing in the office. Return to ED for interval issues. I have attempted to speak with Dr. Merritt but so far unsuccessful. He does have some fluid retention and it appears as if he is getting a lower dose of Bumex that is intended. We will increase his Bumex to 1 mg as the patient states was requested by her book coverer. * CAD: Patient to continue current medications. Follow-up with Dr. He Merritt. * Right Carotid bruit: Patient follow Dr. He Merritt. Likely to have a carotid ultrasound. * Diabetes: Patient to be on a diabetic diet. Sliding cells coverage. Resume his medication. * Hyperlipidemia: Continue current medication. * Hypertension: Continue current medication. * COPD: Continue current medications. Have DuoNeb's when necessary. * Valvular heart disease: Patient is scheduled to have a 2-D echo this week. * History of congestive heart failure: When looking at the medication list from the [facility] it appears he is getting 0.25 mg of Bumex a day. states that he was supposed beginning 1 mg a day. We will increase the dose to 1 mg per day and he will follow-up with Dr. He Merritt this week. He is already on potassium supplementation. Patient is stable at this time. The patient and his are agreeable to this plan. Jesus Crawford Dec 31, 2016 16:10
[2016-12-31 16:29] LABS: CREATINE KINASE 54 U/L (39-308)
[2016-12-31 18:57] LABS: CREATINE KINASE 39 U/L (39-308)
[2016-12-31] MEDS ORDERED: DONEPEZIL HCL 5 MG TAB PO SCH (21:00)
[2016-12-31] MEDS: BUDESONIDE-FORMOTEROL 160/4.5 MCG INHALER INH SCH (21:00)
[2016-12-31] MEDS ORDERED: traZODone HCL 100 MG TAB PO SCH (21:00)
[2016-12-31] MEDS ORDERED: ATORVASTATIN 80 MG TAB PO SCH (21:00)
[2016-12-31] MEDS: SODIUM CHLORIDE 0.9% FLUSH 5 ML FLUSH IVF SCH (21:00)
[2016-12-31] MEDS ORDERED: MIRTAZAPINE 15 MG TAB PO SCH (21:00)
[2016-12-31] MEDS: HALOPERIDOL 2 MG TAB PO SCH (22:44)
[2016-12-31] MEDS: MEMANTINE HCL 10 MG TAB PO SCH (22:45)
[2017-01-01] VITALS: PULSE 48
[2017-01-01 03:27] VITALS: BP 115/59; PULSE 38; PULSE 42; RESP 18; TEMP 97.9; O2SAT 96
[2017-01-01 04:00] VITALS: PULSE 48
[2017-01-01] MEDS ORDERED: LEVOTHYROXINE SODIUM 25 MCG TAB PO SCH (06:00)
[2017-01-01 07:35] VITALS: PULSE 44
[2017-01-01 07:46] VITALS: BP 149/65; PULSE 50; RESP 20; TEMP 97.5; O2SAT 96
[2017-01-01] MEDS: glipiZIDE 10 MG TAB PO SCH (07:54)
[2017-01-01 08:38] VITALS: O2SAT 94
[2017-01-01] MEDS ORDERED: BUME1TAB PO (08:54)
--- NOTE | 2017-01-01 08:57 | HHI.DCPOC ---
Discharge Care Plan Diagnosis: (1) Atypical chest pain (2) Hx of coronary artery disease (3) Type 2 diabetes mellitus (4) COPD (chronic obstructive pulmonary disease) (5) History of congestive heart failure (6) Valvular heart disease (7) Right carotid bruit Goals to Promote Your Health * To prevent worsening of your condition and complications * To maintain your health at the optimal level Directions to Meet Your Goals Take your medications as prescribed Follow your dietary instruction Follow activity as directed Keep your appointments as scheduled Take your immunizations and boosters as scheduled If your symptoms worsen call your PCP, if no PCP go to Urgent Care Center or Emergency Room Smoking is Dangerous to Your Health. Avoid second hand smoke Call the 24-hour hour crisis hotline for domestic abuse at Nidhi Jewell Jan 01, 2017 08:56
[2017-01-01] MEDS ORDERED: FERROUS SULFATE 325 MG (65 MG ELEMENTAL IRON) TAB PO SCH (09:00)
[2017-01-01] MEDS: BUDESONIDE-FORMOTEROL 160/4.5 MCG INHALER INH SCH (09:00)
[2017-01-01] MEDS ORDERED: PIOGLITAZONE HCL 30 MG TAB PO SCH (09:00)
[2017-01-01] MEDS ORDERED: POTASSIUM CHLORIDE 10 MEQ CONTROLLED RELEASE TAB PO SCH (09:00)
[2017-01-01] MEDS ORDERED: CLOPIDOGREL 75 MG TAB PO SCH (09:00)
[2017-01-01] MEDS ORDERED: ASPIRIN 325 MG TAB PO SCH (09:00)
[2017-01-01] MEDS ORDERED: BUMETANIDE 1 MG TAB PO SCH (09:00)
[2017-01-01] MEDS: SODIUM CHLORIDE 0.9% FLUSH 5 ML FLUSH IVF SCH (09:00)
[2017-01-01] MEDS: INSULIN ASPART SUPPLEMENTAL SCALE SQ SCH (09:15)
[2017-01-01] MEDS: MEMANTINE HCL 10 MG TAB PO SCH (09:17)
--- NOTE | 2017-01-01 09:17 | HHI.DS ---
Discharge Summary Admission Date Dec 31, 2016 at 12:44 Discharge Date: Jan 01, 2017 Admitting Diagnosis chest pain Brief History 76-year-old male with history of CAD, 3 vessel bypass 2006, just heart failure , and valvular heart disease presented to the emergency room for further evaluation of pain in his left upper arm. Minimal chest pain center. Ruled out with 3 sets of EKGs, cardiac enzymes, monitor overnight. Seen and evaluated by Dr. He López. Patient seen his street inspector Dr. He Merritt last week for a six-month checkup and is scheduled for an echocardiogram and stress test this week. No further cardiac testing with this admission, plans to discharge back to long-term facility to be ruled out with serial cardiac enzymes and EKGs. CBC/BMP: 12/31/16 1126 12/31/16 1126 Significant Findings Laboratory Tests Test 12/31/16 11:26 12/31/16 15:35 12/31/16 18:07 Neutrophils (%) (Auto) 75.3 % (16.0-70.0) Blood Urea Nitrogen 20 MG/DL (7-18) Random Glucose 125 MG/DL (74-106) Albumin 3.3 GM/DL (3.4-5.0) Chloride Level 109 MEQ/L (98-107) Anion Gap 4 MEQ/L (5-15) Estimat Glomerular Filtration Rate 60 ML/MIN (>89) Troponin I LESS THAN 0.02 NG/ML LESS THAN 0.02 NG/ML LESS THAN 0.02 NG/ML B-Type Natriuretic Peptide 403 PG/ML (0-100) Imaging Last Impressions Chest X-Ray 12/31/16 1111 Signed Impressions: Service Date/Time: Saturday, December 31, 2016 11:19 - CONCLUSION: Improved, but persistent, mixed interstitial and alveolar infiltrates in the lower lungs. Amol Booth MD PE at Discharge GENERAL: Alert WN, WD, NAD, pleasant, male CV: RRR, 2/6 systolic murmur, rub, gallop, no JVD, S1-S2 no S3-S4. Right carotid bruit. RESP: Clear lungs throughout bilateral, no crackles, wheeze, rhonchi, symmetrical chest rise, nonlabored, able to speak in full sentences. ABD: Soft, NT, ND, no masses, positive bowel tones MS: Normal tone 4 extremities, nontender, no obvious deformities, full range of motion NEURO: motor strength 5/5 PSYCH: A+O 3, pleasant affect, appropriate speech, mood, insight and judgment SKIN: Normal turgor, normal texture, warm and dry Hospital Course Abdomen the chest pain center. Ruled out with serial EKGs and cardiac enzymes. Seen and evaluated by Dr. He López. Monitored overnight. Discharge home with prescription Bumex 1 mg daily. Follow-up with Dr. He Merritt, keeping echocardiogram and cardiac stress testing this week. Return to ER for any further concerns. Pt Condition on Discharge: Good Discharge Disposition: ACLF/CARE HOME Discharge Instructions DIET: Follow Instructions for: Heart Healthy Diet Activities you can perform: Regular-No Restrictions Nidhi Jewell Jan 01, 2017 09:17
[2017-01-01] MEDS: HALOPERIDOL 2 MG TAB PO SCH (09:18)
--- NOTE | 2017-01-01 14:36 | EKG ---
Date Performed: 12/31/2016 Time Performed: 17:56:50 PTAGE: 76 years EKG: JUNCTIONAL BRADYCARDIA WITH OCCASIONAL VENTRICULAR PREMATURE COMPLEXES NON SPECIFIC ST MALLORY GES ABNORMAL ECG PREVIOUS TRACING : 12/31/2016 15.38 Now appears to have jictional rhythm DOCTOR: Victor Manuel Rosas Interpretating Date/Time 01/01/2017 14:36:04
--- NOTE | 2017-01-01 14:37 | EKG ---
Date Performed: 12/31/2016 Time Performed: 15:38:23 PTAGE: 76 years EKG: SINUS BRADYCARDIA WITH OCCASIONAL VENTRICULAR PREMATURE COMPLEXES POSSIBLE INFERIOR MYOCARD IAL INFARCTION BORDERLINE ECG INTERPRETATION BASED ON A DEFAULT AGE OF [address] SIBLEY ES NO PREVIOUS TRACING DOCTOR: Victor Manuel Rosas Interpretating Date/Time 01/01/2017 14:36:46
--- NOTE | 2017-01-01 14:39 | EKG ---
Date Performed: 12/31/2016 Time Performed: 11:09:49 PTAGE: 76 years EKG: SINUS BRADYCARDIA WITH SINUS ARRHYTHMIA WITH SHORT NE INTERVAL NON SPECIFIC ST [facility] ECG INTERPRETATION BASED ON A DEFAULT AGE OF 38 YEARS PREVIOUS TRACING : 11/23/2016 08.37 DOCTOR: Victor Manuel Rosas Interpretating Date/Time 01/01/2017 14:37:40
== END 2017-01-01 11:06 | disposition home or self-care (01) ==
LOC: NEPE 11:00 → NEDA 12:44 → NEPGCP 15:10
PROVIDERS: ADMIT Internal Medicine Interventional Cardiology; ATTEND Internal Medicine Interventional Cardiology
DX: R07.9 Chest pain, unspecified (principal); I25.10 Atherosclerotic heart disease of native coronary artery without angina pectoris; R09.89 Other specified symptoms and signs involving the circulatory and respiratory systems; E11.51 Type 2 diabetes mellitus with diabetic peripheral angiopathy without gangrene; I50.9 Heart failure, unspecified; I11.0 Hypertensive heart disease with heart failure; J44.9 Chronic obstructive pulmonary disease, unspecified; Z79.01 Long term (current) use of anticoagulants; F32.9 Major depressive disorder, single episode, unspecified; E78.00 Pure hypercholesterolemia, unspecified; Z86.73 Personal history of transient ischemic attack (TIA), and cerebral infarction without residual deficits; K21.9 Gastro-esophageal reflux disease without esophagitis; K44.9 Diaphragmatic hernia without obstruction or gangrene; F43.10 Post-traumatic stress disorder, unspecified; E03.9 Hypothyroidism, unspecified; Z79.899 Other long term (current) drug therapy; Z79.84 Long term (current) use of oral hypoglycemic drugs; Z95.5 Presence of coronary angioplasty implant and graft; I38 Endocarditis, valve unspecified; M79.89 Other specified soft tissue disorders
CPT/HCPCS: 71010; 80053; 82550; 82948; 83735; 83880; 84484; 85025; 85610; 85730; 93005; 99285; G0378

== ENCOUNTER 2017-05-26 18:47 | Emergency (ER) | payer MEDICARE, OTHER ==
[~2017-05-26] VITALS: Ht 170.2 cm; Wt 84.0 kg
[~2017-05-26 18:47] MED LIST changes: -ARIC10TA9 PO; -BUME0.5T PO; +BUME1TAB PO; -CYCL7.5E EACH EYE; -EXENINJ SQ; -FLUO1TAB3 PO; -HORI600T PO; +NITR0.4S SL; -OCUVTAB4 PO; +PLAV75TA29 PO; -PRED20 PO; +TRAZ100T10 PO; -VENTAER INH
[2017-05-26 18:49] VITALS: BP 173/79; PULSE 111; RESP 20; TEMP 98.5; O2SAT 86
[2017-05-26 19:11] VITALS: PULSE 77; RESP 20; O2SAT 95
[2017-05-26 19:55] LABS: AUTOMATED NEUTROPHIL # 6.4 TH/MM3 (1.8-7.7); BASOPHIL # 0.1 TH/MM3 (0-0.2); BASOPHIL % 0.9 % (0.0-2.0); EOSINOPHIL % 0.4 % (0.0-4.0); HEMATOCRIT 45.6 % (39.0-51.0); HEMOGLOBIN 15.1 GM/DL (13.0-17.0); LYMPH % 10.4 % (9.0-44.0); LYMPHOCYTE # 0.8 TH/MM3 (1.0-4.8); MEAN CELL VOLUME 84.9 FL (80.0-100.0); MEAN CORPUSCULAR HEMOGLOBIN 28.2 PG (27.0-34.0); MEAN CORPUSCULAR HGB CONC 33.2 % (32.0-36.0); MEAN PLATELET VOLUME 8.2 FL (7.0-11.0); MONOCYTE # 0.5 TH/MM3 (0-0.9); NEUT % 82.3 % (16.0-70.0); PLATELET COUNT 224 TH/MM3 (150-450); RED BLOOD COUNT 5.37 MIL/MM3 (4.50-5.90); RED CELL DISTRIBUTION WIDTH 16.5 % (11.6-17.2); WHITE BLOOD COUNT 7.7 TH/MM3 (4.0-11.0)
[2017-05-26 20:07] LABS: ALBUMIN 3.6 GM/DL (3.4-5.0); AST (GOT) 16 U/L (15-37); BICARBONATE 29.6 MEQ/L (21.0-32.0); BLOOD UREA NITROGEN 24 MG/DL (7-18); CALCIUM 9.2 MG/DL (8.5-10.1); CHLORIDE 104 MEQ/L (98-107); CREATININE 1.41 MG/DL (0.60-1.30); GLOMERULAR FILTRATION RATE 49 ML/MIN (>89); GLUCOSE,RANDOM 150 MG/DL (74-106); SODIUM (NA) 141 MEQ/L (136-145)
[2017-05-26 20:08] LABS: ALT (GPT) 14 U/L (12-78)
[2017-05-26 20:10] LABS: ALKALINE PHOSPHATASE 129 U/L (45-117); TOTAL BILIRUBIN ADULT 0.6 MG/DL (0.2-1.0); TOTAL PROTEIN 8.1 GM/DL (6.4-8.2)
--- NOTE | 2017-05-26 20:14 | RADRPT ---
EXAM DATE/TIME: 05/26/2017 19:39 [place] COMPARISON: No previous studies available for comparison. INDICATIONS : Fever MEDICAL HISTORY : Cardiovascular disease. Congestive heart failure. dementia, CVA, diabetic SURGICAL HISTORY : CABG. Cholecystectomy. AV shunt ENCOUNTER: Initial ACUITY: 1 day PAIN SCORE: 0/10 LOCATION: chest FINDINGS: PA and lateral views of the chest demonstrate shunt tubing overlying the right hemithorax. Previous s ternotomy. Mild interstitial pattern with small effusions. Cardiomegaly. CONCLUSION: 1. Cardiomegaly with probable interstitial edema and trace pleural fluid. No focal dense consolidatio n. Art Moss MD on May 26, 2017 at 20:11 Board Certified Radiologist. This report was verified electronically.
--- NOTE | 2017-05-26 20:26 | PD ---
HPI Chief Complaint: Fever Time Seen by Provider: 19:06 Travel History International Travel<30 days: No Contact w/Intl Traveler<30days: No Traveled to known affect area: No History of Present Illness HPI This is a 76-year-old male with a history of intracranial meningioma, diabetes mellitus, hypertension, who presents today with complaints of fever and right- sided chest wall and lower back pain. states that he had a fall a week ago on the left side. At that time there was no complaints. She reports that over the last 2-3 days he has been complaining of pain in his right flank and lateral chest. She also reports she has had an associated cough and fever. There is no reported nausea vomiting diarrhea. There is no reported urinary symptoms. He has had kidney stones in the past according to the as well. 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 ) Cardiac Catheterization: Yes (1996, 1999) Cardiovascular Problems: Yes High Cholesterol: Yes Chemotherapy: No Congestive Heart Failure: Yes COPD: Yes Cerebrovascular Accident: Yes (2006 ) Dementia: Yes Diabetes: Yes Diminished Hearing: Yes Endocrine: Yes Gastrointestinal Disorders: Yes GERD: Yes Genitourinary: Yes Headaches: No Hiatal Hernia: Yes Immune Disorder: No Implanted Vascular Access Dvce: Yes Kidney Stones: Yes Musculoskeletal: Yes Neurologic: Yes (Dementia, Early onset Alzheimers, Stroke 2006) Psychiatric: Yes (PTSD) Reproductive: No Respiratory: Yes Migraines: No Radiation Therapy: No Renal Failure: No Seizures: No Sleep Apnea: No Thyroid Disease: Yes (Hypothyroid) Ulcer: No Past Surgical History Abdominal Surgery: Yes (Gallbladder removel 2015) AICD: No Arteriovenous Shunt: Yes Body Medical Devices: STENTS Cardiac Surgery: Yes (CABG x 5 2005, Fem Fem Pop 1999, Fem Pop 1997, Carodid endodarectomy 2004) Cholecystectomy: Yes (2015) Coronary Artery Bypass Graft: Yes (2005) Coronary Stent: Yes Eye Surgery: Yes (BL Cataract removal) Insulin Pump: No Joint Replacement: No Neurologic Surgery: Yes (Brain tumor removed, angionoma 2000, MANAGER CIVIL shunt 2010) Oral Surgery: Yes (Tonsils removed, Dental implants) Pacemaker: No Thoracic Surgery: Yes (quad BYPASS) Tonsillectomy: Yes Other Surgery: Yes (RIGHT CORROTID 2005) Social History Alcohol Use: No Tobacco Use: No Substance Use: No Allergies-Medications (Allergen,Severity, Reaction): Coded Allergies: penicillin G (Unverified Allergy, Severe, HIVES, 05/26/17) zolpidem (Unverified Allergy, Severe, Hallucinations, 05/26/17) Reported Meds & Prescriptions Reported Meds & Active Scripts Active Bumetanide 1 Mg Tab 1 Mg PO DAILY Januvia (Sitagliptin Phosphate) 50 Mg Tab 50 Mg PO DAILY Klor-Con 10 (Potassium Chloride) 10 Meq Tab 10 Meq PO DAILY Actos (Pioglitazone HCl) 30 Mg Tab 30 Mg PO DAILY Mirtazapine 15 Mg Tab 15 Mg PO HS Namenda (Memantine) 10 Mg Tab 10 Mg PO BID Levothyroxine (Levothyroxine Sodium) 25 Mcg Tab 25 Mcg PO DAILY@0600 Glipizide 10 Mg Tab 10 Mg PO BIDAC Take 30 minutes before a meal Ferosul (Ferrous Sulfate) 325 Mg (65 Mg Iron) Tablet 325 Mg PO DAILY Symbicort Inh (Budesonide/Formoterol Fumarate) 160-4.5 Mcg/Act Aero 2 Puff INH BID Atorvastatin (Atorvastatin Calcium) 80 Mg Tab 80 Mg PO HS Adult Aspirin EC Low Strength (Aspirin) 81 Mg Tabec 81 Mg PO HS Reported Nitrostat SL (Nitroglycerin) 0.4 Mg Subl 0.4 Mg SL DAILY PRN 1 tablet under the tongue as needed for chest pain. Repeat every 5 minutes for a total of 3 DOSES or call 911 if NO relief. Trazodone (Trazodone HCl) 100 Mg Tablet 100 Mg PO HS Haloperidol 2 Mg Tab 4 Mg PO BID Plavix (Clopidogrel Bisulfate) 75 Mg Tab 75 Mg PO DAILY Donepezil 10 Mg Tab 10 Mg PO HS Review of Systems Except as stated in HPI: all other systems reviewed are Neg General / Constitutional: Positive: Fever, No: Chills HENT: Positive: Neck Pain (Chronic), No: Headaches, Lightheadedness Cardiovascular: Positive: Chest Pain or Discomfort (Right lateral), No: Palpitations Respiratory: Positive: Cough, No: Shortness of Breath, Wheezing Gastrointestinal: No: Nausea, Vomiting, Diarrhea Genitourinary: No: Frequency, Dysuria Musculoskeletal: Positive: Pain (Right posterior flank/back) Skin: No Rash, No Lesions Neurologic: Positive: Other (History of meningioma), No: Weakness, Headache Physical Exam Narrative GENERAL: Well-developed well-nourished male in no acute respiratory distress. SKIN: Focused skin assessment warm/dry. HEAD: Atraumatic. Normocephalic. EYES: No scleral icterus. No injection or drainage. ENT: No nasal bleeding or discharge. Mucous membranes pink and moist. NECK: Trachea midline. supple. CARDIOVASCULAR: Regular rate and rhythm. No murmur appreciated. RESPIRATORY: No accessory muscle use. Decreased respiratory effort. No obvious rales or rhonchi appreciated. GASTROINTESTINAL: Abdomen soft, non-tender, nondistended. No rebound or guarding. MUSCULOSKELETAL: No obvious deformities. No clubbing. No cyanosis. No edema. NEUROLOGICAL: Awake and slightly confused. No obvious cranial nerve deficits. Motor grossly within normal limits. Normal speech. Data Data Last Documented VS Vital Signs Date Time Temp Pulse Resp B/P (MAP) Pulse Ox O2 Delivery O2 Flow Rate FiO2 05/26/17 22:19 99.0 05/26/17 22:08 74 18 94 Nasal Cannula 2.00 Orders Orders Sepsis Workup Initiated (05/26/17 ) Electrocardiogram (05/26/17 19:06) Complete Blood Count With Diff (05/26/17 19:06) Comprehensive Metabolic Panel (05/26/17 19:06) Lactic Acid Sepsis Protocol (05/26/17 19:06) Urinalysis - C+S If Indicated (05/26/17 19:06) Influenzae A/B Antigen (05/26/17 19:06) Blood Culture (05/26/17 19:06) Chest, Pa & Lat (05/26/17 19:06) Blood Glucose (05/26/17 19:06) Ecg Monitoring (05/26/17 19:06) Iv Access Insert/Monitor (05/26/17 19:06) Oximetry (05/26/17 19:06) Oxygen Administration (05/26/17 19:06) Diet Heart Healthy (05/27/17 Breakfast) Electrocardiogram (05/26/17 22:03) Labs Laboratory Tests Test 05/26/17 19:30 05/26/17 21:55 White Blood Count 7.7 TH/MM3 Red Blood Count 5.37 MIL/MM3 Hemoglobin 15.1 GM/DL Hematocrit 45.6 % Mean Corpuscular Volume 84.9 FL Mean Corpuscular Hemoglobin 28.2 PG Mean Corpuscular Hemoglobin Concent 33.2 % Red Cell Distribution Width 16.5 % Platelet Count 224 TH/MM3 Mean Platelet Volume 8.2 FL Neutrophils (%) (Auto) 82.3 % Lymphocytes (%) (Auto) 10.4 % Monocytes (%) (Auto) 6.0 % Eosinophils (%) (Auto) 0.4 % Basophils (%) (Auto) 0.9 % Neutrophils # (Auto) 6.4 TH/MM3 Lymphocytes # (Auto) 0.8 TH/MM3 Monocytes # (Auto) 0.5 TH/MM3 Eosinophils # (Auto) 0.0 TH/MM3 Basophils # (Auto) 0.1 TH/MM3 CBC Comment DIFF FINAL Differential Comment Blood Urea Nitrogen 24 MG/DL Creatinine 1.41 MG/DL Random Glucose 150 MG/DL Total Protein 8.1 GM/DL Albumin 3.6 GM/DL Calcium Level 9.2 MG/DL Alkaline Phosphatase 129 U/L Aspartate Amino Transf (AST/SGOT) 16 U/L Alanine Aminotransferase (ALT/SGPT) 14 U/L Total Bilirubin 0.6 MG/DL Sodium Level 141 MEQ/L Potassium Level 4.0 MEQ/L Chloride Level 104 MEQ/L Carbon Dioxide Level 29.6 MEQ/L Anion Gap 7 MEQ/L Estimat Glomerular Filtration Rate 49 ML/MIN Lactic Acid Level 1.7 mmol/L Urine Color YELLOW Urine Turbidity CLEAR Urine pH 6.0 Urine Specific [place] 1.020 Urine Protein 30 mg/dL Urine Glucose (UA) NEG mg/dL Urine Ketones NEG mg/dL Urine Occult Blood NEG Urine Nitrite NEG Urine Bilirubin NEG Urine Urobilinogen LESS THAN 2.0 MG/DL Urine Leukocyte Esterase NEG Urine RBC LESS THAN 1 /hpf Urine WBC 2 /hpf Urine Mucus FEW /lpf Microscopic Urinalysis Comment CATH-CULT NOT IND MDM Medical Decision Making Medical Screen Exam Complete: Yes Emergency Medical Condition: Yes Differential Diagnosis Pneumonia versus UTI versus metabolic derangement Narrative Course 76-year-old male with a history of meningioma, seizure disorder, hypertension, hyperlipidemia, CHF, COPD, atrial fibrillation, presents with with complaints of fever at home. Patient also complained of right-sided flank pain. Patient's had history of kidney stones in the past. Urinalysis shows no evidence of hematuria or infection. The patient's electrolytes are within normal limits for him. He does have renal insufficiency and there are no changes from previous labs. White count is within normal limits. Chest x-ray shows mild vascular congestion otherwise negative for acute infiltrate. The patient's temperature is less than 100.4. I discussed with both the patient and his at this point we would not recommend treating with antibiotics. Reported that we did send off blood cultures and if anything comes back abnormal we would call them. He will be discharged home he has a scheduled appointment with his primary care physician on of next week. I have requested his call the primary care's office on Sunday in case it was to see him earlier otherwise keep the appointment. Diagnosis Primary Impression: Reported fever. Additional Impressions: Right flank pain Type 2 diabetes mellitus History of congestive heart failure Chronic kidney disease Additional Instructions: Return if feeling worse. Follow-up with your primary care physician as scheduled next week. If anything grows back on your blood cultures, we will call you. Disposition: DISCHARGE HOME Condition: Stable Beto Yan MD May 26, 2017 20:26
[2017-05-26 22:08] VITALS: BP 148/60; PULSE 74; RESP 18; O2SAT 94
[2017-05-26 22:19] VITALS: TEMP 99
[2017-05-26 22:22] LABS: BILIRUBIN, URINE NEG (NEG); BLOOD, URINE NEG (NEG); GLUCOSE,URINE NEG (NEG); KETONE, URINE NEG (NEG); MUCUS URINE FEW /lpf (OCC); NITRITE,URINE NEG (NEG); URINE COLOR YELLOW (YELLW/STRAW); URINE LEUKOCYTE ESTERASE NEG (NEG)
--- NOTE | 2017-05-28 00:22 | EKG ---
Date Performed: 05/26/2017 Time Performed: 22:15:17 PTAGE: 76 years EKG: Sinus rhythm WITH OCCASIONAL VENTRICULAR PREMATURE COMPLEXES NONSPECIFIC ST & T-WAVE ABNORMALITY BORDERLINE ECG PREVIOUS TRACING : 05/26/2017 21.24 Since the previous tracing, no significant change noted DOCTOR: Bruce Drummond Interpretating Date/Time 05/28/2017 00:22:01
--- NOTE | 2017-05-28 00:25 | EKG ---
Date Performed: 05/26/2017 Time Performed: 21:24:55 PTAGE: 76 years EKG: PROBABLE Sinus rhythm PROBABLE INFERIOR MYOCARDIAL INFARCTION NON-SPECIFIC ST/T WAVE CHANGES ABNORMAL ECG PREVIOUS TRACING : 12/31/2016 17.56 Compared to previous tracing, no longer junctional bradycar jermaine DOCTOR: Bruce Drummond Interpretating Date/Time 05/28/2017 00:24:44
== END 2017-05-26 23:43 | disposition home or self-care (01) ==
LOC: NEPE 18:47
DX: R50.9 Fever, unspecified (principal); R10.9 Unspecified abdominal pain; N18.9 Chronic kidney disease, unspecified; E11.22 Type 2 diabetes mellitus with diabetic chronic kidney disease; I50.9 Heart failure, unspecified; I13.0 Hypertensive heart and chronic kidney disease with heart failure and stage 1 through stage 4 chronic kidney disease, or unspecified chronic kidney disease; R94.31 Abnormal electrocardiogram [ECG] [EKG]; M54.5 Low back pain; J44.9 Chronic obstructive pulmonary disease, unspecified; K21.9 Gastro-esophageal reflux disease without esophagitis; E03.9 Hypothyroidism, unspecified; Z88.0 Allergy status to penicillin; Z87.442 Personal history of urinary calculi
CPT/HCPCS: 71046; 80053; 81001; 83605; 85025; 87040; 87804; 93005

== ENCOUNTER 2017-07-07 11:18 | Emergency (ER) | payer OTHER, MEDICARE ==
[~2017-07-07] VITALS: Ht 170.2 cm; Wt 90.0 kg
[2017-07-07 11:25] VITALS: BP 171/117; PULSE 82; RESP 20; TEMP 98.3; O2SAT 94
[2017-07-07] MEDS ORDERED: RESP: ALBUTEROL 2.5 MG/IPRATROPIUM 0.5 MG NEB (SCH) INH ONE (11:45)
[2017-07-07] MEDS ORDERED: LORazepam 2 MG/ML VIAL IV PUSH ONE (11:45)
--- NOTE | 2017-07-07 11:54 | PD ---
HPI Chief Complaint: Medical Clearance Time Seen by Provider: 11:29 Travel History International Travel<30 days: No Contact w/Intl Traveler<30days: No Traveled to known affect area: No History of Present Illness HPI 77-year-old male that presents to the ED for evaluation of shortness of breath, anxiety and tremor. Patient has been having shortness of breath for the past 2 days. Patient has a significant history of COPD as well as cardiac disease and history of CHF. Patient takes medications for this and uses inhalers with minimal relief of shortness of breath. Per patient he feels very short of breath. He has a history of dementia so history is somewhat limited. is at bedside and provides most of the information. My evaluation patient appears to have tremors to both upper and lower extremities cannot stop shaking unless we have been focusing something else. She apparently does take multiple psychiatric medications. He follows with the [facility] for further evaluation of his dementia. He has a history of a tumor to his brain as well that is currently being observed by the [facility] as well. He has an allergy to penicillin and zolpidem. He denies any chest pain or pain of any kind. No other medical issues. He does use oxygen at home. Per patient has not had any increase in weight gain or edema. 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 ) Cardiac Catheterization: Yes (1996, 1999) Cardiovascular Problems: Yes High Cholesterol: Yes Chemotherapy: No Congestive Heart Failure: Yes COPD: Yes Cerebrovascular Accident: Yes Dementia: Yes Diabetes: Yes Diminished Hearing: Yes Endocrine: Yes Gastrointestinal Disorders: Yes GERD: Yes Genitourinary: Yes Headaches: No Hiatal Hernia: Yes Immune Disorder: No Implanted Vascular Access Dvce: Yes Kidney Stones: Yes Musculoskeletal: Yes Neurologic: Yes (Dementia, Early onset Alzheimers, Stroke 2006) Psychiatric: Yes (PTSD) Reproductive: No Respiratory: Yes Migraines: No Radiation Therapy: No Renal Failure: No Seizures: No Sleep Apnea: No Thyroid Disease: Yes (Hypothyroid) Ulcer: No Past Surgical History Abdominal Surgery: Yes (Gallbladder removel 2015) AICD: No Arteriovenous Shunt: Yes Body Medical Devices: STENTS Cardiac Surgery: Yes (CABG x 5 2005, Fem Fem Pop 1999, Fem Pop 1997, Carodid endodarectomy 2004) Cholecystectomy: Yes (2015) Coronary Artery Bypass Graft: Yes (2005) Coronary Stent: Yes Eye Surgery: Yes (BL Cataract removal) Insulin Pump: No Joint Replacement: No Neurologic Surgery: Yes (Brain tumor removed, angionoma 2000, CONTROL DIRECTOR shunt 2010) Oral Surgery: Yes (Tonsils removed, Dental implants) Pacemaker: No Thoracic Surgery: Yes (quad BYPASS) Tonsillectomy: Yes Other Surgery: Yes (RIGHT CORROTID 2004) Social History Alcohol Use: No Tobacco Use: No Substance Use: No Allergies-Medications (Allergen,Severity, Reaction): Coded Allergies: penicillin G (Unverified Allergy, Severe, HIVES, 07/07/17) zolpidem (Unverified Allergy, Severe, Hallucinations, 07/07/17) Reported Meds & Prescriptions Reported Meds & Active Scripts Active Clonazepam 1 Mg Tab 1 Mg PO BID PRN Prednisone 20 Mg Tab 20 Mg PO BID 5 Days Bumetanide 1 Mg Tab 1 Mg PO DAILY Januvia (Sitagliptin Phosphate) 50 Mg Tab 50 Mg PO DAILY Klor-Con 10 (Potassium Chloride) 10 Meq Tab 10 Meq PO DAILY Actos (Pioglitazone HCl) 30 Mg Tab 30 Mg PO DAILY Mirtazapine 15 Mg Tab 15 Mg PO HS Namenda (Memantine) 10 Mg Tab 10 Mg PO BID Levothyroxine (Levothyroxine Sodium) 25 Mcg Tab 25 Mcg PO DAILY@0600 Glipizide 10 Mg Tab 10 Mg PO BIDAC Take 30 minutes before a meal Ferosul (Ferrous Sulfate) 325 Mg (65 Mg Iron) Tablet 325 Mg PO DAILY Adult Aspirin EC Low Strength (Aspirin) 81 Mg Tabec 81 Mg PO HS Reported Alpha Lipoic Acid 300 Mg Cap 300 Mg PO DIRECTED Restasis Multidose Opth (Cyclosporine Opth) 0.05% Emul 1 Drop EACH EYE BID Horizant ER (Gabapentin ER) 600 Mg Jacques 600 Mg PO HS Ipratropium Nasal 0.06% [place] 2 [place] EACH NARE QID Crestor (Rosuvastatin Calcium) 40 Mg Tab 40 Mg PO HS Januvia (Sitagliptin Phosphate) 100 Mg Tab 100 Mg PO DAILY Trazodone (Trazodone HCl) 100 Mg Tablet 100 Mg PO HS Haloperidol 2 Mg Tab 4 Mg PO BID Plavix (Clopidogrel Bisulfate) 75 Mg Tab 75 Mg PO DAILY Donepezil 10 Mg Tab 10 Mg PO HS Review of Systems Except as stated in HPI: all other systems reviewed are Neg Physical Exam Narrative GENERAL: Well-nourished, well-developed patient in no apparent distress. SKIN: Warm and dry. HEAD: Atraumatic. Normocephalic. EYES: Pupils equal and round reactive to light and accommodation. No scleral icterus. No injection or drainage. ENT: No nasal bleeding or discharge. Mucous membranes pink and moist. TMs are clear with no sign of infection or perforation. No mastoid tenderness. Ear canals are intact bilaterally. No lymphadenopathy. Nostril mucosa is red and moist with clear mucus noted. No sinus tenderness to palpation noted. Tonsils are not enlarged or swollen. No ulvua Deviation. Tongue is midline. NECK: Trachea midline. No JVD. No meningeal signs noted CARDIOVASCULAR: Regular rate and rhythm. No murmurs, S3, S4. RESPIRATORY: No accessory muscle use. Clear to auscultation. Breath sounds equal bilaterally. GASTROINTESTINAL: Abdomen soft, non-tender, nondistended. Hepatic and splenic margins not palpable. MUSCULOSKELETAL: Extremities without clubbing, cyanosis, or edema. No obvious deformities. Full range of motion of the upper and lower extremities bilaterally. 2+ pulses bilaterally. NEUROLOGICAL: Awake and alert. No obvious cranial nerve deficits. Motor grossly within normal limits. Five out of 5 muscle strength in the arms and legs. Normal speech. PSYCHIATRIC: Appropriate mood and affect; insight and judgment normal. Data Data Last Documented VS Vital Signs Date Time Temp Pulse Resp B/P (MAP) Pulse Ox O2 Delivery O2 Flow Rate FiO2 07/07/17 14:06 74 22 123/61 (81) 97 Nasal Cannula 3.00 07/07/17 11:25 98.3 Orders Orders Electrocardiogram (07/07/17 11:42) Complete Blood Count With Diff (07/07/17 11:42) Comprehensive Metabolic Panel (07/07/17 11:42) Ckmb (Isoenzyme) Profile (07/07/17 11:42) Troponin I (07/07/17 11:42) B-Type Natriuretic Peptide (07/07/17 11:42) Prothrombin Time / Inr (Pt) (07/07/17 11:42) Act Partial Throm Time (Ptt) (07/07/17 11:42) Magnesium (Mg) (07/07/17 11:42) Chest, Single Ap (07/07/17 11:42) Iv Access Insert/Monitor (07/07/17 11:42) Ecg Monitoring (07/07/17 11:42) Oximetry (07/07/17 11:42) Lorazepam Inj (Ativan Inj) (07/07/17 11:45) Albuterol-Ipratropium Neb (Duoneb Neb) (07/07/17 11:45) Arterial Blood Gas (Abg) (07/07/17 12:41) Methylprednisolone So Succ Inj (Solumedr (07/07/17 12:45) Albuterol-Ipratropium Neb (Duoneb Neb) (07/07/17 12:45) Ed Discharge Order (07/07/17 14:10) Labs Laboratory Tests Test 07/07/17 11:50 07/07/17 12:45 White Blood Count 6.8 TH/MM3 Red Blood Count 4.80 MIL/MM3 Hemoglobin 13.7 GM/DL Hematocrit 40.1 % Mean Corpuscular Volume 83.4 FL Mean Corpuscular Hemoglobin 28.5 PG Mean Corpuscular Hemoglobin Concent 34.2 % Red Cell Distribution Width 17.7 % Platelet Count 223 TH/MM3 Mean Platelet Volume 7.8 FL Neutrophils (%) (Auto) 77.6 % Lymphocytes (%) (Auto) 17.0 % Monocytes (%) (Auto) 3.2 % Eosinophils (%) (Auto) 1.2 % Basophils (%) (Auto) 1.0 % Neutrophils # (Auto) 5.3 TH/MM3 Lymphocytes # (Auto) 1.2 TH/MM3 Monocytes # (Auto) 0.2 TH/MM3 Eosinophils # (Auto) 0.1 TH/MM3 Basophils # (Auto) 0.1 TH/MM3 CBC Comment DIFF FINAL Differential Comment Prothrombin Time 10.8 SEC Prothromb Time International Ratio 1.1 RATIO Activated Partial Thromboplast Time 25.7 SEC Blood Urea Nitrogen 15 MG/DL Creatinine 1.28 MG/DL Random Glucose 116 MG/DL Total Protein 7.8 GM/DL Albumin 3.6 GM/DL Calcium Level 8.8 MG/DL Magnesium Level 2.1 MG/DL Alkaline Phosphatase 113 U/L Aspartate Amino Transf (AST/SGOT) 11 U/L Alanine Aminotransferase (ALT/SGPT) 15 U/L Total Bilirubin 0.4 MG/DL Sodium Level 140 MEQ/L Potassium Level 3.8 MEQ/L Chloride Level 103 MEQ/L Carbon Dioxide Level 27.1 MEQ/L Anion Gap 10 MEQ/L Estimat Glomerular Filtration Rate 54 ML/MIN Total Creatine Kinase 58 U/L Troponin I LESS THAN 0.02 NG/ML B-Type Natriuretic Peptide 321 PG/ML Blood Gas Puncture Site RT RADIAL Blood Gas Patient Temperature 98.6 Blood Gas HCO3 24 mmol/L Blood Gas Base Excess 1.9 mmol/L Blood Gas Oxygen Saturation 96 % Arterial Blood pH 7.57 Arterial Blood Partial Pressure CO2 26 mmHg Arterial Blood Partial Pressure O2 77 mmHG Arterial Blood Oxygen Content 17.6 Vol % Arterial Blood Carboxyhemoglobin 1.7 % Arterial Blood Methemoglobin 0.5 % Blood Gas Hemoglobin 13.1 G/DL Oxygen Delivery Device NASAL CANNULA Blood Gas Liter Flow 2 L/M MDM Medical Decision Making Medical Screen Exam Complete: Yes Emergency Medical Condition: Yes Medical Record Reviewed: Yes Interpretation(s) CBC & BMP Diagram 07/07/17 11:50 Total Protein 7.8, Albumin 3.6, Calcium Level 8.8, Magnesium Level 2.1, Alkaline Phosphatase 113, Aspartate Amino Transf (AST/SGOT) 11 L, Alanine Aminotransferase (ALT/SGPT) 15, Total Bilirubin 0.4 Last Impressions Chest X-Ray 07/07/17 1142 Signed Impressions: CONCLUSION: No acute cardiopulmonary disease. troponin and CKMB WNL BNP in the 300s EKG shows sinus rhythm with no changes from prior read by me and attending. Differential Diagnosis COPD exacerbation versus COPD versus tremor versus anxiety versus CHF versus asthma Narrative Course 77-year-old male the presents to the ED for evaluation of shortness of breath tremor and anxiety. Patient was properly examined and was found to have signs and symptoms of unclear etiology. Labs and imaging order. Patient was given breathing treatment and Ativan. Labs and imaging showed no sign of acute disease. Patient was reassessed and thus appear to be better after Ativan. He was given 2 other breathing treatments and improvement of symptoms. Patient feels better. Case discussed with my attending Dr. Jim who evaluated the patient herself recommends discharge. Patient will be discharged home with prescription for prednisone and prescription for clonazepam. We believe that some of his symptoms may be more related to anxiety rather than COPD. Family and patient agree with plan. Follow-up with PCP. See ED if worsening symptoms. Diagnosis Primary Impression: COPD exacerbation Additional Impression: Anxiety Patient Instructions: General Instructions Additional Instructions: Take medications as prescribed. Follow-up with PCP. Do not drink alcohol with clonazepam. See ED if worsening symptoms. Med/Other Pt SpecificInfo: Prescription(s) given Scripts Clonazepam (Clonazepam) 1 Mg Tab 1 MG PO BID Y for ANXIETY, #12 TAB 0 Refills Prov: Xochitl Jim DO 07/07/17 Prednisone (Prednisone) 20 Mg Tab 20 MG PO BID for 5 Days, #10 TAB 0 Refills Prov: Xochitl Jim DO 07/07/17 Disposition: 01 DISCHARGE HOME Condition: Stable Rush Alicia Jul 07, 2017 11:54
[2017-07-07 11:56] LABS: AUTOMATED NEUTROPHIL # 5.3 TH/MM3 (1.8-7.7); BASOPHIL # 0.1 TH/MM3 (0-0.2); EOSINOPHIL # 0.1 TH/MM3 (0-0.4); EOSINOPHIL % 1.2 % (0.0-4.0); HEMATOCRIT 40.1 % (39.0-51.0); HEMOGLOBIN 13.7 GM/DL (13.0-17.0); LYMPHOCYTE # 1.2 TH/MM3 (1.0-4.8); MEAN CELL VOLUME 83.4 FL (80.0-100.0); MEAN CORPUSCULAR HEMOGLOBIN 28.5 PG (27.0-34.0); MEAN CORPUSCULAR HGB CONC 34.2 % (32.0-36.0); MEAN PLATELET VOLUME 7.8 FL (7.0-11.0); MONO % 3.2 % (0.0-8.0); MONOCYTE # 0.2 TH/MM3 (0-0.9); NEUT % 77.6 % (16.0-70.0); PLATELET COUNT 223 TH/MM3 (150-450); RED CELL DISTRIBUTION WIDTH 17.7 % (11.6-17.2); WHITE BLOOD COUNT 6.8 TH/MM3 (4.0-11.0)
[2017-07-07 12:06] LABS: INTERNATIONAL NORMALIZED RATIO 1.1 RATIO; PROTHROMBIN TIME - PATIENT 10.8 SEC (9.8-11.6)
--- NOTE | 2017-07-07 12:12 | RADRPT ---
EXAM DATE: 07/07/2017 11:59 AM EDT AGE/SEX: 77 years / Male INDICATIONS: Shortness of breath. CLINICAL DATA: This is the patient's initial encounter. Patient reports that signs and symptoms have been present for 2 days and indicates a pain score of 0/10. MEDICAL/SURGICAL HISTORY: Chronic obstructive pulmonary disease. Cardiovascular disease. Conges tive heart failure. dementia, CVA, diabetic CABG. Cholecystectomy. Shunt. COMPARISON: [facility] – [place]ST SINGLE AP, 12/31/2016. . FINDINGS: No infiltrate, effusion or pneumothorax demonstrated. Mild chronic interstitial changes at the bases again noted. Heart size stable, within normal limits. Patient has had previous median sternotomy. Patient has a ventriculoperitoneal shunt catheter and visualized portions of which appear intact. CONCLUSION: No acute cardiopulmonary disease. Electronically signed by: Perez Fowler MD 07/07/2017 12:11 PM EDT
[2017-07-07] MEDS ORDERED: ROSU40 PO (12:22)
[2017-07-07] MEDS ORDERED: HORI600T PO (12:22)
[2017-07-07] MEDS ORDERED: IPRA0.06 EACH NARE (12:22)
[2017-07-07] MEDS ORDERED: ALPH300C PO (12:22)
[2017-07-07] MEDS ORDERED: SITA1TAB2 PO (12:22)
[2017-07-07] MEDS ORDERED: CYCL7.5E EACH EYE (12:22)
[2017-07-07 12:25] LABS: ALBUMIN 3.6 GM/DL (3.4-5.0); ALT (GPT) 15 U/L (12-78); AST (GOT) 11 U/L (15-37); BICARBONATE 27.1 MEQ/L (21.0-32.0); BLOOD UREA NITROGEN 15 MG/DL (7-18); CALCIUM 8.8 MG/DL (8.5-10.1); CHLORIDE 103 MEQ/L (98-107); CREATININE 1.28 MG/DL (0.60-1.30); GLOMERULAR FILTRATION RATE 54 ML/MIN (>89); GLUCOSE,RANDOM 116 MG/DL (74-106); MAGNESIUM 2.1 MG/DL (1.5-2.5); SODIUM (NA) 140 MEQ/L (136-145)
[2017-07-07 12:28] LABS: ALKALINE PHOSPHATASE 113 U/L (45-117); TOTAL BILIRUBIN ADULT 0.4 MG/DL (0.2-1.0); TOTAL PROTEIN 7.8 GM/DL (6.4-8.2); TROPONIN I LESS THAN 0.02 NG/ML (0.02-0.05)
[2017-07-07] MEDS ORDERED: methylPREDNISolone SOD SUCC 125 MG/2 ML VIAL IV PUSH ONE (12:45)
[2017-07-07] MEDS: RESP: ALBUTEROL 2.5 MG/IPRATROPIUM 0.5 MG NEB (SCH) INH (12:51)
--- NOTE | 2017-07-07 12:51 | PD ---
Physical Exam Narrative I, Dr. Jim, have reviewed the advance practice practitioner's documentation and am in agreement, met with the patient face to face, made the diagnosis, and the medical decision making was done by me. *My assessment and Findings: COPD exacerbation vs. acute on chronic CHF exacerbation vs. Pneumonia vs. anxiety 77yo M with CHF, COPD, Lewy Body dementia here with sob for 2 days. Labs reviewed, no leukocytosis. H/H normal. Troponin negative. BNP mildly elevated at 321. CXR negative. Pt was initially very shaky and hyperventilating and feels much better after given ativan. Pt said he is no longer sob. He was also given duonebs and methylprednisolone because he has COPD. Clinically, seemed more like anxiety. Pt is well appearing and will be able to bring him back if symptoms return. Data Data Last Documented VS Vital Signs Date Time Temp Pulse Resp B/P (MAP) Pulse Ox O2 Delivery O2 Flow Rate FiO2 07/07/17 14:51 07/07/17 14:06 74 22 97 Nasal Cannula 3.00 07/07/17 11:25 98.3 Orders Orders Electrocardiogram (07/07/17 11:42) Complete Blood Count With Diff (07/07/17 11:42) Comprehensive Metabolic Panel (07/07/17 11:42) Ckmb (Isoenzyme) Profile (07/07/17 11:42) Troponin I (07/07/17 11:42) B-Type Natriuretic Peptide (07/07/17 11:42) Prothrombin Time / Inr (Pt) (07/07/17 11:42) Act Partial Throm Time (Ptt) (07/07/17 11:42) Magnesium (Mg) (07/07/17 11:42) Chest, Single Ap (07/07/17 11:42) Iv Access Insert/Monitor (07/07/17 11:42) Ecg Monitoring (07/07/17 11:42) Oximetry (07/07/17 11:42) Lorazepam Inj (Ativan Inj) (07/07/17 11:45) Albuterol-Ipratropium Neb (Duoneb Neb) (07/07/17 11:45) Arterial Blood Gas (Abg) (07/07/17 12:41) Methylprednisolone So Succ Inj (Solumedr (07/07/17 12:45) Albuterol-Ipratropium Neb (Duoneb Neb) (07/07/17 12:45) Ed Discharge Order (07/07/17 14:10) Labs Laboratory Tests Test 07/07/17 11:50 07/07/17 12:45 White Blood Count 6.8 TH/MM3 Red Blood Count 4.80 MIL/MM3 Hemoglobin 13.7 GM/DL Hematocrit 40.1 % Mean Corpuscular Volume 83.4 FL Mean Corpuscular Hemoglobin 28.5 PG Mean Corpuscular Hemoglobin Concent 34.2 % Red Cell Distribution Width 17.7 % Platelet Count 223 TH/MM3 Mean Platelet Volume 7.8 FL Neutrophils (%) (Auto) 77.6 % Lymphocytes (%) (Auto) 17.0 % Monocytes (%) (Auto) 3.2 % Eosinophils (%) (Auto) 1.2 % Basophils (%) (Auto) 1.0 % Neutrophils # (Auto) 5.3 TH/MM3 Lymphocytes # (Auto) 1.2 TH/MM3 Monocytes # (Auto) 0.2 TH/MM3 Eosinophils # (Auto) 0.1 TH/MM3 Basophils # (Auto) 0.1 TH/MM3 CBC Comment DIFF FINAL Differential Comment Prothrombin Time 10.8 SEC Prothromb Time International Ratio 1.1 RATIO Activated Partial Thromboplast Time 25.7 SEC Blood Urea Nitrogen 15 MG/DL Creatinine 1.28 MG/DL Random Glucose 116 MG/DL Total Protein 7.8 GM/DL Albumin 3.6 GM/DL Calcium Level 8.8 MG/DL Magnesium Level 2.1 MG/DL Alkaline Phosphatase 113 U/L Aspartate Amino Transf (AST/SGOT) 11 U/L Alanine Aminotransferase (ALT/SGPT) 15 U/L Total Bilirubin 0.4 MG/DL Sodium Level 140 MEQ/L Potassium Level 3.8 MEQ/L Chloride Level 103 MEQ/L Carbon Dioxide Level 27.1 MEQ/L Anion Gap 10 MEQ/L Estimat Glomerular Filtration Rate 54 ML/MIN Total Creatine Kinase 58 U/L Troponin I LESS THAN 0.02 NG/ML B-Type Natriuretic Peptide 321 PG/ML Blood Gas Puncture Site RT RADIAL Blood Gas Patient Temperature 98.6 Blood Gas HCO3 24 mmol/L Blood Gas Base Excess 1.9 mmol/L Blood Gas Oxygen Saturation 96 % Arterial Blood pH 7.57 Arterial Blood Partial Pressure CO2 26 mmHg Arterial Blood Partial Pressure O2 77 mmHG Arterial Blood Oxygen Content 17.6 Vol % Arterial Blood Carboxyhemoglobin 1.7 % Arterial Blood Methemoglobin 0.5 % Blood Gas Hemoglobin 13.1 G/DL Oxygen Delivery Device NASAL CANNULA Blood Gas Liter Flow 2 L/M [facility] Supervised Visit with ALEX: Yes Diagnosis Primary Impression: Anxiety Scripts Clonazepam (Clonazepam) 1 Mg Tab 1 MG PO BID Y for ANXIETY, #12 TAB 0 Refills Prov: Xochitl Jim DO 07/07/17 Prednisone (Prednisone) 20 Mg Tab 20 MG PO BID for 5 Days, #10 TAB 0 Refills Prov: Xochitl Jim DO 07/07/17 Xochitl Jim DO Jul 07, 2017 12:51
[2017-07-07 14:06] VITALS: BP 123/61; PULSE 74; RESP 22; O2SAT 97
[2017-07-07] MEDS ORDERED: PRED20 PO (14:08)
[2017-07-07] MEDS ORDERED: CLON1TAB PO (14:08)
--- NOTE | 2017-07-08 17:29 | EKG ---
Date Performed: 07/07/2017 Time Performed: 12:56:12 PTAGE: 77 years EKG: Sinus rhythm WITH SHORT WA INTERVAL PROBABLE INFERIOR MYOCARDIAL INFARCTION MINOR NONSPECIFIC ST-T CHANGE Since t he previous tracing, WA interval is slightly shorter. The ST-T changes are unchanged. PVCs no longer present. ABNORMAL ECG PREVIOUS TRACING : 05/26/17 @ 2215 DOCTOR: Wayne Brown Interpretating Date/Time 07/08/2017 17:28:10
== END 2017-07-07 15:31 | disposition home or self-care (01) ==
LOC: NEPC 11:18
DX: J44.1 Chronic obstructive pulmonary disease with (acute) exacerbation (principal); F41.9 Anxiety disorder, unspecified; R94.31 Abnormal electrocardiogram [ECG] [EKG]; I50.9 Heart failure, unspecified; F02.80 Dementia in other diseases classified elsewhere, unspecified severity, without behavioral disturbance, psychotic disturbance, mood disturbance, and anxiety; E78.00 Pure hypercholesterolemia, unspecified; E11.9 Type 2 diabetes mellitus without complications; E03.9 Hypothyroidism, unspecified; F32.9 Major depressive disorder, single episode, unspecified; Z86.73 Personal history of transient ischemic attack (TIA), and cerebral infarction without residual deficits; Z95.1 Presence of aortocoronary bypass graft; Z95.5 Presence of coronary angioplasty implant and graft; Z99.81 Dependence on supplemental oxygen; Z88.0 Allergy status to penicillin; Z88.8 Allergy status to other drugs, medicaments and biological substances; Z79.02 Long term (current) use of antithrombotics/antiplatelets; Z79.899 Other long term (current) drug therapy
CPT/HCPCS: 36600; 71045; 80053; 82550; 82805; 83735; 83880; 84484; 85025; 85610; 85730; 93005; 94640; 94664; 96374; 96375; 99285; J2060; J2930